=== PATIENT | male | born 1950 | race Caucasian/White ===

== ENCOUNTER → 2017-07-30 | Day surgery (SDC) | payer MEDICARE ==
[~2017-07-30] VITALS: Ht 180.3 cm; Wt 161.5 kg
[~2017-07-30] MED LIST: ASPI-586 PO; ATOR40TA PO; BLOO-1483 MC; BLOO-367 MC; BLOO1EAC87 MC; CARB-88 PO; CELE400C10 PO; CLOP75TA28 PO; GABA100C PO; INSU100I10 SQ; INSU100I14 SQ; INSU200I SQ; LIDOCAINE 1% INJ 50 ML (XYLOCAINE) VIAL ONE; LISI-556 PO; METF750T2 PO; METO-395 PO; NEED-116 MC; NITR0.4T42 SL; TOPI100T11 PO; TRAZ100T92 PO; ZONI100C3 PO
[2017-07-30 08:47] VITALS: BP 139/50
--- NOTE | 2017-07-30 10:12 | Cardiac Procedure Note-CS/ASA ---
Pre-Procedure Note Pre-Op Procedure Note H&P Reviewed The H&P was reviewed, patient examined and no changes noted. Date H&P Reviewed: Jul 30, 2017 Time H&P Reviewed: 10:00 Conscious Sedation Pre-Proced Time Reviewed: 10:00 ASA Class: 3 Airway Mallampati Classification: ([place] appropriate class) I. II. III, IV Lungs Heart ASA score ASA 1: a normal healthy patient ASA 2: a patient with a mild systemic disease (mid diabetes, controlled hypertension, obesity ASA 3: a patient with a severe systemic disease that limits activity (angina , COPD, prior Myocardial infarction) ASA 4: a patient with an incapacitating disease that is a constant threat to life (CHF, renal failure) ASA 5: a moribund patient not expected to survive 24 hrs. (ruptured aneurysm) ASA 6: a declared brain patient whose organs are being harvested. For emergent operations, add the letter E after the classification Grade 3 Sedation Plan: Analgesia, Amnesia, Plan communicated to team members, Discussed options with patient/fam, Discussed risks with patient/fam Note The patient is an appropriate candidate to undergo the planned procedure, sedation, and anesthesia. The patient immediately re-assessed prior to indication. DARBY GODDARD MD FACP FAC CCDS Jul 30, 2017 10:12
--- NOTE | 2017-07-30 14:43 | OPERATIVE REPORT ---
DATE OF SERVICE: 07/30/2017 DESCRIPTION OF THE PROCEDURE: The patient is a 66-year-old man who has been having palpitations that are infrequent. Implantable loop recorder implantation was carried out today for evaluation, diagnosis, and appropriate treatment of his palpitations. An informed consent was obtained. [facility] The left prepectoral area was prepared and draped in usual sterile fashion. Lidocaine 1% with local anesthesia. The device was implanted in the left prepectoral area and the 4th intercostal space. We used the Wipster Reveal LINQ device. The serial number of the device used is [id number]. We used the tool provided with the device to make a small incision to the left of the sternum in the fourth intercostal space and implanted the device in the subcutaneous space. Dermabond was used to oppose the skin edges. He tolerated the procedure well. Job ID: [id number] DocumentID: [id number] Dictated Date: 07/30/2017 10:07:25 Aircraft Engine Dismantler Date: 07/30/2017 14:43:02 Dictated By: DARBY GODDARD MD, MA, FACP, FACC,
== END | disposition home or self-care (01) ==
LOC: CATH 08:22
PROVIDERS: ATTEND Nurse Practitioner Family
DX: R00.2 Palpitations (principal); I25.10 Atherosclerotic heart disease of native coronary artery without angina pectoris; I10 Essential (primary) hypertension; E11.9 Type 2 diabetes mellitus without complications; G47.33 Obstructive sleep apnea (adult) (pediatric); E66.01 Morbid (severe) obesity due to excess calories; Z68.42 Body mass index [BMI] 45.0-49.9, adult; Z79.4 Long term (current) use of insulin; Z79.82 Long term (current) use of aspirin; Z79.899 Other long term (current) drug therapy; Z87.891 Personal history of nicotine dependence
CPT/HCPCS: 33282

== ENCOUNTER 2017-09-12 19:58 | Outpatient (CLI) | payer MEDICARE ==
[~2017-09-12 19:58] MED LIST changes: -LIDOCAINE 1% INJ 50 ML (XYLOCAINE) VIAL ONE
== END 2017-09-13 05:55 | disposition home or self-care (01) ==
LOC: SLEEP 19:58
PROVIDERS: ATTEND Nurse Practitioner Family
DX: G47.33 Obstructive sleep apnea (adult) (pediatric) (principal); R56.9 Unspecified convulsions; Z72.820 Sleep deprivation
CPT/HCPCS: 95811

== ENCOUNTER 2017-12-09 19:20 | Emergency (ER) | payer MEDICARE ==
[~2017-12-09] VITALS: Ht 180.3 cm; Wt 161.5 kg
[~2017-12-09 19:20] MED LIST changes: +TRAZ-190 PO; -TRAZ100T92 PO
[2017-12-09 19:41] LABS: BASOPHILS % (AUTO) 0 % (0-10); EOSINOPHILS # (AUTO) 0.2 10^3/uL (0.0-0.3); EOSINOPHILS % (AUTO) 2 % (0-10); HEMATOCRIT 42 % (40-54); HEMOGLOBIN 13.6 G/DL (13.3-17.7); LYMPHOCYTES # (AUTO) 2.5 X 10^3 (1.0-4.0); LYMPHOCYTES % (AUTO) 24 % (12-44); MEAN CORPUSCULAR HEMOGLOBIN 29 PG (25-34); MEAN CORPUSCULAR HGB CONC 33 G/DL (32-36); MEAN CORPUSCULAR VOLUME 88 FL (80-99); MEAN PLATELET VOLUME 9.5 FL (7.4-10.4); MONOCYTES % (AUTO) 9 % (0-12); NEUTROPHILS # (AUTO) 6.7 X 10^3 (1.8-7.8); NEUTROPHILS % (AUTO) 64 % (42-75); PLATELET COUNT 283 10^3/uL (130-400); RED BLOOD COUNT 4.71 10^6/uL (4.35-5.85); RED CELL DISTRIBUTION WIDTH 13.8 % (10.0-14.5); WHITE BLOOD COUNT 10.3 10^3/uL (4.3-11.0)
[2017-12-09] MEDS ORDERED: TETANUS,DIPTH,PERTUSS P/F (BOOSTRIX) 0.5 ML VIAL IM ONE (19:45)
[2017-12-09 20:00] LABS: ALBUMIN 4.3 GM/DL (3.2-4.5); BILIRUBIN,TOTAL 0.4 MG/DL (0.1-1.0); CALCIUM 9.5 MG/DL (8.5-10.1); CREATININE SERUM 1.71 MG/DL (0.60-1.30); POTASSIUM 4.4 MMOL/L (3.6-5.0); TOTAL PROTEIN 7.4 GM/DL (6.4-8.2)
--- NOTE | 2017-12-09 20:08 | ED General ---
General Chief Complaint: Lower Extremity Stated Complaint: L LEG PAIN/SWELLING/REDNESS Nursing Triage Note: C/O L lower leg pain, redness and swelling x 2 - 3 weeks Nursing Sepsis Screen: No Definite Risk Source of Information: Patient Exam Limitations: No Limitations History of Present Illness Date Seen by Provider: Dec 09, 2017 Time Seen by Provider: 19:25 Initial Comments This 67-year-old gentleman presents to the emergency room with 2-3 weeks of left lower leg pain, swelling, and edema. He had a couple of days of improvement but it has now worsened again. Temperature on arrival is 100.0. He also has an injury to the anterior left lower leg caused by a rock striking his bryson today. The other symptoms were present prior to this injury. Patient is a diabetic. Allergies and Home Medications Allergies Coded Allergies: No Known Drug Allergies (Unverified , 07/19/17) Home Medications Apixaban 5 Mg Tab.ds.pk, 5 MG PO UD 10 mg twice daily for 7 days, then 5 mg twice daily. Fill either Eliquis or Xarelto but not both. Prescribed by: RAYMUNDO SEE on 12/09/172158 Aspirin 81 Mg Tablet.dr, 81 MG PO DAILY Prescribed by: MOLLY SANCHEZ on 07/21/17 124 Atorvastatin Calcium 40 Mg Tablet, 40 MG PO HS Prescribed by: MOLLY SANCHEZ on 07/21/171239 Carbamazepine 200 Mg Tab.er.12h, 400 MG PO BID TAKES 2 (200 MG) TABLETS Prescribed by: MOLLY SANCHEZ on 07/21/17 124 Celecoxib 400 Mg Capsule, 400 MG PO DAILY Prescribed by: MOLLY SANCHEZ on 07/21/171239 Cephalexin 500 Mg Capsule, 500 MG PO TID Prescribed by: RAYMUNDO SEE on 12/09/172158 Clopidogrel Bisulfate 75 Mg Tablet, 75 MG PO DAILY Prescribed by: MOLLY SANCHEZ on 07/21/17 124 Gabapentin 100 Mg Capsule, 100 MG PO TID Prescribed by: MOLLY SANCHEZ on 07/21/17 124 Insulin Aspart 300 Units/3 Ml Solution, 40 UNITS SQ AC Prescribed by: MOLLY SANCHEZ on 07/21/17 1240 Insulin Glargine,Hum.rec.anlog 100 Unit/1 Ml Insuln.pen, 40 UNIT SQ HS Prescribed by: MOLLY SANCHEZ on 07/21/171239 Lisinopril 5 Mg Tablet, 5 MG PO DAILY@0900 Prescribed by: MOLLY SANCHEZ on 07/21/17 124 Metoprolol Succinate 100 Mg Tab.er.24h, 100 MG PO DAILY Prescribed by: MOLLY SANCHEZ on 07/21/171239 Nitroglycerin 0.4 Mg Tab.subl, 0.4 MG SL PRN PRN for CHEST PAIN, (Reported) Oxycodone HCl/Acetaminophen 1 Each Tablet, 1 EACH PO Q4H PRN for PAIN-MODERATE TO SEVERE Prescribed by: RAYMUNDO SEE on 12/09/172158 Rivaroxaban 1 Each Tab.ds.pk, 1 EACH PO UD 15mg by mouth twice daily x 21 days then 20mg by mouth daily. Fill either Xarelto or Eliquis but not both. Prescribed by: RAYMUNDO SEE on 12/09/172158 Topiramate 100 Mg Tablet, 100 MG PO BID Prescribed by: MOLLY SANCHEZ on 07/21/171239 Trazodone HCl 100 Mg Tablet, 200 MG PO HS Prescribed by: MOLLY SANCHEZ on 07/21/171239 Zonisamide 100 Mg Capsule, 300 MG PO DAILY TAKES 3 (100 MG) CAPSULES Prescribed by: MOLLY SANCHEZ on 07/21/171239 Patient Home Medication List Home Medication List Reviewed: Yes Review of Systems Constitutional: no symptoms reported EENTM: no symptoms reported Respiratory: no symptoms reported Cardiovascular: no symptoms reported Gastrointestinal: no symptoms reported Genitourinary: no symptoms reported Musculoskeletal: see HPI Skin: see HPI Psychiatric/Neurological: No Symptoms Reported Hematologic/Lymphatic: No Symptoms Reported Immunological/Allergic: no symptoms reported Past Rapwoep-Ppcmde-Fceboa Hx Past Med/Social Hx: Reviewed and Corrections made Patient Social History Alcohol Use: Denies Use Recreational Drug Use: No Smoking Status: Never a Smoker Recent Foreign Travel: No Contact w/Someone Who Travel: No Recent Infectious Disease Expo: No Recent Hopitalizations: No Immunizations Up To Date Tetanus Booster (TDap): Unknown Seasonal Allergies Seasonal Allergies: No Past Medical History Surgeries: Yes (lap band, L HIP, BILAT KNEE) Abdominal, Orthopedic Respiratory: Yes Sleep Apnea Currently Using CPAP: Yes Cardiac: Yes High Cholesterol, Hypertension Neurological: Yes Neuropathy, Stroke Genitourinary: No Gastrointestinal: Yes Gastroesophageal Reflux Musculoskeletal: Yes Arthritis Endocrine: Yes Diabetes, Insulin dep HEENT: No Cancer: No Psychosocial: No Integumentary: Yes Blood Disorders: No Physical Exam Vital Signs Vital Signs - First Documented 12/09/17 19:26 Temp 100.0 Pulse 77 Resp 18 B/P (MAP) 161/91 (114) Pulse Ox 97 Capillary Refill : Less Than 3 Seconds Height, Weight, BMI Height: 5'11.00" Weight: 356lbs. 0.0oz. 161.036945ks; 49.7 BMI Method:Stated General Appearance: No Apparent Distress, WD/WN, Obese HEENT: PERRL/EOMI, Normal ENT Inspection Neck: Normal Inspection Respiratory: Lungs Clear, Normal Breath Sounds, No Accessory Muscle Use, No Respiratory Distress Cardiovascular: Regular Rate, Rhythm, Normal Peripheral Pulses, Systolic Murmur , Other (bilateral lower extremity edema, left greater than right) Gastrointestinal: Normal Bowel Sounds, Non Tender, Soft Extremity: Normal Capillary Refill, Other (there is mild lower extremity edema bilaterally, left greater than right. Left lower leg is slightly warm with blanching erythema. Pedal pulse is strong and capillary refill is brisk. There is a scabbed wound on the anterior surface of the left lower leg) Neurologic/Psychiatric: Alert, Oriented x3, No Motor/Sensory Deficits, Normal Mood/Affect, shells inspector II-XII Norm as Tested Skin: Warm/Dry, Erythema, Other (skin tears on the left upper extremity and on the lower left leg) Progress/Results/Core Measures Suspected Sepsis Recent Fever Within 48 Hours: No Infection Criteria Present: None New/Unexplained Altered Menta: No Sepsis Screen: No Definite Risk SIRS Temperature:100.0 Pulse: 77 Respiratory Rate: 18 Laboratory Tests 12/09/17 19:30: White Blood Count 10.3 Blood Pressure 161 /91 Mean: 114 Laboratory Tests 12/09/17 19:30: Creatinine 1.71H, Platelet Count 283, Total Bilirubin 0.4 Results/Orders Lab Results Laboratory Tests Test 12/09/17 19:30 Range/Units White Blood Count 10.3 4.3-11.0 10^3/uL Red Blood Count 4.71 4.35-5.85 10^6/uL Hemoglobin 13.6 13.3-17.7 G/DL Hematocrit 42 40-54 % Mean Corpuscular Volume 88 80-99 FL Mean Corpuscular Hemoglobin 29 25-34 PG Mean Corpuscular Hemoglobin Concent 33 32-36 G/DL Red Cell Distribution Width 13.8 10.0-14.5 % Platelet Count 283 130-400 10^3/uL Mean Platelet Volume 9.5 7.4-10.4 FL Neutrophils (%) (Auto) 64 42-75 % Lymphocytes (%) (Auto) 24 12-44 % Monocytes (%) (Auto) 9 0-12 % Eosinophils (%) (Auto) 2 0-10 % Basophils (%) (Auto) 0 0-10 % Neutrophils # (Auto) 6.7 1.8-7.8 X 10^3 Lymphocytes # (Auto) 2.5 1.0-4.0 X 10^3 Monocytes # (Auto) 1.0 0.0-1.0 X 10^3 Eosinophils # (Auto) 0.2 0.0-0.3 10^3/uL Basophils # (Auto) 0.0 0.0-0.1 10^3/uL D-Dimer 1.57 H 0.00-0.49 UG/ML Sodium Level 141 135-145 MMOL/L Potassium Level 4.4 3.6-5.0 MMOL/L Chloride Level 111 H 98-107 MMOL/L Carbon Dioxide Level 21 21-32 MMOL/L Anion Gap 9 5-14 MMOL/L Blood Urea Nitrogen 26 H 7-18 MG/DL Creatinine 1.71 H 0.60-1.30 MG/DL Estimat Glomerular Filtration Rate 40 BUN/Creatinine Ratio 15 Glucose Level 95 70-105 MG/DL Calcium Level 9.5 8.5-10.1 MG/DL Total Bilirubin 0.4 0.1-1.0 MG/DL Aspartate Amino Transf (AST/SGOT) 24 5-34 U/L Alanine Aminotransferase (ALT/SGPT) 18 0-55 U/L Alkaline Phosphatase 71 40-136 U/L C-Reactive Protein High Sensitivity 1.87 H 0.00-0.50 MG/DL Total Protein 7.4 6.4-8.2 GM/DL Albumin 4.3 3.2-4.5 GM/DL My Orders Orders - RAYMUNDO NAPIER MD Cbc With Automated Diff (12/09/17 19:31) Comprehensive Metabolic Panel (12/09/17 19:31) Hs C Reactive Protein (12/09/17 19:31) Fibrin Degradation Products (12/09/17 19:31) Saline Lock/Iv-Start (12/09/17 19:31) Dipht,Pertuss(Acell),Tet Adult (Boostrix (12/09/17 19:45) Us Venous Lower Ext Lt (12/09/17 20:01) Fentanyl Injection (Sublimaze Injection (12/09/17 20:15) Hydrocodone/Apap 5/325 Tablet (Lortab 5 (12/09/17 20:15) Apixaban Tablet (Eliquis Tablet) (12/09/17 21:45) Cephalexin Capsule (Keflex Capsule) (12/09/17 21:45) Ns Iv 500 Ml (Sodium Chloride 0.9%) (12/09/17 21:43) Medications Given in ED Vital Signs/I&O Capillary Refill : Less Than 3 Seconds Blood Pressure Mean: 114 Progress Note #1: Time: 20:07 Progress Note Patient has requested something for pain. Fentanyl and hydrocodone will be given. Patient's d-dimer returned significantly elevated. CRP and WBC were unremarkable. Left lower extremity ultrasound has been ordered to further evaluate for DVT. Progress Note #2: Progress Note Ultrasound was discussed with the opto mechanical technician who believed there to be DVT in the left leg. However, the radiologist was uncertain of DVT presence. Given the patient's clinical presentation, I believe he truly does have a DVT. Patient was started on Eliquis in the ER. He was provided with printed prescriptions for both Eliquis and Xarelto so that he could obtain the prescription that would be most cost effective for him. Patient was concerned about his ability to afford the medications. We also spoke extensively about risks and benefits of anticoagulation in the context of his seizure disorder and frequent falls. He can discuss this further with his primary care provider. For now, I advised that he use anticoagulation and exercise extreme caution with his activities. Patient was given a Boostrix tetanus booster because of his skin tears. He was also provided with a prescription for Keflex due to his diabetes and edema concurrent with his skin wounds. Patient is aware of his renal failure. He was offered IV fluids but declined because he is drinking well and his urine is light in color. Diagnostic Imaging Diagonstic Imaging: Ultrasound Plain Films/CT/US/NM/MRI: leg Comments NAME: JESICA CHILDS [facility] REC#: [id number] PT STATUS: DEP ER : 1950 PHYSICIAN: RAYMUNDO NAPIER MD ADMIT DATE: 12/09/17/ER Signed Date of Exam: 12/09/17 US VENOUS LOWER EXT LT PROCEDURE: US left lower extremity venous. TECHNIQUE: Multiple real-time grayscale images were obtained over the left lower extremity in various projections. Additional duplex Doppler and color Doppler images were also obtained. INDICATION: Left lower extremity swelling and pain. FINDINGS: There is poor visualization of the mid and distal left superficial femoral vein. DVT is not fully excluded. The detail is limited due to patient body habitus. The remainder of the visualized deep and superficial venous system is patent. IMPRESSION: No obvious DVT identified. However, there is poor visualization of the left mid, distal superficial femoral vein. No obvious clot formation is present. Followup examination is recommended. Dictated by: Dictated on workstation # [id number] Dict: 12/09/172115 Trans: 12/09/172120 Interpreted by: DAR BARRON Electronically signed by: DAR BARRON 12/09/172120 ADDENDUM REPORT ADDENDUM / IMPRESSION: Additional review of the images provided demonstrate Doppler flow in the femoral artery. However, the adjacent flow demonstrates no color Doppler flow. This may represent a DVT. Followup recommended Dictated by: Dictated on workstation # [id number] Interpreted by: DAR BARRON Electronically signed by:DAR BARRON 12/10/17 190 Departure Impression Primary Impression: Left leg DVT Qualified Codes: I82.412 - Acute embolism and thrombosis of left femoral vein Additional Impressions: Left leg pain Renal insufficiency Skin tear Disposition: 01 HOME, SELF-CARE Condition: Improved Departure-Patient Inst. Decision time for Depature: 21:40 Referrals: MOLLY SANCHEZ DO (PCP/Family) Primary Care Physician Patient Instructions: Deep Vein Thrombosis (Blood Clots in the Legs) (DC) Add. Discharge Instructions: Start either Eliquis or Xarelto tomorrow morning. Avoid use of Celebrex (celecoxib) or other NSAID medications such as ibuprofen, naproxen, Aleve, etc. while on blood thinner medications. You may use hydrocodone up to 2 tablets every 4 hours as needed or change management consultant to Percocet as prescribed for control of your pain. Elevate your leg close to the level of your heart is much as possible to avoid swelling. Complete your antibiotics as prescribed. Follow-up with your primary care provider soon as possible. Please call the morning to schedule an appointment. Please have your primary care provider follow your kidney function closely and continue to drink plenty of water. All discharge instructions reviewed with patient and/or family. Voiced understanding. Scripts Oxycodone HCl/Acetaminophen (Percocet 5-325 mg Tablet) 1 Each Tablet 1 EACH PO Q4H PRN for PAIN-MODERATE TO SEVERE, #20 TAB Prov: RAYMUNDO NAPIER MD 12/09/17 Cephalexin (Keflex) 500 Mg Capsule 500 MG PO TID, #20 CAP Prov: RAYMUNDO NAPIER MD 12/09/17 Rivaroxaban (Xarelto Starter Pack) 1 Each Tab.ds.pk 1 EACH PO UD, #51 PKG 15mg by mouth twice daily x 21 days then 20mg by mouth daily. Fill either Xarelto or Eliquis but not both. Prov: RAYMUNDO NAPIER MD 12/09/17 Apixaban (Eliquis) 5 Mg Tab.ds.pk 5 MG PO UD, #1 PKG 10 mg twice daily for 7 days, then 5 mg twice daily. Fill either Eliquis or Xarelto but not both. Prov: RAYMUNDO NAPIER MD 12/09/17 Copy Copies To 1: MOLLY SANCHEZ JOSHUA T MD Dec 09, 2017 20:08
[2017-12-09] MEDS ORDERED: fentaNYL INJECTION 100 MCG/2 ML AMP IVP ONE (20:15)
[2017-12-09] MEDS ORDERED: HYDROcodone/APAP 5 MG/325 MG (LORTAB) TAB PO ONE (20:15)
--- NOTE | 2017-12-09 21:22 | Diagnostic Imaging Report ---
PROCEDURE: US left lower extremity venous. TECHNIQUE: Multiple real-time grayscale images were obtained over the left lower extremity in various projections. Additional duplex Doppler and color Doppler images were also obtained. INDICATION: Left lower extremity swelling and pain. FINDINGS: There is poor visualization of the mid and distal left superficial femoral vein. DVT is not fully excluded. The detail is limited due to patient body habitus. The remainder of the visualized deep and superficial venous system is patent. IMPRESSION: No obvious DVT identified. However, there is poor visualization of the left mid, distal superficial femoral vein. No obvious clot formation is present. Followup examination is recommended. Dictated by: Dictated on workstation # [id number]
[2017-12-09] MEDS ORDERED: NS IV 500 ML 500 ML IV ONE (21:43)
[2017-12-09] MEDS ORDERED: CEPHALEXIN 250 MG (KEFLEX) CAP PO ONE (21:45)
[2017-12-09] MEDS ORDERED: APIXABAN 5 MG (ELIQUIS) TABLET PO ONE (21:45)
[2017-12-09] MEDS ORDERED: OXYC-197 PO (21:59)
[2017-12-09] MEDS ORDERED: APIX5TAB4 PO (21:59)
[2017-12-09] MEDS ORDERED: RIVA1TAB PO (21:59)
[2017-12-09] MEDS ORDERED: CEPH-507 PO (21:59)
[2017-12-09 22:05] VITALS: BP 161/91
== END 2017-12-09 22:06 | disposition home or self-care (01) ==
LOC: EDUNIT# 19:20 → ER 19:21
DX: S81.812A Laceration without foreign body, left lower leg, initial encounter (principal); I82.402 Acute embolism and thrombosis of unspecified deep veins of left lower extremity; N28.9 Disorder of kidney and ureter, unspecified; E11.42 Type 2 diabetes mellitus with diabetic polyneuropathy; K21.9 Gastro-esophageal reflux disease without esophagitis; G47.30 Sleep apnea, unspecified; Z86.73 Personal history of transient ischemic attack (TIA), and cerebral infarction without residual deficits; Z23 Encounter for immunization; Z79.4 Long term (current) use of insulin; Z96.653 Presence of artificial knee joint, bilateral; Z96.642 Presence of left artificial hip joint; Z98.84 Bariatric surgery status; Z79.01 Long term (current) use of anticoagulants; Z79.82 Long term (current) use of aspirin; Z79.02 Long term (current) use of antithrombotics/antiplatelets; W22.8XXA Striking against or struck by other objects, initial encounter
CPT/HCPCS: 36415; 80053; 85025; 85379; 86141; 90471; 90715; 96374

== ENCOUNTER 2018-01-31 15:19 | Inpatient (IN) | payer MEDICARE ==
[~2018-01-31] VITALS: Ht 180.3 cm; Wt 150.1 kg
[~2018-01-31 15:19] MED LIST changes: +APIX5TAB4 PO; +CEPH-507 PO; +OXYC1TAB87 PO; +RIVA1TAB PO
[2018-01-31] MEDS ORDERED: DEXTROSE 50% 50 ML (IMS) SYR ONE ×2 (15:20→16:04)
--- NOTE | 2018-01-31 15:40 | Diagnostic Imaging Report ---
CLINICAL INDICATION: Patient with stroke. EXAM: Portable chest x-ray upright view. COMPARISONS: Chest x-ray dated 07/19/2017. FINDINGS: Lungs/pleura: Lungs are clear. There is no pneumothorax. There is no pleural effusion. Mediastinum: Unremarkable. Pulmonary vasculature: Unremarkable. Heart: Cardiac silhouette is mildly enlarged, stable. There is interval placement of a loop recorder overlying the left chest region. Bones/extrathoracic soft tissue: Unremarkable. IMPRESSION: 1: There is no interval radiographic evidence of acute cardiopulmonary process. 2: Stable cardiomegaly with no significant pulmonary vascular congestion. Dictated by: Dictated on workstation # [id number]
--- NOTE | 2018-01-31 15:40 | Diagnostic Imaging Report ---
INDICATION: Stroke. Axial imaging through the brain was performed without contrast. No prior studies are available for comparison. Ventricles and sulci are within normal limits. No sulcal effacement, midline shift or hemorrhage is detected. Cisterns are patent. Visualized paranasal sinuses are clear. IMPRESSION: No acute intracranial process is detected. Results were called to the emergency department prior to this dictation. Dictated by: Dictated on workstation # [id number]
[2018-01-31 15:51] LABS: BASOPHILS % (AUTO) 0 % (0-10); EOSINOPHILS % (AUTO) 0 % (0-10); HEMATOCRIT 44 % (40-54); HEMOGLOBIN 14.7 G/DL (13.3-17.7); LYMPHOCYTES # (AUTO) 0.5 X 10^3 (1.0-4.0); LYMPHOCYTES % (AUTO) 4 % (12-44); MEAN CORPUSCULAR HEMOGLOBIN 30 PG (25-34); MEAN CORPUSCULAR HGB CONC 34 G/DL (32-36); MEAN CORPUSCULAR VOLUME 88 FL (80-99); MEAN PLATELET VOLUME 9.9 FL (7.4-10.4); MONOCYTES # (AUTO) 0.8 X 10^3 (0.0-1.0); MONOCYTES % (AUTO) 6 % (0-12); NEUTROPHILS # (AUTO) 11.6 X 10^3 (1.8-7.8); NEUTROPHILS % (AUTO) 90 % (42-75); PLATELET COUNT 230 10^3/uL (130-400); RED BLOOD COUNT 4.97 10^6/uL (4.35-5.85); RED CELL DISTRIBUTION WIDTH 13.6 % (10.0-14.5); WHITE BLOOD COUNT 12.9 10^3/uL (4.3-11.0)
[2018-01-31 16:10] LABS: ALANINE AMINOTRANSFERASE 18 U/L (0-55); ALBUMIN 4.2 GM/DL (3.2-4.5); ALKALINE PHOSPHATASE 62 U/L (40-136); BILIRUBIN,TOTAL 0.2 MG/DL (0.1-1.0); BUN/CREATININE RATIO 13; CALCIUM 9.3 MG/DL (8.5-10.1); CARBON DIOXIDE 18 MMOL/L (21-32); CHLORIDE 107 MMOL/L (98-107); CREATININE SERUM 1.35 MG/DL (0.60-1.30); FIBRIN DEGRADATION PRODUCTS 1.25 UG/ML (0.00-0.49); GFR ESTIMATED 53; GLUCOSE 108 MG/DL (70-105); INR 1.2 (0.8-1.4); POTASSIUM 3.6 MMOL/L (3.6-5.0); PROTHROMBIN TIME PATIENT 14.7 SEC (12.2-14.7); SODIUM 138 MMOL/L (135-145); TOTAL PROTEIN 7.4 GM/DL (6.4-8.2)
[2018-01-31] MEDS ORDERED: DEXTROSE 50% 50 ML (IMS) SYR IV ONE ×2 (16:15→17:45)
[2018-01-31 16:49] LABS: BILIRUBIN,URINE NEGATIVE (NEGATIVE); CLARITY,URINE CLEAR; COLOR,URINE YELLOW; GLUCOSE, URINE (UA) 2+ (NEGATIVE); KETONES,URINE NEGATIVE (NEGATIVE); LEUKOCYTE ESTERASE ,URINE 2+ (NEGATIVE); NITRITE,URINE NEGATIVE (NEGATIVE); PH,URINE 5 (5-9); PROTEIN,URINE NEGATIVE (NEGATIVE); UROBILINOGEN,URINE NORMAL (NORMAL)
[2018-01-31] MEDS ORDERED: NS IV 1000 ML 1,000 ML IV ONE (16:56)
[2018-01-31 16:57] LABS: BAND NEUTROPHILS 0 %; BASOPHILS % (MANUAL) 0 %; EOSINOPHILS % (MANUAL) 0 %; LYMPHOCYTES % (MANUAL) 6 %; MONOCYTES % (MANUAL) 3 %; NEUTROPHILS % (MANUAL) 91 %; RBC MORPH NORMAL
[2018-01-31] MEDS ORDERED: NS 250 ML (IVPB) BAG IV ONE (17:00)
[2018-01-31] MEDS ORDERED: IOHEXOL 350 MG/ML 100 ML (OMNIPAQUE 350) VIAL IV ONE (17:00)
[2018-01-31 17:14] LABS: BACTERIA,URINE NEGATIVE /HPF; WBC,URINE 0-2 /HPF
[2018-01-31] MEDS ORDERED: D5 1/2 NS 1000 ML IV SOLUTION 1,000 ML IV ONE (17:45)
--- NOTE | 2018-01-31 18:53 | Diagnostic Imaging Report ---
PROCEDURE: CT angiography of the head and CT angiography of the neck with and without contrast. TECHNIQUE: Contiguous noncontrast images were obtained from the skull base through the vertex. After intravenous contrast administration, helical CT angiography of the neck was performed. Source data was reformatted into multiple MIP projections. Delayed post contrast acquisition was also obtained. INDICATION: Stroke. COMPARISON: CT head without contrast from earlier today. FINDINGS: Noncontrast head CT was not repeated. There remains no evidence of territorial infarction on the postcontrast head CT. No gross intracranial hemorrhage. No hydrocephalus or extra-axial fluid collections. No abnormal intracranial enhancement. CTA demonstrates a conventional aortic arch. Calcified atherosclerotic disease results in approximately 50% narrowing of the right vertebral artery at the level of the foramen magnum. The basilar, left vertebral, internal carotid, anterior cerebral, middle cerebral and posterior cerebral arteries are widely patent without evidence of aneurysm or dissection. The dural venous sinuses are grossly patent. Moderate spondylotic changes in the cervical spine. Paravertebral soft tissues are otherwise unremarkable. The lung apices are clear. IMPRESSION: 1. No high-grade arterial narrowing, aneurysm or dissection involving the major arteries in the head and neck. 2. Focal calcified atherosclerotic disease in the right vertebral artery results in approximately 50% narrowing at the level of the foramen magnum. Dictated by: Dictated on workstation # [id number]
--- NOTE | 2018-01-31 20:24 | ED Neurological Problem ---
General Chief Complaint: Neuro-Stroke Like Symptoms Stated Complaint: APHASIA,L SIDED WEAKNESS,HYPOGLYCEMIA Nursing Triage Note: Pt arrives to the ED and is transferred to CT Scan. Per EMS, Pt is not able to speak. Lsided weakness present. Pt's last known well time is not known. Pt is A&OX4 but is unable to speak to this RN. Pt is able to blink eyes in response. Nursing Sepsis Screen: No Definite Risk Source: patient, EMS Exam Limitations: no limitations History of Present Illness Date Seen by Provider: Jan 31, 2018 Time Seen by Provider: 15:19 Initial Comments This 67-year-old gentleman presents to the emergency room with altered mental status, a phase eat, left-sided weakness, and hypoglycemia. Patient's reports he was in bed most of the morning. She had not seen him up and about since last night. She states it is unusual for him to stay in bed so much of the day. A grandson did note that the patient got out of bed, woke him up, and administered him medications around 09:00. The patient's found him in the bathroom at 14:00 making unusual noises. He was unable to talk and seemed to have difficulty understanding her. That is when she checked his blood sugars and called 911. Last known well time is considered 09:00. Blood sugars at home for family were 34 and 27. Patient's did give him some peanut butter and apple juice. Blood sugar was 47 for EMS upon their arrival. They did give an amp of D50 and repeat blood sugar was 175. Blood sugar on arrival to the emergency room was 121. Stroke activation was paged out promptly upon patient' s arrival and he was taken directly to CT scan. Patient has a history of prior stroke causing symptoms on the left side. Those symptoms have primarily resolved. Patient is normally fully ambulatory and conversant. EMS was paged out at 14:30. They noted left-sided weakness in the face and arm. Patient is anticoagulated on Eliquis. Dr. Sanchez is his primary care provider. Allergies and Home Medications Allergies Coded Allergies: No Known Drug Allergies (Unverified , 07/19/17) Home Medications Apixaban 5 Mg Tab.ds.pk, 5 MG PO UD 10 mg twice daily for 7 days, then 5 mg twice daily. Fill either Eliquis or Xarelto but not both. Prescribed by: RAYMUNDO SEE on 12/09/172158 Aspirin 81 Mg Tablet.dr, 81 MG PO DAILY Prescribed by: MOLLY SANCHEZ on 07/21/171239 Atorvastatin Calcium 40 Mg Tablet, 40 MG PO HS Prescribed by: MOLLY SANCHEZ on 07/21/171239 Carbamazepine 200 Mg Tab.er.12h, 400 MG PO BID TAKES 2 (200 MG) TABLETS Prescribed by: MOLLY SANCHEZ on 07/21/171239 Celecoxib 400 Mg Capsule, 400 MG PO DAILY Prescribed by: MOLLY SANCHEZ on 07/21/171239 Cephalexin 500 Mg Capsule, 500 MG PO TID Prescribed by: RAYMUNDO SEE on 12/09/172158 Clopidogrel Bisulfate 75 Mg Tablet, 75 MG PO DAILY Prescribed by: MOLLY SANCHEZ on 07/21/171239 Gabapentin 100 Mg Capsule, 100 MG PO TID Prescribed by: MOLLY SANCHEZ on 07/21/171239 Insulin Aspart 300 Units/3 Ml Solution, 40 UNITS SQ AC Prescribed by: MOLLY SANCHEZ on 07/21/171239 Insulin Glargine,Hum.rec.anlog 100 Unit/1 Ml Insuln.pen, 40 UNIT SQ HS Prescribed by: MOLLY SANCHEZ on 07/21/171239 Lisinopril 5 Mg Tablet, 5 MG PO DAILY@0900 Prescribed by: MOLLY SANCHEZ on 07/21/171239 Metoprolol Succinate 100 Mg Tab.er.24h, 100 MG PO DAILY Prescribed by: MOLLY SANCHEZ on 07/21/171239 Nitroglycerin 0.4 Mg Tab.subl, 0.4 MG SL PRN PRN for CHEST PAIN, (Reported) Oxycodone HCl/Acetaminophen 1 Each Tablet, 1 EACH PO Q4H PRN for PAIN-MODERATE TO SEVERE Prescribed by: RAYMUNDO SEE on 12/09/172158 Rivaroxaban 1 Each Tab.ds.pk, 1 EACH PO UD 15mg by mouth twice daily x 21 days then 20mg by mouth daily. Fill either Xarelto or Eliquis but not both. Prescribed by: RAYMUNDO SEE on 12/09/172158 Topiramate 100 Mg Tablet, 100 MG PO BID Prescribed by: MOLLY SANCHEZ on 07/21/17 1240 Trazodone HCl 100 Mg Tablet, 200 MG PO HS Prescribed by: MOLLY SANCHEZ on 07/21/17 1240 Zonisamide 100 Mg Capsule, 300 MG PO DAILY TAKES 3 (100 MG) CAPSULES Prescribed by: MOLLY SANCHEZ on 07/21/17 1240 Patient Home Medication List Home Medication List Reviewed: Yes Review of Systems Review of Systems Constitutional: see HPI Eyes: No Symptoms Reported Ears, Nose, Mouth, Throat: no symptoms reported Respiratory: no symptoms reported Cardiovascular: no symptoms reported Gastrointestinal: no symptoms reported Genitourinary: no symptoms reported Musculoskeletal: no symptoms reported Skin: no symptoms reported Psychiatric/Neurological: See HPI Endocrine: See HPI Hematologic/Lymphatic: No Symptoms Reported Past Dpjjuby-Kizcit-Ikiyea Hx Past Med/Social Hx: Reviewed Nursing Past Med/Soc Hx Patient Social History Alcohol Use: Denies Use Recreational Drug Use: No Smoking Status: Unknown if Ever Smoked 2nd Hand Smoke Exposure: No Recent Foreign Travel: No Contact w/Someone Who Travel: No Recent Infectious Disease Expo: No Recent Hopitalizations: No Physical Abuse: No Sexual Abuse: No Mistreated: No Fear: No Immunizations Up To Date Tetanus Booster (TDap): Unknown Seasonal Allergies Seasonal Allergies: No Past Medical History Surgeries: Yes (lap band, L HIP, BILAT KNEE) Abdominal, Orthopedic Respiratory: Yes Sleep Apnea Currently Using CPAP: Yes Cardiac: Yes Deep Vein Thrombosis, High Cholesterol, Hypertension Neurological: Yes Neuropathy, Stroke Genitourinary: No Gastrointestinal: Yes Gastroesophageal Reflux Musculoskeletal: Yes Arthritis Endocrine: Yes Diabetes, Insulin dep HEENT: No Cancer: No Psychosocial: No Integumentary: Yes Blood Disorders: No Physical Exam Vital Signs Vital Signs - First Documented 01/31/18 15:20 Temp 98.2 Pulse 70 Resp 14 B/P (MAP) 153/76 (101) Pulse Ox 99 O2 Delivery Nasal Cannula O2 Flow Rate 2.00 Capillary Refill : Less Than 3 Seconds Height, Weight, BMI Height: 5'11.00" Weight: 356lbs. 0.0oz. 161.489885zw; 49.7 BMI Method:Stated General Appearance: WD/WN, no apparent distress HEENT: PERRL/EOMI, normal ENT inspection Neck: normal inspection Respiratory: lungs clear, normal breath sounds, no respiratory distress, no accessory muscle use Cardiovascular: regular rate, rhythm, no edema, no murmur Gastrointestinal: soft Extremities: normal inspection, other (See NIH stroke score) Neurologic/Psychiatric: motor weakness Crainal Nerves: normal hearing, PERRL, abnormal speech Motor/Sensory: weak motor strength LUE, weak motor strength LLE Skin: normal color, warm/dry Stroke NIH Stroke Scale Assessment Select: Initial Level of Consciousness: 1=Aroused by mild stimuli (1), Level of Consciousness-Questions: 2=Answer neither question (2), LOC Commands: 0= Performs both tasks (0), Visual Delgado: 0=No visual loss (0), Facial Movement ( Facial Paresis): 0=Normal symmetrical mnt (0), Motor Function-Arms Right: 0=No drift (0), Motor Function-Arms Left: 2=Some effort/gravity (2), Motor Function- Legs Right: 0=No drift (0), Motor Function-Legs Left: 2=Some effort/gravity (2) , Limb Ataxia: 0=Absent (0), Sensory: 0=Normal:no loss (0), Best Language: 2= Severe aphasia (2), Dysarthria: 2=Severe dysarthria (2), Extinction & Inattention: 0=No abnormality (0), Total: 11 Progress/Results/Core Measures Results/Orders Lab Results Laboratory Tests Test 01/31/18 15:35 01/31/18 15:54 01/31/18 16:04 01/31/18 17:31 Range/Units White Blood Count 12.9 H 4.3-11.0 10^3/uL Red Blood Count 4.97 4.35-5.85 10^6/uL Hemoglobin 14.7 13.3-17.7 G/DL Hematocrit 44 40-54 % Mean Corpuscular Volume 88 80-99 FL Mean Corpuscular Hemoglobin 30 25-34 PG Mean Corpuscular Hemoglobin Concent 34 32-36 G/DL Red Cell Distribution Width 13.6 10.0-14.5 % Platelet Count 230 130-400 10^3/uL Mean Platelet Volume 9.9 7.4-10.4 FL Neutrophils (%) (Auto) 90 H 42-75 % Lymphocytes (%) (Auto) 4 L 12-44 % Monocytes (%) (Auto) 6 0-12 % Eosinophils (%) (Auto) 0 0-10 % Basophils (%) (Auto) 0 0-10 % Neutrophils # (Auto) 11.6 H 1.8-7.8 X 10^3 Lymphocytes # (Auto) 0.5 L 1.0-4.0 X 10^3 Monocytes # (Auto) 0.8 0.0-1.0 X 10^3 Eosinophils # (Auto) 0.0 0.0-0.3 10^3/uL Basophils # (Auto) 0.0 0.0-0.1 10^3/uL Neutrophils % (Manual) 91 % Lymphocytes % (Manual) 6 % Monocytes % (Manual) 3 % Eosinophils % (Manual) 0 % Basophils % (Manual) 0 % Band Neutrophils 0 % Blood Morphology Comment NORMAL Prothrombin Time 14.7 12.2-14.7 SEC INR Comment 1.2 0.8-1.4 Activated Partial Thromboplast Time 25 24-35 SEC D-Dimer 1.25 H 0.00-0.49 UG/ML Sodium Level 138 135-145 MMOL/L Potassium Level 3.6 3.6-5.0 MMOL/L Chloride Level 107 98-107 MMOL/L Carbon Dioxide Level 18 L 21-32 MMOL/L Anion Gap 13 5-14 MMOL/L Blood Urea Nitrogen 18 7-18 MG/DL Creatinine 1.35 H 0.60-1.30 MG/DL Estimat Glomerular Filtration Rate 53 BUN/Creatinine Ratio 13 Glucose Level 108 H 70-105 MG/DL Calcium Level 9.3 8.5-10.1 MG/DL Corrected Calcium 9.1 8.5-10.1 MG/DL Total Bilirubin 0.2 0.1-1.0 MG/DL Aspartate Amino Transf (AST/SGOT) 19 5-34 U/L Alanine Aminotransferase (ALT/SGPT) 18 0-55 U/L Alkaline Phosphatase 62 40-136 U/L Troponin I < 0.30 <0.30 NG/ML Total Protein 7.4 6.4-8.2 GM/DL Albumin 4.2 3.2-4.5 GM/DL Urine Color YELLOW Urine Clarity CLEAR Urine pH 5 5-9 Urine Specific [place] 1.010 L 1.016-1.022 Urine Protein NEGATIVE NEGATIVE Urine Glucose (UA) 2+ H NEGATIVE Urine Ketones NEGATIVE NEGATIVE Urine Nitrite NEGATIVE NEGATIVE Urine Bilirubin NEGATIVE NEGATIVE Urine Urobilinogen NORMAL NORMAL MG/DL Urine Leukocyte Esterase 2+ H NEGATIVE Urine RBC (Auto) NEGATIVE NEGATIVE Urine RBC NONE /HPF Urine WBC 0-2 /HPF Urine Squamous Epithelial Cells 2-5 /HPF Urine Crystals NONE /LPF Urine Bacteria NEGATIVE /HPF Urine Casts NONE /LPF Urine Mucus NEGATIVE /LPF Urine Culture Indicated NO Glucometer 84 78 70-110 MG/DL My Orders Orders - RAYMUNDO NAPIER MD D50w (Emergency) Syringe (Dextrose 50% 5 (01/31/18 15:20) Ct Head Wo-R/O Stroke (01/31/18 15:25) Chest 1 View, Ap/Pa Only (01/31/18 15:25) Cbc With Automated Diff (01/31/18 15:44) Protime With Inr (01/31/18 15:44) Partial Thromboplastin Time (01/31/18 15:44) Comprehensive Metabolic Panel (01/31/18 15:44) Fibrin Degradation Products (01/31/18 15:44) Troponin I (01/31/18 15:44) Ua Culture If Indicated (01/31/18 15:44) Ekg Tracing (01/31/18 15:44) Nothing By Mouth (01/31/18 Dinner) Accucheck Stat ONCE (01/31/18 15:44) Saline Lock/Iv-Start (01/31/18 15:44) Saline Lock/Iv-Start (01/31/18 15:44) Vital Signs Stroke Patient Q15M (01/31/18 15:44) O2 (01/31/18 15:44) Intake & Output 06,14,22 (01/31/18 15:44) Monitor-Rhythm Ecg Trace Only (01/31/18 15:44) Dysphagia Screening Tool (01/31/18 15:44) Post Thrombolytic Adminstratio (01/31/18 15:44) Lipid Panel (02/01/18 06:00) Manual Differential (01/31/18 15:35) Accucheck Stat ONCE (01/31/18 16:05) D50w (Emergency) Syringe (Dextrose 50% 5 (01/31/18 16:15) D50w (Emergency) Syringe (Dextrose 50% 5 (01/31/18 16:04) Ct Angio Head/Neck (01/31/18 16:56) Saline Lock/Iv-Start (01/31/18 16:56) Ns Iv 1000 Ml (Sodium Chloride 0.9%) (01/31/18 16:56) Iohexol Injection (Omnipaque 350 Mg/Ml 1 (01/31/18 17:00) Pharmacy Communication (Pharmacy Communi (01/31/18 17:00) Ns (Ivpb) (Sodium Chloride 0.9%) (01/31/18 17:00) D50w (Emergency) Syringe (Dextrose 50% 5 (01/31/18 17:45) D5 1/2 Ns 1000 Ml Iv Solution (Dextrose (01/31/18 17:45) Medications Given in ED Vital Signs/I&O 01/31/18 01/31/18 15:20 15:35 Temp 98.2 Pulse 70 Resp 14 B/P (MAP) 153/76 (101) Pulse Ox 99 96 O2 Delivery Nasal Cannula Nasal Cannula O2 Flow Rate 2.00 2.00 Blood Pressure Mean: 101 FSBG Bedside Testing Finger Stick Blood Glucose: 122 Progress Progress Note : Progress Note Stroke activation was paged and patient was taken immediately to CT scan. CT revealed no masses, hemorrhage, or other acute abnormality. Patient was not a TPA candidate as he was more than 4.5 hours out from last known well time and he is presently anticoagulated on Eliquis. Symptoms did improve throughout his ER stay. He had mild weakness of the left extremities at the time of admission and he was able to speak in some full sentences without difficulty. He did pass his dysphagia screen as well. Dr. Blackman, stroke neurologist at [facility] , was consulted at 16:50. She had recommended CT angiogram of the head and neck to rule out a large vessel occlusion that could be treated intravascularly. CT angiogram was unremarkable except for some atherosclerotic disease in the right vertebral artery. Patient had a 45 second seizure during his ER stay that did not require treatment. This was discussed with Dr. Blackman. She advised no further treatment for seizures at this time as he is already on multiple antiseizure medications. We did fight hypoglycemia throughout his ER stay. He had blood sugars of 84, 78, and 70. He received multiple doses of D50. D5 half-normal saline was hung at 150 mL per hour to help prevent hypoglycemia. Since patient passed his dysphagia screen, he was allowed to drink clear liquids and began drinking juice prior to admission. Patient was already anticoagulated with Eliquis, and he also takes aspirin and Plavix. Therefore no further anticoagulation or antiplatelet therapy was administered. Patient reported he did already take his morning medications Initial ECG Impression Date: Jan 31, 2018 Initial ECG Impression Time: 15:44 Initial ECG Rate: 73 Initial ECG Rhythm: Normal Sinus Comment Sinus rhythm with no ST elevation or depression. No abnormal intervals or axis deviation. Diagnostic Imaging Diagonstic Imaging: CT Plain Films/CT/US/NM/MRI: head Comments CT head viewed by me and report reviewed. See report below: NAME: JESICA [facility]ILDS [facility] REC#: [id number] PT STATUS: REG ER : 1950 PHYSICIAN: RAYMUNDO NAPIER MD ADMIT DATE: 01/31/18/ER Signed Date of Exam: 01/31/18 CT HEAD WO-R/O STROKE INDICATION: Stroke. Axial imaging through the brain was performed without contrast. No prior studies are available for comparison. Ventricles and sulci are within normal limits. No sulcal effacement, midline shift or hemorrhage is detected. Cisterns are patent. Visualized paranasal sinuses are clear. IMPRESSION: No acute intracranial process is detected. Results were called to the emergency department prior to this dictation. Dictated by: Dictated on workstation # [id number] Dict: 01/31/18 1534 Trans: 01/31/18 1546 Interpreted by: RAFAEL MINA MD Electronically signed by: RAFAEL MINA MD 01/31/18 1546 Diagonstic Imaging: Xray Plain Films/CT/US/NM/MRI: chest Comments NAME: JESICA [facility]IL[facility] REC#: [id number] PT STATUS: REG ER : 1950 PHYSICIAN: RAYMUNDO NAPIER MD ADMIT DATE: 01/31/18/ER Signed Date of Exam: 01/31/18 CHEST 1 VIEW, AP/PA ONLY CLINICAL INDICATION: Patient with stroke. EXAM: Portable chest x-ray upright view. COMPARISONS: Chest x-ray dated 07/19/2017. FINDINGS: Lungs/pleura: Lungs are clear. There is no pneumothorax. There is no pleural effusion. Mediastinum: Unremarkable. Pulmonary vasculature: Unremarkable. Heart: Cardiac silhouette is mildly enlarged, stable. There is interval placement of a loop recorder overlying the left chest region. Bones/extrathoracic soft tissue: Unremarkable. IMPRESSION: 1: There is no interval radiographic evidence of acute cardiopulmonary process. 2: Stable cardiomegaly with no significant pulmonary vascular congestion. Dictated by: Dictated on workstation # [id number] Dict: 01/31/18 1537 Trans: 01/31/181715 Interpreted by: CYNDEE BLANDON MD Electronically signed by: CYNDEE BLANDON MD 01/31/181715 Diagonstic Imaging: CT Plain Films/CT/US/NM/MRI: other (angiogram head and neck) Comments CT angiogram head and neck viewed by me and report reviewed. See report below: NAME: JESIAC [facility]IL[facility] REC#: [id number] PT STATUS: REG ER : 1950 PHYSICIAN: RAYMUNDO NAPIER MD ADMIT DATE: 01/31/18/ER Signed Date of Exam: 01/31/18 CT ANGIO HEAD/NECK PROCEDURE: CT angiography of the head and CT angiography of the neck with and without contrast. TECHNIQUE: Contiguous noncontrast images were obtained from the skull base through the vertex. After intravenous contrast administration, helical CT angiography of the neck was performed. Source data was reformatted into multiple MIP projections. Delayed post contrast acquisition was also obtained. INDICATION: Stroke. COMPARISON: CT head without contrast from earlier today. FINDINGS: Noncontrast head CT was not repeated. There remains no evidence of territorial infarction on the postcontrast head CT. No gross intracranial hemorrhage. No hydrocephalus or extra-axial fluid collections. No abnormal intracranial enhancement. CTA demonstrates a conventional aortic arch. Calcified atherosclerotic disease results in approximately 50% narrowing of the right vertebral artery at the level of the foramen magnum. The basilar, left vertebral, internal carotid, anterior cerebral, middle cerebral and posterior cerebral arteries are widely patent without evidence of aneurysm or dissection. The dural venous sinuses are grossly patent. Moderate spondylotic changes in the cervical spine. Paravertebral soft tissues are otherwise unremarkable. The lung apices are clear. IMPRESSION: 1. No high-grade arterial narrowing, aneurysm or dissection involving the major arteries in the head and neck. 2. Focal calcified atherosclerotic disease in the right vertebral artery results in approximately 50% narrowing at the level of the foramen magnum. Dictated by: Dictated on workstation # [id number] Dict: 01/31/18 183 Trans: 01/31/181906 Interpreted by: YENNY KLEIN MD Electronically signed by: YENNY KLEIN MD 01/31/181906 Departure Communication (Admissions) Time/Spoke to Admitting Phy: 19:30 Dr. Payton Impression Primary Impression: Expressive aphasia Additional Impressions: Left-sided weakness Hypoglycemia Seizure Disposition: ADMITTED INPATIENT Condition: Improved Admissions Decision to Admit Reason: Admit from ER (General) Decision to Admit/Date: Jan 31, 2018 Time/Decision to Admit Time: 16:55 Departure-Patient Inst. Referrals: MOLLY SANCHEZ DO (PCP/Family) Primary Care Physician RAYMUNDO NAPIER MD Jan 31, 2018 20:24
[2018-01-31 20:45] VITALS: BP 187/143
[2018-01-31 21:00] VITALS: BP 162/84
[2018-01-31 21:15] VITALS: BP 167/92
[2018-01-31 21:30] VITALS: BP 161/87
[2018-01-31] MEDS ORDERED: ONDANSETRON 4 MG/2 ML (SDV) Z0FRAN IV PRN (21:30)
[2018-01-31] MEDS ORDERED: LORazepam INJ 2 MG/ML (ATIVAN) VIAL IV PRN (21:30)
[2018-01-31 21:45] VITALS: BP 156/86
[2018-01-31 22:00] VITALS: BP 156/82
[2018-02-01] VITALS (12 sets, daily range): BP systolic 139–158; BP diastolic 73–92
[2018-02-01] MEDS: D5 NS 1000 ML IV SOLUTION 1,000 ML IV SCH ×3 (02:25→08:51)
[2018-02-01 04:24] LABS: BASOPHILS % (AUTO) 0 % (0-10); EOSINOPHILS # (AUTO) 0.1 10^3/uL (0.0-0.3); EOSINOPHILS % (AUTO) 1 % (0-10); HEMATOCRIT 41 % (40-54); HEMOGLOBIN 13.7 G/DL (13.3-17.7); LYMPHOCYTES # (AUTO) 1.4 X 10^3 (1.0-4.0); LYMPHOCYTES % (AUTO) 14 % (12-44); MEAN CORPUSCULAR HEMOGLOBIN 29 PG (25-34); MEAN CORPUSCULAR HGB CONC 33 G/DL (32-36); MEAN CORPUSCULAR VOLUME 87 FL (80-99); MEAN PLATELET VOLUME 9.3 FL (7.4-10.4); MONOCYTES # (AUTO) 0.8 X 10^3 (0.0-1.0); MONOCYTES % (AUTO) 9 % (0-12); NEUTROPHILS # (AUTO) 7.4 X 10^3 (1.8-7.8); NEUTROPHILS % (AUTO) 76 % (42-75); PLATELET COUNT 247 10^3/uL (130-400); RED BLOOD COUNT 4.73 10^6/uL (4.35-5.85); RED CELL DISTRIBUTION WIDTH 13.7 % (10.0-14.5); WHITE BLOOD COUNT 9.8 10^3/uL (4.3-11.0)
[2018-02-01 04:41] LABS: CHOLESTEROL 154 MG/DL (< 200); HDL CHOLESTEROL 42 MG/DL (40-60); TRIGLYCERIDES 151 MG/DL (<150); VLDL CHOLESTEROL 30 MG/DL (5-40)
[2018-02-01 05:00] LABS: ALANINE AMINOTRANSFERASE 17 U/L (0-55); ALBUMIN 3.9 GM/DL (3.2-4.5); ALKALINE PHOSPHATASE 55 U/L (40-136); BILIRUBIN,TOTAL 0.3 MG/DL (0.1-1.0); BUN/CREATININE RATIO 12; CALCIUM 8.6 MG/DL (8.5-10.1); CARBON DIOXIDE 19 MMOL/L (21-32); CHLORIDE 109 MMOL/L (98-107); CREATININE SERUM 1.12 MG/DL (0.60-1.30); GFR ESTIMATED > 60; GLUCOSE 122 MG/DL (70-105); POTASSIUM 4.1 MMOL/L (3.6-5.0); SODIUM 138 MMOL/L (135-145); TOTAL PROTEIN 6.6 GM/DL (6.4-8.2)
[2018-02-01 05:07] LABS: BUN/CREATININE RATIO 13; CALCIUM 8.4 MG/DL (8.5-10.1); CARBON DIOXIDE 19 MMOL/L (21-32); CHLORIDE 109 MMOL/L (98-107); CREATININE SERUM 1.08 MG/DL (0.60-1.30); GFR ESTIMATED > 60; GLUCOSE 121 MG/DL (70-105); MAGNESIUM 2.4 MG/DL (1.8-2.4); PHOSPHORUS 3.2 MG/DL (2.3-4.7); POTASSIUM 4.3 MMOL/L (3.6-5.0); SODIUM 138 MMOL/L (135-145)
[2018-02-01] MEDS ORDERED: MAGNESIUM 1 GM/100 ML IVPB 100 ML IV SCH (06:00)
[2018-02-01] MEDS ORDERED: KCL 20 MEQ TAB (K-DUR) PO SCH (06:00)
[2018-02-01] MEDS ORDERED: POTASSIUM CL 10MEQ/50ML IVPB 50 ML IV SCH (06:00)
[2018-02-01] MEDS ORDERED: APIXABAN 5 MG (ELIQUIS) TABLET PO SCH (09:00)
--- NOTE | 2018-02-01 10:31 | Occupational Therapy Eval ---
OT Evaluation-General/PLF Medical Diagnosis Admission Date Jan 31, 2018 at 19:49 Medical Diagnosis: stroke-like symptoms Onset Date: Jan 31, 2018 Therapy Diagnosis Therapy Diagnosis: decreased self care skills Height/Weight Height (Feet): 5 Height (Inches): 11.00 Weight (Pounds): 356 Weight (Ounces): 0.0 Precautions Precautions/Isolations: Seizure, Fall Prevention, Standard Precautions Safety Interventions: Bed Exit Alarm Referral Physician: Fito Medical History Pertinent Medical History: Arthritis, CVA, DM, GERD, HTN, Neuropathy Additional Medical History DVT, high cholesterol, Current History Pt presented to ED with aphasia, left side weakness, and hypoglycemia. Pt states symptoms have improved since admission. Social History Home: Single Level Current Living Status: Spouse ADL-Prior Level of Function ADL PLOF Comments Pt reports being independent prior to admission. States he has a walker and cane , but does not use them. OT Current Status Subjective Pt in bed with RN present, requesting to use restroom. Mental Status/Objective Patient Orientation: Person, Place Attachments: IV Current Hand Dominance: Right Upper Extremity ROM Right UE grossly WFL Left UE has slow movements and decreased active shoulder ROM Upper Extremity Coordination diminished left UE ADL-Treatment ADL-Current Pt supine to sit with minimal assistance. Pt refused to wear slipper socks, stating "I won't fall." Pt transferred to toilet with minimal assistance with OT and RN present for safety. Pt able to complete toileting hygiene, required assist for balance during clothing management. Pt washed hands and face with washcloth with set up. Pt resting in bed with needs met after session. Functional [place] Measure 0=Not Assessed/NA 4=Minimal Assistance 1=Total Assistance 5=Supervision or Setup 2=Maximal Assistance 6=Modified [place] 3=Moderate Assistance 7=Complete IndependenceIRFPAI Quality Coding Scale 6 Independent with activity with or without an assistive device 5 Patient requires set up or clean up by helper. Patient completes activity by themselves 4 Supervision or touching assist (CGA). [place] provide cues , steadying assist 3 The helper provides less than half the effort to complete the activity 2 The helper provides more than half the effort to complete the activity 1 Dependent. The helper does all the effort to complete an activity 7 Patient refused to complete or attempt activity 9 The patient did not perform the activity before the current illness or injury 88 Not attempted due to Medical conditions or safety concerns Grooming (FIM): 5 Toileting (FIM): 4 Toilet/Commode Transfer (FIM): 4 Education OT Patient Education: Rehab process Teaching Recipient: Patient Teaching Methods: Discussion Response to Teaching: Reinforcement Needed OT Short Term Goals Short Term Goals 1=Demonstrate adherence to instructed precautions during ADL tasks. 2=Patient will verbalize/demonstrate understanding of assistive devices/ modifications for ADL. 3=Patient will improve strength/tolerance for activity to enable patient to perform ADL's. OT Retail Visual Merchandiser Goals [facility] Goals Time Frame: Feb 15, 2018 Eating (FIM): 6 Grooming(FIM): 6 Upper Body Dressing(FIM): 6 Lower Body Dressing(FIM): 5 Toileting(FIM): 6 Toilet/Commode Transfer(FIM): 6 Additional Goals: 2-Verbalize Understanding, 3-ImproveStrength/[place] 1=Demonstrate adherence to instructed precautions during ADL tasks. 2=Patient will verbalize/demonstrate understanding of assistive devices/ modifications for ADL. 3=Patient will improve strength/tolerance for activity to enable patient to perform ADL's. OT Education/Plan Problem List/Assessment Assessment: Decreased Activ Tolerance, Decreased UE Strength, Dependent Transfers, Impaired Coordination, Impaired Self-Care Skills Pt admitted with aphasia, left side weakness, and hypoglycemia. Pt demonstrates decreased ADL functioning, transfers, and strength. Pt to benefit from skilled OT intervention for ADL training, transfers, strengthening, and home safety education to increase level of independence and allow safe return home. Discharge Recommendations Plan/Recommendations: Continue POC Treatment Plan/Plan of Care Treatment,Training & Education: Yes Patient would benefit from OT for education, treatment and training to promote independence in ADL's, mobility, safety and/or upper extremity function for ADL' s. Plan of Care: ADL Retraining, Functional Mobility, UE Funct Exercise/Act, UE Neuromus Re-Ed/Coord Treatment Duration: Feb 15, 2018 Frequency: 5 times per week Estimated Hrs Per Day: .25 hour per day Agreement: Yes Rehab Potential: Fair Time/GCodes Start Time: 08:35 Stop Time: 08:55 Total Time Billed (hr/min): 20 Billed Treatment Time 1 visit, EVM(20minutes) FIORDALIZA RICHARD OT Feb 01, 2018 10:31
[2018-02-01] MEDS ORDERED: APIX5TAB PO (11:24)
[2018-02-01] MEDS ORDERED: GABA-488 PO (11:24)
[2018-02-01] MEDS ORDERED: METF750T2 PO (11:24)
[2018-02-01] MEDS ORDERED: oxyCODONE/APAP 5/325MG (PERCOCET 5) TABLET PO PRN (11:30)
[2018-02-01] MEDS ORDERED: ACETAMINOPHEN 500 MG TAB (TYLENOL) PO PRN (11:30)
[2018-02-01] MEDS ORDERED: DOCUSATE SODIUM 100 MG (COLACE) CAP PO PRN (11:30)
[2018-02-01] MEDS ORDERED: ALPRAZolam 0.25 MG (XANAX) TAB PO PRN (11:30)
--- NOTE | 2018-02-01 11:30 | History & Physical-Hospitalist ---
History of Present Illness HPI/Chief Complaint CC: Aphasia and left-sided weakness HPI: This is a 67-year-old very disabled and medically complex white male clinic patient of mine at [facility] who has a past medical history of prior stroke and seizure disorder and tremor who presented to the emergency room after altered mental status noted by family EMS was called found to have low blood sugar but left-sided weakness with aphasia. Stroke protocol was followed in the ER finding no evidence of any type of ischemic process and vitals remained stable after blood sugar was normalized. He reports that he's been taking his Lantus at night not even taking NovoLog because his sugars are so good and he doesn't recall changing his diet the day before or having any difficulty with blood sugar control. This morning he is now able to speak normally and having no significant left-sided weakness now. Family at the bedside during interview and exam. He does report that this is similar to when he had his prior stroke but he remains on anticoagulation for recent right DVT acute and presumed paroxysmal atrial fibrillation and Plavix for CAD and prior stroke. He is compliant with all of his medications he reports. At this current time he is deemed stable for fourth floor status and will monitor closely in the meantime. Source: patient Exam Limitations: no limitations Date Seen 02/01/18 Time Seen by Provider: 10:45 Attending Physician Elena Payton MD PCP Jennifer Garcia DO Referring Physician Date of Admission Jan 31, 2018 at 19:49 Home Medications & Allergies Home Medications Reviewed patient Home Medication Reconciliation performed by pharmacy medication reconciliations solar installation technician and/or nursing. Patients Allergies have been reviewed. Allergies Allergies Coded Allergies No Known Drug Allergies (Unverified07/19/17) Past Obojadt-Ufnlyf-Fdblcj Hx Past Med/Social Hx: Reviewed Nursing Past Med/Soc Hx, Reviewed and Corrections made Patient Social History Marrital Status: Employed/Student: retired Alcohol Use: Denies Use Recreational Drug Use: No Smoking Status: Former Smoker Type Used: Pipe 2nd Hand Smoke Exposure: No Physical Abuse Screen: No Sexual Abuse: No Recent Foreign Travel: No Contact w/other who traveled: No Recent Hopitalizations: No Recent Infectious Disease Expo: No Immunizations Up To Date Tetanus Booster (TDap): Unknown Seasonal Allergies Seasonal Allergies: No Past Medical History Surgeries: Abdominal (Lap-Band), Orthopedic Respiratory: COPD, Sleep Apnea Currently Using CPAP: Yes Cardiac: Angina, Atrial Fibrillation, Chronic Edema/Swelling, Deep Vein Thrombosis, High Cholesterol, Hypertension Neurological: Neuropathy, Stroke Gastrointestinal: Gastroesophageal Reflux Musculoskeletal: Arthritis Endocrine: Diabetes, Insulin dep History of Blood Disorders: No Family History Diabetes, Hypertension Review of Systems Constitutional: see HPI, dizziness, malaise, weakness EENTM: no symptoms reported Respiratory: no symptoms reported Cardiovascular: no symptoms reported Gastrointestinal: no symptoms reported Genitourinary: no symptoms reported Musculoskeletal: no symptoms reported Skin: no symptoms reported Psychiatric/Neurological: See HPI, Numbness, Paresthesia, Pre-Existing Deficit , Tingling, Tremors, Weakness All Other Systems Reviewed Negative Unless Noted: Yes Physical Exam Physical Exam Vital Signs Vital Signs - First Documented 01/31/18 15:20 Temp 98.2 Pulse 70 Resp 14 B/P (MAP) 153/76 (101) Pulse Ox 99 O2 Delivery Nasal Cannula O2 Flow Rate 2.00 Capillary Refill : Less Than 3 Seconds Height, Weight, BMI Height: 5'11.00" Weight: 356lbs. 0.0oz. 161.540375bj; 49.7 BMI Method:Stated General Appearance: No Apparent Distress, WD/WN, Chronically ill, Obese Eyes: Bilateral Eye Normal Inspection, Bilateral Eye PERRL HEENT: PERRL/EOMI, TMs Normal, Normal ENT Inspection, Pharynx Normal Neck: Full Range of Motion, Normal Inspection, Non Tender, Supple, Carotid Bruit Respiratory: Chest Non Tender, Lungs Clear, Normal Breath Sounds, No Accessory Muscle Use, No Respiratory Distress Cardiovascular: Regular Rate, Rhythm, No Edema, No Gallop, No JVD, No Murmur, Normal Peripheral Pulses Gastrointestinal: Normal Bowel Sounds, No Organomegaly, No Pulsatile Mass, Non Tender, Soft Back: Normal Inspection, No CVA Tenderness, No Vertebral Tenderness Extremity: Normal Capillary Refill, Normal Inspection, Normal Range of Motion, Non Tender, No Calf Tenderness, No Pedal Edema Neurologic/Psychiatric: Alert, Oriented x3, No Motor/Sensory Deficits, Normal Mood/Affect, Other (slowed verbal communication noted but improving) Skin: Normal Color, Warm/Dry Lymphatic: No Adenopathy Results Results/Procedures Labs Laboratory Tests 01/31/18 15:35 02/01/18 04:15 Patient resulted labs reviewed. Assessment/Plan Admission Diagnosis Acute aphasia resolving Left sided weakness acute resolving prior CVA Seizure d/o Tremor chronic left arm DM insulin dependent PAF? HTN HLP Chronic tinea pedis severe Failed Lap-Band SHAQ Recent DVT Plan: Restart most of home meds Monitor sugar closely Dr Mccarthy consultation due to REVEAL device in place in case cardiac source of neuro deficit Admission Status: Inpatient Order (span 2 midnights) Reason for Inpatient Admission: neurological deficit needs at least 3 midnights to risk stratify and evaluate for recurrent deficit Diagnosis/Problems Diagnosis/Problems (1) Left-sided weakness Status: Acute (2) Expressive aphasia Status: Acute (3) Hypoglycemia Status: Acute (4) SHAQ on CPAP Status: Chronic (5) Obesities, morbid Status: Chronic (6) Hypertension Status: Chronic Qualifiers: Hypertension type: essential hypertension Qualified Codes: I10 - Essential (primary) hypertension (7) Hyperlipemia Status: Chronic Qualifiers: Hyperlipidemia type: mixed hyperlipidemia Qualified Codes: E78.2 - Mixed hyperlipidemia (8) Tinea pedis Status: Chronic Qualifiers: Laterality: bilateral Qualified Codes: B35.3 - Tinea pedis (9) Insomnia Status: Chronic Qualifiers: Insomnia type: primary Qualified Codes: F51.01 - Primary insomnia (10) Depression Status: Chronic Qualifiers: Depression Type: unspecified Qualified Codes: F32.9 - Major depressive disorder, single episode, unspecified (11) Leukocytosis Status: Resolved Qualifiers: Leukocytosis type: leukemoid reaction Qualified Codes: D72.823 - Leukemoid reaction (12) Renal insufficiency Status: Chronic (13) Diabetes mellitus Status: Chronic Qualifiers: Diabetes mellitus type: type 2 Diabetes mellitus residential insulin use: with residential use Diabetes mellitus complication status: with neurologic complications Diabetes mellitus complication detail: with unspecified neuropathy Qualified Codes: E11.40 - Type 2 diabetes mellitus with diabetic neuropathy, unspecified; Z79.4 - morgue technician (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) use of insulin (14) DVT (deep venous thrombosis) Status: Chronic Qualifiers: DVT location: lower extremity Affected thrombotic vein of extremity: unspecified vein of extremity Chronicity: chronic Laterality: right Qualified Codes: I82.501 - Chronic embolism and thrombosis of unspecified deep veins of right lower extremity (15) Arrhythmia Status: Chronic Qualifiers: Arrhythmia type: unspecified cardiac arrhythmia Qualified Codes: I49.9 - Cardiac arrhythmia, unspecified Clinical Quality Measures DVT/VTE Risk/Contraindication: Risk Factor Score Per Nursin RFS Level Per Nursing on Admit: 4+=Very High JENNIFER GARCIA DO Feb 01, 2018 11:30
--- NOTE | 2018-02-01 13:12 | Consultation-Cardiology ---
HPI-Cardiology Cardiology Consultation: Date of Consultation 02/01/18 Date of Admission Attending Physician Elena Payton MD Admitting Physician Jennifer Sanchez DO Consulting Physician Eliana MCCARTHY MD HPI: Time Seen by Provider: 13:00 This is a 67-year-old gentleman who is a patient of Dr. Sanchez. The patient follows with Dr. Pan as an outpatient. He has history of diabetes, previous stroke and seizure disorder. He presented to the ER with altered mental status and was found to have severe hypoglycemia. He also complained of left-sided weakness with aphasia. Stroke protocol was initiated however no evidence of stroke was found. The patient continues to be on Eliquis for right DVT. The patient has history of moderate CAD with one-vessel disease on coronary angiography done 07/20/2017. Elevated LVEDP of 26 mmHg. 18 mmHg gradient across the aortic valve suggesting at least mild aortic stenosis. Obstructive sleep apnea on CPAP, morbid obesity, implantable loop recorder done for atrial fibrillation surveillance. Patient is already on Eliquis therapy. Review of Systems-Cardiology Review of Systems Constitutional: As described under HPI; No As described under HPI, No no symptoms reported, No chills, No fever, No lightheadedness Eyes: No As described under HPI, No no symptoms reported, No blindness, No blurred vision, No contact lenses, No drainage, No decreased acuity, No foreign body sensation, No pain, No vision change Ears/Nose/Throat: No As described under HPI, No no symptoms reported, No chronic hearing loss, No ear discharge, No ear pain, No nasal drainage, No ulcerations Respiratory: No no symptoms reported; As described under HPI; No As described under HPI, No cough, No orthopnea, No shortness of breath, No SOB with excertion Cardiovascular: No no symptoms reported; As described under HPI; No As described under HPI, No chest pain, No edema, No irregular heart rate, No lightheadedness, No palpitations Gastrointestinal: No no symptoms reported, No As described under HPI, No abdomen distended, No abdominal pain, No blood streaked bowels, No constipation , No diarrhea, No nausea, No vomiting, No stool coloration changes Genitourinary: No As described under HPI, No burning, No dysuria, No discharge , No frequency, No flank pain, No hematuria, No urgency Skin: No rash, No skin related problems, No ulcerations Psychiatric/Neurological: As described under HPI; No anxiety, No depression, No seizure, No focal weakness, No syncope Hematologic: No bleeding abnormalities All Other Systems Reviewed Negative Unless Noted: Yes XMB-Cqbrfm-Aukyjj Hx Patient Social History Marrital Status: Employed/Student: retired Alcohol Use: Denies Use Recreational Drug Use: No Smoking Status: Former Smoker Type Used: Pipe 2nd Hand Smoke Exposure: No Recent Foreign Travel: No Recent Infectious Disease Expo: No Hospitalization with Isolation: Denies Physical Abuse Screen: No Sexual Abuse: No Immunizations Up To Date Tetanus Booster (TDap): Unknown Past Medical History PMH As described under Assessment. Family Medical History Family Medical History: Reports father and one brother had heart trouble in their early 60s (details unknown) Allergies and Home Medications Allergies Coded Allergies: No Known Drug Allergies (Unverified , 07/19/17) Home Medications Apixaban 5 Mg Tab.ds.pk, 5 MG PO UD 10 mg twice daily for 7 days, then 5 mg twice daily. Fill either Eliquis or Xarelto but not both. Prescribed by: RAYMUNDO SEE on 12/09/172158 Apixaban 5 Mg Tablet, 5 MG PO BID, (Reported) Aspirin 81 Mg Tablet.dr, 81 MG PO DAILY Prescribed by: JENNIFER SANCHEZ on 07/21/171239 Atorvastatin Calcium 40 Mg Tablet, 40 MG PO HS Prescribed by: JENNIFER SANCHEZ on 07/21/171239 Carbamazepine 200 Mg Tab.er.12h, 400 MG PO BID TAKES 2 (200 MG) TABLETS Prescribed by: JENNIFER SANCHEZ on 07/21/171239 Celecoxib 400 Mg Capsule, 400 MG PO DAILY Prescribed by: JENNIFER SANCHEZ on 07/21/171239 Cephalexin 500 Mg Capsule, 500 MG PO TID Prescribed by: RAYMUNDO SEE on 12/09/172158 Clopidogrel Bisulfate 75 Mg Tablet, 75 MG PO DAILY Prescribed by: JENNIFER SANCHEZ on 07/21/171239 Gabapentin 100 Mg Capsule, 100 MG PO TID Prescribed by: JENNIFER SANCHEZ on 07/21/171239 Gabapentin 300 Mg Capsule, 300 MG PO TID, (Reported) Insulin Aspart 300 Units/3 Ml Solution, 40 UNITS SQ AC Prescribed by: JENNIFER SANCHEZ on 07/21/17 124 Insulin Glargine,Hum.rec.anlog 100 Unit/1 Ml Insuln.pen, 40 UNIT SQ HS Prescribed by: JENNIFER SANCHEZ on 07/21/171239 Lisinopril 5 Mg Tablet, 5 MG PO DAILY@0900 Prescribed by: JENNIFER SANCHEZ on 07/21/171239 Metformin HCl 750 Mg Tab.er.24h, 750 MG PO DAILY, (Reported) Metoprolol Succinate 100 Mg Tab.er.24h, 100 MG PO DAILY Prescribed by: JENNIFER SANCHEZ on 07/21/171239 Nitroglycerin 0.4 Mg Tab.subl, 0.4 MG SL PRN PRN for CHEST PAIN, (Reported) Oxycodone HCl/Acetaminophen 1 Each Tablet, 1 EACH PO Q4H PRN for PAIN-MODERATE TO SEVERE Prescribed by: RAYMUNDO SEE on 12/09/172158 Rivaroxaban 1 Each Tab.ds.pk, 1 EACH PO UD 15mg by mouth twice daily x 21 days then 20mg by mouth daily. Fill either Xarelto or Eliquis but not both. Prescribed by: RAYMUNDO SEE on 12/09/172158 Topiramate 100 Mg Tablet, 100 MG PO BID Prescribed by: JENNIFER SANCHEZ on 07/21/171239 Trazodone HCl 100 Mg Tablet, 200 MG PO HS Prescribed by: JENNIFER SANCHEZ on 07/21/171239 Zonisamide 100 Mg Capsule, 300 MG PO DAILY TAKES 3 (100 MG) CAPSULES Prescribed by: JENNIFER SANCHEZ on 07/21/171239 Patient Home Medication List Home Medication List Reviewed: Yes Physical Exam-Cardiology Physical Exam Vital Signs/I&O 02/01/18 02/01/18 02/01/18 02/01/18 03:00 03:00 04:00 04:00 Pulse 63 Resp 14 B/P (MAP) 146/77 (100) Pulse Ox 96 97 O2 Delivery Room Air Nasal Cannula Room Air Room Air O2 Flow Rate 2.00 02/01/18 02/01/18 02/01/18 02/01/18 04:00 04:00 05:00 05:36 Temp 98.0 Pulse 71 69 Resp 1 23 B/P (MAP) 143/81 (101) 149/79 (102) Pulse Ox 97 97 O2 Delivery Nasal Cannula Room Air Room Air O2 Flow Rate 2.00 02/01/18 02/01/18 02/01/18 02/01/18 06:22 07:00 07:00 08:00 Pulse 65 73 73 74 Resp 23 17 19 B/P (MAP) 145/82 (103) 158/87 (110) 157/92 (113) Pulse Ox 97 98 97 O2 Delivery Room Air Room Air Room Air 02/01/18 02/01/18 02/01/18 02/01/18 08:00 09:00 12:00 13:00 Pulse 74 74 75 Resp 15 13 B/P (MAP) 144/74 (97) 158/84 (108) Pulse Ox 97 97 97 O2 Delivery Room Air Room Air Room Air 02/01/18 00:00 Intake Total 1667 ml Output Total 500 ml Balance 1167 ml Capillary Refill : Less Than 3 Seconds Constitutional: appears stated age, AAO x 3; No apparent distress; well- developed, well-nourished HEENT: PERRL; No normal ENT inspection, No TMs normal, No pharynx normal, No scleral icterus (R), No scleral icterus (L), No pale conjunctivae (R), No pale conjunctivae (L), No photophobia, No TM abnormal (R), No TM abnormal (L), No pharyngeal erythema, No tonsillar exudate, No other, No discharge, No EOMI; hearing is well preserved; No hard of hearing; oral hygience is good; No ulceration, No xanthelasmas are seen Neck: No non-tender, No full range of motion, No supple, No normal inspection, No carotid bruit, No limited range of motion, No lymphadenopathy (R), No lymphadenopathy (L), No tender lateral, No tender midline, No thyromegaly, No other; carotid pulses are 2 + bilaterally; No with good upstrokes Respiratory: No accessory muscle use, No respiratory distress, No chest tender , No chest expansion is symmetric; chest is bilaterally symmetric; No lungs clear to percussion; lungs clear to auscultation; No crackles, No rhonchi, No rales, No stridor, No wheezing, No pleural rub, No other Cardiovascular: regular rate-rhythm; No irregularly irregular, No extra beats, No parasternal heave is noted, No JVD, No edema, No bradycardia, No tachycardia , No point of maximal impulse, No cardiac thrills are palpable; S1 and S2; No gallop/S3, No gallop/S4, No diastolic murmur, No systolic murmur, No friction rub, No click, No other Gastrointestinal: No tender, No soft, No round, No distended, No pulsatile mass , No organomegaly, No guarding, No rebound, No tenderness, No hernia, No mass, No audible bowel sounds, No abnormal bowel sounds, No abdominal bruits, No spleenomegaly, No other Rectal: deferred Extremities: No normal range of motion, No non-tender, No normal inspection, No pedal edema, No calf tenderness, No normal capillary refill, No pelvis stable , No calf tenderness, No inflammation, No pedal edema, No slow capillary refill , No swelling, No other, No abrasion, No clubbing, No cyanosis, No ecchymosis, No laceration, No no lower extremity edema bilateral, No significant edema, No tenderness, No wound Neurologic/Psychiatric: alert, normal mood/affect, oriented x 3, power is 5/5 both on sides Skin: No normal color, No warm/dry, No cyanosis, No cool, No diaphoresis, No damp, No ecchymosis, No jaundice, No mottled, No pallor, No rash, No tattoos/ piercings, No ulcerations, No rash on exposed areas, No ulcerations on exposed areas, No other Data Review Labs Laboratory Tests 01/31/18 15:35: White Blood Count 12.9H, Red Blood Count 4.97, Hemoglobin 14.7, Hematocrit 44, Mean Corpuscular Volume 88, Mean Corpuscular Hemoglobin 30, Mean Corpuscular Hemoglobin Concent 34, Red Cell Distribution Width 13.6, Platelet Count 230, Mean Platelet Volume 9.9, Neutrophils (%) (Auto) 90H, Lymphocytes (%) (Auto) 4L , Monocytes (%) (Auto) 6, Eosinophils (%) (Auto) 0, Basophils (%) (Auto) 0, Neutrophils # (Auto) 11.6H, Lymphocytes # (Auto) 0.5L, Monocytes # (Auto) 0.8, Eosinophils # (Auto) 0.0, Basophils # (Auto) 0.0, Neutrophils % (Manual) 91, Lymphocytes % (Manual) 6, Monocytes % (Manual) 3, Eosinophils % (Manual) 0, Basophils % (Manual) 0, Band Neutrophils 0, Blood Morphology Comment NORMAL, Prothrombin Time 14.7, INR Comment 1.2, Activated Partial Thromboplast Time 25, D-Dimer 1.25H, Sodium Level 138, Potassium Level 3.6, Chloride Level 107, Carbon Dioxide Level 18L, Anion Gap 13, Blood Urea Nitrogen 18, Creatinine 1.35H , Estimat Glomerular Filtration Rate 53, BUN/Creatinine Ratio 13, Glucose Level 108H, Calcium Level 9.3, Corrected Calcium 9.1, Total Bilirubin 0.2, Aspartate Amino Transf (AST/SGOT) 19, Alanine Aminotransferase (ALT/SGPT) 18, Alkaline Phosphatase 62, Troponin I < 0.30, Total Protein 7.4, Albumin 4.2 01/31/18 15:54: Urine Color YELLOW, Urine Clarity CLEAR, Urine pH 5, Urine Specific [place] 1.010L, Urine Protein NEGATIVE, Urine Glucose (UA) 2+H, Urine Ketones NEGATIVE, Urine Nitrite NEGATIVE, Urine Bilirubin NEGATIVE, Urine Urobilinogen NORMAL, Urine Leukocyte Esterase 2+H, Urine RBC (Auto) NEGATIVE, Urine RBC NONE, Urine WBC 0-2, Urine Squamous Epithelial Cells 2-5, Urine Crystals NONE, Urine Bacteria NEGATIVE, Urine Casts NONE, Urine Mucus NEGATIVE, Urine Culture Indicated NO 01/31/18 16:04: Glucometer 84 01/31/18 17:31: Glucometer 78 01/31/18 19:56: Glucometer 70 01/31/18 20:51: Carbamazepine (Tegretol) Level 6.4 01/31/18 21:15: Glucometer 61L 01/31/18 22:13: Glucometer 116H 01/31/18 23:11: Glucometer 101 02/01/18 00:51: Glucometer 109 02/01/18 02:22: Glucometer 101 02/01/18 04:15: White Blood Count 9.8, Red Blood Count 4.73, Hemoglobin 13.7, Hematocrit 41, Mean Corpuscular Volume 87, Mean Corpuscular Hemoglobin 29, Mean Corpuscular Hemoglobin Concent 33, Red Cell Distribution Width 13.7, Platelet Count 247, Mean Platelet Volume 9.3, Neutrophils (%) (Auto) 76H, Lymphocytes (%) (Auto) 14 , Monocytes (%) (Auto) 9, Eosinophils (%) (Auto) 1, Basophils (%) (Auto) 0, Neutrophils # (Auto) 7.4, Lymphocytes # (Auto) 1.4, Monocytes # (Auto) 0.8, Eosinophils # (Auto) 0.1, Basophils # (Auto) 0.0, Sodium Level 138, Potassium Level 4.3, Chloride Level 109H, Carbon Dioxide Level 19L, Anion Gap 10, Blood Urea Nitrogen 14, Creatinine 1.08, Estimat Glomerular Filtration Rate > 60, BUN/ Creatinine Ratio 13, Glucose Level 121H, Calcium Level 8.4L, Corrected Calcium 8.7, Phosphorus Level 3.2, Magnesium Level 2.4, Total Bilirubin 0.3, Aspartate Amino Transf (AST/SGOT) 16, Alanine Aminotransferase (ALT/SGPT) 17, Alkaline Phosphatase 55, Total Protein 6.6, Albumin 3.9, Triglycerides Level 151H, Cholesterol Level 154, LDL Cholesterol Direct 85, VLDL Cholesterol 30, HDL Cholesterol 42 02/01/18 04:21: Glucometer 111H 02/01/18 06:37: Glucometer 148H 02/01/18 08:40: Glucometer 142H 02/01/18 11:02: Glucometer 163H ECG Impression ECG Initial ECG Rhythm: Normal Sinus A/P-Cardiology Assessment/Admission Diagnosis Severe hypoglycemia, Altered mental status, questionable CVA, Stroke, Implantable loop recorder for atrial fibrillation surveillance, history of right DVT, on Eliquis therapy, Moderate CAD, Mild aortic stenosis, Diastolic dysfunction, Obstructive sleep apnea, Morbid obesity, Plan Severe hypoglycemia, Dr. Sanchez following. Altered mental status, questionable CVA, no evidence of stroke found on this admission. Stroke, Implantable loop recorder for atrial fibrillation surveillance, will recommend device interrogation. Patient is already on Eliquis therapy. He denies missing any dosages. It is very unlikely to develop cardiac source of embolization on full dose Eliquis. history of right DVT, on Eliquis therapy, Moderate CAD, follow clinically. No acute issues. Mild aortic stenosis, denies any shortness of breath. Echocardiogram done 2017 showed LVEF of 60-65 percent. Mild mitral regurgitation, aortic valve sclerosis without stenosis. PA pressure 25 mmHg. Diastolic dysfunction, Obstructive sleep apnea, CPAP therapy. Morbid obesity, Complex patient with numerous medical issues. Thank you for your consultation. Please call me if you have any questions. Torsten Mccarthy MD, FACP, FACC, FSCAI, FHRS, CCDS Interventional Cardiology Cardiac Electrophysiology Vascular Medicine and Endovascular Interventions Clinical Quality Measures DVT/VTE Risk/Contraindication: Risk Factor Score Per Nursin RFS Level Per Nursing on Admit: 4+=Very High Eliana MCCARTHY MD Feb 01, 2018 1:12 pm
[2018-02-01] MEDS: inSUlin ASPART (NovoLOG) 1 UNIT/0.01 ML (CHARGE PER UNIT) SC SCH ×2 (15:52→20:55)
[2018-02-01] MEDS ORDERED: ATORVASTATIN 40 MG (LIPITOR) TABLET PO SCH (21:00)
[2018-02-01] MEDS: CARBAMAZEPINE 200 MG PO SCH (21:00)
[2018-02-01] MEDS ORDERED: inSUlin DETERMIR 1 UNIT/0.01 ML (LEVEMIR) CHARGE PER UNIT SQ SCH (21:00)
[2018-02-01] MEDS ORDERED: traZODone 100 MG (DESYREL) TAB PO SCH (21:00)
[2018-02-01] MEDS: toPIRamate 100 MG (TOPAMAX) TAB PO SCH (21:01)
[2018-02-01] MEDS: POLYETHYLENE GLYCOL 17 GM (MIRALAX) PACK PO SCH (21:05)
[2018-02-02] VITALS: BP 155/72
[2018-02-02] MEDS ORDERED: APIXABAN 5 MG (ELIQUIS) TABLET ONE (00:10)
[2018-02-02] MEDS: APIXABAN 5 MG (ELIQUIS) TABLET PO SCH ×2 (00:22→08:42)
[2018-02-02 04:32] VITALS: BP 154/74
[2018-02-02] MEDS: inSUlin ASPART (NovoLOG) 1 UNIT/0.01 ML (CHARGE PER UNIT) SC SCH ×2 (05:35→11:20)
[2018-02-02 06:08] LABS: BASOPHILS % (AUTO) 1 % (0-10); EOSINOPHILS # (AUTO) 0.2 10^3/uL (0.0-0.3); EOSINOPHILS % (AUTO) 3 % (0-10); HEMATOCRIT 41 % (40-54); HEMOGLOBIN 13.9 G/DL (13.3-17.7); LYMPHOCYTES # (AUTO) 1.6 X 10^3 (1.0-4.0); LYMPHOCYTES % (AUTO) 21 % (12-44); MEAN CORPUSCULAR HEMOGLOBIN 30 PG (25-34); MEAN CORPUSCULAR HGB CONC 34 G/DL (32-36); MEAN CORPUSCULAR VOLUME 88 FL (80-99); MEAN PLATELET VOLUME 9.6 FL (7.4-10.4); MONOCYTES # (AUTO) 0.8 X 10^3 (0.0-1.0); MONOCYTES % (AUTO) 11 % (0-12); NEUTROPHILS # (AUTO) 4.9 X 10^3 (1.8-7.8); NEUTROPHILS % (AUTO) 65 % (42-75); PLATELET COUNT 231 10^3/uL (130-400); RED BLOOD COUNT 4.64 10^6/uL (4.35-5.85); RED CELL DISTRIBUTION WIDTH 13.8 % (10.0-14.5); WHITE BLOOD COUNT 7.5 10^3/uL (4.3-11.0)
[2018-02-02 06:29] LABS: ALBUMIN 3.8 GM/DL (3.2-4.5); BILIRUBIN,TOTAL 0.4 MG/DL (0.1-1.0); CALCIUM 8.7 MG/DL (8.5-10.1); CREATININE SERUM 1.24 MG/DL (0.60-1.30); TOTAL PROTEIN 6.6 GM/DL (6.4-8.2)
[2018-02-02 08:00] VITALS: BP 164/77
[2018-02-02] MEDS: CARBAMAZEPINE 200 MG PO SCH (08:42)
[2018-02-02] MEDS: toPIRamate 100 MG (TOPAMAX) TAB PO SCH (08:44)
[2018-02-02] MEDS: POLYETHYLENE GLYCOL 17 GM (MIRALAX) PACK PO SCH (08:45)
[2018-02-02] MEDS ORDERED: ZONISAMIDE 100 MG CAP (ZONEGRAN) NON-FORMULARY PO SCH ×2 (09:00→21:00)
[2018-02-02] MEDS ORDERED: CLOPIDOGREL 75 MG (PLAVIX) TABLET PO SCH (09:00)
[2018-02-02] MEDS ORDERED: ASPIRIN E.C. 81 MG (ECOTRIN) TAB PO SCH (09:00)
[2018-02-02] MEDS ORDERED: lisINopril 5 MG (PRINIVIL) TABLET PO SCH (09:00)
[2018-02-02] MEDS ORDERED: CELECOXIB 100 MG (CeleBREX) CAP PO SCH (09:00)
[2018-02-02] MEDS ORDERED: meTOprolol SUCCINATE 100 MG (TOPROL XL) TAB PO SCH (09:00)
--- NOTE | 2018-02-02 10:26 | Cardiology Progress Note ---
Cardiology SOAP Progress Note Subjective: Feels better today. Objective: I&O/Vital Signs 02/02/18 02/02/18 02/02/18 02/02/18 00:00 04:32 08:00 09:00 Temp 98.9 98.7 98.9 Pulse 72 65 71 Resp 21 21 16 B/P (MAP) 155/72 (99) 154/74 (100) 164/77 (106) Pulse Ox 97 98 98 O2 Delivery Room Air Room Air Room Air Room Air 02/02/18 00:00 Intake Total 715 ml Output Total 800 ml Balance -85 ml Weight (Pounds): 331 Weight (Ounces): 0.0 Weight (Calculated Kilograms): [id number] Constitutional: appears stated age, AAO x 3; No apparent distress; well- developed, well-nourished Respiratory: No accessory muscle use, No respiratory distress, No chest tender , No chest expansion is symmetric; chest is bilaterally symmetric; No lungs clear to percussion; lungs clear to auscultation; No crackles, No rhonchi, No rales, No stridor, No wheezing, No pleural rub, No other Cardiovascular: regular rate-rhythm; No irregularly irregular, No extra beats, No parasternal heave is noted, No JVD, No edema, No bradycardia, No tachycardia , No point of maximal impulse, No cardiac thrills are palpable; S1 and S2; No gallop/S3, No gallop/S4, No diastolic murmur, No systolic murmur, No friction rub, No click, No other Gastrointestional: No tender, No soft, No round, No distended, No pulsatile mass, No organomegaly, No guarding, No rebound, No tenderness, No hernia, No mass, No audible bowel sounds, No abnormal bowel sounds, No abdominal bruits, No spleenomegaly, No other Extremities: No normal range of motion, No non-tender, No normal inspection, No pedal edema, No calf tenderness, No normal capillary refill, No pelvis stable , No calf tenderness, No inflammation, No pedal edema, No slow capillary refill , No swelling, No other, No abrasion, No clubbing, No cyanosis, No ecchymosis, No laceration, No no lower extremity edema bilateral, No significant edema, No tenderness, No wound Neurologic/Psychiatric: alert, normal mood/affect, oriented x 3, power is 5/5 both on sides Skin: No normal color, No warm/dry, No cyanosis, No cool, No diaphoresis, No damp, No ecchymosis, No jaundice, No mottled, No pallor, No rash, No tattoos/ piercings, No ulcerations, No rash on exposed areas, No ulcerations on exposed areas, No other Results/Procedures: Labs Laboratory Tests 02/01/18 11:02: Glucometer 163H 02/01/18 15:49: Glucometer 141H 02/01/18 20:28: Glucometer 118H 02/02/18 05:33: Glucometer 128H 02/02/18 05:38: White Blood Count 7.5, Red Blood Count 4.64, Hemoglobin 13.9, Hematocrit 41, Mean Corpuscular Volume 88, Mean Corpuscular Hemoglobin 30, Mean Corpuscular Hemoglobin Concent 34, Red Cell Distribution Width 13.8, Platelet Count 231, Mean Platelet Volume 9.6, Neutrophils (%) (Auto) 65, Lymphocytes (%) (Auto) 21, Monocytes (%) (Auto) 11, Eosinophils (%) (Auto) 3, Basophils (%) (Auto) 1, Neutrophils # (Auto) 4.9, Lymphocytes # (Auto) 1.6, Monocytes # (Auto) 0.8, Eosinophils # (Auto) 0.2, Basophils # (Auto) 0.0, Sodium Level 138, Potassium Level 4.0, Chloride Level 110H, Carbon Dioxide Level 19L, Anion Gap 9, Blood Urea Nitrogen 13, Creatinine 1.24, Estimat Glomerular Filtration Rate 59, BUN/ Creatinine Ratio 10, Glucose Level 126H, Calcium Level 8.7, Corrected Calcium 8.9, Total Bilirubin 0.4, Aspartate Amino Transf (AST/SGOT) 17, Alanine Aminotransferase (ALT/SGPT) 18, Alkaline Phosphatase 61, Total Protein 6.6, Albumin 3.8 Microbiology 01/31/18 MRSA Screen - Final, Complete MRSA not isolated A/P: Assessment/Dx: Severe hypoglycemia, Altered mental status, questionable CVA, Stroke, Implantable loop recorder for atrial fibrillation surveillance, history of right DVT, on Eliquis therapy, Moderate CAD, Mild aortic stenosis, Diastolic dysfunction, Obstructive sleep apnea, Morbid obesity, Plan: Severe hypoglycemia, Dr. Garcia following. Altered mental status, questionable CVA, no evidence of stroke found on this admission. Stroke, Implantable loop recorder for atrial fibrillation surveillance, will recommend device interrogation in Saturday. Patient is already on Eliquis therapy. He denies missing any dosages. It is very unlikely to develop cardiac source of embolization on full dose Eliquis. history of right DVT, on Eliquis therapy, Moderate CAD, follow clinically. No acute issues. Mild aortic stenosis, denies any shortness of breath. Echocardiogram done 2017 showed LVEF of 60-65 percent. Mild mitral regurgitation, aortic valve sclerosis without stenosis. PA pressure 25 mmHg. Diastolic dysfunction, Obstructive sleep apnea, CPAP therapy. Morbid obesity, Complex patient with numerous medical issues. Dr. Pan to take over cardiology care tomorrow. Thank you for your consultation. Please call me if you have any questions. Torsten Harden MD, FACP, FACC, FSCAI, FHRS, CCDS Interventional Cardiology Cardiac Electrophysiology Vascular Medicine and Endovascular Interventions Eliana HARDEN MD Feb 02, 2018 10:26 am
[2018-02-02] MEDS ORDERED: ATOR10TA66 PO (10:32)
[2018-02-02] MEDS ORDERED: METO-387 PO (10:34)
[2018-02-02] MEDS ORDERED: ZONI100C3 PO ×2 (10:35→10:36)
[2018-02-02] MEDS ORDERED: METF750T2 PO (10:35)
[2018-02-02] MEDS ORDERED: amLODIPine 5 MG (NORVASC) TAB PO NR (11:00)
[2018-02-02 11:15] VITALS: BP 165/80
[2018-02-02] MEDS ORDERED: NITROGLYCERIN 0.4 MG SL TABS BTL 25'S SL PRN (11:45)
[2018-02-02] MEDS ORDERED: INSU100I10 SQ (11:47)
[2018-02-02] MEDS ORDERED: AMLO5TAB7 PO (11:47)
--- NOTE | 2018-02-02 11:56 | Discharge Summary-Hospitalist ---
Diagnosis/Chief Complaint Date of Admission Jan 31, 2018 at 19:49 Date of Discharge Discharge Date: Feb 02, 2018 Admission Diagnosis Acute aphasia resolving Left sided weakness acute resolving prior CVA Seizure d/o Tremor chronic left arm DM insulin dependent PAF? HTN HLP Chronic tinea pedis severe Failed Lap-Band SHAQ Recent DVT Plan: Restart most of home meds Monitor sugar closely Dr Mccarthy consultation due to REVEAL device in place in case cardiac source of neuro deficit Discharge Diagnosis (1) Left-sided weakness Status: Resolved (2) Expressive aphasia Status: Resolved (3) Hypoglycemia Status: Resolved (4) SHAQ on CPAP Status: Chronic (5) Obesities, morbid Status: Chronic (6) Hypertension Status: Chronic (7) Hyperlipemia Status: Chronic (8) Tinea pedis Status: Chronic (9) Insomnia Status: Chronic (10) Depression Status: Chronic (11) Leukocytosis Status: Resolved (12) Renal insufficiency Status: Resolved (13) Diabetes mellitus Status: Chronic (14) DVT (deep venous thrombosis) Status: Chronic (15) Arrhythmia Status: Chronic (16) Neuropathy Status: Chronic Discharge Summary Discharge Physical Exam Allergies: Coded Allergies: No Known Drug Allergies (Unverified , 07/19/17) Vitals & I&Os Vital Signs Date Time Temp Pulse Resp B/P (MAP) Pulse Ox O2 Delivery O2 Flow Rate FiO2 02/02/18 11:15 98.5 62 16 165/80 (108) 96 Room Air 02/01/18 04:00 2.00 General Appearance: No Apparent Distress, WD/WN, Chronically ill, Obese Respiratory: Chest Non Tender, Lungs Clear, Normal Breath Sounds, No Accessory Muscle Use, No Respiratory Distress Cardiovascular: Regular Rate, Rhythm, No Edema, No Gallop, No JVD, No Murmur, Normal Peripheral Pulses Extremity: Normal Capillary Refill, Normal Inspection, Normal Range of Motion, Non Tender, No Calf Tenderness, No Pedal Edema Skin: Normal Color, Warm/Dry Neurologic/Psychiatric: Alert, Oriented x3, No Motor/Sensory Deficits, Normal Mood/Affect Hospital Course Hospital course: Patient had a standard hospital course he was admitted placed on stroke protocol due to left-sided weakness in the prior stroke area and expressive aphasia. Workup in the ER did not reveal any acute stroke. Hypoglycemia appeared to be the diagnosis since he was very low when he arrived in the ER via EMS and had difficulty getting mat stable. He was taking Lantus 80 units at night and his blood sugar was extremely well-controlled giving rise to likely acute on chronic hypoglycemia but continued to the severity on Saturday that prompted the ER transfer. Overall he did well labs all remained stable vital signs revealed elevated blood pressure by which I added Norvasc. Cardiology was consulted and recommended the reveal device to be evaluated on Saturday but it appeared to be a noncardiac source that caused the episode. I did decrease the amount of long-acting he was given while he was hospitalized and restarted most of his home medications otherwise except for the rapid acting NovoLog that he had been holding recently anyway. did become very upset at the morning of discharge and accused me of discharge prematurely but I updated her on the stability of his clinical status and all the workup was negative and even talk to cardiology who supported the discharge plan. She became very loud and agitated during the conversation but I remained calm and professional and told her that he was more than welcome to transfer his care to another doctor if she felt like I was not addressing things appropriately. She did mention that even a nurse and other people that had told her in the community at this hospital discharged so quickly that it was inappropriate but I again updated her on the stability of his clinical status and it was no further workup at this time to required hospital stay. We did come to a compromise that we with obtaining a referral to endocrinology with Dr. Almendarez office at [facility] and that would be done when they called my [facility] clinic on Saturday to obtain a follow-up with me on Saturday and to start the process for the endocrinology referral. Overall patient's medical issues all rise from the morbid obesity and the lack of aggressive personal medical management by the patient over the years and now things are worsening to the point that he is requiring more medical care and more urgent visits due to significant problems. I will continue to support the patient and anyway possible but I did give the option of transferring care to another doctor if that is what they requested which I told them there would be no hard feelings but to proceed on with however they felt would be in the best interest of the patient. Labs (last 24 hrs) Laboratory Tests 02/01/18 15:49: Glucometer 141H 02/01/18 20:28: Glucometer 118H 02/02/18 05:33: Glucometer 128H 02/02/18 05:38: White Blood Count 7.5, Red Blood Count 4.64, Hemoglobin 13.9, Hematocrit 41, Mean Corpuscular Volume 88, Mean Corpuscular Hemoglobin 30, Mean Corpuscular Hemoglobin Concent 34, Red Cell Distribution Width 13.8, Platelet Count 231, Mean Platelet Volume 9.6, Neutrophils (%) (Auto) 65, Lymphocytes (%) (Auto) 21, Monocytes (%) (Auto) 11, Eosinophils (%) (Auto) 3, Basophils (%) (Auto) 1, Neutrophils # (Auto) 4.9, Lymphocytes # (Auto) 1.6, Monocytes # (Auto) 0.8, Eosinophils # (Auto) 0.2, Basophils # (Auto) 0.0, Sodium Level 138, Potassium Level 4.0, Chloride Level 110H, Carbon Dioxide Level 19L, Anion Gap 9, Blood Urea Nitrogen 13, Creatinine 1.24, Estimat Glomerular Filtration Rate 59, BUN/ Creatinine Ratio 10, Glucose Level 126H, Calcium Level 8.7, Corrected Calcium 8.9, Total Bilirubin 0.4, Aspartate Amino Transf (AST/SGOT) 17, Alanine Aminotransferase (ALT/SGPT) 18, Alkaline Phosphatase 61, Total Protein 6.6, Albumin 3.8 02/02/18 11:19: Glucometer 103 Microbiology 01/31/18 MRSA Screen - Final, Complete MRSA not isolated Patient resulted labs reviewed. Pending Labs Laboratory Tests 02/02/18 05:33: Glucometer 128 02/02/18 05:38: White Blood Count 7.5, Red Blood Count 4.64, Hemoglobin 13.9, Hematocrit 41, Mean Corpuscular Volume 88, Mean Corpuscular Hemoglobin 30, Mean Corpuscular Hemoglobin Concent 34, Red Cell Distribution Width 13.8, Platelet Count 231, Mean Platelet Volume 9.6, Neutrophils (%) (Auto) 65, Lymphocytes (%) (Auto) 21, Monocytes (%) (Auto) 11, Eosinophils (%) (Auto) 3, Basophils (%) (Auto) 1, Neutrophils # (Auto) 4.9, Lymphocytes # (Auto) 1.6, Monocytes # (Auto) 0.8, Eosinophils # (Auto) 0.2, Basophils # (Auto) 0.0, Sodium Level 138, Potassium Level 4.0, Chloride Level 110, Carbon Dioxide Level 19, Anion Gap 9, Blood Urea Nitrogen 13, Creatinine 1.24, Estimat Glomerular Filtration Rate 59, BUN/ Creatinine Ratio 10, Glucose Level 126, Calcium Level 8.7, Corrected Calcium 8.9 , Total Bilirubin 0.4, Aspartate Amino Transf (AST/SGOT) 17, Alanine Aminotransferase (ALT/SGPT) 18, Alkaline Phosphatase 61, Total Protein 6.6, Albumin 3.8 02/02/18 11:19: Glucometer 103 Discussion & Recommendations Discharge Planning: <30 minutes discharge planning Discharge Home Medications: Active Scripts Active Lantus Solostar (Insulin Glargine,Hum.rec.anlog) 100 Unit/1 Ml Insuln.pen 30 Unit SQ HS 14 Days Amlodipine Besylate 5 Mg Tablet 5 Mg PO DAILY Aspir 81 (Aspirin) 81 Mg Tablet.dr 81 Mg PO DAILY Lisinopril 5 Mg Tablet 5 Mg PO DAILY@0900 Clopidogrel (Clopidogrel Bisulfate) 75 Mg Tablet 75 Mg PO DAILY Trazodone HCl 100 Mg Tablet 200 Mg PO HS Novolog Flexpen (Insulin Aspart) 300 Units/3 Ml Solution 40 Units SQ AC Lantus Solostar (Insulin Glargine,Hum.rec.anlog) 100 Unit/1 Ml Insuln.pen 40 Unit SQ HS Celecoxib 400 Mg Capsule 400 Mg PO DAILY Topiramate 100 Mg Tablet 100 Mg PO BID Carbamazepine ER (Carbamazepine) 200 Mg Tab.er.12h 400 Mg PO BID TAKES 2 (200 MG) TABLETS Reported Zonisamide 100 Mg Capsule 100 Mg PO HS Zonisamide 100 Mg Capsule 200 Mg PO DAILY Metformin HCl ER (Metformin HCl) 750 Mg Tab.er.24h 750 Mg PO BID Metoprolol Succinate 25 Mg Tab.er.24h 25 Mg PO DAILY Atorvastatin Calcium 10 Mg Tablet 10 Mg PO HS Eliquis (Apixaban) 5 Mg Tablet 5 Mg PO BID Gabapentin 300 Mg Capsule 300 Mg PO TID Nitroglycerin 0.4 Mg Tab.subl 0.4 Mg SL PRN PRN Instructions to patient/family Please see electronic discharge instructions given to patient. Clinical Quality Measures DVT/VTE Risk/Contraindication: Risk Factor Score Per Nursin RFS Level Per Nursing on Admit: 4+=Very High Problem Qualifiers (1) Hypertension: Hypertension type: essential hypertension Qualified Codes: I10 - Essential ( primary) hypertension (2) Hyperlipemia: Hyperlipidemia type: mixed hyperlipidemia Qualified Codes: E78.2 - Mixed hyperlipidemia (3) Tinea pedis: Laterality: bilateral Qualified Codes: B35.3 - Tinea pedis (4) Insomnia: Insomnia type: primary Qualified Codes: F51.01 - Primary insomnia (5) Depression: Depression Type: unspecified Qualified Codes: F32.9 - Major depressive disorder, single episode, unspecified (6) Leukocytosis: Leukocytosis type: leukemoid reaction Qualified Codes: D72.823 - Leukemoid reaction (7) Diabetes mellitus: Diabetes mellitus type: type 2 Diabetes mellitus meterman insulin use: with senior care use Diabetes mellitus complication status: with neurologic complications Diabetes mellitus complication detail: with unspecified neuropathy Qualified Codes: E11.40 - Type 2 diabetes mellitus with diabetic neuropathy, unspecified; Z79.4 - nursing home (current) use of insulin (8) DVT (deep venous thrombosis): DVT location: lower extremity Affected thrombotic vein of extremity: unspecified vein of extremity Chronicity: chronic Laterality: right Qualified Codes: I82.501 - Chronic embolism and thrombosis of unspecified deep veins of right lower extremity (9) Arrhythmia: Arrhythmia type: unspecified cardiac arrhythmia Qualified Codes: I49.9 - Cardiac arrhythmia, unspecified MOLLY SANCHEZ DO Feb 02, 2018 11:56
[2018-02-02] MEDS ORDERED: GABAPENTIN 300 MG (NEURONTIN) CAP PO SCH ×2 (13:00)
[2018-02-02] MEDS ORDERED: metFORMIN XR 500 MG (GLUCOPHAGE XR) TAB PO SCH (17:00)
[2018-02-02] MEDS ORDERED: ATORVASTATIN 10 MG (LIPITOR) TABLET PO SCH ×2 (21:00)
[2018-02-02] MEDS ORDERED: APIXABAN 5 MG (ELIQUIS) TABLET PO SCH (21:00)
[2018-02-02] MEDS ORDERED: NON-FORMULARY MEDICATION 1 EA EA (Metformin HCl (Metformin HCl ER) 750 MG) PO SCH (21:00)
[2018-02-03] MEDS ORDERED: amLODIPine 5 MG (NORVASC) TAB PO SCH (09:00)
[2018-02-03] MEDS ORDERED: ZONISAMIDE 100 MG CAP (ZONEGRAN) NON-FORMULARY PO SCH (09:00)
== END 2018-02-02 13:23 | disposition home or self-care (01) | DRG 638 ==
LOC: EDUNIT# 15:19 → ER 15:19 → ICU 19:49 → 4TH 02-01 15:10
PROVIDERS: ADMIT Internal Medicine; ATTEND Internal Medicine
DX: E11.649 Type 2 diabetes mellitus with hypoglycemia without coma (principal); G81.94 Hemiplegia, unspecified affecting left nondominant side; F80.1 Expressive language disorder; E66.01 Morbid (severe) obesity due to excess calories; Z68.42 Body mass index [BMI] 45.0-49.9, adult; G40.909 Epilepsy, unspecified, not intractable, without status epilepticus; I49.9 Cardiac arrhythmia, unspecified; G47.33 Obstructive sleep apnea (adult) (pediatric); J44.9 Chronic obstructive pulmonary disease, unspecified; I10 Essential (primary) hypertension; E78.00 Pure hypercholesterolemia, unspecified; E11.40 Type 2 diabetes mellitus with diabetic neuropathy, unspecified; R25.1 Tremor, unspecified; K21.9 Gastro-esophageal reflux disease without esophagitis; B35.3 Tinea pedis; F32.9 Major depressive disorder, single episode, unspecified; N28.9 Disorder of kidney and ureter, unspecified; I25.10 Atherosclerotic heart disease of native coronary artery without angina pectoris; I35.0 Nonrheumatic aortic (valve) stenosis; Z79.01 Long term (current) use of anticoagulants; Z79.02 Long term (current) use of antithrombotics/antiplatelets; Z79.82 Long term (current) use of aspirin; Z79.4 Long term (current) use of insulin; Z86.73 Personal history of transient ischemic attack (TIA), and cerebral infarction without residual deficits; Z86.718 Personal history of other venous thrombosis and embolism; Z87.891 Personal history of nicotine dependence; Z98.84 Bariatric surgery status
CPT/HCPCS: 36415; 70450; 70496; 70498; 71045; 80048; 80053; 80061; 80156; 81000; 82962; 83735; 84100; 84484; 85007; 85025; 85027; 85379; 85610; 85730; 87081; 93005; 93041; 96361; 96374

== ENCOUNTER 2018-02-23 11:17 | Emergency (ER) | payer MEDICARE ==
[~2018-02-23] VITALS: Ht 175.3 cm; Wt 152.0 kg
[~2018-02-23 11:17] MED LIST changes: +AMLO5TAB7 PO; +APIX5TAB PO; +ATOR10TA66 PO; +GABA-488 PO; +METO-387 PO
[2018-02-23] MEDS ORDERED: HYDROcodone/APAP 7.5 MG/325 MG (LORTAB, LORCET PLUS) TABLET PO ONE (12:45)
--- NOTE | 2018-02-23 13:10 | Diagnostic Imaging Report ---
PROCEDURE: CT head and CT cervical spine without contrast. TECHNIQUE: Multiple contiguous axial images were obtained through the brain and cervical spine without the use of intravenous contrast. Sagittal and coronal reformations through the cervical spine were then performed. INDICATION: Fall. Head injury. Posterior neck pain. COMPARISON: CTA head and neck 01/31/2018. FINDINGS: CT HEAD: No intracranial hemorrhage, mass effect, hydrocephalus, or extra-axial fluid collections. No CT evidence for territorial infarction. The paranasal sinuses and mastoids are clear. No fractures. CT CERVICAL SPINE: Mild reversal of the normal cervical lordosis is at least partially positional. Alignment is otherwise unremarkable. Vertebral body heights are preserved. No fractures. There are advanced degenerative endplate changes throughout the cervical spine. These result in at least moderate spinal canal narrowing at C4-C5. Mild atherosclerotic calcifications in the carotid bifurcations. The visualized paravertebral soft tissues are otherwise unremarkable. IMPRESSION: 1. No acute intracranial or cervical spine CT findings. 2. 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 This could be further evaluated with an MRI or CT myelogram if clinically warranted. Dictated by: Dictated on workstation # [id number]
--- NOTE | 2018-02-23 13:26 | Diagnostic Imaging Report ---
INDICATION: Left shoulder pain, injury. COMPARISON: None. FINDINGS: Three views of the left shoulder demonstrate no fracture or dislocation. Articular surfaces are normal. No osseous lesion. IMPRESSION: Negative left shoulder. Dictated by: Dictated on workstation # [id number]
--- NOTE | 2018-02-23 13:27 | Diagnostic Imaging Report ---
INDICATION: Left elbow pain. COMPARISON: None. FINDINGS: Three views of the left elbow demonstrate no fracture or dislocation. Articular surfaces are age appropriate. No joint effusion. IMPRESSION: Negative left elbow. Dictated by: Dictated on workstation # [id number]
--- NOTE | 2018-02-23 13:28 | Diagnostic Imaging Report ---
INDICATION: Fall, left hip pain, history of arthroplasty. COMPARISON: None. FINDINGS: Single view of the pelvis and two views of the left hip demonstrate a well-seated left hip arthroplasty. There is no fracture. Osseous structures are age appropriate. Minimal degenerative changes are seen in the right hip. No osseous lesion. IMPRESSION: No fracture or dislocation. Dictated by: Dictated on workstation # [id number]
--- NOTE | 2018-02-23 13:29 | Diagnostic Imaging Report ---
INDICATION: Fall COMPARISON: 01/31/2018 FINDINGS: Frontal and lateral views of the chest demonstrate clear lungs bilaterally. The heart is minimally enlarged but stable. There is no pneumothorax or effusion. Osseous structures are age-appropriate. Cardiac monitoring capsule is seen on the left. IMPRESSION: Negative chest. Dictated by: Dictated on workstation # [id number]
--- NOTE | 2018-02-23 13:32 | ED Trauma-Multisystem ---
General Chief Complaint: Trauma-Non Activation Stated Complaint: PT FELL DOWN STEPS,LEG,BACK,HIP PAIN Nursing Triage Note: ARRIVED VIA AMB USING A CANE. STATES HE FELL DOWN X1 STEP LAST NIGHT LANDING ON RIGHT SIDED. COMPLAINS OF RIGHT ARM, LEG, HIP, CHEST, BACK PAIN. STATES HE HURTS WORSE NOW THEN HE DID LAST NIGHT. DENIES HITTING HIS HEAD OR LOC. Source of Information: Patient Exam Limitations: No Limitations History of Present Illness Date Seen by Provider: Feb 23, 2018 Time Seen by Provider: 12:35 Initial Comments Patient is a 67-year-old male who presents to the emergency room PO with reports of falling down one step last night and landing on his left side. He complains of left elbow and shoulder, left hip, left sided ribs, head and neck pain. He reports that he was not in a lot of pain last night but is in a moderate amount of pain after waking up this morning. He normally does not require a cane to walk but is using one now. He is unsure if he hit his head or neck but does have tenderness on exam. He denies loss of consciousness. Occurred: Other (last night) Pain/Injury Location: Head, Lower Extremity, Upper Extremity, Neck Method of Injury: Fall Modifying Factors: No Movement Associated Symptoms (Fall): Trouble Walking (Increased pain with) Allergies and Home Medications Allergies Coded Allergies: No Known Drug Allergies (Unverified , 07/19/17) Home Medications Amlodipine Besylate 5 Mg Tablet, 5 MG PO DAILY Prescribed by: MOLLY SANCHEZ on 02/02/18 1147 Apixaban 5 Mg Tablet, 5 MG PO BID, (Reported) Aspirin 81 Mg Tablet.dr, 81 MG PO DAILY Prescribed by: MOLLY SANCHEZ on 07/21/17 1240 Atorvastatin Calcium 10 Mg Tablet, 10 MG PO HS, (Reported) Carbamazepine 200 Mg Tab.er.12h, 400 MG PO BID TAKES 2 (200 MG) TABLETS Prescribed by: MOLLY SANCHEZ on 07/21/17 1240 Celecoxib 400 Mg Capsule, 400 MG PO DAILY Prescribed by: MOLLY SANCHEZ on 07/21/17 1240 Clopidogrel Bisulfate 75 Mg Tablet, 75 MG PO DAILY Prescribed by: MOLLY SANCHEZ on 07/21/17 1240 Gabapentin 300 Mg Capsule, 300 MG PO TID, (Reported) Hydrocodone Bit/Acetaminophen 1 Tab Tab, 1 EACH PO Q4-6HR PRN for PAIN-MODERATE Prescribed by: CALIN ELLISON on 02/23/18 1343 Insulin Glargine,Hum.rec.anlog 100 Unit/1 Ml Insuln.pen, 30 UNIT SQ HS Prescribed by: MOLLY SANCHEZ on 02/02/18 1147 Lisinopril 5 Mg Tablet, 5 MG PO DAILY@0900 Prescribed by: MOLLY SANCHEZ on 07/21/17 1240 Metformin HCl 750 Mg Tab.er.24h, 750 MG PO BID, (Reported) Metoprolol Succinate 25 Mg Tab.er.24h, 25 MG PO DAILY, (Reported) Nitroglycerin 0.4 Mg Tab.subl, 0.4 MG SL PRN PRN for CHEST PAIN, (Reported) Topiramate 100 Mg Tablet, 100 MG PO BID Prescribed by: MOLLY SANCHEZ on 07/21/17 1240 Trazodone HCl 100 Mg Tablet, 200 MG PO HS Prescribed by: MOLLY SANCHEZ on 07/21/17 1240 Zonisamide 100 Mg Capsule, 200 MG PO DAILY, (Reported) Zonisamide 100 Mg Capsule, 100 MG PO HS, (Reported) Patient Home Medication List Home Medication List Reviewed: Yes Review of Systems Review of Systems Constitutional: see HPI; No chills, No fever Cardiovascular: See HPI, Other (Left-sided chest wall tenderness) Musculoskeletal: see HPI, joint pain (left hip, left elbow, left shoulder), neck pain Skin: see HPI, other (ecchymosis to his left upper ribs just below his left arm and ecchymosis to his left hip.) Psychiatric/Neurological: See HPI, Headache All Other Systems Reviewed Negative Unless Noted: Yes Past Iclnxii-Jljaut-Yslilo Hx Past Med/Social Hx: Reviewed Nursing Past Med/Soc Hx Patient Social History Alcohol Use: Denies Use Recreational Drug Use: No Smoking Status: Former Smoker Type Used: Pipe 2nd Hand Smoke Exposure: No Recent Foreign Travel: No Contact w/Someone Who Travel: No Recent Infectious Disease Expo: No Recent Hopitalizations: No Immunizations Up To Date Tetanus Booster (TDap): Unknown Seasonal Allergies Seasonal Allergies: No Past Medical History Surgeries: Yes (lap band, L HIP, BILAT KNEE) Abdominal, Orthopedic Respiratory: Yes Sleep Apnea Currently Using CPAP: Yes Cardiac: Yes Angina, Atrial Fibrillation, Chronic Edema/Swelling, Deep Vein Thrombosis, High Cholesterol, Hypertension Neurological: Yes Neuropathy, Stroke Genitourinary: No Gastrointestinal: Yes Gastroesophageal Reflux Musculoskeletal: Yes Arthritis Endocrine: Yes Diabetes, Insulin dep HEENT: No Cancer: No Psychosocial: No Integumentary: Yes Blood Disorders: No Family Medical History Reviewed Nursing Family Hx Diabetes, Hypertension Physical Exam Vital Signs Vital Signs - First Documented 02/23/18 12:05 Temp 98.0 Pulse 74 Resp 16 B/P (MAP) 174/74 (107) Pulse Ox 98 O2 Delivery Room Air Height, Weight, BMI Height: 5'9.00" Weight: 335lbs. 0.0oz. 151.909803kg; 49.7 BMI Method:Stated General Appearance: No Apparent Distress, WD/WN Head: Tenderness Eyes: Bilateral Eye Normal Inspection, Bilateral Eye PERRL, Bilateral Eye EOMI Ears, Nose, Throat: Hearing Grossly Normal, No Evidence of ENT Injury, No Dental Injury Neck: Full Range of Motion, Normal Inspection, Supple, Tender Midline Cardiovascular: Regular Rate, Rhythm, No Edema, No Gallop, No JVD, No Murmur, Normal Peripheral Pulses Respiratory: Lungs Clear, Normal Breath Sounds, No Accessory Muscle Use, No Respiratory Distress, Other (chest is tender on exam patient does have ecchymosis to his left upper ribs just below his left arm.) Gastrointestinal: Normal Bowel Sounds, No Organomegaly, No Pulsatile Mass, Non Tender, Soft Extremity: Normal Capillary Refill, Normal Inspection, Normal Range of Motion, Non Tender, No Calf Tenderness, No Pedal Edema, Other (ecchymosis to his left hip.) Neurologic/Psychiatric: Alert, Oriented x3, Normal Mood/Affect Skin: Normal Color, Warm/Dry Sparkman Coma Score Best Eye Response (Sparkman): (4) Open Spontaneously Best Verbal Response (Jose Daniel): (5) Oriented Best Motor Response (Sparkman): (6) Obeys Commands Progress/Results/Core Measures Results/Orders My Orders Orders - CALIN ELLISON Ct Head/Cervical Spine Wo (02/23/18 12:34) Shoulder, Left, 3 Views (02/23/18 12:34) Pelvis With Left Hip 2-3 Views (02/23/18 12:34) Chest Pa/Lat (2 View) (02/23/18 12:34) Elbow, Left, 3 Views (02/23/18 12:34) Hydrocodone/Apap 7.5/325 Tab (Lortab 7. (02/23/18 12:45) Medications Given in ED Vital Signs/I&O 02/23/18 02/23/18 12:05 13:48 Temp 98.0 Pulse 74 65 Resp 16 16 B/P (MAP) 174/74 (107) 123/70 (87) Pulse Ox 98 96 O2 Delivery Room Air Room Air Blood Pressure Mean: 107 Progress Progress Note : Time: 13:40 EKG : EKG Time: 12:21 Rate: 68 Rhythm: Normal Sinus Intervals: Normal ECG Comparisson: No Previous ECG Available ECG Impression: Normal Diagnostic Imaging Diagonstic Imaging: Xray, CT Plain Films/CT/US/NM/MRI: elbow, c-spine, pelvis, hip, head, other (Shoulder ) Comments NAME: JESICA CHILDS [employer] REC#: [id number] PT STATUS: DEP ER : 1950 PHYSICIAN: CALIN ELLISON ADMIT DATE: 02/23/18/ER Signed Date of Exam: 02/23/18 CHEST PA/LAT (2 VIEW) INDICATION: Fall COMPARISON: 01/31/2018 FINDINGS: Frontal and lateral views of the chest demonstrate clear lungs bilaterally. The heart is minimally enlarged but stable. There is no pneumothorax or effusion. Osseous structures are age-appropriate. Cardiac monitoring capsule is seen on the left. IMPRESSION: Negative chest. Dictated by: Dictated on workstation # [id number] Dict: 02/23/18 1318 Trans: 02/23/18 1350 Interpreted by: DAR BARRON Electronically signed by: DAR BARRON 02/23/18 1350 NAME: JESICA CHILDS MED REC#: [id number] PHYSICIAN: CALIN ELLISON CC: CALIN ELLISON; DAR BARRON Page 1 of 1 RADIOLOGY REPORT VIA [facility]. [place], [place] CC: CALIN ELLISON; DAR BARRON Page 1 of 1 RADIOLOGY REPORT NAME: JESICA CHILDS MED REC#: [id number] PT STATUS: REG ER : 1950 PHYSICIAN: CALIN ELLISON ADMIT DATE: 02/23/18/ER Signed Date of Exam: 02/23/18 ELBOW, LEFT, 3 VIEWS INDICATION: Left elbow pain. COMPARISON: None. FINDINGS: Three views of the left elbow demonstrate no fracture or dislocation. Articular surfaces are age appropriate. No joint effusion. IMPRESSION: Negative left elbow. Dictated by: Dictated on workstation # [id number] Dict: 02/23/18 1317 Trans: 02/23/18 1327 Interpreted by: DAR BARRON Electronically signed by: DAR BARRON 02/23/181326 NAME: JESICA CHILDS [facility] REC#: [id number] PT STATUS: DEP ER : 1950 PHYSICIAN: CALIN ELLISON ADMIT DATE: 02/23/18/ER Signed Date of Exam: 02/23/18 CT HEAD/CERVICAL SPINE WO PROCEDURE: CT head and CT cervical spine without contrast. TECHNIQUE: Multiple contiguous axial images were obtained through the brain and cervical spine without the use of intravenous contrast. Sagittal and coronal reformations through the cervical spine were then performed. INDICATION: Fall. Head injury. Posterior neck pain. COMPARISON: CTA head and neck 01/31/2018. FINDINGS: CT HEAD: No intracranial hemorrhage, mass effect, hydrocephalus, or extra-axial fluid collections. No CT evidence for territorial infarction. The paranasal sinuses and mastoids are clear. No fractures. CT CERVICAL SPINE: Mild reversal of the normal cervical lordosis is at least partially positional. Alignment is otherwise unremarkable. Vertebral body heights are preserved. No fractures. There are advanced degenerative endplate changes throughout the cervical spine. These result in at least moderate spinal canal narrowing at C4-C5. Mild atherosclerotic calcifications in the carotid bifurcations. The visualized paravertebral soft tissues are otherwise unremarkable. IMPRESSION: 1. No acute intracranial or cervical spine CT findings. 2. 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 This could be further evaluated with an MRI or CT myelogram if clinically warranted. Dictated by: Dictated on workstation # [id number] Dict: 02/23/18 1303 Trans: 02/23/181436 Interpreted by: YENNY KLEIN MD Electronically signed by: YENNY KLEIN MD 02/23/181436 NAME: JESICA CHILDS [facility] REC#: [id number] PT STATUS: [facility] ER : 1950 PHYSICIAN: CALIN ELLISON ADMIT DATE: 02/23/18/ER Signed Date of Exam: 02/23/18 PELVIS WITH LEFT HIP 2-3 VIEWS INDICATION: Fall, left hip pain, history of arthroplasty. COMPARISON: None. FINDINGS: Single view of the pelvis and two views of the left hip demonstrate a well-seated left hip arthroplasty. There is no fracture. Osseous structures are age appropriate. Minimal degenerative changes are seen in the right hip. No osseous lesion. IMPRESSION: No fracture or dislocation. Dictated by: Dictated on workstation # [id number] Dict: 02/23/181316 Trans: 02/23/181349 Interpreted by: DAR BARRON Electronically signed by: DAR BARRON 02/23/181349 NAME: JESICA CHILDS [facility] REC#: [id number] PT STATUS: [facility] ER : 1950 PHYSICIAN: CALIN ELLISON ADMIT DATE: 02/23/18/ER Signed Date of Exam: 02/23/18 SHOULDER, LEFT, 3 VIEWS INDICATION: Left shoulder pain, injury. COMPARISON: None. FINDINGS: Three views of the left shoulder demonstrate no fracture or dislocation. Articular surfaces are normal. No osseous lesion. IMPRESSION: Negative left shoulder. Dictated by: Dictated on workstation # [id number] Dict: 02/23/181316 Trans: 02/23/181326 Interpreted by: DAR BARRON Electronically signed by: DAR BARRON 02/23/181326 Reviewed: Reviewed by Me Departure Impression Primary Impression: Rib contusion Additional Impressions: Contusion of left hip Fall (on) (from) other stairs and steps, initial encounter Disposition: HOME, SELF-CARE Condition: Stable/Unchanged Departure-Patient Inst. Decision time for Depature: 13:41 Referrals: MOLLY SANCHEZ DO (PCP/Family) Primary Care Physician Patient Instructions: Contusion (DC) Add. Discharge Instructions: Take medications as directed. Follow-up with Dr. Sanchez within 1 week for recheck. Ice to the sore areas at 20 minute intervals. Return back to the emergency room for any worsening symptoms, increasing pain, shortness of breath , dizziness, confusion, or any other concerns as needed. Use the incentive spirometer as directed to prevent pneumonia and to facilitate deep breathing. All discharge instructions reviewed with patient and/or family. Voiced understanding. Scripts Hydrocodone Bit/Acetaminophen (Hydrocodone/Acetaminophen 5/325mg Tablet) 1 Tab Tab 1 EACH PO Q4-6HR PRN for PAIN-MODERATE MDD 10, #14 TAB Prov: CALIN ELLISON 02/23/18 Images Full Body/Extremities Full 1 - Ecchymosis Torso/Trunk 1 - Ecchymosis, Tenderness CALIN ELLISON Feb 23, 2018 13:32
[2018-02-23] MEDS ORDERED: ACHD5005 PO (13:43)
[2018-02-23 13:48] VITALS: BP 123/70
== END 2018-02-23 13:48 | disposition home or self-care (01) ==
LOC: EDUNIT# 11:17 → ER 11:19
DX: S20.212A Contusion of left front wall of thorax, initial encounter (principal); S70.02XA Contusion of left hip, initial encounter; M54.2 Cervicalgia; M25.512 Pain in left shoulder; M25.522 Pain in left elbow; G47.30 Sleep apnea, unspecified; I48.91 Unspecified atrial fibrillation; E78.00 Pure hypercholesterolemia, unspecified; I10 Essential (primary) hypertension; K21.9 Gastro-esophageal reflux disease without esophagitis; E11.9 Type 2 diabetes mellitus without complications; R40.2142 Coma scale, eyes open, spontaneous, at arrival to emergency department; R40.2252 Coma scale, best verbal response, oriented, at arrival to emergency department; R40.2362 Coma scale, best motor response, obeys commands, at arrival to emergency department; Z86.73 Personal history of transient ischemic attack (TIA), and cerebral infarction without residual deficits; Z96.642 Presence of left artificial hip joint; Z96.653 Presence of artificial knee joint, bilateral; Z86.718 Personal history of other venous thrombosis and embolism; Z79.01 Long term (current) use of anticoagulants; Z79.82 Long term (current) use of aspirin; Z79.4 Long term (current) use of insulin; Z87.891 Personal history of nicotine dependence; Z98.84 Bariatric surgery status; Z79.02 Long term (current) use of antithrombotics/antiplatelets; W10.8XXA Fall (on) (from) other stairs and steps, initial encounter
CPT/HCPCS: 70450; 71046; 72125; 73030; 73080

== ENCOUNTER 2018-03-04 10:18 | Emergency (ER) | payer MEDICARE ==
[~2018-03-04] VITALS: Ht 165.1 cm; Wt 152.0 kg
[~2018-03-04 10:18] MED LIST changes: +ACHD5005 PO
--- NOTE | 2018-03-04 11:16 | ED EENT ---
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 1034 NASAL CLAMP PLACED Source: patient Exam Limitations: no limitations History of Present Illness Date Seen by Provider: Mar 04, 2018 Time Seen by Provider: 11:12 Initial Comments Patient is a 67-year-old male who presents to the emergency room with complaints of a nosebleed that started 1 hour prior to arrival. He reports that he was moving plants into the house out of the weather and was bending over several times to pick things up off the ground when it just started bleeding. A nose clamp was placed on arrival to the emergency room. Location: nose Prearrival Treatment: squeezing nostrils Associated Symptoms: denies symptoms Allergies and Home Medications Allergies Coded Allergies: No Known Drug Allergies (Unverified , 07/19/17) Home Medications Amlodipine Besylate 5 Mg Tablet, 5 MG PO DAILY Prescribed by: MOLLY SANCHEZ on 02/02/18 1147 Apixaban 5 Mg Tablet, 5 MG PO BID, (Reported) Aspirin 81 Mg Tablet.dr, 81 MG PO DAILY Prescribed by: MOLLY SANCHEZ on 07/21/17 1240 Atorvastatin Calcium 10 Mg Tablet, 10 MG PO HS, (Reported) Carbamazepine 200 Mg Tab.er.12h, 400 MG PO BID TAKES 2 (200 MG) TABLETS Prescribed by: MOLLY SANCHEZ on 07/21/17 1240 Celecoxib 400 Mg Capsule, 400 MG PO DAILY Prescribed by: MOLLY SANCHEZ on 07/21/17 1240 Clopidogrel Bisulfate 75 Mg Tablet, 75 MG PO DAILY Prescribed by: MOLLY SANCHEZ on 07/21/17 1240 Gabapentin 300 Mg Capsule, 300 MG PO TID, (Reported) Hydrocodone Bit/Acetaminophen 1 Tab Tab, 1 EACH PO Q4-6HR PRN for PAIN-MODERATE Prescribed by: CALIN ELLISON on 02/23/18 1343 Insulin Glargine,Hum.rec.anlog 100 Unit/1 Ml Insuln.pen, 30 UNIT SQ HS Prescribed by: MOLLY SANCHEZ on 02/02/18 1147 Lisinopril 5 Mg Tablet, 5 MG PO DAILY@0900 Prescribed by: MOLLY SANCHEZ on 07/21/17 1240 Metformin HCl 750 Mg Tab.er.24h, 750 MG PO BID, (Reported) Metoprolol Succinate 25 Mg Tab.er.24h, 25 MG PO DAILY, (Reported) Nitroglycerin 0.4 Mg Tab.subl, 0.4 MG SL PRN PRN for CHEST PAIN, (Reported) Topiramate 100 Mg Tablet, 100 MG PO BID Prescribed by: MOLLY SANCHEZ on 07/21/17 1240 Trazodone HCl 100 Mg Tablet, 200 MG PO HS Prescribed by: MOLLY SANCHEZ on 07/21/17 1240 Zonisamide 100 Mg Capsule, 200 MG PO DAILY, (Reported) Zonisamide 100 Mg Capsule, 100 MG PO HS, (Reported) Patient Home Medication List Home Medication List Reviewed: Yes Review of Systems Review of Systems Constitutional: see HPI; No chills, No fever Nose: see HPI, clots, epistaxis All Other Systems Reviewed Negative Unless Noted: Yes Past Nvvnavo-Bfihnw-Prizzj Hx Past Med/Social Hx: Reviewed Nursing Past Med/Soc Hx Patient Social History Alcohol Use: Denies Use Recreational Drug Use: No Smoking Status: Never a Smoker Type Used: Pipe 2nd Hand Smoke Exposure: No Recent Foreign Travel: No Contact w/Someone Who Travel: No Recent Infectious Disease Expo: No Recent Hopitalizations: No Immunizations Up To Date Tetanus Booster (TDap): Unknown Seasonal Allergies Seasonal Allergies: No Past Medical History Surgeries: Yes (lap band, L HIP, BILAT KNEE) Abdominal, Orthopedic Respiratory: Yes Sleep Apnea Currently Using CPAP: Yes Cardiac: Yes Angina, Atrial Fibrillation, Chronic Edema/Swelling, Deep Vein Thrombosis, High Cholesterol, Hypertension Neurological: Yes Neuropathy, Stroke Genitourinary: No Gastrointestinal: Yes Gastroesophageal Reflux Musculoskeletal: Yes Arthritis Endocrine: Yes Diabetes, Insulin dep HEENT: No Cancer: No Psychosocial: No Integumentary: Yes Blood Disorders: No Family Medical History Reviewed Nursing Family Hx Diabetes, Hypertension Physical Exam Vital Signs Vital Signs - First Documented 03/04/18 10:25 Temp 99.6 Pulse 84 Resp 18 B/P (MAP) 154/72 (99) Pulse Ox 96 O2 Delivery Room Air Height, Weight, BMI Height: 5'5.00" Weight: 335lbs. 0.0oz. 151.017790ff; 49.7 BMI Method:Stated General Appearance: WD/WN, no apparent distress Eyes: bilateral eye normal inspection, bilateral eye PERRL, bilateral eye EOMI Ears: bilateral ear auricle normal, bilateral ear canal normal, bilateral ear TM normal Nose: other (large visible clot in the right nostril) Mouth/Throat: normal mouth inspection, pharynx normal Neck: non-tender, full range of motion, supple, normal inspection Cardiovascular: normal peripheral pulses, regular rate, rhythm, no edema, no gallop, no JVD, no murmur Respiratory: chest non-tender, lungs clear, normal breath sounds, no respiratory distress, no accessory muscle use Neurologic/Psychiatric: alert, normal mood/affect, oriented x 3 Skin: normal color, warm/dry Procedures/Interventions Nasal : Nasal Location: Right Clots Cleared from Nasal: Patient Blowing (large clot was blown from the right nostril) Progress The patient had a nose clamp placed on arrival to the emergency room. Clamp was removed at 1115 and a large clot was visualized in the right nostril. The patient removed the clot by blowing his nose. There is no bleeding noted after clot removal. We'll continue to watch the patient for a while to make sure the bleeding does not return. Progress/Results/Core Measures Results/Orders Vital Signs/I&O Blood Pressure Mean: 99 Progress Progress Note : Time: 11:55 Progress Note The patient remained free of epistaxis after about 45 minutes of observation. He agrees with plans for discharge, plans for close follow up, return precautions were given. Voices no questions or concerns. Departure Impression Primary Impression: Epistaxis Disposition: 01 HOME, SELF-CARE Condition: Stable/Unchanged Departure-Patient Inst. Decision time for Depature: 11:55 Referrals: MOLLY SANCHEZ DO (PCP/Family) Primary Care Physician Patient Instructions: Nosebleeds (DC) Add. Discharge Instructions: Try to avoid blowing your nose or sneezing as much as possible today. Follow-up with Dr. Sanchez within 1 week for recheck. A cool mist humidifier may be beneficial your home since you have turned on your heat to take some the dryness out of the air. Return back to the emergency room for return of nosebleeds or for any worsening symptoms or concerns as needed. All discharge instructions reviewed with patient and/or family. Voiced understanding. CALIN ELLISON Mar 04, 2018 11:16
[2018-03-04 12:00] VITALS: BP 154/72
== END 2018-03-04 12:06 | disposition home or self-care (01) ==
LOC: EDUNIT# 10:18 → ER 10:21
DX: R04.0 Epistaxis (principal); G47.30 Sleep apnea, unspecified; I48.91 Unspecified atrial fibrillation; E78.00 Pure hypercholesterolemia, unspecified; I10 Essential (primary) hypertension; E11.9 Type 2 diabetes mellitus without complications; K21.9 Gastro-esophageal reflux disease without esophagitis; Z86.73 Personal history of transient ischemic attack (TIA), and cerebral infarction without residual deficits; Z86.718 Personal history of other venous thrombosis and embolism; Z79.01 Long term (current) use of anticoagulants; Z79.82 Long term (current) use of aspirin; Z79.4 Long term (current) use of insulin; Z79.02 Long term (current) use of antithrombotics/antiplatelets; Z98.84 Bariatric surgery status

== ENCOUNTER → 2018-03-18 | Outpatient (CLI) | payer MEDICARE ==
[2018-03-18 06:57] LABS: BASOPHILS % (AUTO) 0 % (0-10); EOSINOPHILS # (AUTO) 0.2 10^3/uL (0.0-0.3); EOSINOPHILS % (AUTO) 3 % (0-10); HEMATOCRIT 43 % (40-54); HEMOGLOBIN 14.1 G/DL (13.3-17.7); LYMPHOCYTES # (AUTO) 1.6 X 10^3 (1.0-4.0); LYMPHOCYTES % (AUTO) 22 % (12-44); MEAN CORPUSCULAR HEMOGLOBIN 29 PG (25-34); MEAN CORPUSCULAR HGB CONC 33 G/DL (32-36); MEAN CORPUSCULAR VOLUME 88 FL (80-99); MEAN PLATELET VOLUME 9.3 FL (7.4-10.4); MONOCYTES # (AUTO) 0.7 X 10^3 (0.0-1.0); MONOCYTES % (AUTO) 9 % (0-12); NEUTROPHILS # (AUTO) 4.8 X 10^3 (1.8-7.8); NEUTROPHILS % (AUTO) 66 % (42-75); PLATELET COUNT 263 10^3/uL (130-400); RED BLOOD COUNT 4.86 10^6/uL (4.35-5.85); RED CELL DISTRIBUTION WIDTH 14.5 % (10.0-14.5); WHITE BLOOD COUNT 7.3 10^3/uL (4.3-11.0)
[2018-03-18 07:15] LABS: ALBUMIN 4.4 GM/DL (3.2-4.5); BILIRUBIN,TOTAL 0.4 MG/DL (0.1-1.0); CALCIUM 9.6 MG/DL (8.5-10.1); CREATININE SERUM 1.27 MG/DL (0.60-1.30); POTASSIUM 4.4 MMOL/L (3.6-5.0); TOTAL PROTEIN 7.7 GM/DL (6.4-8.2)
== END ==
LOC: LAB 06:35
PROVIDERS: ATTEND Internal Medicine
DX: E11.8 Type 2 diabetes mellitus with unspecified complications (principal); Z79.4 Long term (current) use of insulin
CPT/HCPCS: 36415; 80053; 80061; 83036; 84443; 85025

== ENCOUNTER → 2018-05-01 | Outpatient (CLI) | payer MEDICARE | LOC: RAD 09:19 | PROVIDERS: ATTEND Orthopaedic Surgery Orthopaedic Surgery of the Spine | DX: M54.2 Cervicalgia (principal); Z53.8 Procedure and treatment not carried out for other reasons ==

== ENCOUNTER → 2018-07-02 | Outpatient (CLI) | payer MEDICARE ==
[~2018-07-02] MED LIST changes: -AMLO5TAB7 PO; +AMLO5TAB9 PO
[2018-07-02 07:49] LABS: BASOPHILS % (AUTO) 0 % (0-10); EOSINOPHILS # (AUTO) 0.2 10^3/uL (0.0-0.3); EOSINOPHILS % (AUTO) 2 % (0-10); HEMATOCRIT 42 % (40-54); HEMOGLOBIN 13.8 G/DL (13.3-17.7); LYMPHOCYTES # (AUTO) 2.2 X 10^3 (1.0-4.0); LYMPHOCYTES % (AUTO) 27 % (12-44); MEAN CORPUSCULAR HEMOGLOBIN 29 PG (25-34); MEAN CORPUSCULAR HGB CONC 33 G/DL (32-36); MEAN CORPUSCULAR VOLUME 88 FL (80-99); MEAN PLATELET VOLUME 9.1 FL (7.4-10.4); MONOCYTES # (AUTO) 0.7 X 10^3 (0.0-1.0); MONOCYTES % (AUTO) 8 % (0-12); NEUTROPHILS # (AUTO) 4.9 X 10^3 (1.8-7.8); NEUTROPHILS % (AUTO) 62 % (42-75); PLATELET COUNT 271 10^3/uL (130-400); RED CELL DISTRIBUTION WIDTH 13.9 % (10.0-14.5)
[2018-07-02 08:21] LABS: ALBUMIN 4.3 GM/DL (3.2-4.5); BILIRUBIN,TOTAL 0.4 MG/DL (0.1-1.0); CALCIUM 9.1 MG/DL (8.5-10.1); CREATININE SERUM 1.4 MG/DL (0.60-1.30); POTASSIUM 4.2 MMOL/L (3.6-5.0); TOTAL PROTEIN 7.4 GM/DL (6.4-8.2)
== END ==
LOC: LAB 07:26
PROVIDERS: ATTEND Internal Medicine
DX: E11.8 Type 2 diabetes mellitus with unspecified complications (principal); I25.10 Atherosclerotic heart disease of native coronary artery without angina pectoris; Z79.4 Long term (current) use of insulin
CPT/HCPCS: 36415; 80053; 80061; 82232; 83036; 84443; 85025

== ENCOUNTER → 2018-08-22 | Outpatient (CLI) | payer MEDICARE ==
--- NOTE | 2018-08-22 16:45 | Diagnostic Imaging Report ---
PROCEDURE: US left lower extremity venous. TECHNIQUE: Multiple real-time grayscale images were obtained over the left lower extremity in various projections. Additional duplex Doppler and color Doppler images were also obtained. INDICATION: History of DVT, on outpatient treatment, with a recent recurrence of symptoms. FINDINGS: Common femoral vein is patent. At the mid to distal superficial femoral vein, there are segmental areas of clot, partially occlusive. Partially occlusive clot in the popliteal vein is present. Within the calf, there is occlusive thrombus in the posterior tibial vein. Prior exam performed on 12/09/2017 showed no obvious clot but was technically limited. There is likely some scarring or partial thrombus recanalized at the profunda femoris. IMPRESSION: DVT in the left leg is present. Segmental areas of incompletely occlusive clot in the superficial femoral vein at its mid to lower third as well as the popliteal vein present with occlusive clot in the calf and most notably at the posterior tibial vein. Widely patent common femoral vein. Likely partial thrombus in the profunda. Results left on the ordering physician's phone mail recorder service at the time of this dictation. Dictated by: Dictated on workstation # [id number]
== END ==
LOC: RAD 15:25
PROVIDERS: ATTEND Internal Medicine
DX: I82.412 Acute embolism and thrombosis of left femoral vein (principal); I82.432 Acute embolism and thrombosis of left popliteal vein

== ENCOUNTER → 2018-09-29 | Outpatient (CLI) | payer MEDICARE ==
--- NOTE | 2018-09-29 07:46 | Diagnostic Imaging Report ---
INDICATION: Shoulder pain. COMPARISON: None available. TECHNIQUE: Three radiographs of the right shoulder dated September 29, 2018. FINDINGS: Mild degenerative changes of the acromioclavicular joint. No acute fracture or dislocation. No destructive osseous process. Subacromial space is well maintained. The visualized right lung is clear. No suspicious radiopaque foreign body. IMPRESSION: No acute osseous abnormality with mild degenerative changes. Dictated by: Dictated on workstation # [id number]
== END ==
LOC: RAD 07:14
PROVIDERS: ATTEND Internal Medicine
DX: M25.511 Pain in right shoulder (principal)
CPT/HCPCS: 73030

== ENCOUNTER → 2018-10-07 | Outpatient (CLI) | payer MEDICARE | LOC: ORTHO 09:21 | PROVIDERS: ATTEND Orthopaedic Surgery | DX: M19.011 Primary osteoarthritis, right shoulder (principal) | CPT/HCPCS: 99203 ==

== ENCOUNTER → 2018-10-17 | Outpatient (CLI) | payer MEDICARE ==
[2018-10-17 07:35] LABS: BASOPHILS % (AUTO) 0 % (0-10); EOSINOPHILS # (AUTO) 0.2 10^3/uL (0.0-0.3); EOSINOPHILS % (AUTO) 2 % (0-10); HEMATOCRIT 40 % (40-54); LYMPHOCYTES # (AUTO) 1.7 X 10^3 (1.0-4.0); LYMPHOCYTES % (AUTO) 23 % (12-44); MEAN CORPUSCULAR HEMOGLOBIN 29 PG (25-34); MEAN CORPUSCULAR HGB CONC 32 G/DL (32-36); MEAN CORPUSCULAR VOLUME 89 FL (80-99); MEAN PLATELET VOLUME 9.2 FL (7.4-10.4); MONOCYTES # (AUTO) 0.6 X 10^3 (0.0-1.0); MONOCYTES % (AUTO) 8 % (0-12); NEUTROPHILS # (AUTO) 4.9 X 10^3 (1.8-7.8); NEUTROPHILS % (AUTO) 66 % (42-75); PLATELET COUNT 243 10^3/uL (130-400); RED CELL DISTRIBUTION WIDTH 13.6 % (10.0-14.5); WHITE BLOOD COUNT 7.5 10^3/uL (4.3-11.0)
[2018-10-17 08:01] LABS: ALANINE AMINOTRANSFERASE 19 U/L (0-55); ALBUMIN 4.2 GM/DL (3.2-4.5); ALKALINE PHOSPHATASE 78 U/L (40-136); BILIRUBIN,TOTAL 0.3 MG/DL (0.1-1.0); BUN/CREATININE RATIO 13; CALCIUM 9.4 MG/DL (8.5-10.1); CARBON DIOXIDE 24 MMOL/L (21-32); CHLORIDE 103 MMOL/L (98-107); CREATININE SERUM 1.13 MG/DL (0.60-1.30); GFR ESTIMATED > 60; GLUCOSE 128 MG/DL (70-105); POTASSIUM 4.8 MMOL/L (3.6-5.0); SODIUM 134 MMOL/L (135-145); TOTAL PROTEIN 7.2 GM/DL (6.4-8.2)
== END ==
LOC: LAB 07:11
PROVIDERS: ATTEND Internal Medicine
DX: E11.65 Type 2 diabetes mellitus with hyperglycemia (principal); E11.42 Type 2 diabetes mellitus with diabetic polyneuropathy; G62.9 Polyneuropathy, unspecified; I82.412 Acute embolism and thrombosis of left femoral vein; Z79.4 Long term (current) use of insulin
CPT/HCPCS: 36415; 80053; 83036; 84443; 85025

== ENCOUNTER 2018-11-12 12:10 | Emergency (ER) | payer MEDICARE ==
[~2018-11-12] VITALS: Ht 175.3 cm; Wt 148.3 kg
--- OUTSIDE RECORDS SUMMARY | 2018-11-12 12:22 | XMS REPORT | Continuity of Care Document ---
Author Organization Unknown Address Unknown Allergies Active Description Code Type Severity Reaction Onset Reported/Identified Relationship to Patient Clinical Status Yes No Known Drug Allergies [id number] Drug Allergy Unknown N/A 07/19/2017 Medications There is no data. 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 07/21/2017 COLE SANCHEZ DOI Ot I10 ESSENTIAL (PRIMARY) HYPERTENSION 07/21/2017 LAURA LINN MOLLY Ot I25.10 ATHSCL HEART DISEASE OF [place] CORONARY 07/21/2017 LAURA LINN MOLLY Ot M79.641 PAIN IN RIGHT HAND 07/21/2017 COLE SANCHEZ DOI Ot M79.642 PAIN IN LEFT HAND 07/21/2017 LAURA LINN MOLLY Ot M79.89 OTHER SPECIFIED SOFT TISSUE DISORDERS 07/21/2017 COLE SANCHEZ DOI Ot R07.9 CHEST PAIN, UNSPECIFIED 07/21/2017 COLE SANCHEZ DOI Ot Z68.42 BODY MASS INDEX (BMI) 45.0-49.9, ADULT 07/21/2017 LAURA LINN MOLLY Ot Z79.4 HEAD ANIMAL TRAINER (CURRENT) USE OF INSULIN 07/21/2017 COLE SANCHEZ DOI Ot Z79.899 OTHER LONG-TERM (CURRENT) DRUG THERAPY 07/21/2017 OMLLY SANCHEZ DO Ot Z86.73 PRSNL HX OF TIA (TIA), AND CEREB INFRC W 07/22/2017 SANCHEZ DO, MOLLY Ot E11.9 TYPE 2 DIABETES MELLITUS WITHOUT COMPLIC 07/22/2017 SANCHZE DO, MOLLY Ot E66.01 MORBID (SEVERE) OBESITY DUE TO EXCESS CA 07/22/2017 SANCHEZ DO, MOLLY Ot E78.00 PURE HYPERCHOLESTEROLEMIA, UNSPECIFIED 07/22/2017 SANCHEZ DO, MOLLY Ot G40.909 EPILEPSY, UNSP, NOT INTRACTABLE, WITHOUT 07/22/2017 SANCHEZ DO, MOLLY Ot G47.33 OBSTRUCTIVE SLEEP APNEA (ADULT) (PEDIATR 07/22/2017 SANCHEZ DO, MOLLY Ot I10 ESSENTIAL (PRIMARY) HYPERTENSION 07/22/2017 SANCHEZ DO, MOLLY Ot M79.641 PAIN IN RIGHT HAND 07/22/2017 SANCHEZ DO, MOLLY Ot M79.642 PAIN IN LEFT HAND 07/22/2017 SANCHEZ DO, MOLLY Ot M79.89 OTHER SPECIFIED SOFT TISSUE DISORDERS 07/22/2017 SANCHEZ DO MOLLY Ot R07.9 CHEST PAIN, UNSPECIFIED 07/22/2017 SANCHEZ DO MOLLY Ot Z68.42 BODY MASS INDEX (BMI) 45.0-49.9, ADULT 07/22/2017 SANCHEZ DO, MOLLY Ot Z79.4 LONG-TERM (CURRENT) USE OF INSULIN 07/22/2017 LAURA LINN MOLLY Ot Z79.899 OTHER LONG-TERM (CURRENT) DRUG THERAPY 07/22/2017 LAURA LINN MOLLY Ot Z86.73 PRSNL HX OF TIA (TIA), AND CEREB INFRC W 07/31/2017 TREVOR MARIELENA L SILK WEAVER Ot E11.9 TYPE 2 DIABETES MELLITUS WITHOUT COMPLIC 07/31/2017 CARLOSMA, MARIELENA L SILK WEAVER Ot E66.01 MORBID (SEVERE) OBESITY DUE TO EXCESS CA 07/31/2017 CARLOSMA, MARIELENA L SILK WEAVER Ot G47.33 OBSTRUCTIVE SLEEP APNEA (ADULT) (PEDIATR 07/31/2017 BAIMA, MARIELENA L SILK WEAVER Ot I10 ESSENTIAL (PRIMARY) HYPERTENSION 07/31/2017 CARLOSMA, MARIELENA L SILK WEAVER Ot I25.10 ATHSCL HEART DISEASE OF [place] CORONARY 07/31/2017 TREVOR MARIELENA L SILK WEAVER Ot R00.2 PALPITATIONS 07/31/2017 TREVOR MARIELENA L SILK WEAVER Ot Z68.42 BODY MASS INDEX (BMI) 45.0-49.9, ADULT 07/31/2017 [place]LOSSAM MARIELENA L SILK WEAVER Ot Z79.4 LONG-TERM (CURRENT) USE OF INSULIN 07/31/2017 CARLOSSAM MARIELENA L SILK WEAVER Ot Z79.82 HEAD ANIMAL TRAINER (CURRENT) USE OF ASPIRIN 07/31/2017 CARLOSMA MARIELENA L SILK WEAVER Ot Z79.899 OTHER HEAD ANIMAL TRAINER (CURRENT) DRUG THERAPY 07/31/2017 CARLOSMA MARIELENA L SILK WEAVER Ot Z87.891 PERSONAL HISTORY OF NICOTINE DEPENDENCE 08/05/2017 CARLOSMA MARIELENA L SILK WEAVER Ot E11.9 TYPE 2 DIABETES MELLITUS WITHOUT COMPLIC 08/05/2017 CARLOSMA MARIELENA L SILK WEAVER Ot E66.01 MORBID (SEVERE) OBESITY DUE TO EXCESS CA 08/05/2017 CARLOSMA MARIELENA L SILK WEAVER Ot G47.33 OBSTRUCTIVE SLEEP APNEA (ADULT) (PEDIATR 08/05/2017 CARLOSMA MARIELENA L SILK WEAVER Ot I10 ESSENTIAL (PRIMARY) HYPERTENSION 08/05/2017 TREVOR MARIELENA L SILK WEAVER Ot I25.10 ATHSCL HEART DISEASE OF [place] CORONARY 08/05/2017 [place]OSS[place] MARIELENA L SILK WEAVER Ot R00.2 PALPITATIONS 08/05/2017 CARLOSSAM MARIELENA L SILK WEAVER Ot Z68.42 BODY MASS INDEX (BMI) 45.0-49.9, ADULT 08/05/2017 TREVOR MARIELENA L SILK WEAVER Ot Z79.4 LONG-TERM (CURRENT) USE OF INSULIN 08/05/2017 MARIELENA MURRAY L SILK WEAVER Ot Z79.82 LONG-TERM (CURRENT) USE OF ASPIRIN 08/05/2017 TREVOR MARIELENA L SILK WEAVER Ot Z79.899 OTHER HEAD ANIMAL TRAINER (CURRENT) DRUG THERAPY 08/05/2017 CARLOSMA MARIELENA L SILK WEAVER Ot Z87.891 PERSONAL HISTORY OF NICOTINE DEPENDENCE 08/08/2017 TREVOR MARIELENA L SILK WEAVER Ot E11.9 TYPE 2 DIABETES MELLITUS WITHOUT COMPLIC 08/08/2017 CARLOSMA MARIELENA L SILK WEAVER Ot E66.01 MORBID (SEVERE) OBESITY DUE TO EXCESS CA 08/08/2017 CARLOSMA MARIELENA L SILK WEAVER Ot G47.33 OBSTRUCTIVE SLEEP APNEA (ADULT) (PEDIATR 08/08/2017 BAIMA MARIELENA L SILK WEAVER Ot I10 ESSENTIAL (PRIMARY) HYPERTENSION 08/08/2017 TREVORMARIELENA SILK WEAVER Ot I25.10 ATHSCL HEART DISEASE OF [place] CORONARY 08/08/2017 CARLOSMARIELENA VARGAS SILK WEAVER Ot R00.2 PALPITATIONS 08/08/2017 CARLOSMARIELENA VARGAS SILK WEAVER Ot Z68.42 BODY MASS INDEX (BMI) 45.0-49.9, ADULT 08/08/2017 TREVOR MARIELENA Mckay SILK WEAVER Ot Z79.4 HEAD ANIMAL TRAINER (CURRENT) USE OF INSULIN 08/08/2017 ZORA MURRAYHER Mckay SILK WEAVER Ot Z79.82 HEAD ANIMAL TRAINER (CURRENT) USE OF ASPIRIN 08/08/2017 TREVOR MARIELENA Mckay SILK WEAVER Ot Z79.899 OTHER HEAD ANIMAL TRAINER (CURRENT) DRUG THERAPY 08/08/2017 TREVOR MARIELENA Mckay SILK WEAVER Ot Z87.891 PERSONAL HISTORY OF NICOTINE DEPENDENCE 08/14/2017 MOLLY SANCHEZ DO Ot E11.9 TYPE 2 DIABETES MELLITUS WITHOUT COMPLIC 08/14/2017 MOLLY SANCHEZ DO Ot E66.01 MORBID (SEVERE) OBESITY DUE TO EXCESS CA 08/14/2017 LAURA LINN MOLLY Ot E78.00 PURE HYPERCHOLESTEROLEMIA, UNSPECIFIED 08/14/2017 LAURA LINN MOLLY Ot G40.909 EPILEPSY, UNSP, NOT INTRACTABLE, WITHOUT 08/14/2017 LAURA LINN MOLLY Ot G47.33 OBSTRUCTIVE SLEEP APNEA (ADULT) (PEDIATR 08/14/2017 LAURA LINN MOLLY Ot 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 08/14/2017 COLE SANCHEZ DOI Ot I10 ESSENTIAL (PRIMARY) HYPERTENSION 08/14/2017 COLE SANCHEZ DOI Ot I25.10 ATHSCL HEART DISEASE OF [place] CORONARY 08/14/2017 LAURA LINN MOLLY Ot M79.641 PAIN IN RIGHT HAND 08/14/2017 LAURA LINN MOLLY Ot M79.642 PAIN IN LEFT HAND 08/14/2017 LAURA LINN MOLLY Ot M79.89 OTHER SPECIFIED SOFT TISSUE DISORDERS 08/14/2017 COLE SANCHEZ DOI Ot Z68.42 BODY MASS INDEX (BMI) 45.0-49.9, ADULT 08/14/2017 COLE SANCHEZ DOI Ot Z79.4 HEAD ANIMAL TRAINER (CURRENT) USE OF INSULIN 08/14/2017 SANCHEZ DO, MOLLY Ot Z79.899 OTHER HEAD ANIMAL TRAINER (CURRENT) DRUG THERAPY 08/14/2017 LAURA LINN MOLLY Ot Z86.73 PRSNL HX OF TIA (TIA), AND CEREB INFRC W 08/16/2017 MARIELENA MURRAY SILK WEAVER Ot E11.9 TYPE 2 DIABETES MELLITUS WITHOUT COMPLIC 08/16/2017 MARIELENA MURRAY L SILK WEAVER Ot E66.01 MORBID (SEVERE) OBESITY DUE TO EXCESS CA 08/16/2017 ZORA MURRAYHER L SILK WEAVER Ot G47.33 OBSTRUCTIVE SLEEP APNEA (ADULT) (PEDIATR 08/16/2017 BAIMA MARIELENA L SILK WEAVER Ot I10 ESSENTIAL (PRIMARY) HYPERTENSION 08/16/2017 TREVOR MARIELENA L SILK WEAVER Ot I25.10 ATHSCL HEART DISEASE OF [place] CORONARY 08/16/2017 MARIELENA MURRAY L SILK WEAVER Ot R00.2 PALPITATIONS 08/16/2017 MARIELENA MURRAY L SILK WEAVER Ot Z68.42 BODY MASS INDEX (BMI) 45.0-49.9, ADULT 08/16/2017 MARIELENA MURRAY L SILK WEAVER Ot Z79.4 LONG-TERM (CURRENT) USE OF INSULIN 08/16/2017 ZORA MURRAYHER L SILK WEAVER Ot Z79.82 LONG-TERM (CURRENT) USE OF ASPIRIN 08/16/2017 ZORA MURRAYHER L SILK WEAVER Ot Z79.899 OTHER HEAD ANIMAL TRAINER (CURRENT) DRUG THERAPY 08/16/2017 TREVOR MARIELENA L SILK WEAVER Ot Z87.891 PERSONAL HISTORY OF NICOTINE DEPENDENCE 08/23/2017 LAURA LINN MOLLY Ot E11.9 TYPE 2 DIABETES MELLITUS WITHOUT COMPLIC 08/23/2017 COLE SANCHEZ DOI Ot E66.01 MORBID (SEVERE) OBESITY DUE TO EXCESS CA 08/23/2017 LAURA LINN MOLLY Ot E78.00 PURE HYPERCHOLESTEROLEMIA, UNSPECIFIED 08/23/2017 LAURA LINN MOLLY Ot G40.909 EPILEPSY, UNSP, NOT INTRACTABLE, WITHOUT 08/23/2017 LAURA LINN MOLLY Ot G47.33 OBSTRUCTIVE SLEEP APNEA (ADULT) (PEDIATR 08/23/2017 LAURA LINN MOLLY Ot 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 08/23/2017 LAURA DO MOLLY Ot I10 ESSENTIAL (PRIMARY) HYPERTENSION 08/23/2017 LAURA LINN MOLLY Ot I25.10 ATHSCL HEART DISEASE OF [place] CORONARY 08/23/2017 LAURA DO MOLLY Ot M79.641 PAIN IN RIGHT HAND 08/23/2017 LAURA LINN MOLLY Ot M79.642 PAIN IN LEFT HAND 08/23/2017 SANCHEZ DO MOLLY Ot M79.89 OTHER SPECIFIED SOFT TISSUE DISORDERS 08/23/2017 LAURA LINN MOLLY Ot Z68.42 BODY MASS INDEX (BMI) 45.0-49.9, ADULT 08/23/2017 LAURA LINN MOLLY Ot Z79.4 HEAD ANIMAL TRAINER (CURRENT) USE OF INSULIN 08/23/2017 LAURA LINN MOLLY Ot Z79.899 OTHER HEAD ANIMAL TRAINER (CURRENT) DRUG THERAPY 08/23/2017 LAURA LINN MOLLY Ot Z86.73 PRSNL HX OF TIA (TIA), AND CEREB INFRC W 08/29/2017 LAURA LINN MOLLY Ot E11.9 TYPE 2 DIABETES MELLITUS WITHOUT COMPLIC 08/29/2017 LAURA LINN MOLLY Ot E66.01 MORBID (SEVERE) OBESITY DUE TO EXCESS CA 08/29/2017 LAURA LINN MOLLY Ot E78.00 PURE HYPERCHOLESTEROLEMIA, UNSPECIFIED 08/29/2017 LAURA LINN MOLLY Ot G40.909 EPILEPSY, UNSP, NOT INTRACTABLE, WITHOUT 08/29/2017 LAURA LINN, MOLLY Ot G47.33 OBSTRUCTIVE SLEEP APNEA (ADULT) (PEDIATR 08/29/2017 LAURA LINN MOLLY Ot 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 08/29/2017 LAURA LINN MOLLY Ot I10 ESSENTIAL (PRIMARY) HYPERTENSION 08/29/2017 LAURA LINN MOLLY Ot I25.10 ATHSCL HEART DISEASE OF [place] CORONARY 08/29/2017 LAURA LINN MOLLY Ot M79.641 PAIN IN RIGHT HAND 08/29/2017 LAURA DO MOLLY Ot M79.642 PAIN IN LEFT HAND 08/29/2017 LAURA LINN MOLLY Ot M79.89 OTHER SPECIFIED SOFT TISSUE DISORDERS 08/29/2017 LAURA LINN MOLLY Ot Z68.42 BODY MASS INDEX (BMI) 45.0-49.9, ADULT 08/29/2017 LAURA LINN MOLLY Ot Z79.4 LONG-TERM (CURRENT) USE OF INSULIN 08/29/2017 LAURA LINN MOLLY Ot Z79.899 OTHER LONG-TERM (CURRENT) DRUG THERAPY 08/29/2017 MOLLY SANCHEZ DO Ot Z86.73 PRSNL HX OF TIA (TIA), AND CEREB INFRC W 09/10/2017 TREVOR MARIELENA L SILK WEAVER Ot E11.9 TYPE 2 DIABETES MELLITUS WITHOUT COMPLIC 09/10/2017 TREVOR MARIELENA L SILK WEAVER Ot E66.01 MORBID (SEVERE) OBESITY DUE TO EXCESS CA 09/10/2017 TREVOR MARIELENA L SILK WEAVER Ot G47.33 OBSTRUCTIVE SLEEP APNEA (ADULT) (PEDIATR 09/10/2017 CARLOSMA MARIELENA L SILK WEAVER Ot I10 ESSENTIAL (PRIMARY) HYPERTENSION 09/10/2017 CARLOSMA MARIELENA L SILK WEAVER Ot I25.10 ATHSCL HEART DISEASE OF [place] CORONARY 09/10/2017 TREVOR MARIELENA L SILK WEAVER Ot R00.2 PALPITATIONS 09/10/2017 CARLOSMA MARIELENA L SILK WEAVER Ot Z68.42 BODY MASS INDEX (BMI) 45.0-49.9, ADULT 09/10/2017 TREVOR MARIELENA L SILK WEAVER Ot Z79.4 LONG-TERM (CURRENT) USE OF INSULIN 09/10/2017 TREVOR MARIELENA L SILK WEAVER Ot Z79.82 LONG-TERM (CURRENT) USE OF ASPIRIN 09/10/2017 TREVOR MAIRELENA L SILK WEAVER Ot Z79.899 OTHER LONG-TERM (CURRENT) DRUG THERAPY 09/10/2017 TREVOR MARIELENA L SILK WEAVER Ot Z87.891 PERSONAL HISTORY OF NICOTINE DEPENDENCE 09/10/2017 JOHNY KANG CONSUMER CREDIT COUNSELOR Ot G47.33 OBSTRUCTIVE SLEEP APNEA (ADULT) (PEDIATR 09/13/2017 KANCHAN KANGINE E CONSUMER CREDIT COUNSELOR Ot G47.33 OBSTRUCTIVE SLEEP APNEA (ADULT) (PEDIATR 09/13/2017 KANCHAN KANGINE E CONSUMER CREDIT COUNSELOR Ot R56.9 UNSPECIFIED CONVULSIONS 09/13/2017 JOHNY KANG CONSUMER CREDIT COUNSELOR Ot Z72.820 SLEEP DEPRIVATION 09/13/2017 JOHNY KANG E CONSUMER CREDIT COUNSELOR Ot G47.33 OBSTRUCTIVE SLEEP APNEA (ADULT) (PEDIATR 09/13/2017 KANCHAN KANGINE E CONSUMER CREDIT COUNSELOR Ot R56.9 UNSPECIFIED CONVULSIONS 09/13/2017 KANCHAN KANGINE E CONSUMER CREDIT COUNSELOR Ot Z72.820 SLEEP DEPRIVATION 10/08/2017 TREVOR MARIELENA L SILK WEAVER Ot E11.9 TYPE 2 DIABETES MELLITUS WITHOUT COMPLIC 10/08/2017 [place] MARIELENA L SILK WEAVER Ot E66.01 MORBID (SEVERE) OBESITY DUE TO EXCESS CA 10/08/2017 BAIMA MARIELENA L SILK WEAVER Ot G47.33 OBSTRUCTIVE SLEEP APNEA (ADULT) (PEDIATR 10/08/2017 BAIMA, MARIELENA L SILK WEAVER Ot I10 ESSENTIAL (PRIMARY) HYPERTENSION 10/08/2017 BAIMA, MARIELENA L SILK WEAVER Ot I25.10 ATHSCL HEART DISEASE OF [place] CORONARY 10/08/2017 BAIMA, MARIELENA L SILK WEAVER Ot R00.2 PALPITATIONS 10/08/2017 CARLOSMA, MARIELENA L SILK WEAVER Ot Z68.42 BODY MASS INDEX (BMI) 45.0-49.9, ADULT 10/08/2017 BAISAM MARIELENA L SILK WEAVER Ot Z79.4 LONG-TERM (CURRENT) USE OF INSULIN 10/08/2017 ZORA MURRAYHER L SILK WEAVER Ot Z79.82 HEAD ANIMAL TRAINER (CURRENT) USE OF ASPIRIN 10/08/2017 MARIELENA MURRAY L SILK WEAVER Ot Z79.899 OTHER LONG-TERM (CURRENT) DRUG THERAPY 10/08/2017 TREVOR MARIELENA L SILK WEAVER Ot Z87.891 PERSONAL HISTORY OF NICOTINE DEPENDENCE 11/13/2017 COLE SANCHEZ DOI Ot D63.8 ANEMIA IN OTHER CHRONIC DISEASES CLASSIF 11/13/2017 MOLLY SANCHEZ DO Ot E11.59 TYPE 2 DIABETES MELLITUS WITH OTH CIRCUL 11/13/2017 MOLLY SANCHEZ DO Ot E78.5 HYPERLIPIDEMIA, UNSPECIFIED 11/13/2017 MOLLY SANCHEZ DO Ot Z79.4 LONG-TERM (CURRENT) USE OF INSULIN 2017 MARIELENA MURRAY SILK WEAVER Ot E11.9 TYPE 2 DIABETES MELLITUS WITHOUT COMPLIC 2017 MARIELENA MURRAY L SILK WEAVER Ot E66.01 MORBID (SEVERE) OBESITY DUE TO EXCESS CA 2017 ZORA MURRAYHER L SILK WEAVER Ot G47.33 OBSTRUCTIVE SLEEP APNEA (ADULT) (PEDIATR 2017 BAIMA MARIELENA L SILK WEAVER Ot I10 ESSENTIAL (PRIMARY) HYPERTENSION 2017 CARLOSMA MARIELENA L SILK WEAVER Ot I25.10 ATHSCL HEART DISEASE OF [place] CORONARY 2017 BAIMA MARIELENA L SILK WEAVER Ot R00.2 PALPITATIONS 2017 MARIELENA MURRAY SILK WEAVER Ot Z68.42 BODY MASS INDEX (BMI) 45.0-49.9, ADULT 2017 MARIELENA MURRAY SILK WEAVER Ot Z79.4 LONG-TERM (CURRENT) USE OF INSULIN 2017 MARIELENA MURRAY SILK WEAVER Ot Z79.82 HEAD ANIMAL TRAINER (CURRENT) USE OF ASPIRIN 2017 TREVOR MARIELENA Mckay SILK WEAVER Ot Z79.899 OTHER HEAD ANIMAL TRAINER (CURRENT) DRUG THERAPY 2017 CARLOSMARIELENA VARGAS SILK WEAVER Ot Z87.891 PERSONAL HISTORY OF NICOTINE DEPENDENCE 2017 MOLLY SANCHEZ DO Ot D63.8 ANEMIA IN OTHER CHRONIC DISEASES CLASSIF 2017 MOLLY SANCHEZ DO Ot E11.59 TYPE 2 DIABETES MELLITUS WITH OTH CIRCUL 2017 MOLLY SANCHEZ DO Ot E78.5 HYPERLIPIDEMIA, UNSPECIFIED 2017 MOLLY SANCHEZ DO Ot Z79.4 HEAD ANIMAL TRAINER (CURRENT) USE OF INSULIN 12/09/2017 RAYMUNDO NAPIER MD, Ot E11.42 TYPE 2 DIABETES MELLITUS WITH DIABETIC P 12/09/2017 RAYMUNDO NAPIER MD, Ot G47.30 SLEEP APNEA, UNSPECIFIED 12/09/2017 RAYMUNDO NAPIER MD, Ot I82.402 ACUTE EMBOLISM AND THOMBOS UNSP DEEP VEI 12/09/2017 RAYMUNDO NAPIER MD, Ot K21.9 GASTRO-ESOPHAGEAL REFLUX DISEASE WITHOUT 12/09/2017 RAYMUNDO NAPIER MD Ot M79.89 OTHER SPECIFIED SOFT TISSUE DISORDERS 12/09/2017 RAYMUNDO NAPIER MD, Ot N28.9 DISORDER OF KIDNEY AND URETER, UNSPECIFI 12/09/2017 RAYMUNDO NAPIER MD, Ot S81.812A LACERATION WITHOUT FOREIGN BODY, LEFT LO 12/09/2017 RAYMUNDO NAPIER MD, Ot W22.8XXA STRIKING AGAINST OR STRUCK BY OTHER OBJE 12/09/2017 RAYMUNDO NAPIER MD, Ot Z23 ENCOUNTER FOR IMMUNIZATION 12/09/2017 RAYMUNDO NAPIER MD, Ot Z79.01 LONG-TERM (CURRENT) USE OF ANTICOAGULANT 12/09/2017 RAYMUNDO NAPIER MD Ot Z79.02 LONG-TERM (CURRENT) USE OF ANTITHROMBOTI 12/09/2017 RAYMUNDO NAPIER MD Ot Z79.4 HEAD ANIMAL TRAINER (CURRENT) USE OF INSULIN 12/09/2017 RAYMUNDO NAPIER MD Ot Z79.82 HEAD ANIMAL TRAINER (CURRENT) USE OF ASPIRIN 12/09/2017 RAYMUNDO NAPIER MD Ot Z86.73 PRSNL HX OF TIA (TIA), AND CEREB INFRC W 12/09/2017 RAYMUNDO NAPIER MD Ot Z96.642 PRESENCE OF LEFT ARTIFICIAL HIP JOINT 12/09/2017 RAYMUNDO NAPIER MD Ot Z96.653 PRESENCE OF ARTIFICIAL KNEE JOINT, BILAT 12/09/2017 RAYMUNDO NAPIER MD Ot Z98.84 BARIATRIC SURGERY STATUS 02/02/2018 JUSTINE BETANCOURT MD Ot B35.3 TINEA PEDIS 02/02/2018 JUSTINE BETANCOURT MD Ot E11.40 TYPE 2 DIABETES MELLITUS WITH DIABETIC N 02/02/2018 JUSTINE BETANCOURT MD Ot E11.649 TYPE 2 DIABETES MELLITUS WITH HYPOGLYCEM 02/02/2018 JUSTINE BETANCOURT MD Ot E66.01 MORBID (SEVERE) OBESITY DUE TO EXCESS CA 02/02/2018 JUSTINE BETANCOURT MD Ot E78.00 PURE HYPERCHOLESTEROLEMIA, UNSPECIFIED 02/02/2018 JUSTINE BETANCOURT MD Ot F32.9 MAJOR DEPRESSIVE DISORDER, SINGLE EPISOD 02/02/2018 JUSTINE BETANCOURT MD Ot F80.1 EXPRESSIVE LANGUAGE DISORDER 02/02/2018 JUSTINE BETANCOURT MD Ot G40.909 EPILEPSY, UNSP, NOT INTRACTABLE, WITHOUT 02/02/2018 JUSTINE BETANCOURT MD Ot G47.33 OBSTRUCTIVE SLEEP APNEA (ADULT) (PEDIATR 02/02/2018 JUSTINE BETANCOURT MD Ot G81.94 HEMIPLEGIA, UNSPECIFIED AFFECTING LEFT N 02/02/2018 JUSTINE BETANCOURT MD Ot I10 ESSENTIAL (PRIMARY) HYPERTENSION 02/02/2018 JUSTINE BETANCOURT MD Ot I25.10 ATHSCL HEART DISEASE OF [place] CORONARY 02/02/2018 JUSTINE BETANCOURT MD Ot I35.0 NONRHEUMATIC AORTIC (VALVE) STENOSIS 02/02/2018 JUSTINE BETANCOURT MD, Ot I49.9 CARDIAC ARRHYTHMIA, UNSPECIFIED 02/02/2018 JUSTINE BETANCOURT MD, Ot J44.9 CHRONIC OBSTRUCTIVE PULMONARY DISEASE, U 02/02/2018 JUSTINE BETANCOURT MD, Ot K21.9 GASTRO-ESOPHAGEAL REFLUX DISEASE WITHOUT 02/02/2018 JUSTINE BETANCOURT MD, Ot N28.9 DISORDER OF KIDNEY AND URETER, UNSPECIFI 02/02/2018 JUSTINE BETANCOURT MD, Ot R25.1 TREMOR, UNSPECIFIED 02/02/2018 JUSTINE BETANCOURT MD, Ot Z68.42 BODY MASS INDEX (BMI) 45.0-49.9, ADULT 02/02/2018 JUSTINE BETANCOURT MD Ot Z79.01 LONG-TERM (CURRENT) USE OF ANTICOAGULANT 02/02/2018 JUSTINE BETANCOURT MD Ot Z79.02 HEAD ANIMAL TRAINER (CURRENT) USE OF ANTITHROMBOTI 02/02/2018 JUSTINE BETANCOURT MD Ot Z79.4 LONG-TERM (CURRENT) USE OF INSULIN 02/02/2018 JUSTINE BETANCOURT MD Ot Z79.82 LONG-TERM (CURRENT) USE OF ASPIRIN 02/02/2018 JUSTINE BETANCOURT MD Ot Z86.718 PERSONAL HISTORY OF OTHER VENOUS THROMBO 02/02/2018 JUSTINE BETANCOURT MD Ot Z86.73 PRSNL HX OF TIA (TIA), AND CEREB INFRC W 02/02/2018 JUSTINE BETANCOURT MD Ot Z87.891 PERSONAL HISTORY OF NICOTINE DEPENDENCE 02/02/2018 JUSTINE BETANCOURT MD Ot Z98.84 BARIATRIC SURGERY STATUS 02/23/2018 BERNRENO CALIN Ot E11.9 TYPE 2 DIABETES MELLITUS WITHOUT COMPLIC 02/23/2018 BERNOT, CALIN Ot E78.00 PURE HYPERCHOLESTEROLEMIA, UNSPECIFIED 02/23/2018 BERNOT CALIN Ot G47.30 SLEEP APNEA, UNSPECIFIED 02/23/2018 BERNOT CALIN Ot I10 ESSENTIAL (PRIMARY) HYPERTENSION 02/23/2018 BERNOT, CALIN Ot I48.91 UNSPECIFIED ATRIAL FIBRILLATION 02/23/2018 BERNRENO CALIN Ot K21.9 GASTRO- ESOPHAGEAL REFLUX DISEASE WITHOUT 02/23/2018 CALIN ELLISON Ot M25.512 PAIN IN LEFT SHOULDER 02/23/2018 ROSIE ELLISONIS Ot M25.522 PAIN IN LEFT ELBOW 02/23/2018 CALIN ELLISON Ot M25.552 PAIN IN LEFT HIP 02/23/2018 CALIN ELLISON Ot M54.2 CERVICALGIA 02/23/2018 ROSIE ELLISONIS Ot R40.2142 COMA SCALE, EYES OPEN, SPONTANEOUS, EMR 02/23/2018 CALIN ELLISON Ot R40.2252 COMA SCALE, BEST VERBAL RESPONSE, ORIENT 02/23/2018 CALIN ELLISON Ot R40.2362 COMA SCALE, BEST MOTOR RESPONSE, OBEYS C 02/23/2018 CALIN ELLISON Ot S20.212A CONTUSION OF LEFT FRONT WALL OF THORAX, 02/23/2018 CALIN ELLISON Ot S70.02XA CONTUSION OF LEFT HIP, INITIAL ENCOUNTER 02/23/2018 CALIN ELLISON Ot W10.8XXA FALL (ON) (FROM) OTHER STAIRS AND STEPS, 02/23/2018 CALIN ELLISON Ot Z79.01 HEAD ANIMAL TRAINER (CURRENT) USE OF ANTICOAGULANT 02/23/2018 ROSIE ELLISONIS Ot Z79.02 LONG-TERM (CURRENT) USE OF ANTITHROMBOTI 02/23/2018 CALIN ELLISON Ot Z79.4 LONG-TERM (CURRENT) USE OF INSULIN 02/23/2018 ROSIE ELLISONIS Ot Z79.82 LONG-TERM (CURRENT) USE OF ASPIRIN 02/23/2018 ROSIE ELLISONIS Ot Z86.718 PERSONAL HISTORY OF OTHER VENOUS THROMBO 02/23/2018 ROSIE ELLISONIS Ot Z86.73 PRSNL HX OF TIA (TIA), AND CEREB INFRC W 02/23/2018 ROSIE ELLISONIS Ot Z87.891 PERSONAL HISTORY OF NICOTINE DEPENDENCE 02/23/2018 ROSIE ELLISONIS Ot Z96.642 PRESENCE OF LEFT ARTIFICIAL HIP JOINT 02/23/2018 ROSIE ELLISONIS Ot Z96.653 PRESENCE OF ARTIFICIAL KNEE JOINT, BILAT 02/23/2018 ROSIE ELLISONIS Ot Z98.84 BARIATRIC SURGERY STATUS 02/25/2018 CALIN ELLISON Ot E11.9 TYPE 2 DIABETES MELLITUS WITHOUT COMPLIC 02/25/2018 CALIN ELLISON Ot E78.00 PURE HYPERCHOLESTEROLEMIA, UNSPECIFIED 02/25/2018 ROSIE ELLISONIS Ot G47.30 SLEEP APNEA, UNSPECIFIED 02/25/2018 SCOT CALIN Ot I10 ESSENTIAL (PRIMARY) HYPERTENSION 02/25/2018 ROSIE ELLISONIS Ot I48.91 UNSPECIFIED ATRIAL FIBRILLATION 02/25/2018 SCOT CALIN Ot K21.9 GASTRO- ESOPHAGEAL REFLUX DISEASE WITHOUT 02/25/2018 ROSIE ELLISONIS Ot M25.512 PAIN IN LEFT SHOULDER 02/25/2018 ROSIE ELLISONIS Ot M25.522 PAIN IN LEFT ELBOW 02/25/2018 SCOT CALIN Ot M25.552 PAIN IN LEFT HIP 02/25/2018 SCOT CALIN Ot M54.2 CERVICALGIA 02/25/2018 ROSIE ELLISONIS Ot R40.2142 COMA SCALE, EYES OPEN, SPONTANEOUS, EMR 02/25/2018 ROSIE ELLISONIS Ot R40.2252 COMA SCALE, BEST VERBAL RESPONSE, ORIENT 02/25/2018 ROSIE ELLISONIS Ot R40.2362 COMA SCALE, BEST MOTOR RESPONSE, OBEYS C 02/25/2018 ROSIE ELLISONIS Ot S20.212A CONTUSION OF LEFT FRONT WALL OF THORAX, 02/25/2018 SCOT CALIN Ot S70.02XA CONTUSION OF LEFT HIP, INITIAL ENCOUNTER 02/25/2018 CALIN ELLISON Ot W10.8XXA FALL (ON) (FROM) OTHER STAIRS AND STEPS, 02/25/2018 ROSIE ELLISONIS Ot Z79.01 LONG-TERM (CURRENT) USE OF ANTICOAGULANT 02/25/2018 SCOT CALIN Ot Z79.02 HEAD ANIMAL TRAINER (CURRENT) USE OF ANTITHROMBOTI 02/25/2018 SCOT CALIN Ot Z79.4 HEAD ANIMAL TRAINER (CURRENT) USE OF INSULIN 02/25/2018 SCOT CALIN Ot Z79.82 HEAD ANIMAL TRAINER (CURRENT) USE OF ASPIRIN 02/25/2018 SCOT CALIN Ot Z86.718 PERSONAL HISTORY OF OTHER VENOUS THROMBO 02/25/2018 SCOT CALIN Ot Z86.73 PRSNL HX OF TIA (TIA), AND CEREB INFRC W 02/25/2018 SCOT CALIN Ot Z87.891 PERSONAL HISTORY OF NICOTINE DEPENDENCE 02/25/2018 ROSIE ELLISONIS Ot Z96.642 PRESENCE OF LEFT ARTIFICIAL HIP JOINT 02/25/2018 ROSIE ELLISONIS Ot Z96.653 PRESENCE OF ARTIFICIAL KNEE JOINT, BILAT 02/25/2018 ROSIE ELLISONIS Ot Z98.84 BARIATRIC SURGERY STATUS 03/04/2018 ROSIE ELLISONIS Ot E11.9 TYPE 2 DIABETES MELLITUS WITHOUT COMPLIC 03/04/2018 BERNOT, CALIN Ot E78.00 PURE HYPERCHOLESTEROLEMIA, UNSPECIFIED 03/04/2018 BERNRENO, CALIN Ot G47.30 SLEEP APNEA, UNSPECIFIED 03/04/2018 BERNOT, CALIN Ot I10 ESSENTIAL (PRIMARY) HYPERTENSION 03/04/2018 BERNOT, CALIN Ot I48.91 UNSPECIFIED ATRIAL FIBRILLATION 03/04/2018 BERNRENO, CALIN Ot K21.9 GASTRO- ESOPHAGEAL REFLUX DISEASE WITHOUT 03/04/2018 BERNOT, CALIN Ot R04.0 EPISTAXIS 03/04/2018 SCOT CALIN Ot Z79.01 LONG-TERM (CURRENT) USE OF ANTICOAGULANT 03/04/2018 SCOT CALIN Ot Z79.02 HEAD ANIMAL TRAINER (CURRENT) USE OF ANTITHROMBOTI 03/04/2018 SCOT CALIN Ot Z79.4 HEAD ANIMAL TRAINER (CURRENT) USE OF INSULIN 03/04/2018 SCOT CALIN Ot Z79.82 HEAD ANIMAL TRAINER (CURRENT) USE OF ASPIRIN 03/04/2018 SCOT CALIN Ot Z86.718 PERSONAL HISTORY OF OTHER VENOUS THROMBO 03/04/2018 ROSIE ELLISONIS Ot Z86.73 PRSNL HX OF TIA (TIA), AND CEREB INFRC W 03/04/2018 SCOT CALIN Ot Z98.84 BARIATRIC SURGERY STATUS 03/06/2018 CALIN ELLISON Ot E11.9 TYPE 2 DIABETES MELLITUS WITHOUT COMPLIC 03/06/2018 SCOT, CALIN Ot E78.00 PURE HYPERCHOLESTEROLEMIA, UNSPECIFIED 03/06/2018 BERNOT, CALIN Ot G47.30 SLEEP APNEA, UNSPECIFIED 03/06/2018 BERNOT, CALIN Ot I10 ESSENTIAL (PRIMARY) HYPERTENSION 03/06/2018 BERNRENO, CALIN Ot I48.91 UNSPECIFIED ATRIAL FIBRILLATION 03/06/2018 BERNOT, CALIN Ot K21.9 GASTRO- ESOPHAGEAL REFLUX DISEASE WITHOUT 03/06/2018 BERNOT, CALIN Ot R04.0 EPISTAXIS 03/06/2018 BERNRNEO CALIN Ot Z79.01 HEAD ANIMAL TRAINER (CURRENT) USE OF ANTICOAGULANT 03/06/2018 CALIN ELLISON Ot Z79.02 LONG-TERM (CURRENT) USE OF ANTITHROMBOTI 03/06/2018 BERNROSIE BOJORQUEZIS Ot Z79.4 LONG-TERM (CURRENT) USE OF INSULIN 03/06/2018 BERNROSIE BOJORQUEZIS Ot Z79.82 HEAD ANIMAL TRAINER (CURRENT) USE OF ASPIRIN 03/06/2018 ROSIE ELLISONIS Ot Z86.718 PERSONAL HISTORY OF OTHER VENOUS THROMBO 03/06/2018 ROSIE ELLISONIS Ot Z86.73 PRSNL HX OF TIA (TIA), AND CEREB INFRC W 03/06/2018 ROSIE ELLISONIS Ot Z98.84 BARIATRIC SURGERY STATUS 03/19/2018 SANCHEZ DO, MOLLY Ot E11.8 TYPE 2 DIABETES MELLITUS WITH UNSPECIFIE 03/19/2018 SANCHEZ DO MOLLY Ot Z79.4 HEAD ANIMAL TRAINER (CURRENT) USE OF INSULIN 03/24/2018 SANCHEZ DO MOLLY Ot E11.8 TYPE 2 DIABETES MELLITUS WITH UNSPECIFIE 03/24/2018 SANCHEZ DO MOLLY Ot Z79.4 HEAD ANIMAL TRAINER (CURRENT) USE OF INSULIN 03/28/2018 SANCHEZ DO MOLLY Ot E11.8 TYPE 2 DIABETES MELLITUS WITH UNSPECIFIE 03/28/2018 SANCHEZ DO, MOLLY Ot Z79.4 HEAD ANIMAL TRAINER (CURRENT) USE OF INSULIN 04/28/2018 MARIELENA MURRAY SILK WEAVER Ot E11.9 TYPE 2 DIABETES MELLITUS WITHOUT COMPLIC 04/28/2018 MARIELENA MURRAY SILK WEAVER Ot E66.01 MORBID (SEVERE) OBESITY DUE TO EXCESS CA 04/28/2018 MARIELENA MURRAY SILK WEAVER Ot G47.33 OBSTRUCTIVE SLEEP APNEA (ADULT) (PEDIATR 04/28/2018 MARIELENA MURRAY SILK WEAVER Ot I10 ESSENTIAL (PRIMARY) HYPERTENSION 04/28/2018 MARIELENA MURRAY SILK WEAVER Ot I25.10 ATHSCL HEART DISEASE OF [place] CORONARY 04/28/2018 MARIELENA MURRAY SILK WEAVER Ot R00.2 PALPITATIONS 04/28/2018 MARIELENA MURRAY SILK WEAVER Ot Z68.42 BODY MASS INDEX (BMI) 45.0-49.9, ADULT 04/28/2018 MARIELENA MURRAY SILK WEAVER Ot Z79.4 LONG-TERM (CURRENT) USE OF INSULIN 04/28/2018 MARIELENA MURRAY SILK WEAVER Ot Z79.82 HEAD ANIMAL TRAINER (CURRENT) USE OF ASPIRIN 04/28/2018 MARIELENA MURRAY L SILK WEAVER Ot Z79.899 OTHER HEAD ANIMAL TRAINER (CURRENT) DRUG THERAPY 04/28/2018 MARIELENA MURRAY L SILK WEAVER Ot Z87.891 PERSONAL HISTORY OF NICOTINE DEPENDENCE 04/28/2018 LAURA LINN MOLLY Ot D63.8 ANEMIA IN OTHER CHRONIC DISEASES CLASSIF 04/28/2018 LAURA DO MOLLY Ot E11.59 TYPE 2 DIABETES MELLITUS WITH OTH CIRCUL 04/28/2018 LAURA DO MOLLY Ot E78.5 HYPERLIPIDEMIA, UNSPECIFIED 04/28/2018 SANCHEZ DO MOLLY Ot Z79.4 LONG-TERM (CURRENT) USE OF INSULIN 04/28/2018 SANCHEZ DO MOLLY Ot E11.8 TYPE 2 DIABETES MELLITUS WITH UNSPECIFIE 04/28/2018 SANCHEZ DO MOLLY Ot Z79.4 HEAD ANIMAL TRAINER (CURRENT) USE OF INSULIN 04/30/2018 MARIELEAN MURRAY L SILK WEAVER Ot E11.9 TYPE 2 DIABETES MELLITUS WITHOUT COMPLIC 04/30/2018 MARIELENA MURRAY L SILK WEAVER Ot E66.01 MORBID (SEVERE) OBESITY DUE TO EXCESS CA 04/30/2018 MARIELENA MURRAY L SILK WEAVER Ot G47.33 OBSTRUCTIVE SLEEP APNEA (ADULT) (PEDIATR 04/30/2018 MARIELENA MURRAY L SILK WEAVER Ot I10 ESSENTIAL (PRIMARY) HYPERTENSION 04/30/2018 MARIELENA MURRAY L SILK WEAVER Ot I25.10 ATHSCL HEART DISEASE OF [place] CORONARY 04/30/2018 MARIELENA MURRAY L SILK WEAVER Ot R00.2 PALPITATIONS 04/30/2018 MARIELENA MURRAY L SILK WEAVER Ot Z68.42 BODY MASS INDEX (BMI) 45.0-49.9, ADULT 04/30/2018 MARIELENA MURRAY L SILK WEAVER Ot Z79.4 HEAD ANIMAL TRAINER (CURRENT) USE OF INSULIN 04/30/2018 MARIELENA MURRAY L SILK WEAVER Ot Z79.82 LONG-TERM (CURRENT) USE OF ASPIRIN 04/30/2018 MARIELENA MURRAY L SILK WEAVER Ot Z79.899 OTHER LONG-TERM (CURRENT) DRUG THERAPY 04/30/2018 MARIELENA MURRAY L SILK WEAVER Ot Z87.891 PERSONAL HISTORY OF NICOTINE DEPENDENCE 04/30/2018 LAURA LINN MOLLY Ot D63.8 ANEMIA IN OTHER CHRONIC DISEASES CLASSIF 04/30/2018 LAURA LINN MOLLY Ot E11.59 TYPE 2 DIABETES MELLITUS WITH OTH CIRCUL 04/30/2018 LAURA LINN MOLLY Ot E78.5 HYPERLIPIDEMIA, UNSPECIFIED 04/30/2018 LAURA LINN MOLLY Ot Z79.4 LONG-TERM (CURRENT) USE OF INSULIN 04/30/2018 LAURA LINN MOLLY Ot E11.8 TYPE 2 DIABETES MELLITUS WITH UNSPECIFIE 04/30/2018 LAURA LINN MOLLY Ot Z79.4 HEAD ANIMAL TRAINER (CURRENT) USE OF INSULIN 05/05/2018 CHRISTEN RIOS, LUNA Basilio Ot M54.2 CERVICALGIA 05/05/2018 LUNA VELÁSQUEZ MD Ot Z53.8 PROCEDURE AND TREATMENT NOT CARRIED OUT 07/03/2018 LAURA LINN MOLLY Ot E11.8 TYPE 2 DIABETES MELLITUS WITH UNSPECIFIE 07/03/2018 LAURA LINN MOLLY Ot I25.10 ATHSCL HEART DISEASE OF [place] CORONARY 07/03/2018 LAURA LINN MOLLY Ot Z79.4 LONG-TERM (CURRENT) USE OF INSULIN 07/08/2018 COLE SANCHEZ DOI Ot E11.8 TYPE 2 DIABETES MELLITUS WITH UNSPECIFIE 07/08/2018 LAURA LINN MOLLY Ot I25.10 ATHSCL HEART DISEASE OF [place] CORONARY 07/08/2018 LAURA LINN MOLLY Ot Z79.4 HEAD ANIMAL TRAINER (CURRENT) USE OF INSULIN 07/11/2018 COLE SANCHEZ DOI Ot E11.8 TYPE 2 DIABETES MELLITUS WITH UNSPECIFIE 07/11/2018 LAURA LINN MOLLY Ot I25.10 ATHSCL HEART DISEASE OF [place] CORONARY 07/11/2018 LAURA LINN MOLLY Ot Z79.4 HEAD ANIMAL TRAINER (CURRENT) USE OF INSULIN 07/24/2018 MARIELENA MURRAY SILK WEAVER Ot E11.9 TYPE 2 DIABETES MELLITUS WITHOUT COMPLIC 07/24/2018 MARIELENA MURRAYP Ot E66.01 MORBID (SEVERE) OBESITY DUE TO EXCESS CA 07/24/2018 MARIELENA MURRAY SILK WEAVER Ot G47.33 OBSTRUCTIVE SLEEP APNEA (ADULT) (PEDIATR 07/24/2018 MARIELENA MURRAY SILK WEAVER Ot I10 ESSENTIAL (PRIMARY) HYPERTENSION 07/24/2018 MARIELENA MURRAY SILK WEAVER Ot I25.10 ATHSCL HEART DISEASE OF [place] CORONARY 07/24/2018 MARIELENA MURRAYP Ot R00.2 PALPITATIONS 07/24/2018 MARIELENA MURRAYP Ot Z68.42 BODY MASS INDEX (BMI) 45.0-49.9, ADULT 07/24/2018 MARIELENA MURRAY SILK WEAVER Ot Z79.4 HEAD ANIMAL TRAINER (CURRENT) USE OF INSULIN 07/24/2018 MARIELENA MURRAY SILK WEAVER Ot Z79.82 HEAD ANIMAL TRAINER (CURRENT) USE OF ASPIRIN 07/24/2018 CARLOSMARIELENA VARGAS SILK WEAVER Ot Z79.899 OTHER LONG-TERM (CURRENT) DRUG THERAPY 07/24/2018 MARIELENA MURRAYP Ot Z87.891 PERSONAL HISTORY OF NICOTINE DEPENDENCE 07/24/2018 MOLLY SANCHEZ DO Ot D63.8 ANEMIA IN OTHER CHRONIC DISEASES CLASSIF 07/24/2018 MOLLY SANCHEZ DO Ot E11.59 TYPE 2 DIABETES MELLITUS WITH OTH CIRCUL 07/24/2018 MOLLY SANCHEZ DO Ot E78.5 HYPERLIPIDEMIA, UNSPECIFIED 07/24/2018 MOLLY SANCHEZ DO Ot Z79.4 LONG-TERM (CURRENT) USE OF INSULIN 07/24/2018 MOLLY SANCHEZ DO Ot E11.8 TYPE 2 DIABETES MELLITUS WITH UNSPECIFIE 07/24/2018 MOLLY SANCHEZ DO Ot Z79.4 LONG-TERM (CURRENT) USE OF INSULIN 07/24/2018 LUNA VELÁSQUEZ MD Ot M54.2 CERVICALGIA 07/24/2018 LUNA VELÁSQUEZ MD Ot Z53.8 PROCEDURE AND TREATMENT NOT CARRIED OUT 07/24/2018 MOLLY SANCHEZ DO Ot E11.8 TYPE 2 DIABETES MELLITUS WITH UNSPECIFIE 07/24/2018 MOLLY SANCHEZ DO Ot I25.10 ATHSCL HEART DISEASE OF [place] CORONARY 07/24/2018 MOLLY SANCHEZ DO Ot Z79.4 HEAD ANIMAL TRAINER (CURRENT) USE OF INSULIN 08/22/2018 Ot I82.4Y2 AC EMBLSM AND THOMBOS UNSP DEEP VEINS OF 08/22/2018 Ot I82.4Y2 AC EMBLSM AND THOMBOS UNSP DEEP VEINS OF 08/25/2018 Ot I82.412 ACUTE EMBOLISM AND THROMBOSIS OF LEFT FE 08/25/2018 Ot I82.432 ACUTE EMBOLISM AND THROMBOSIS OF LEFT PO 09/15/2018 Ot I82.412 ACUTE EMBOLISM AND THROMBOSIS OF LEFT FE 09/15/2018 Ot I82.432 ACUTE EMBOLISM AND THROMBOSIS OF LEFT PO 10/05/2018 SANCHEZ DO, MOLLY Ot M25.511 PAIN IN RIGHT SHOULDER 10/09/2018 JOSE JUAN MOLINA MD Ot M19.011 PRIMARY OSTEOARTHRITIS, RIGHT SHOULDER 10/21/2018 SANCHEZ DO, MOLLY Ot E11.42 TYPE 2 DIABETES MELLITUS WITH DIABETIC P 10/21/2018 SANCHEZ DO, MOLLY Ot E11.65 TYPE 2 DIABETES MELLITUS WITH HYPERGLYCE 10/21/2018 SANCHEZ DO MOLLY Ot G62.9 POLYNEUROPATHY, UNSPECIFIED 10/21/2018 SANCHEZ DO, MOLLY Ot I82.412 ACUTE EMBOLISM AND THROMBOSIS OF LEFT FE 10/21/2018 SANCHEZ DO, MOLLY Ot Z79.4 HEAD ANIMAL TRAINER (CURRENT) USE OF INSULIN 10/29/2018 JUSTINE BETANCOURT MD Ot B35.3 TINEA PEDIS 10/29/2018 JUSTINE BETANCOURT MD Ot E11.40 TYPE 2 DIABETES MELLITUS WITH DIABETIC N 10/29/2018 JUSTINE BETANCOURT MD Ot E11.649 TYPE 2 DIABETES MELLITUS WITH HYPOGLYCEM 10/29/2018 JUSTINE BETANCOURT MD Ot E66.01 MORBID (SEVERE) OBESITY DUE TO EXCESS CA 10/29/2018 JUSTINE BETANCOURT MD Ot E78.00 PURE HYPERCHOLESTEROLEMIA, UNSPECIFIED 10/29/2018 JUSTINE BETANCOURT MD Ot F32.9 MAJOR DEPRESSIVE DISORDER, SINGLE EPISOD 10/29/2018 JUSTINE BETANCOURT MD Ot F80.1 EXPRESSIVE LANGUAGE DISORDER 10/29/2018 JUSTINE BETANCOURT MD Ot G40.909 EPILEPSY, UNSP, NOT INTRACTABLE, WITHOUT 10/29/2018 JUSTINE BETANCOURT MD Ot G47.33 OBSTRUCTIVE SLEEP APNEA (ADULT) (PEDIATR 10/29/2018 JUSTINE BETANCOURT MD Ot G81.94 HEMIPLEGIA, UNSPECIFIED AFFECTING LEFT N 10/29/2018 JUSTINE BETANCOURT MD Ot I10 ESSENTIAL (PRIMARY) HYPERTENSION 10/29/2018 JUSTINE BETANCOURT MD Ot I25.10 ATHSCL HEART DISEASE OF [place] CORONARY 10/29/2018 JUSTINE BETANCOURT MD Ot I35.0 NONRHEUMATIC AORTIC (VALVE) STENOSIS 10/29/2018 JUSTINE BETANCOURT MD, Ot I49.9 CARDIAC ARRHYTHMIA, UNSPECIFIED 10/29/2018 JUSTINE BETANCOURT MD, Ot J44.9 CHRONIC OBSTRUCTIVE PULMONARY DISEASE, U 10/29/2018 JUSTINE BETANCOURT MD, Ot K21.9 GASTRO-ESOPHAGEAL REFLUX DISEASE WITHOUT 10/29/2018 JUSTINE BETANCOURT MD, Ot N28.9 DISORDER OF KIDNEY AND URETER, UNSPECIFI 10/29/2018 JUSTINE BETANCOURT MD, Ot R25.1 TREMOR, UNSPECIFIED 10/29/2018 JUSTINE BETANCOURT MD Ot Z68.42 BODY MASS INDEX (BMI) 45.0-49.9, ADULT 10/29/2018 JUSTINE BETANCOURT MD Ot Z79.01 HEAD ANIMAL TRAINER (CURRENT) USE OF ANTICOAGULANT 10/29/2018 JUSTINE BETANCOURT MD Ot Z79.02 LONG-TERM (CURRENT) USE OF ANTITHROMBOTI 10/29/2018 JUSTINE BETANCOURT MD Ot Z79.4 HEAD ANIMAL TRAINER (CURRENT) USE OF INSULIN 10/29/2018 JUSTINE BETANCOURT MD Ot Z79.82 LONG-TERM (CURRENT) USE OF ASPIRIN 10/29/2018 JUSTINE BETANCOURT MD Ot Z86.718 PERSONAL HISTORY OF OTHER VENOUS THROMBO 10/29/2018 JUSTINE BETANCOURT MD Ot Z86.73 PRSNL HX OF TIA (TIA), AND CEREB INFRC W 10/29/2018 JUSTINE BETANCOURT MD Ot Z87.891 PERSONAL HISTORY OF NICOTINE DEPENDENCE 10/29/2018 JUSTINE BETANCOURT MD Ot Z98.84 BARIATRIC SURGERY STATUS 10/29/2018 JUSTINE BETANCOURT MD Ot B35.3 TINEA PEDIS 10/29/2018 JUSTINE BETANCOURT MD Ot E11.40 TYPE 2 DIABETES MELLITUS WITH DIABETIC N 10/29/2018 JUSTINE BETANCOURT MD Ot E11.649 TYPE 2 DIABETES MELLITUS WITH HYPOGLYCEM 10/29/2018 JUSTINE BETNACOURT MD Ot E66.01 MORBID (SEVERE) OBESITY DUE TO EXCESS CA 10/29/2018 JUSTINE BETANCOURT MD Ot E78.00 PURE HYPERCHOLESTEROLEMIA, UNSPECIFIED 10/29/2018 JUSTINE BETANCOURT MD Ot F32.9 MAJOR DEPRESSIVE DISORDER, SINGLE EPISOD 10/29/2018 JUSTINE BETANCOURT MD Ot F80.1 EXPRESSIVE LANGUAGE DISORDER 10/29/2018 JUSTINE BETANCOURT MD, Ot G40.909 EPILEPSY, UNSP, NOT INTRACTABLE, WITHOUT 10/29/2018 JUSTINE BETANCOURT MD Ot G47.33 OBSTRUCTIVE SLEEP APNEA (ADULT) (PEDIATR 10/29/2018 JUSTINE BETANCOURT MD Ot G81.94 HEMIPLEGIA, UNSPECIFIED AFFECTING LEFT N 10/29/2018 JUSTINE BETANCOURT MD Ot I10 ESSENTIAL (PRIMARY) HYPERTENSION 10/29/2018 JUSTINE BETANCOURT MD, Ot I25.10 ATHSCL HEART DISEASE OF [place] CORONARY 10/29/2018 JUSTINE BETANCOURT MD Ot I35.0 NONRHEUMATIC AORTIC (VALVE) STENOSIS 10/29/2018 JUSTINE BETANCOURT MD, Ot I49.9 CARDIAC ARRHYTHMIA, UNSPECIFIED 10/29/2018 JUSTINE BETANCOURT MD, Ot J44.9 CHRONIC OBSTRUCTIVE PULMONARY DISEASE, U 10/29/2018 JUSTINE BETANCOURT MD Ot K21.9 GASTRO-ESOPHAGEAL REFLUX DISEASE WITHOUT 10/29/2018 JUSTINE BETANCOURT MD Ot N28.9 DISORDER OF KIDNEY AND URETER, UNSPECIFI 10/29/2018 JUSTINE BETANCOURT MD Ot R25.1 TREMOR, UNSPECIFIED 10/29/2018 JUSTINE BETANCOURT MD Ot Z68.42 BODY MASS INDEX (BMI) 45.0-49.9, ADULT 10/29/2018 JUSTINE BETANCOURT MD Ot Z79.01 LONG-TERM (CURRENT) USE OF ANTICOAGULANT 10/29/2018 JUSTINE BETANCOURT MD Ot Z79.02 LONG-TERM (CURRENT) USE OF ANTITHROMBOTI 10/29/2018 JUSTINE BETANCOURT MD Ot Z79.4 HEAD ANIMAL TRAINER (CURRENT) USE OF INSULIN 10/29/2018 JUSTINE BETANCOURT MD Ot Z79.82 HEAD ANIMAL TRAINER (CURRENT) USE OF ASPIRIN 10/29/2018 JUSTINE BETANCOURT MD Ot Z86.718 PERSONAL HISTORY OF OTHER VENOUS THROMBO 10/29/2018 JUSTINE BETANCOURT MD Ot Z86.73 PRSNL HX OF TIA (TIA), AND CEREB INFRC W 10/29/2018 JUSTINE BETANCOURT MD, Ot Z87.891 PERSONAL HISTORY OF NICOTINE DEPENDENCE 10/29/2018 JUSTINE BETANCOURT MD, Ot Z98.84 BARIATRIC SURGERY STATUS Procedures There is no data. Results Test Result Range Capillary blood glucose measurement by glucometer (mass/volume) - 07/19/17 17:19 Capillary blood glucose measurement by glucometer (mass/volume) 212 mg/dL 70-110 PT panel in platelet poor plasma by coagulation assay - 07/19/17 18:36 Prothrombin time (PT) in platelet poor plasma by coagulation assay 12.8 s 12.2-14.7 INR in platelet poor plasma or blood by coagulation assay 1.0 0.8-1.4 Activated partial thromboplastin time (aPTT) in platelet poor plasma bycoagulation assay - 07/19/17 18:36 Activated partial thromboplastin time (aPTT) in platelet poor plasma bycoagulation assay 26 s 24-35 Complete blood count (CBC) with automated white blood cell (WBC) differential - 07/19/17 18:36 Blood leukocytes automated count (number/volume) 9.0 10*3/uL 4.3-11.0 Blood erythrocytes automated count (number/volume) 4.84 10*6/uL 4.35-5.85 Venous blood hemoglobin measurement (mass/volume) 14.5 g/dL 13.3-17.7 Blood hematocrit (volume fraction) 42 % 40-54 Automated erythrocyte mean corpuscular volume 88 [foz_us] 80-99 Automated erythrocyte mean corpuscular hemoglobin (mass per erythrocyte) 30 pg 25-34 Automated erythrocyte mean corpuscular hemoglobin concentration measurement (mass/volume) 34 g/dL 32-36 Automated erythrocyte distribution width ratio 13.7 % 10.0- 14.5 Automated blood platelet count (count/volume) 261 10*3/uL 130-400 Automated blood platelet mean volume measurement 9.6 [foz_us] 7.4-10.4 Automated blood neutrophils/100 leukocytes 57 % 42-75 Automated blood lymphocytes/100 leukocytes 26 % 12-44 Blood monocytes/100 leukocytes 12 % 0-12 Automated blood eosinophils/100 leukocytes 5 % 0-10 Automated blood basophils/100 leukocytes 0 % 0-10 Blood neutrophils automated count (number/volume) 5.1 10*3 1.8-7.8 Blood lymphocytes automated count (number/volume) 2.3 10*3 1.0-4.0 Blood monocytes automated count (number/volume) 1.0 10*3 0.0- 1.0 Automated eosinophil count 0.5 10*3/uL 0.0-0.3 Automated blood basophil count (count/volume) 0.0 10*3/uL 0.0-0.1 Fibrin D-dimer FEU measurement in platelet poor plasma (mass/volume) - 07/19/17 18:36 Fibrin D-dimer FEU measurement in platelet poor plasma (mass/volume) 0.94 ug/mL 0.00-0.49 Comprehensive metabolic panel - 07/19/17 18:36 Serum or plasma sodium measurement (moles/volume) 139 mmol/L 135-145 Serum or plasma potassium measurement (moles/volume) 4.6 mmol/L 3.6-5.0 Serum or plasma chloride measurement (moles/volume) 107 mmol/L 98-107 Carbon dioxide 20 mmol/L 21-32 Serum or plasma anion gap determination (moles/volume) 12 mmol/L 5-14 Serum or plasma urea nitrogen measurement (mass/volume) 20 mg/dL 7-18 Serum or plasma creatinine measurement (mass/volume) 1.22 mg/dL 0.60-1.30 Serum or plasma urea nitrogen/creatinine mass ratio 16 NRG Serum or plasma creatinine measurement with calculation of estimated glomerular filtration rate 60 NRG Serum or plasma glucose measurement (mass/volume) 222 mg/dL 70-105 Serum or plasma calcium measurement (mass/volume) 8.7 mg/dL 8.5-10.1 Serum or plasma total bilirubin measurement (mass/volume) 0.3 mg/dL 0.1-1.0 Serum or plasma alkaline phosphatase measurement (enzymatic activity/volume) 57 U/L 40-136 Serum or plasma aspartate aminotransferase measurement (enzymatic activity/volume) 24 U/L 5-34 Serum or plasma alanine aminotransferase measurement (enzymatic activity/volume) 28 U/L 0-55 Serum or plasma protein measurement (mass/volume) 7.0 g/dL 6.4-8.2 Serum or plasma albumin measurement (mass/volume) 4.1 g/dL 3.2-4.5 Magnesium - 07/19/17 18:36 Magnesium 2.1 mg/dL 1.8-2.4 Serum or plasma troponin i.cardiac measurement (mass/volume) - 07/19/17 18:36 Serum or plasma troponin i.cardiac measurement (mass/volume) < ng/mL <0.30 Myoglobin, serum - 07/19/17 18:36 Myoglobin, serum 109.9 ng/mL 10.0-92.0 Lipase - 07/19/17 18:36 Lipase 23 U/L 8-78 Serum or plasma lithium measurement (moles/volume) - 07/19/17 18:36 BNP level 50.7 pg/mL <100.0 Complete blood count (CBC) with automated white blood cell (WBC) differential - 07/20/17 04:15 Blood leukocytes automated count (number/volume) 8.2 10*3/uL 4.3-11.0 Blood erythrocytes automated count (number/volume) 4.91 10*6/uL 4.35-5.85 Venous blood hemoglobin measurement (mass/volume) 14.4 g/dL 13.3-17.7 Blood hematocrit (volume fraction) 43 % 40-54 Automated erythrocyte mean corpuscular volume 87 [foz_us] 80-99 Automated erythrocyte mean corpuscular hemoglobin (mass per erythrocyte) 29 pg 25-34 Automated erythrocyte mean corpuscular hemoglobin concentration measurement (mass/volume) 34 g/dL 32-36 Automated erythrocyte distribution width ratio 13.7 % 10.0- 14.5 Automated blood platelet count (count/volume) 250 10*3/uL 130-400 Automated blood platelet mean volume measurement 10.1 [foz_us] 7.4-10.4 Automated blood neutrophils/100 leukocytes 85 % 42-75 Automated blood lymphocytes/100 leukocytes 12 % 12-44 Blood monocytes/100 leukocytes 2 % 0-12 Automated blood eosinophils/100 leukocytes 1 % 0-10 Automated blood basophils/100 leukocytes 0 % 0-10 Blood neutrophils automated count (number/volume) 7.0 10*3 1.8-7.8 Blood lymphocytes automated count (number/volume) 1.0 10*3 1.0-4.0 Blood monocytes automated count (number/volume) 0.2 10*3 0.0- 1.0 Automated eosinophil count 0.0 10*3/uL 0.0-0.3 Automated blood basophil count (count/volume) 0.0 10*3/uL 0.0-0.1 PT panel in platelet poor plasma by coagulation assay - 07/20/17 04:15 Prothrombin time (PT) in platelet poor plasma by coagulation assay 13.4 s 12.2-14.7 INR in platelet poor plasma or blood by coagulation assay 1.0 0.8-1.4 Activated partial thromboplastin time (aPTT) in platelet poor plasma bycoagulation assay - 07/20/17 04:15 Activated partial thromboplastin time (aPTT) in platelet poor plasma bycoagulation assay 27 s 24-35 Lipid 1996 panel - 07/20/17 04:15 Serum or plasma triglyceride measurement (mass/volume) 198 mg/dL <150 Serum or plasma cholesterol measurement (mass/volume) 194 mg/dL < 200 Serum or plasma cholesterol in HDL measurement (mass/volume) 46 mg/dL 40-60 Cholesterol in LDL [mass/volume] in serum or plasma by direct assay 108 mg/dL 1-129 Serum or plasma cholesterol in VLDL measurement (mass/volume) 40 mg/dL 5-40 Whole blood basic metabolic panel - 07/20/17 04:15 Serum or plasma sodium measurement (moles/volume) 136 mmol/L 135-145 Serum or plasma potassium measurement (moles/volume) 4.5 mmol/L 3.6-5.0 Serum or plasma chloride measurement (moles/volume) 107 mmol/L 98-107 Carbon dioxide 18 mmol/L 21-32 Serum or plasma anion gap determination (moles/volume) 11 mmol/L 5-14 Serum or plasma urea nitrogen measurement (mass/volume) 19 mg/dL 7-18 Serum or plasma creatinine measurement (mass/volume) 1.20 mg/dL 0.60-1.30 Serum or plasma urea nitrogen/creatinine mass ratio 16 NRG Serum or plasma creatinine measurement with calculation of estimated glomerular filtration rate > NRG Serum or plasma glucose measurement (mass/volume) 273 mg/dL 70-105 Serum or plasma calcium measurement (mass/volume) 8.7 mg/dL 8.5-10.1 Serum or plasma creatine kinase measurement (enzymatic activity/volume) - 07/20/17 04:15 Serum or plasma creatine kinase measurement (enzymatic activity/volume) 230 U/L 30-200 Serum or plasma troponin i.cardiac measurement (mass/volume) - 07/20/17 04:15 Serum or plasma troponin i.cardiac measurement (mass/volume) < ng/mL <0.30 Myoglobin, serum - 07/20/17 04:15 Myoglobin, serum 157.8 ng/mL 10.0-92.0 Capillary blood glucose measurement by glucometer (mass/volume) - 07/20/17 11:58 Capillary blood glucose measurement by glucometer (mass/volume) 199 mg/dL 70-110 Capillary blood glucose measurement by glucometer (mass/volume) - 07/20/17 15:57 Capillary blood glucose measurement by glucometer (mass/volume) 179 mg/dL 70-110 Capillary blood glucose measurement by glucometer (mass/volume) - 07/20/17 20:36 Capillary blood glucose measurement by glucometer (mass/volume) 188 mg/dL 70-110 Complete blood count (CBC) with automated white blood cell (WBC) differential - 07/21/17 03:38 Blood leukocytes automated count (number/volume) 7.8 10*3/uL 4.3-11.0 Blood erythrocytes automated count (number/volume) 4.76 10*6/uL 4.35-5.85 Venous blood hemoglobin measurement (mass/volume) 13.9 g/dL 13.3-17.7 Blood hematocrit (volume fraction) 42 % 40-54 Automated erythrocyte mean corpuscular volume 88 [foz_us] 80-99 Automated erythrocyte mean corpuscular hemoglobin (mass per erythrocyte) 29 pg 25-34 Automated erythrocyte mean corpuscular hemoglobin concentration measurement (mass/volume) 33 g/dL 32-36 Automated erythrocyte distribution width ratio 13.8 % 10.0- 14.5 Automated blood platelet count (count/volume) 236 10*3/uL 130-400 Automated blood platelet mean volume measurement 9.7 [foz_us] 7.4-10.4 Automated blood neutrophils/100 leukocytes 52 % 42-75 Automated blood lymphocytes/100 leukocytes 33 % 12-44 Blood monocytes/100 leukocytes 12 % 0-12 Automated blood eosinophils/100 leukocytes 3 % 0-10 Automated blood basophils/100 leukocytes 0 % 0-10 Blood neutrophils automated count (number/volume) 4.1 10*3 1.8-7.8 Blood lymphocytes automated count (number/volume) 2.6 10*3 1.0-4.0 Blood monocytes automated count (number/volume) 0.9 10*3 0.0- 1.0 Automated eosinophil count 0.3 10*3/uL 0.0-0.3 Automated blood basophil count (count/volume) 0.0 10*3/uL 0.0-0.1 Whole blood basic metabolic panel - 07/21/17 03:38 Serum or plasma sodium measurement (moles/volume) 138 mmol/L 135-145 Serum or plasma potassium measurement (moles/volume) 4.1 mmol/L 3.6-5.0 Serum or plasma chloride measurement (moles/volume) 110 mmol/L 98-107 Carbon dioxide 19 mmol/L 21-32 Serum or plasma anion gap determination (moles/volume) 9 mmol/L 5-14 Serum or plasma urea nitrogen measurement (mass/volume) 24 mg/dL 7-18 Serum or plasma creatinine measurement (mass/volume) 1.14 mg/dL 0.60-1.30 Serum or plasma urea nitrogen/creatinine mass ratio 21 NRG Serum or plasma creatinine measurement with calculation of estimated glomerular filtration rate > NRG Serum or plasma glucose measurement (mass/volume) 190 mg/dL 70-105 Serum or plasma calcium measurement (mass/volume) 8.8 mg/dL 8.5-10.1 Magnesium - 07/21/17 03:38 Magnesium 2.6 mg/dL 1.8-2.4 THYROID STIMULATING HORMONE - 07/21/17 03:38 THYROID STIMULATING HORMONE 1.97 u[iU]/mL 0.35-4.94 Capillary blood glucose measurement by glucometer (mass/volume) - 07/21/17 14:07 Capillary blood glucose measurement by glucometer (mass/volume) 156 mg/dL 70-110 Complete blood count (CBC) with automated white blood cell (WBC) differential - 11/12/17 06:54 Blood leukocytes automated count (number/volume) 6.4 10*3/uL 4.3-11.0 Blood erythrocytes automated count (number/volume) 4.54 10*6/uL 4.35-5.85 Venous blood hemoglobin measurement (mass/volume) 13.6 g/dL 13.3-17.7 Blood hematocrit (volume fraction) 40 % 40-54 Automated erythrocyte mean corpuscular volume 89 [foz_us] 80-99 Automated erythrocyte mean corpuscular hemoglobin (mass per erythrocyte) 30 pg 25-34 Automated erythrocyte mean corpuscular hemoglobin concentration measurement (mass/volume) 34 g/dL 32-36 Automated erythrocyte distribution width ratio 13.9 % 10.0- 14.5 Automated blood platelet count (count/volume) 225 10*3/uL 130-400 Automated blood platelet mean volume measurement 9.6 [foz_us] 7.4-10.4 Automated blood neutrophils/100 leukocytes 64 % 42-75 Automated blood lymphocytes/100 leukocytes 26 % 12-44 Blood monocytes/100 leukocytes 8 % 0-12 Automated blood eosinophils/100 leukocytes 2 % 0-10 Automated blood basophils/100 leukocytes 0 % 0-10 Blood neutrophils automated count (number/volume) 4.1 10*3 1.8-7.8 Blood lymphocytes automated count (number/volume) 1.7 10*3 1.0-4.0 Blood monocytes automated count (number/volume) 0.5 10*3 0.0- 1.0 Automated eosinophil count 0.1 10*3/uL 0.0-0.3 Automated blood basophil count (count/volume) 0.0 10*3/uL 0.0-0.1 Comprehensive metabolic panel - 11/12/17 06:54 Serum or plasma sodium measurement (moles/volume) 142 mmol/L 135-145 Serum or plasma potassium measurement (moles/volume) 4.5 mmol/L 3.6-5.0 Serum or plasma chloride measurement (moles/volume) 114 mmol/L 98-107 Carbon dioxide 19 mmol/L 21-32 Serum or plasma anion gap determination (moles/volume) 9 mmol/L 5-14 Serum or plasma urea nitrogen measurement (mass/volume) 22 mg/dL 7-18 Serum or plasma creatinine measurement (mass/volume) 1.49 mg/dL 0.60-1.30 Serum or plasma urea nitrogen/creatinine mass ratio 15 NRG Serum or plasma creatinine measurement with calculation of estimated glomerular filtration rate 47 NRG Serum or plasma glucose measurement (mass/volume) 132 mg/dL 70-105 Serum or plasma calcium measurement (mass/volume) 9.3 mg/dL 8.5-10.1 Serum or plasma total bilirubin measurement (mass/volume) 0.3 mg/dL 0.1-1.0 Serum or plasma alkaline phosphatase measurement (enzymatic activity/volume) 61 U/L 40-136 Serum or plasma aspartate aminotransferase measurement (enzymatic activity/volume) 17 U/L 5-34 Serum or plasma alanine aminotransferase measurement (enzymatic activity/volume) 20 U/L 0-55 Serum or plasma protein measurement (mass/volume) 7.0 g/dL 6.4-8.2 Serum or plasma albumin measurement (mass/volume) 4.1 g/dL 3.2-4.5 Lipid 1996 panel - 11/12/17 06:54 Serum or plasma triglyceride measurement (mass/volume) 137 mg/dL <150 Serum or plasma cholesterol measurement (mass/volume) 142 mg/dL < 200 Serum or plasma cholesterol in HDL measurement (mass/volume) 45 mg/dL 40-60 Cholesterol in LDL [mass/volume] in serum or plasma by direct assay 68 mg/dL 1-129 Serum or plasma cholesterol in VLDL measurement (mass/volume) 27 mg/dL 5-40 THYROID STIMULATING HORMONE - 11/12/17 06:54 THYROID STIMULATING HORMONE 1.50 u[iU]/mL 0.35-4.94 Hemoglobin A1c - 11/12/17 06:54 Blood hemoglobin A1C measurement (mass/volume) 5.8 % 4.0-5.6 MEAN BLOOD GLUCOSE 120 % <=126 Complete blood count (CBC) with automated white blood cell (WBC) differential - 12/09/17 19:30 Blood leukocytes automated count (number/volume) 10.3 10*3/uL 4.3-11.0 Blood erythrocytes automated count (number/volume) 4.71 10*6/uL 4.35-5.85 Venous blood hemoglobin measurement (mass/volume) 13.6 g/dL 13.3-17.7 Blood hematocrit (volume fraction) 42 % 40-54 Automated erythrocyte mean corpuscular volume 88 [foz_us] 80-99 Automated erythrocyte mean corpuscular hemoglobin (mass per erythrocyte) 29 pg 25-34 Automated erythrocyte mean corpuscular hemoglobin concentration measurement (mass/volume) 33 g/dL 32-36 Automated erythrocyte distribution width ratio 13.8 % 10.0- 14.5 Automated blood platelet count (count/volume) 283 10*3/uL 130-400 Automated blood platelet mean volume measurement 9.5 [foz_us] 7.4-10.4 Automated blood neutrophils/100 leukocytes 64 % 42-75 Automated blood lymphocytes/100 leukocytes 24 % 12-44 Blood monocytes/100 leukocytes 9 % 0-12 Automated blood eosinophils/100 leukocytes 2 % 0-10 Automated blood basophils/100 leukocytes 0 % 0-10 Blood neutrophils automated count (number/volume) 6.7 10*3 1.8-7.8 Blood lymphocytes automated count (number/volume) 2.5 10*3 1.0-4.0 Blood monocytes automated count (number/volume) 1.0 10*3 0.0- 1.0 Automated eosinophil count 0.2 10*3/uL 0.0-0.3 Automated blood basophil count (count/volume) 0.0 10*3/uL 0.0-0.1 Fibrin D-dimer FEU measurement in platelet poor plasma (mass/volume) - 12/09/17 19:30 Fibrin D-dimer FEU measurement in platelet poor plasma (mass/volume) 1.57 ug/mL 0.00-0.49 Comprehensive metabolic panel - 12/09/17 19:30 Serum or plasma sodium measurement (moles/volume) 141 mmol/L 135-145 Serum or plasma potassium measurement (moles/volume) 4.4 mmol/L 3.6-5.0 Serum or plasma chloride measurement (moles/volume) 111 mmol/L 98-107 Carbon dioxide 21 mmol/L 21-32 Serum or plasma anion gap determination (moles/volume) 9 mmol/L 5-14 Serum or plasma urea nitrogen measurement (mass/volume) 26 mg/dL 7-18 Serum or plasma creatinine measurement (mass/volume) 1.71 mg/dL 0.60-1.30 Serum or plasma urea nitrogen/creatinine mass ratio 15 NRG Serum or plasma creatinine measurement with calculation of estimated glomerular filtration rate 40 NRG Serum or plasma glucose measurement (mass/volume) 95 mg/dL 70-105 Serum or plasma calcium measurement (mass/volume) 9.5 mg/dL 8.5-10.1 Serum or plasma total bilirubin measurement (mass/volume) 0.4 mg/dL 0.1-1.0 Serum or plasma alkaline phosphatase measurement (enzymatic activity/volume) 71 U/L 40-136 Serum or plasma aspartate aminotransferase measurement (enzymatic activity/volume) 24 U/L 5-34 Serum or plasma alanine aminotransferase measurement (enzymatic activity/volume) 18 U/L 0-55 Serum or plasma protein measurement (mass/volume) 7.4 g/dL 6.4-8.2 Serum or plasma albumin measurement (mass/volume) 4.3 g/dL 3.2-4.5 Serum or plasma C reactive protein measurement (mass/volume) - 12/09/17 19:30 Serum or plasma C reactive protein measurement (mass/volume) 1.87 mg/dL 0.00-0.50 Comprehensive metabolic panel - 01/31/18 15:35 Serum or plasma sodium measurement (moles/volume) 138 mmol/L 135-145 Serum or plasma potassium measurement (moles/volume) 3.6 mmol/L 3.6-5.0 Serum or plasma chloride measurement (moles/volume) 107 mmol/L 98-107 Carbon dioxide 18 mmol/L 21-32 Serum or plasma anion gap determination (moles/volume) 13 mmol/L 5-14 Serum or plasma urea nitrogen measurement (mass/volume) 18 mg/dL 7-18 Serum or plasma creatinine measurement (mass/volume) 1.35 mg/dL 0.60-1.30 Serum or plasma urea nitrogen/creatinine mass ratio 13 NRG Serum or plasma creatinine measurement with calculation of estimated glomerular filtration rate 53 NRG Serum or plasma glucose measurement (mass/volume) 108 mg/dL 70-105 Serum or plasma calcium measurement (mass/volume) 9.3 mg/dL 8.5-10.1 Serum or plasma total bilirubin measurement (mass/volume) 0.2 mg/dL 0.1-1.0 Serum or plasma alkaline phosphatase measurement (enzymatic activity/volume) 62 U/L 40-136 Serum or plasma aspartate aminotransferase measurement (enzymatic activity/volume) 19 U/L 5-34 Serum or plasma alanine aminotransferase measurement (enzymatic activity/volume) 18 U/L 0-55 Serum or plasma protein measurement (mass/volume) 7.4 g/dL 6.4-8.2 Serum or plasma albumin measurement (mass/volume) 4.2 g/dL 3.2-4.5 CALCIUM CORRECTED 9.1 mg/dL 8.5-10.1 PT panel in platelet poor plasma by coagulation assay - 01/31/18 15:35 Prothrombin time (PT) in platelet poor plasma by coagulation assay 14.7 s 12.2-14.7 INR in platelet poor plasma or blood by coagulation assay 1.2 0.8-1.4 Activated partial thromboplastin time (aPTT) in platelet poor plasma bycoagulation assay - 01/31/18 15:35 Activated partial thromboplastin time (aPTT) in platelet poor plasma bycoagulation assay 25 s 24-35 Fibrin D-dimer FEU measurement in platelet poor plasma (mass/volume) - 01/31/18 15:35 Fibrin D-dimer FEU measurement in platelet poor plasma (mass/volume) 1.25 ug/mL 0.00-0.49 Serum or plasma troponin i.cardiac measurement (mass/volume) - 01/31/18 15:35 Serum or plasma troponin i.cardiac measurement (mass/volume) < ng/mL <0.30 Complete blood count (CBC) with automated white blood cell (WBC) differential - 01/31/18 15:35 Blood leukocytes automated count (number/volume) 12.9 10*3/uL 4.3-11.0 Blood erythrocytes automated count (number/volume) 4.97 10*6/uL 4.35-5.85 Venous blood hemoglobin measurement (mass/volume) 14.7 g/dL 13.3-17.7 Blood hematocrit (volume fraction) 44 % 40-54 Automated erythrocyte mean corpuscular volume 88 [foz_us] 80-99 Automated erythrocyte mean corpuscular hemoglobin (mass per erythrocyte) 30 pg 25-34 Automated erythrocyte mean corpuscular hemoglobin concentration measurement (mass/volume) 34 g/dL 32-36 Automated erythrocyte distribution width ratio 13.6 % 10.0- 14.5 Automated blood platelet count (count/volume) 230 10*3/uL 130-400 Automated blood platelet mean volume measurement 9.9 [foz_us] 7.4-10.4 Automated blood neutrophils/100 leukocytes 90 % 42-75 Automated blood lymphocytes/100 leukocytes 4 % 12-44 Blood monocytes/100 leukocytes 6 % 0-12 Automated blood eosinophils/100 leukocytes 0 % 0-10 Automated blood basophils/100 leukocytes 0 % 0-10 Blood neutrophils automated count (number/volume) 11.6 10*3 1.8-7.8 Blood lymphocytes automated count (number/volume) 0.5 10*3 1.0-4.0 Blood monocytes automated count (number/volume) 0.8 10*3 0.0- 1.0 Automated eosinophil count 0.0 10*3/uL 0.0-0.3 Automated blood basophil count (count/volume) 0.0 10*3/uL 0.0-0.1 Blood manual differential performed detection - 01/31/18 15:35 Blood monocytes/100 leukocytes 3 % NRG Manual blood segmented neutrophils/100 leukocytes 91 % NRG Blood band neutrophils/100 leukocytes 0 % NRG Manual blood lymphocytes/100 leukocytes 6 % NRG Manual eosinophils/100 leukocytes in nose 0 % NRG Manual blood basophils/100 leukocytes 0 % NRG Blood erythrocyte morphology finding identification NORMAL NRG Complete urinalysis with reflex to culture - 01/31/18 15:54 Urine color determination YELLOW NRG Urine clarity determination CLEAR NRG Urine pH measurement by test strip 5 5-9 Specific gravity of urine by test strip 1.010 1.016-1.022 Urine protein assay by test strip, semi-quantitative NEGATIVE NEGATIVE Urine glucose detection by automated test strip 2+ NEGATIVE Erythrocytes detection in urine sediment by light microscopy NEGATIVE NEGATIVE Urine ketones detection by automated test strip NEGATIVE NEGATIVE Urine nitrite detection by test strip NEGATIVE NEGATIVE Urine total bilirubin detection by test strip NEGATIVE NEGATIVE Urine urobilinogen measurement by automated test strip (mass/volume) NORMAL NORMAL Urine leukocyte esterase detection by dipstick 2+ NEGATIVE Automated urine sediment erythrocyte count by microscopy (number/high power field) NONE NRG Automated urine sediment leukocyte count by microscopy (number/high power field) [HPF] NRG Bacteria detection in urine sediment by light microscopy NEGATIVE NRG Squamous epithelial cells detection in urine sediment by light microscopy 2-5 NRG Crystals detection in urine sediment by light microscopy NONE NRG Casts detection in urine sediment by light microscopy NONE NRG Mucus detection in urine sediment by light microscopy NEGATIVE NRG Complete urinalysis with reflex to culture NO NRG Capillary blood glucose measurement by glucometer (mass/volume) - 01/31/18 16:04 Capillary blood glucose measurement by glucometer (mass/volume) 84 mg/dL 70-110 Capillary blood glucose measurement by glucometer (mass/volume) - 01/31/18 17:31 Capillary blood glucose measurement by glucometer (mass/volume) 78 mg/dL 70-110 Capillary blood glucose measurement by glucometer (mass/volume) - 01/31/18 19:56 Capillary blood glucose measurement by glucometer (mass/volume) 70 mg/dL 70-110 Methicillin resistant Staphylococcus aureus (MRSA) screening culture - 01/31/18 20:50 Methicillin resistant Staphylococcus aureus (MRSA) screening culture NEG NRG Serum or plasma carbamazepine measurement (mass/volume) - 01/31/18 20:51 Serum or plasma carbamazepine measurement (mass/volume) 6.4 ug/mL 4.0-12.0 Capillary blood glucose measurement by glucometer (mass/volume) - 01/31/18 21:15 Capillary blood glucose measurement by glucometer (mass/volume) 61 mg/dL 70-110 Capillary blood glucose measurement by glucometer (mass/volume) - 01/31/18 22:13 Capillary blood glucose measurement by glucometer (mass/volume) 116 mg/dL 70-110 Capillary blood glucose measurement by glucometer (mass/volume) - 01/31/18 23:11 Capillary blood glucose measurement by glucometer (mass/volume) 101 mg/dL 70-110 Capillary blood glucose measurement by glucometer (mass/volume) - 02/01/18 00:51 Capillary blood glucose measurement by glucometer (mass/volume) 109 mg/dL 70-110 Capillary blood glucose measurement by glucometer (mass/volume) - 02/01/18 02:22 Capillary blood glucose measurement by glucometer (mass/volume) 101 mg/dL 70-110 Complete blood count (CBC) with automated white blood cell (WBC) differential - 02/01/18 04:15 Blood leukocytes automated count (number/volume) 9.8 10*3/uL 4.3-11.0 Blood erythrocytes automated count (number/volume) 4.73 10*6/uL 4.35-5.85 Venous blood hemoglobin measurement (mass/volume) 13.7 g/dL 13.3-17.7 Blood hematocrit (volume fraction) 41 % 40-54 Automated erythrocyte mean corpuscular volume 87 [foz_us] 80-99 Automated erythrocyte mean corpuscular hemoglobin (mass per erythrocyte) 29 pg 25-34 Automated erythrocyte mean corpuscular hemoglobin concentration measurement (mass/volume) 33 g/dL 32-36 Automated erythrocyte distribution width ratio 13.7 % 10.0- 14.5 Automated blood platelet count (count/volume) 247 10*3/uL 130-400 Automated blood platelet mean volume measurement 9.3 [foz_us] 7.4-10.4 Automated blood neutrophils/100 leukocytes 76 % 42-75 Automated blood lymphocytes/100 leukocytes 14 % 12-44 Blood monocytes/100 leukocytes 9 % 0-12 Automated blood eosinophils/100 leukocytes 1 % 0-10 Automated blood basophils/100 leukocytes 0 % 0-10 Blood neutrophils automated count (number/volume) 7.4 10*3 1.8-7.8 Blood lymphocytes automated count (number/volume) 1.4 10*3 1.0-4.0 Blood monocytes automated count (number/volume) 0.8 10*3 0.0- 1.0 Automated eosinophil count 0.1 10*3/uL 0.0-0.3 Automated blood basophil count (count/volume) 0.0 10*3/uL 0.0-0.1 Lipid 1996 panel - 02/01/18 04:15 Serum or plasma triglyceride measurement (mass/volume) 151 mg/dL <150 Serum or plasma cholesterol measurement (mass/volume) 154 mg/dL < 200 Serum or plasma cholesterol in HDL measurement (mass/volume) 42 mg/dL 40-60 Cholesterol in LDL [mass/volume] in serum or plasma by direct assay 85 mg/dL 1-129 Serum or plasma cholesterol in VLDL measurement (mass/volume) 30 mg/dL 5-40 Comprehensive metabolic panel - 02/01/18 04:15 Serum or plasma sodium measurement (moles/volume) 138 mmol/L 135-145 Serum or plasma potassium measurement (moles/volume) 4.1 mmol/L 3.6-5.0 Serum or plasma chloride measurement (moles/volume) 109 mmol/L 98-107 Carbon dioxide 19 mmol/L 21-32 Serum or plasma anion gap determination (moles/volume) 10 mmol/L 5-14 Serum or plasma urea nitrogen measurement (mass/volume) 13 mg/dL 7-18 Serum or plasma creatinine measurement (mass/volume) 1.12 mg/dL 0.60-1.30 Serum or plasma urea nitrogen/creatinine mass ratio 12 NRG Serum or plasma creatinine measurement with calculation of estimated glomerular filtration rate > NRG Serum or plasma glucose measurement (mass/volume) 122 mg/dL 70-105 Serum or plasma calcium measurement (mass/volume) 8.6 mg/dL 8.5-10.1 Serum or plasma total bilirubin measurement (mass/volume) 0.3 mg/dL 0.1-1.0 Serum or plasma alkaline phosphatase measurement (enzymatic activity/volume) 55 U/L 40-136 Serum or plasma aspartate aminotransferase measurement (enzymatic activity/volume) 16 U/L 5-34 Serum or plasma alanine aminotransferase measurement (enzymatic activity/volume) 17 U/L 0-55 Serum or plasma protein measurement (mass/volume) 6.6 g/dL 6.4-8.2 Serum or plasma albumin measurement (mass/volume) 3.9 g/dL 3.2-4.5 CALCIUM CORRECTED 8.7 mg/dL 8.5-10.1 Whole blood basic metabolic panel - 02/01/18 04:15 Serum or plasma sodium measurement (moles/volume) 138 mmol/L 135-145 Serum or plasma potassium measurement (moles/volume) 4.3 mmol/L 3.6-5.0 Serum or plasma chloride measurement (moles/volume) 109 mmol/L 98-107 Carbon dioxide 19 mmol/L 21-32 Serum or plasma anion gap determination (moles/volume) 10 mmol/L 5-14 Serum or plasma urea nitrogen measurement (mass/volume) 14 mg/dL 7-18 Serum or plasma creatinine measurement (mass/volume) 1.08 mg/dL 0.60-1.30 Serum or plasma urea nitrogen/creatinine mass ratio 13 NRG Serum or plasma creatinine measurement with calculation of estimated glomerular filtration rate > NRG Serum or plasma glucose measurement (mass/volume) 121 mg/dL 70-105 Serum or plasma calcium measurement (mass/volume) 8.4 mg/dL 8.5-10.1 Serum or plasma phosphate measurement (mass/volume) - 02/01/18 04:15 Serum or plasma phosphate measurement (mass/volume) 3.2 mg/dL 2.3-4.7 Magnesium - 02/01/18 04:15 Magnesium 2.4 mg/dL 1.8-2.4 Capillary blood glucose measurement by glucometer (mass/volume) - 02/01/18 04:21 Capillary blood glucose measurement by glucometer (mass/volume) 111 mg/dL 70-110 Capillary blood glucose measurement by glucometer (mass/volume) - 02/01/18 06:37 Capillary blood glucose measurement by glucometer (mass/volume) 148 mg/dL 70-110 Capillary blood glucose measurement by glucometer (mass/volume) - 02/01/18 08:40 Capillary blood glucose measurement by glucometer (mass/volume) 142 mg/dL 70-110 Capillary blood glucose measurement by glucometer (mass/volume) - 02/01/18 11:02 Capillary blood glucose measurement by glucometer (mass/volume) 163 mg/dL 70-110 Capillary blood glucose measurement by glucometer (mass/volume) - 02/01/18 15:49 Capillary blood glucose measurement by glucometer (mass/volume) 141 mg/dL 70-110 Capillary blood glucose measurement by glucometer (mass/volume) - 02/01/18 20:28 Capillary blood glucose measurement by glucometer (mass/volume) 118 mg/dL 70-110 Capillary blood glucose measurement by glucometer (mass/volume) - 02/02/18 05:33 Capillary blood glucose measurement by glucometer (mass/volume) 128 mg/dL 70-110 Complete blood count (CBC) with automated white blood cell (WBC) differential - 02/02/18 05:38 Blood leukocytes automated count (number/volume) 7.5 10*3/uL 4.3-11.0 Blood erythrocytes automated count (number/volume) 4.64 10*6/uL 4.35-5.85 Venous blood hemoglobin measurement (mass/volume) 13.9 g/dL 13.3-17.7 Blood hematocrit (volume fraction) 41 % 40-54 Automated erythrocyte mean corpuscular volume 88 [foz_us] 80-99 Automated erythrocyte mean corpuscular hemoglobin (mass per erythrocyte) 30 pg 25-34 Automated erythrocyte mean corpuscular hemoglobin concentration measurement (mass/volume) 34 g/dL 32-36 Automated erythrocyte distribution width ratio 13.8 % 10.0- 14.5 Automated blood platelet count (count/volume) 231 10*3/uL 130-400 Automated blood platelet mean volume measurement 9.6 [foz_us] 7.4-10.4 Automated blood neutrophils/100 leukocytes 65 % 42-75 Automated blood lymphocytes/100 leukocytes 21 % 12-44 Blood monocytes/100 leukocytes 11 % 0-12 Automated blood eosinophils/100 leukocytes 3 % 0-10 Automated blood basophils/100 leukocytes 1 % 0-10 Blood neutrophils automated count (number/volume) 4.9 10*3 1.8-7.8 Blood lymphocytes automated count (number/volume) 1.6 10*3 1.0-4.0 Blood monocytes automated count (number/volume) 0.8 10*3 0.0- 1.0 Automated eosinophil count 0.2 10*3/uL 0.0-0.3 Automated blood basophil count (count/volume) 0.0 10*3/uL 0.0-0.1 Comprehensive metabolic panel - 02/02/18 05:38 Serum or plasma sodium measurement (moles/volume) 138 mmol/L 135-145 Serum or plasma potassium measurement (moles/volume) 4.0 mmol/L 3.6-5.0 Serum or plasma chloride measurement (moles/volume) 110 mmol/L 98-107 Carbon dioxide 19 mmol/L 21-32 Serum or plasma anion gap determination (moles/volume) 9 mmol/L 5-14 Serum or plasma urea nitrogen measurement (mass/volume) 13 mg/dL 7-18 Serum or plasma creatinine measurement (mass/volume) 1.24 mg/dL 0.60-1.30 Serum or plasma urea nitrogen/creatinine mass ratio 10 NRG Serum or plasma creatinine measurement with calculation of estimated glomerular filtration rate 59 NRG Serum or plasma glucose measurement (mass/volume) 126 mg/dL 70-105 Serum or plasma calcium measurement (mass/volume) 8.7 mg/dL 8.5-10.1 Serum or plasma total bilirubin measurement (mass/volume) 0.4 mg/dL 0.1-1.0 Serum or plasma alkaline phosphatase measurement (enzymatic activity/volume) 61 U/L 40-136 Serum or plasma aspartate aminotransferase measurement (enzymatic activity/volume) 17 U/L 5-34 Serum or plasma alanine aminotransferase measurement (enzymatic activity/volume) 18 U/L 0-55 Serum or plasma protein measurement (mass/volume) 6.6 g/dL 6.4-8.2 Serum or plasma albumin measurement (mass/volume) 3.8 g/dL 3.2-4.5 CALCIUM CORRECTED 8.9 mg/dL 8.5-10.1 Capillary blood glucose measurement by glucometer (mass/volume) - 02/02/18 11:19 Capillary blood glucose measurement by glucometer (mass/volume) 103 mg/dL 70-110 Complete blood count (CBC) with automated white blood cell (WBC) differential - 03/18/18 06:50 Blood leukocytes automated count (number/volume) 7.3 10*3/uL 4.3-11.0 Blood erythrocytes automated count (number/volume) 4.86 10*6/uL 4.35-5.85 Venous blood hemoglobin measurement (mass/volume) 14.1 g/dL 13.3-17.7 Blood hematocrit (volume fraction) 43 % 40-54 Automated erythrocyte mean corpuscular volume 88 [foz_us] 80-99 Automated erythrocyte mean corpuscular hemoglobin (mass per erythrocyte) 29 pg 25-34 Automated erythrocyte mean corpuscular hemoglobin concentration measurement (mass/volume) 33 g/dL 32-36 Automated erythrocyte distribution width ratio 14.5 % 10.0- 14.5 Automated blood platelet count (count/volume) 263 10*3/uL 130-400 Automated blood platelet mean volume measurement 9.3 [foz_us] 7.4-10.4 Automated blood neutrophils/100 leukocytes 66 % 42-75 Automated blood lymphocytes/100 leukocytes 22 % 12-44 Blood monocytes/100 leukocytes 9 % 0-12 Automated blood eosinophils/100 leukocytes 3 % 0-10 Automated blood basophils/100 leukocytes 0 % 0-10 Blood neutrophils automated count (number/volume) 4.8 10*3 1.8-7.8 Blood lymphocytes automated count (number/volume) 1.6 10*3 1.0-4.0 Blood monocytes automated count (number/volume) 0.7 10*3 0.0- 1.0 Automated eosinophil count 0.2 10*3/uL 0.0-0.3 Automated blood basophil count (count/volume) 0.0 10*3/uL 0.0-0.1 Comprehensive metabolic panel - 03/18/18 06:50 Serum or plasma sodium measurement (moles/volume) 136 mmol/L 135-145 Serum or plasma potassium measurement (moles/volume) 4.4 mmol/L 3.6-5.0 Serum or plasma chloride measurement (moles/volume) 108 mmol/L 98-107 Carbon dioxide 18 mmol/L 21-32 Serum or plasma anion gap determination (moles/volume) 10 mmol/L 5-14 Serum or plasma urea nitrogen measurement (mass/volume) 16 mg/dL 7-18 Serum or plasma creatinine measurement (mass/volume) 1.27 mg/dL 0.60-1.30 Serum or plasma urea nitrogen/creatinine mass ratio 13 NRG Serum or plasma creatinine measurement with calculation of estimated glomerular filtration rate 57 NRG Serum or plasma glucose measurement (mass/volume) 137 mg/dL 70-105 Serum or plasma calcium measurement (mass/volume) 9.6 mg/dL 8.5-10.1 Serum or plasma total bilirubin measurement (mass/volume) 0.4 mg/dL 0.1-1.0 Serum or plasma alkaline phosphatase measurement (enzymatic activity/volume) 67 U/L 40-136 Serum or plasma aspartate aminotransferase measurement (enzymatic activity/volume) 25 U/L 5-34 Serum or plasma alanine aminotransferase measurement (enzymatic activity/volume) 40 U/L 0-55 Serum or plasma protein measurement (mass/volume) 7.7 g/dL 6.4-8.2 Serum or plasma albumin measurement (mass/volume) 4.4 g/dL 3.2-4.5 CALCIUM CORRECTED 9.3 mg/dL 8.5-10.1 Lipid 1996 panel - 03/18/18 06:50 Serum or plasma triglyceride measurement (mass/volume) 271 mg/dL <150 Serum or plasma cholesterol measurement (mass/volume) 180 mg/dL < 200 Serum or plasma cholesterol in HDL measurement (mass/volume) 41 mg/dL 40-60 Cholesterol in LDL [mass/volume] in serum or plasma by direct assay 88 mg/dL 1-129 Serum or plasma cholesterol in VLDL measurement (mass/volume) 54 mg/dL 5-40 THYROID STIMULATING HORMONE - 03/18/18 06:50 THYROID STIMULATING HORMONE 2.39 u[iU]/mL 0.35-4.94 Hemoglobin A1c - 03/18/18 06:50 Blood hemoglobin A1C measurement (mass/volume) 6.1 % 4.0-5.6 MEAN BLOOD GLUCOSE 128 % <=126 Complete blood count (CBC) with automated white blood cell (WBC) differential - 07/02/18 07:40 Blood leukocytes automated count (number/volume) 8.0 10*3/uL 4.3-11.0 Blood erythrocytes automated count (number/volume) 4.78 10*6/uL 4.35-5.85 Venous blood hemoglobin measurement (mass/volume) 13.8 g/dL 13.3-17.7 Blood hematocrit (volume fraction) 42 % 40-54 Automated erythrocyte mean corpuscular volume 88 [foz_us] 80-99 Automated erythrocyte mean corpuscular hemoglobin (mass per erythrocyte) 29 pg 25-34 Automated erythrocyte mean corpuscular hemoglobin concentration measurement (mass/volume) 33 g/dL 32-36 Automated erythrocyte distribution width ratio 13.9 % 10.0- 14.5 Automated blood platelet count (count/volume) 271 10*3/uL 130-400 Automated blood platelet mean volume measurement 9.1 [foz_us] 7.4-10.4 Automated blood neutrophils/100 leukocytes 62 % 42-75 Automated blood lymphocytes/100 leukocytes 27 % 12-44 Blood monocytes/100 leukocytes 8 % 0-12 Automated blood eosinophils/100 leukocytes 2 % 0-10 Automated blood basophils/100 leukocytes 0 % 0-10 Blood neutrophils automated count (number/volume) 4.9 10*3 1.8-7.8 Blood lymphocytes automated count (number/volume) 2.2 10*3 1.0-4.0 Blood monocytes automated count (number/volume) 0.7 10*3 0.0- 1.0 Automated eosinophil count 0.2 10*3/uL 0.0-0.3 Automated blood basophil count (count/volume) 0.0 10*3/uL 0.0-0.1 Comprehensive metabolic panel - 07/02/18 07:40 Serum or plasma sodium measurement (moles/volume) 136 mmol/L 135-145 Serum or plasma potassium measurement (moles/volume) 4.2 mmol/L 3.6-5.0 Serum or plasma chloride measurement (moles/volume) 105 mmol/L 98-107 Carbon dioxide 18 mmol/L 21-32 Serum or plasma anion gap determination (moles/volume) 13 mmol/L 5-14 Serum or plasma urea nitrogen measurement (mass/volume) 15 mg/dL 7-18 Serum or plasma creatinine measurement (mass/volume) 1.40 mg/dL 0.60-1.30 Serum or plasma urea nitrogen/creatinine mass ratio 11 NRG Serum or plasma creatinine measurement with calculation of estimated glomerular filtration rate 51 NRG Serum or plasma glucose measurement (mass/volume) 136 mg/dL 70-105 Serum or plasma calcium measurement (mass/volume) 9.1 mg/dL 8.5-10.1 Serum or plasma total bilirubin measurement (mass/volume) 0.4 mg/dL 0.1-1.0 Serum or plasma alkaline phosphatase measurement (enzymatic activity/volume) 76 U/L 40-136 Serum or plasma aspartate aminotransferase measurement (enzymatic activity/volume) 22 U/L 5-34 Serum or plasma alanine aminotransferase measurement (enzymatic activity/volume) 23 U/L 0-55 Serum or plasma protein measurement (mass/volume) 7.4 g/dL 6.4-8.2 Serum or plasma albumin measurement (mass/volume) 4.3 g/dL 3.2-4.5 CALCIUM CORRECTED 8.9 mg/dL 8.5-10.1 Lipid 1996 panel - 07/02/18 07:40 Serum or plasma triglyceride measurement (mass/volume) 202 mg/dL <150 Serum or plasma cholesterol measurement (mass/volume) 158 mg/dL < 200 Serum or plasma cholesterol in HDL measurement (mass/volume) 45 mg/dL 40-60 Cholesterol in LDL [mass/volume] in serum or plasma by direct assay 84 mg/dL 1-129 Serum or plasma cholesterol in VLDL measurement (mass/volume) 40 mg/dL 5-40 THYROID STIMULATING HORMONE - 07/02/18 07:40 THYROID STIMULATING HORMONE 2.13 u[iU]/mL 0.35-4.94 Hemoglobin A1c - 07/02/18 07:40 Blood hemoglobin A1C measurement (mass/volume) 6.6 % 4.0-5.6 MEAN BLOOD GLUCOSE 143 % <=126 Complete blood count (CBC) with automated white blood cell (WBC) differential - 10/17/18 07:28 Blood leukocytes automated count (number/volume) 7.5 10*3/uL 4.3-11.0 Blood erythrocytes automated count (number/volume) 4.53 10*6/uL 4.35-5.85 Venous blood hemoglobin measurement (mass/volume) 13.0 g/dL 13.3-17.7 Blood hematocrit (volume fraction) 40 % 40-54 Automated erythrocyte mean corpuscular volume 89 [foz_us] 80-99 Automated erythrocyte mean corpuscular hemoglobin (mass per erythrocyte) 29 pg 25-34 Automated erythrocyte mean corpuscular hemoglobin concentration measurement (mass/volume) 32 g/dL 32-36 Automated erythrocyte distribution width ratio 13.6 % 10.0- 14.5 Automated blood platelet count (count/volume) 243 10*3/uL 130-400 Automated blood platelet mean volume measurement 9.2 [foz_us] 7.4-10.4 Automated blood neutrophils/100 leukocytes 66 % 42-75 Automated blood lymphocytes/100 leukocytes 23 % 12-44 Blood monocytes/100 leukocytes 8 % 0-12 Automated blood eosinophils/100 leukocytes 2 % 0-10 Automated blood basophils/100 leukocytes 0 % 0-10 Blood neutrophils automated count (number/volume) 4.9 10*3 1.8-7.8 Blood lymphocytes automated count (number/volume) 1.7 10*3 1.0-4.0 Blood monocytes automated count (number/volume) 0.6 10*3 0.0- 1.0 Automated eosinophil count 0.2 10*3/uL 0.0-0.3 Automated blood basophil count (count/volume) 0.0 10*3/uL 0.0-0.1 Comprehensive metabolic panel - 10/17/18 07:28 Serum or plasma sodium measurement (moles/volume) 134 mmol/L 135-145 Serum or plasma potassium measurement (moles/volume) 4.8 mmol/L 3.6-5.0 Serum or plasma chloride measurement (moles/volume) 103 mmol/L 98-107 Carbon dioxide 24 mmol/L 21-32 Serum or plasma anion gap determination (moles/volume) 7 mmol/L 5-14 Serum or plasma urea nitrogen measurement (mass/volume) 15 mg/dL 7-18 Serum or plasma creatinine measurement (mass/volume) 1.13 mg/dL 0.60-1.30 Serum or plasma urea nitrogen/creatinine mass ratio 13 NRG Serum or plasma creatinine measurement with calculation of estimated glomerular filtration rate > NRG Serum or plasma glucose measurement (mass/volume) 128 mg/dL 70-105 Serum or plasma calcium measurement (mass/volume) 9.4 mg/dL 8.5-10.1 Serum or plasma total bilirubin measurement (mass/volume) 0.3 mg/dL 0.1-1.0 Serum or plasma alkaline phosphatase measurement (enzymatic activity/volume) 78 U/L 40-136 Serum or plasma aspartate aminotransferase measurement (enzymatic activity/volume) 21 U/L 5-34 Serum or plasma alanine aminotransferase measurement (enzymatic activity/volume) 19 U/L 0-55 Serum or plasma protein measurement (mass/volume) 7.2 g/dL 6.4-8.2 Serum or plasma albumin measurement (mass/volume) 4.2 g/dL 3.2-4.5 CALCIUM CORRECTED 9.2 mg/dL 8.5-10.1 THYROID STIMULATING HORMONE - 10/17/18 07:28 THYROID STIMULATING HORMONE 1.87 u[iU]/mL 0.35-4.94 Hemoglobin A1c - 10/17/18 07:28 Blood hemoglobin A1C measurement (mass/volume) 6.7 % 4.0-5.6 MEAN BLOOD GLUCOSE 146 % <=126 Encounters ACCT No. Visit Date/Time Discharge Status Pt. Type Provider Facility Loc./Unit Complaint [id number] 11/06/2018 15:15:00 11/06/2018 23:59:59 CLS Outpatient [facility] [id number] 10/17/2018 07:11:00 10/17/2018 23:59:59 CLS Outpatient SANCHEZ DO, MOLLY [facility] LAB TYPE 2 DIABETES MELLITUS W/ HYPERGLYCEMIA [id number] 10/07/2018 09:21:00 10/07/2018 23:59:59 CLS Outpatient JOSE JUAN MOLINA MD [facility] ORTHO [id number] 09/29/2018 07:14:00 09/29/2018 23:59:59 CLS Outpatient SANCHEZ DO, MOLLY [facility] RAD SHOULDER PAIN [id number] 07/02/2018 07:26:00 07/02/2018 23:59:59 CLS Outpatient SANCHEZ DO, MOLLY [facility] LAB E11.8,Z79.4 [id number] 05/27/2018 12:46:00 05/27/2018 23:59:59 CLS Preadmit DAR GUILLAUME [facility] REHAB CERVICAL STENOSIS W RADICULOPATHY [id number] 05/01/2018 09:19:00 05/01/2018 23:59:59 CLS Outpatient LUNA VELÁSQUEZ MD [facility] RAD CERVICALGIA M54.2 [id number] 03/18/2018 06:35:00 03/18/2018 23:59:59 CLS Outpatient SANCHEZ DO, MOLLY [facility] LAB E11.8 [id number] 03/10/2018 14:45:00 03/10/2018 23:59:59 CLS Preadmit SANCHEZ DO, MOLLY [facility] RAD CERVICAL STENOSIS OF SPINE [id number] 03/04/2018 10:21:00 03/04/2018 12:06:00 DIS Emergency CALIN ELLISON [facility] ER BLOODY NOSE;BLOOD THINERS [id number] 02/23/2018 11:19:00 02/23/2018 13:48:00 DIS Emergency CALIN ELLISON [facility] ER PT FELL DOWN STEPS,LEG,BACK,HIP PAIN [id number] 01/31/2018 20:35:00 02/02/2018 13:00:00 DIS Inpatient SERAFIN RIOS, JUSTINE Monroy [facility] 4TH APHASIA,L SIDED WEAKNESS,HYPOGLYCEMIA [id number] 12/09/2017 19:21:00 12/09/2017 22:06:00 DIS Emergency QUYEN RIOS, RAYMUNDO [place] [facility] ER L LEG PAIN/SWELLING/REDNESS [id number] 11/12/2017 06:37:00 11/12/2017 23:59:59 CLS Outpatient MOLLY SANCHEZ DO [facility] LAB E78.5 E03.9 E11.59 Z79.4 [id number] 09/12/2017 19:58:00 09/13/2017 05:55:00 DIS Outpatient JOHNY KANG APRN [facility] SLEEP Z72.820 POOR SLEEP [id number] 09/11/2017 13:45:00 09/11/2017 23:59:59 CLS Preadmit JOHNY KANG APRN [facility] RAD R91.8 LUNG NODULE, R06.00 DYSPNEA [id number] 07/30/2017 08:22:00 07/30/2017 23:59:59 CLS Outpatient MARIELENA MURRAY [facility] SYNCOPE,DIXXINESS,DM,ANGINA,SOB [id number] 07/19/2017 16:51:00 07/21/2017 15:55:00 DIS Outpatient MOLLY SANCHEZ DO [facility] CATH CP R/O ACS [id number] 08/22/2018 15:25:00 Document Registration
[2018-11-12] MEDS ORDERED: DIAZEPAM INJ 10 MG/2 ML (VALIUM) SYR IVP PRN (12:30)
[2018-11-12] MEDS ORDERED: LORazepam INJ 2 MG/ML (ATIVAN) VIAL ONE (12:38)
--- NOTE | 2018-11-12 12:38 | ED General ---
General Chief Complaint: Neurological Problems Stated Complaint: [facility] Nursing Triage Note: pT PRESENTS TO TRIAGE, STATES HE HAS NOT TAKEN HIS BLOOD THINNERS FOR APPROX A WEEK D/T MEDICAL REASONS. STARTED HAVING SEIZURES ONCE OFF BLOOD THINNERS. PT ALSO COMPLAINS OF SEVERE HEADACHE, NOT RELIEVED BY MEDICATION. Nursing Sepsis Screen: No Definite Risk Source of Information: Patient Exam Limitations: No Limitations History of Present Illness Date Seen by Provider: Nov 12, 2018 Time Seen by Provider: 12:33 Initial Comments To ER with reports of headaches and increasing frequency and duration of seizures. He reportedly has epilepsy that began 10 years ago after CVA. He is on Tegretol for this. He's been off of his Eliquis beginning on Saturday10/31/18 in preparation for dental extraction. He resumed use on 11/07/18. Daughter who lives in [place] is on the phone informs me that on Saturday the his voice changed and has been unusual since. at the bedside reports seizures have increased in frequency since then and the headaches have worsened and associated with nausea and vomiting however he is able to take and keep down his medications. No fevers. Timing/Duration: 1-2 Days Severity: Moderate Associated Systoms: Headaches, Nausea/Vomiting Allergies and Home Medications Allergies Coded Allergies: No Known Drug Allergies (Unverified , 07/19/17) Home Medications Amlodipine Besylate 5 Mg Tablet, 5 MG PO DAILY Prescribed by: MOLLY SANCHEZ on 02/02/18 1147 Apixaban 5 Mg Tablet, 5 MG PO BID, (Reported) Aspirin 81 Mg Tablet.dr, 81 MG PO DAILY Prescribed by: MOLLY SANCHEZ on 07/21/17 1240 Atorvastatin Calcium 10 Mg Tablet, 10 MG PO HS, (Reported) Carbamazepine 200 Mg Tab.er.12h, 400 MG PO BID TAKES 2 (200 MG) TABLETS Prescribed by: MOLLY SANCHEZ on 07/21/17 1240 Celecoxib 400 Mg Capsule, 400 MG PO DAILY Prescribed by: MOLLY SANCHEZ on 07/21/17 1240 Clopidogrel Bisulfate 75 Mg Tablet, 75 MG PO DAILY Prescribed by: MOLLY SANCHEZ on 07/21/17 1240 Gabapentin 300 Mg Capsule, 300 MG PO TID, (Reported) Hydrocodone Bit/Acetaminophen 1 Tab Tab, 1 EACH PO Q4-6HR PRN for PAIN-MODERATE Prescribed by: CALIN ELLISON on 02/23/18 1343 Insulin Glargine,Hum.rec.anlog 100 Unit/1 Ml Insuln.pen, 30 UNIT SQ HS Prescribed by: MOLLY SANCHEZ on 02/02/18 1147 Lisinopril 5 Mg Tablet, 5 MG PO DAILY@0900 Prescribed by: MOLLY SANCHEZ on 07/21/17 1240 Metformin HCl 750 Mg Tab.er.24h, 750 MG PO BID, (Reported) Metoprolol Succinate 25 Mg Tab.er.24h, 25 MG PO DAILY, (Reported) Nitroglycerin 0.4 Mg Tab.subl, 0.4 MG SL PRN PRN for CHEST PAIN, (Reported) Topiramate 100 Mg Tablet, 100 MG PO BID Prescribed by: MOLLY SANCHEZ on 07/21/17 1240 Trazodone HCl 100 Mg Tablet, 200 MG PO HS Prescribed by: MOLLY SANCHEZ on 07/21/17 1240 Zonisamide 100 Mg Capsule, 200 MG PO DAILY, (Reported) Zonisamide 100 Mg Capsule, 100 MG PO HS, (Reported) Patient Home Medication List Home Medication List Reviewed: Yes Review of Systems Review of Systems Constitutional: see HPI; No chills, No fever EENTM: see HPI Respiratory: no symptoms reported Cardiovascular: no symptoms reported Genitourinary: no symptoms reported Musculoskeletal: no symptoms reported Skin: no symptoms reported Psychiatric/Neurological: See HPI, Headache, Seizure Hematologic/Lymphatic: No Symptoms Reported Past Epjpubt-Vuclcd-Ojgjax Hx Patient Social History Alcohol Use: Occasionally Uses Recreational Drug Use: No Smoking Status: Former Smoker Type Used: Pipe 2nd Hand Smoke Exposure: No Recent Foreign Travel: No Contact w/Someone Who Travel: No Recent Infectious Disease Expo: No Recent Hopitalizations: No Immunizations Up To Date Tetanus Booster (TDap): Unknown Seasonal Allergies Seasonal Allergies: No Past Medical History Surgeries: Yes (lap band, L HIP, BILAT KNEE) Abdominal, Orthopedic Respiratory: Yes Sleep Apnea Currently Using CPAP: Yes Cardiac: Yes Angina, Atrial Fibrillation, Chronic Edema/Swelling, Deep Vein Thrombosis, High Cholesterol, Hypertension Neurological: Yes Neuropathy, Seizure Disorder, Stroke Genitourinary: No Gastrointestinal: Yes Gastroesophageal Reflux Musculoskeletal: Yes Arthritis Endocrine: Yes Diabetes, Insulin dep HEENT: No Cancer: No Psychosocial: No Integumentary: Yes Blood Disorders: No Family Medical History Diabetes, Hypertension Physical Exam Vital Signs Vital Signs - First Documented 11/12/18 12:11 Temp 98.3 Pulse 92 Resp 20 B/P (MAP) 184/94 (124) Pulse Ox 97 O2 Delivery Room Air Capillary Refill : Less Than 3 Seconds Height, Weight, BMI Height: 5'9.00" Weight: 327lbs. 0.0oz. 148.899043ja; 49.7 BMI Method:Stated General Appearance: No Apparent Distress, WD/WN, Other (during my interview with him he had about a 30 second episode of seizure like activity, began with Parkinson-like tremor of the right hand which then progressed to leaning back and both arms becoming stiff and with convulsions. He did not fall off of the bed even though he was just sitting on the edge of the bed when this started.) Eyes: Bilateral Eye Normal Inspection, Bilateral Eye PERRL, Bilateral Eye EOMI Neck: Full Range of Motion, Normal Inspection Respiratory: No Accessory Muscle Use, No Respiratory Distress Cardiovascular: Normal Peripheral Pulses Extremity: Normal Capillary Refill, Normal Inspection Neurologic/Psychiatric: Alert, Oriented x3 Skin: Normal Color, Warm/Dry, Ecchymosis (dorsal aspect of forearms bilaterally) Progress/Results/Core Measures Suspected Sepsis Recent Fever Within 48 Hours: No Infection Criteria Present: None New/Unexplained Altered Menta: No Sepsis Screen: No Definite Risk SIRS Temperature:98.3 Pulse: 92 Respiratory Rate: 20 Laboratory Tests 11/12/18 12:46: White Blood Count 7.4 Blood Pressure 184 /94 Mean: 124 Laboratory Tests 11/12/18 12:46: Creatinine 1.88H, Platelet Count 253, Total Bilirubin 0.3 Results/Orders Lab Results Laboratory Tests Test 11/12/18 12:46 Range/Units White Blood Count 7.4 4.3-11.0 10^3/uL Red Blood Count 4.49 4.35-5.85 10^6/uL Hemoglobin 13.0 L 13.3-17.7 G/DL Hematocrit 41 40-54 % Mean Corpuscular Volume 91 80-99 FL Mean Corpuscular Hemoglobin 29 25-34 PG Mean Corpuscular Hemoglobin Concent 32 32-36 G/DL Red Cell Distribution Width 13.7 10.0-14.5 % Platelet Count 253 130-400 10^3/uL Mean Platelet Volume 9.5 7.4-10.4 FL Neutrophils (%) (Auto) 67 42-75 % Lymphocytes (%) (Auto) 21 12-44 % Monocytes (%) (Auto) 9 0-12 % Eosinophils (%) (Auto) 2 0-10 % Basophils (%) (Auto) 0 0-10 % Neutrophils # (Auto) 5.0 1.8-7.8 X 10^3 Lymphocytes # (Auto) 1.6 1.0-4.0 X 10^3 Monocytes # (Auto) 0.7 0.0-1.0 X 10^3 Eosinophils # (Auto) 0.2 0.0-0.3 10^3/uL Basophils # (Auto) 0.0 0.0-0.1 10^3/uL Sodium Level 141 135-145 MMOL/L Potassium Level 5.5 H 3.6-5.0 MMOL/L Chloride Level 109 H 98-107 MMOL/L Carbon Dioxide Level 21 21-32 MMOL/L Anion Gap 11 5-14 MMOL/L Blood Urea Nitrogen 25 H 7-18 MG/DL Creatinine 1.88 H 0.60-1.30 MG/DL Estimat Glomerular Filtration Rate 36 BUN/Creatinine Ratio 13 Glucose Level 130 H 70-105 MG/DL Calcium Level 9.1 8.5-10.1 MG/DL Corrected Calcium 8.9 8.5-10.1 MG/DL Total Bilirubin 0.3 0.1-1.0 MG/DL Aspartate Amino Transf (AST/SGOT) 14 5-34 U/L Alanine Aminotransferase (ALT/SGPT) 16 0-55 U/L Alkaline Phosphatase 66 40-136 U/L Total Protein 7.3 6.4-8.2 GM/DL Albumin 4.3 3.2-4.5 GM/DL My Orders Orders - SUSSY WOODRUFF APRN Cbc With Automated Diff (11/12/18 12:30) Comprehensive Metabolic Panel (11/12/18 12:30) Ua Culture If Indicated (11/12/18 12:30) Ed Iv/Invasive Line Start (11/12/18 12:30) Ct Head Wo (11/12/18 12:30) Diazepam Injection (Valium Injection) (11/12/18 12:30) Ekg Tracing (11/12/18 12:38) Continuous Ekg Monitoring (11/12/18 12:38) Lorazepam Injection (Ativan Injection) (11/12/18 12:45) Lorazepam Injection (Ativan Injection) (11/12/18 12:38) Lactated Ringers (Lr 1000 Ml Iv Solution (11/12/18 13:30) Medications Given in ED Current Medications Medications Dose Ordered Sig/Adarsh Route Start Time Stop Time Status Last Admin Dose Admin Lorazepam 1 mg ONCE PRN IVP 11/12/18 12:45 11/12/18 12:40 1 MG Vital Signs/I&O 11/12/18 12:11 Temp 98.3 Pulse 92 Resp 20 B/P (MAP) 184/94 (124) Pulse Ox 97 O2 Delivery Room Air Capillary Refill : Less Than 3 Seconds Blood Pressure Mean: 124 Diagnostic Imaging Diagonstic Imaging: CT Comments NAME: JESICA CHILDS [facility] REC#: [id number] PT STATUS: REG ER : 1950 PHYSICIAN: SUSSY WOODRUFF APRN ADMIT DATE: 11/12/18/ER Draft Date of Exam:11/12/18 CT HEAD WO PROCEDURE: CT head without contrast. TECHNIQUE: Multiple contiguous axial images were obtained through the brain without the use of intravenous contrast. Auto Exposure Controls were utilized during the CT exam to meet ALARA standards for radiation dose reduction. INDICATION: Seizures, nausea, and vomiting. COMPARISON: 02/23/2018. FINDINGS: There is no evidence for elevated intracranial pressures. There are no findings of focal or generalized cerebral edema. There is no hydrocephalus. There is no hemorrhage. There are no abnormal extra-axial fluid collections. The basilar cisterns are patent and the sulci non-effaced. There is no mass or mass effect. The orbits, sinuses, and calvarium appear nonacute with left maxillary sinus membrane thickening noted. IMPRESSION: No hemorrhage, edema, or acute abnormalities. Dictated on workstation # [id number] Dict: 11/12/18 1316 Trans: 11/12/18 1321 [id number] Interpreted by: KORI KIM Electronically signed by: Departure Communication (Admissions) 3654-patient reports that he drinks quite a bit of water every day, despite this he is not hyponatremic and has elevated BUN and creatinine and decreased GFR. We'll give 1 L bolus of lactated Ringer's, I did make an appointment for the patient with Dr. Sanchez this Saturday at 3:30 PM. He did have a second episode of convulsions/seizure-like activity here and was given 1 mg of lorazepam IV. Impression Primary Impression: Renal insufficiency Additional Impression: Seizure disorder Disposition: HOME, SELF-CARE Condition: Improved Departure-Patient Inst. Decision time for Depature: 13:16 Referrals: MOLLY SANCHEZ DO (PCP/Family) Primary Care Physician Patient Instructions: Seizures, Adult (DC) Add. Discharge Instructions: I made an appointment for you with Dr. Sanchez this Saturday at 3:30 PM. Return to ER for any concerns. All discharge instructions reviewed with patient and/or family. Voiced understanding. Copy Copies To 1: MOLLY SANCHEZ PETER J APRN Nov 12, 2018 12:38
[2018-11-12] MEDS ORDERED: LORazepam INJ 2 MG/ML (ATIVAN) VIAL IVP PRN (12:45)
[2018-11-12 12:57] LABS: BASOPHILS % (AUTO) 0 % (0-10); EOSINOPHILS # (AUTO) 0.2 10^3/uL (0.0-0.3); EOSINOPHILS % (AUTO) 2 % (0-10); HEMATOCRIT 41 % (40-54); LYMPHOCYTES # (AUTO) 1.6 X 10^3 (1.0-4.0); LYMPHOCYTES % (AUTO) 21 % (12-44); MEAN CORPUSCULAR HEMOGLOBIN 29 PG (25-34); MEAN CORPUSCULAR HGB CONC 32 G/DL (32-36); MEAN CORPUSCULAR VOLUME 91 FL (80-99); MEAN PLATELET VOLUME 9.5 FL (7.4-10.4); MONOCYTES # (AUTO) 0.7 X 10^3 (0.0-1.0); MONOCYTES % (AUTO) 9 % (0-12); NEUTROPHILS % (AUTO) 67 % (42-75); PLATELET COUNT 253 10^3/uL (130-400); RED CELL DISTRIBUTION WIDTH 13.7 % (10.0-14.5); WHITE BLOOD COUNT 7.4 10^3/uL (4.3-11.0)
[2018-11-12 13:18] LABS: ALBUMIN 4.3 GM/DL (3.2-4.5); BILIRUBIN,TOTAL 0.3 MG/DL (0.1-1.0); CALCIUM 9.1 MG/DL (8.5-10.1); CREATININE SERUM 1.88 MG/DL (0.60-1.30); POTASSIUM 5.5 MMOL/L (3.6-5.0); TOTAL PROTEIN 7.3 GM/DL (6.4-8.2)
--- NOTE | 2018-11-12 13:22 | Diagnostic Imaging Report ---
PROCEDURE: CT head without contrast. TECHNIQUE: Multiple contiguous axial images were obtained through the brain without the use of intravenous contrast. Auto Exposure Controls were utilized during the CT exam to meet ALARA standards for radiation dose reduction. INDICATION: Seizures, nausea, and vomiting. COMPARISON: 02/23/2018. FINDINGS: There is no evidence for elevated intracranial pressures. There are no findings of focal or generalized cerebral edema. There is no hydrocephalus. There is no hemorrhage. There are no abnormal extra-axial fluid collections. The basilar cisterns are patent and the sulci non-effaced. There is no mass or mass effect. The orbits, sinuses, and calvarium appear nonacute with left maxillary sinus membrane thickening noted. IMPRESSION: No hemorrhage, edema, or acute abnormalities. Dictated by: Dictated on workstation # [id number]
[2018-11-12] MEDS ORDERED: LACTATED RINGERS 1,000 ML IV SCH (13:30)
[2018-11-12 14:35] VITALS: BP 137/68
[2018-11-12 14:43] LABS: BILIRUBIN,URINE NEGATIVE (NEGATIVE); CLARITY,URINE CLEAR; COLOR,URINE YELLOW; GLUCOSE, URINE (UA) NEGATIVE (NEGATIVE); KETONES,URINE NEGATIVE (NEGATIVE); LEUKOCYTE ESTERASE ,URINE NEGATIVE (NEGATIVE); NITRITE,URINE NEGATIVE (NEGATIVE); PH,URINE 7 (5-9); PROTEIN,URINE NEGATIVE (NEGATIVE); UROBILINOGEN,URINE NORMAL (NORMAL)
[2018-11-12 14:54] LABS: BACTERIA,URINE NEGATIVE /HPF; RBC,URINE 0-2 /HPF; WBC,URINE 0-2 /HPF
== END 2018-11-12 14:35 | disposition home or self-care (01) ==
LOC: EDUNIT# 12:10 → ER 12:10
DX: G40.909 Epilepsy, unspecified, not intractable, without status epilepticus (principal); N28.9 Disorder of kidney and ureter, unspecified; I48.91 Unspecified atrial fibrillation; I10 Essential (primary) hypertension; E78.00 Pure hypercholesterolemia, unspecified; K21.9 Gastro-esophageal reflux disease without esophagitis; E11.40 Type 2 diabetes mellitus with diabetic neuropathy, unspecified; Z82.49 Family history of ischemic heart disease and other diseases of the circulatory system; Z86.73 Personal history of transient ischemic attack (TIA), and cerebral infarction without residual deficits; Z79.01 Long term (current) use of anticoagulants; Z79.82 Long term (current) use of aspirin; Z79.02 Long term (current) use of antithrombotics/antiplatelets; Z79.84 Long term (current) use of oral hypoglycemic drugs; Z87.891 Personal history of nicotine dependence; Z96.653 Presence of artificial knee joint, bilateral
CPT/HCPCS: 36415; 70450; 80053; 81000; 85025; 93005; 96361; 96374

== ENCOUNTER → 2019-01-22 | Outpatient (CLI) | payer MEDICARE ==
[2019-01-22 09:39] LABS: CALCIUM 9.7 MG/DL (8.5-10.1); CREATININE SERUM 1.21 MG/DL (0.60-1.30); POTASSIUM 4.1 MMOL/L (3.6-5.0)
== END ==
LOC: LAB 08:58
PROVIDERS: ATTEND Internal Medicine
DX: E11.40 Type 2 diabetes mellitus with diabetic neuropathy, unspecified (principal); Z79.4 Long term (current) use of insulin
CPT/HCPCS: 36415; 80048

== ENCOUNTER → 2019-01-28 | Outpatient (CLI) | payer MEDICARE, OTHER ==
[2019-01-28 08:57] LABS: BASOPHILS % (AUTO) 0 % (0-10); EOSINOPHILS # (AUTO) 0.2 10^3/uL (0.0-0.3); EOSINOPHILS % (AUTO) 2 % (0-10); HEMATOCRIT 41 % (40-54); HEMOGLOBIN 13.5 G/DL (13.3-17.7); LYMPHOCYTES % (AUTO) 24 % (12-44); MEAN CORPUSCULAR HEMOGLOBIN 30 PG (25-34); MEAN CORPUSCULAR HGB CONC 33 G/DL (32-36); MEAN CORPUSCULAR VOLUME 89 FL (80-99); MEAN PLATELET VOLUME 9.7 FL (7.4-10.4); MONOCYTES # (AUTO) 0.7 X 10^3 (0.0-1.0); MONOCYTES % (AUTO) 9 % (0-12); NEUTROPHILS # (AUTO) 5.4 X 10^3 (1.8-7.8); NEUTROPHILS % (AUTO) 65 % (42-75); PLATELET COUNT 236 10^3/uL (130-400); RED CELL DISTRIBUTION WIDTH 13.2 % (10.0-14.5); WHITE BLOOD COUNT 8.3 10^3/uL (4.3-11.0)
[2019-01-28 09:21] LABS: ALBUMIN 4.3 GM/DL (3.2-4.5); BILIRUBIN,TOTAL 0.4 MG/DL (0.1-1.0); CALCIUM 10.1 MG/DL (8.5-10.1); CREATININE SERUM 1.41 MG/DL (0.60-1.30); POTASSIUM 4.3 MMOL/L (3.6-5.0); TOTAL PROTEIN 7.6 GM/DL (6.4-8.2)
== END ==
LOC: LAB 08:27
PROVIDERS: ATTEND Internal Medicine
DX: E11.618 Type 2 diabetes mellitus with other diabetic arthropathy (principal); I10 Essential (primary) hypertension; Z79.4 Long term (current) use of insulin
CPT/HCPCS: 36415; 80053; 80061; 83036; 84443; 85025

== ENCOUNTER → 2019-05-04 | Outpatient (CLI) | payer MEDICARE ==
[2019-05-04 08:50] LABS: BASOPHILS % (AUTO) 1 % (0-10); EOSINOPHILS # (AUTO) 0.2 10^3/uL (0.0-0.3); EOSINOPHILS % (AUTO) 4 % (0-10); HEMATOCRIT 40 % (40-54); HEMOGLOBIN 13.3 G/DL (13.3-17.7); LYMPHOCYTES # (AUTO) 1.2 X 10^3 (1.0-4.0); LYMPHOCYTES % (AUTO) 20 % (12-44); MEAN CORPUSCULAR HEMOGLOBIN 29 PG (25-34); MEAN CORPUSCULAR HGB CONC 33 G/DL (32-36); MEAN CORPUSCULAR VOLUME 89 FL (80-99); MEAN PLATELET VOLUME 9.5 FL (7.4-10.4); MONOCYTES # (AUTO) 0.6 X 10^3 (0.0-1.0); MONOCYTES % (AUTO) 9 % (0-12); NEUTROPHILS # (AUTO) 3.9 X 10^3 (1.8-7.8); NEUTROPHILS % (AUTO) 66 % (42-75); PLATELET COUNT 220 10^3/uL (130-400); RED CELL DISTRIBUTION WIDTH 13.4 % (10.0-14.5); WHITE BLOOD COUNT 5.8 10^3/uL (4.3-11.0)
[2019-05-04 09:08] LABS: ALBUMIN 4.1 GM/DL (3.2-4.5); BILIRUBIN,TOTAL 0.4 MG/DL (0.1-1.0); CREATININE SERUM 1.29 MG/DL (0.60-1.30); POTASSIUM 4.4 MMOL/L (3.6-5.0); TOTAL PROTEIN 6.9 GM/DL (6.4-8.2)
== END ==
LOC: LAB 08:30
PROVIDERS: ATTEND Internal Medicine
DX: E11.40 Type 2 diabetes mellitus with diabetic neuropathy, unspecified (principal); I10 Essential (primary) hypertension; Z79.4 Long term (current) use of insulin
CPT/HCPCS: 36415; 80053; 80061; 83036; 84443; 85025

== ENCOUNTER → 2019-09-14 | Outpatient (CLI) | payer MEDICARE ==
[~2019-09-14] MED LIST changes: -METF750T2 PO; +METF750T45 PO; -METO-387 PO; -METO-395 PO; +MTP100TCR PO; +MTP25TSR PO; -TRAZ-190 PO; +TRAZ-227 PO; +ZONI100C29 PO; -ZONI100C3 PO
[2019-09-14 07:44] LABS: BASOPHILS % (AUTO) 0 % (0-10); EOSINOPHILS # (AUTO) 0.2 10^3/uL (0.0-0.3); EOSINOPHILS % (AUTO) 2 % (0-10); HEMATOCRIT 42 % (40-54); HEMOGLOBIN 13.3 G/DL (13.3-17.7); LYMPHOCYTES # (AUTO) 1.7 X 10^3 (1.0-4.0); LYMPHOCYTES % (AUTO) 24 % (12-44); MEAN CORPUSCULAR HEMOGLOBIN 28 PG (25-34); MEAN CORPUSCULAR HGB CONC 32 G/DL (32-36); MEAN CORPUSCULAR VOLUME 87 FL (80-99); MEAN PLATELET VOLUME 9.8 FL (7.4-10.4); MONOCYTES # (AUTO) 0.7 X 10^3 (0.0-1.0); MONOCYTES % (AUTO) 9 % (0-12); NEUTROPHILS # (AUTO) 4.5 X 10^3 (1.8-7.8); NEUTROPHILS % (AUTO) 64 % (42-75); PLATELET COUNT 231 10^3/uL (130-400); RED CELL DISTRIBUTION WIDTH 14.3 % (10.0-14.5)
[2019-09-14 07:51] LABS: ALBUMIN 4.1 GM/DL (3.2-4.5); POTASSIUM 4.5 MMOL/L (3.6-5.0)
[2019-09-14 07:52] LABS: CALCIUM 8.7 MG/DL (8.5-10.1)
[2019-09-14 07:54] LABS: TOTAL PROTEIN 7.3 GM/DL (6.4-8.2)
[2019-09-14 07:55] LABS: BILIRUBIN,TOTAL 0.5 MG/DL (0.1-1.0)
[2019-09-14 07:57] LABS: CREATININE SERUM 1.38 MG/DL (0.60-1.30)
== END ==
LOC: LAB 07:16
PROVIDERS: ATTEND Internal Medicine
DX: E11.65 Type 2 diabetes mellitus with hyperglycemia (principal); E78.00 Pure hypercholesterolemia, unspecified; E78.1 Pure hyperglyceridemia
CPT/HCPCS: 36415; 80053; 80061; 82043; 82570; 83036; 84443; 85025

== ENCOUNTER → 2019-11-12 | Outpatient (CLI) | payer MEDICARE ==
--- NOTE | 2019-11-12 16:52 | Diagnostic Imaging Report ---
EXAMINATION: US Lower extremity venous duplex left. TECHNIQUE: Multiple real-time grayscale images were obtained over the left lower extremity in various projections. Additional spectral analysis and color Doppler duplex images were also obtained. HISTORY: Swelling COMPARISON: None available. FINDINGS: There is occlusive thrombus in the right proximal and mid superficial femoral vein. Common femoral vein appears patent. Popliteal vein and distal superficial femoral vein are patent. IMPRESSION: Occlusive thrombus in the proximal and mid superficial femoral vein. Office is closed. Report was faxed to the office of Dr. Jenniefr Garcia at 4:39 p.m., by laurie. Message was left for Dr. Garcia. Dictated by: Dictated on workstation # [id number]
--- NOTE | 2019-11-12 17:04 | Diagnostic Imaging Report ---
EXAMINATION: Left tibia and fibula at 03:54 p.m. INDICATION: Injury to lower leg. FINDINGS: AP and lateral views were obtained. There are no prior studies available for comparison. There is no fracture, dislocation, or acute bony abnormality evident. There is a total knee prosthesis in place. The prosthetic components appear to be in good position. The soft tissues are unremarkable. There is no radiopaque foreign body identified. IMPRESSION: There is no evidence for an acute bony abnormality or for a radiopaque foreign body. Dictated by: Dictated on workstation # [id number]
--- NOTE | 2019-11-12 17:13 | Diagnostic Imaging Report ---
EXAMINATION: Left ankle. INDICATION: Injury. FINDINGS: Three views were obtained. There are no prior studies available for comparison. There is no fracture, dislocation, or acute bony abnormality evident. There is a vague calcific density in the soft tissues interposed between the medial aspect of the distal tibia and the talus. This is of uncertain etiology, but does not have the appearance of an acute injury. There is moderate degenerative disease of the ankle joint. The soft tissues are unremarkable. There is no radiopaque foreign body identified. IMPRESSION: 1. The calcific density interposed between the medial malleolus and the talus is of uncertain etiology but unlikely to be related to an acute injury. Even so, clinical follow-up is recommended. 2. There is no acute bony abnormality noted otherwise. Dictated by: Dictated on workstation # [id number]
== END ==
LOC: RAD 15:38
PROVIDERS: ATTEND Internal Medicine
DX: I82.412 Acute embolism and thrombosis of left femoral vein (principal); M85.872 Other specified disorders of bone density and structure, left ankle and foot; S99.912A Unspecified injury of left ankle, initial encounter; X58.XXXA Exposure to other specified factors, initial encounter
CPT/HCPCS: 73590; 73610

== ENCOUNTER → 2019-12-24 | Outpatient (CLI) | payer MEDICARE ==
--- NOTE | 2019-12-24 14:25 | Diagnostic Imaging Report ---
INDICATION: Peripheral vascular disease. TECHNIQUE: Grayscale, color-flow and duplex Doppler evaluation of the left lower extremity arterial system was performed. FINDINGS: There are predominantly triphasic waveforms throughout the left lower extremity arterial system with the exception of some monophasic waveforms in the posterior tibial artery at the ankle. Velocities appear to be appropriate throughout. No high-grade stenosis or occlusion is identified. No fluid collections or masses are seen. IMPRESSION: Essentially unremarkable left lower extremity arterial Doppler. Dictated by: Dictated on workstation # [id number]
== END ==
LOC: RAD 10:56
PROVIDERS: ATTEND Internal Medicine
DX: I73.9 Peripheral vascular disease, unspecified (principal)
CPT/HCPCS: 93926

== ENCOUNTER → 2019-12-31 | Outpatient (CLI) | payer MEDICARE | LOC: WOUNDCARE 08:56 | PROVIDERS: ATTEND Surgery | DX: I87.332 Chronic venous hypertension (idiopathic) with ulcer and inflammation of left lower extremity (principal); E11.622 Type 2 diabetes mellitus with other skin ulcer; L97.222 Non-pressure chronic ulcer of left calf with fat layer exposed; I89.0 Lymphedema, not elsewhere classified; E66.01 Morbid (severe) obesity due to excess calories | CPT/HCPCS: 99214 ==

== ENCOUNTER → 2020-01-05 | Outpatient (CLI) | payer MEDICARE | LOC: WOUNDCARE 08:27 | PROVIDERS: ATTEND Surgery | DX: E11.622 Type 2 diabetes mellitus with other skin ulcer (principal); I87.332 Chronic venous hypertension (idiopathic) with ulcer and inflammation of left lower extremity; L97.222 Non-pressure chronic ulcer of left calf with fat layer exposed; I89.0 Lymphedema, not elsewhere classified; E66.01 Morbid (severe) obesity due to excess calories; Z68.42 Body mass index [BMI] 45.0-49.9, adult | CPT/HCPCS: 99212 ==

== ENCOUNTER → 2020-01-21 | Outpatient (CLI) | payer MEDICARE ==
[2020-01-21 09:06] LABS: BILIRUBIN,TOTAL 0.5 MG/DL (0.1-1.0); CALCIUM 9.2 MG/DL (8.5-10.1); CREATININE SERUM 1.62 MG/DL (0.60-1.30); TOTAL PROTEIN 7.1 GM/DL (6.4-8.2)
== END ==
LOC: LAB 08:30
PROVIDERS: ATTEND Internal Medicine
DX: E78.1 Pure hyperglyceridemia (principal); E78.00 Pure hypercholesterolemia, unspecified; E11.65 Type 2 diabetes mellitus with hyperglycemia; I10 Essential (primary) hypertension
CPT/HCPCS: 36415; 80053; 82465; 83036; 84478

== ENCOUNTER → 2020-02-02 | Outpatient (CLI) | payer MEDICARE ==
--- NOTE | 2020-02-02 10:56 | Diagnostic Imaging Report ---
PROCEDURE: US left lower extremity venous. TECHNIQUE: Multiple Real-time grayscale images were obtained over the left lower extremity in various projections. Additional duplex Doppler and color Doppler images were also obtained. DATE: February 02, 2020. INDICATION: 69-year-old male, left leg swelling. COMPARISON: November 12, 2019. FINDINGS: There is echogenic material in the proximal and mid superficial femoral vein which lack compressibility. There is also no demonstrated blood flow in the proximal or mid aspect of the superficial femoral vein. There is at least blood flow present in the distal aspect of the superficial femoral vein. The right common femoral vein and deep femoral vein are patent. The popliteal vein is patent. The posterior tibial vein is patent. IMPRESSION: Occlusive thrombus in the proximal and mid aspect of the left superficial femoral vein. Dictated by: Dictated on workstation # [id number]
== END ==
LOC: RAD 07:44
PROVIDERS: ATTEND Internal Medicine
DX: I82.412 Acute embolism and thrombosis of left femoral vein (principal); I82.409 Acute embolism and thrombosis of unspecified deep veins of unspecified lower extremity
CPT/HCPCS: 36415; 85379

== ENCOUNTER → 2020-05-16 | Outpatient (CLI) | payer MEDICARE ==
[~2020-05-16] MED LIST changes: +AMLO-250 PO; -AMLO5TAB9 PO
[2020-05-16 08:51] LABS: ALBUMIN 4.1 GM/DL (3.2-4.5); BILIRUBIN,TOTAL 0.5 MG/DL (0.1-1.0); CREATININE SERUM 1.41 MG/DL (0.60-1.30); POTASSIUM 4.5 MMOL/L (3.6-5.0); TOTAL PROTEIN 7.3 GM/DL (6.4-8.2)
== END ==
LOC: LAB 08:12
PROVIDERS: ATTEND Internal Medicine
DX: Z13.6 Encounter for screening for cardiovascular disorders (principal); E11.65 Type 2 diabetes mellitus with hyperglycemia; I10 Essential (primary) hypertension
CPT/HCPCS: 36415; 80053; 80061; 83036

== ENCOUNTER 2020-05-20 14:02 | Emergency (ER) | payer MEDICARE ==
[~2020-05-20] VITALS: Ht 175.3 cm; Wt 156.5 kg
[2020-05-20 14:34] VITALS: BP 154/90
--- NOTE | 2020-05-20 15:09 | ED Lower Extremity ---
General Chief Complaint: Trauma-Non Activation Stated Complaint: PT FELL INJURY L ANKLE, HEAD, RIGHT SHOULDER INJUR Nursing Triage Note: PT AMB TO TRIAGE WITH COMPLAINT OF FALL. STATES FELL IN LAUNDRY ROOM AND HIT HEAD ON DOOR JAMB. PT IS ALSO COMPLAINING OF LEFT ANKLE PAIN. Nursing Sepsis Screen: No Definite Risk Source: patient Exam Limitations: no limitations (GABRIEL GIFFORD,MED STUDENT) History of Present Illness Date Seen by Provider: May 20, 2020 Time Seen by Provider: 14:53 Initial Comments Patient is a 69yo M that presents to the end after falling on some steps in his house while doing laundry. He says that he was going down the stairs when his left ankle gave out underneath him and caused him to fall. He denies having any headache, nausea, changes in vision, changes in hearing, numbness, or tingling. He denies having any other complaints at this time Onset: just prior to arrival Pain/Injury Location: left knee Method of Injury: fell Modifying Factors: Improves With Cold Therapy, Improves With Movement (GABRIEL GIFFORD,MED STUDENT) Initial Comments This is a well appearing 69 yo male who presents to the ER with c/o falling down two stairs while doing laundry at his house. States he was going down the stairs when his left ankle gave out underneath him, causing him to fall. States he hit the right side of his head on the rail and right shoulder on the wall during the fall. Reports mild discomfort in his head and shoulder. Denies LOC or neck injury/pain. States he is on Eliquis, Aspirin, and Plavix daily. Denies weakness, loss of balance, syncope, vertigo, changes in vision, N/V, or headache. Denies any other injuries or complaints. Pain/Injury Location: left ankle Modifying Factors: Improves With Cold Therapy; Worse With Movement; Improves With Rest (JAIDEN HEWITT APRN) Allergies and Home Medications Allergies Coded Allergies: No Known Drug Allergies (Unverified , 07/19/17) Home Medications Amlodipine Besylate 5 Mg Tablet, 5 MG PO DAILY Prescribed by: MOLLY SANCHEZ on 02/02/18 1147 Apixaban 5 Mg Tablet, 5 MG PO BID, (Reported) Aspirin 81 Mg Tablet.dr, 81 MG PO DAILY Prescribed by: MOLLY SANCHEZ on 07/21/17 1240 Atorvastatin Calcium 10 Mg Tablet, 10 MG PO HS, (Reported) Carbamazepine 200 Mg Tab.er.12h, 400 MG PO BID TAKES 2 (200 MG) TABLETS Prescribed by: MOLLY SANCHEZ on 07/21/17 1240 Celecoxib 400 Mg Capsule, 400 MG PO DAILY Prescribed by: MOLLY SANCHEZ on 07/21/17 1240 Clopidogrel Bisulfate 75 Mg Tablet, 75 MG PO DAILY Prescribed by: MOLLY SANCHEZ on 07/21/17 1240 Gabapentin 300 Mg Capsule, 300 MG PO TID, (Reported) Hydrocodone Bit/Acetaminophen 1 Tab Tab, 1 EACH PO Q4-6HR PRN for PAIN-MODERATE Prescribed by: CALIN ELLISON on 02/23/18 1343 Insulin Glargine,Hum.rec.anlog 100 Unit/1 Ml Insuln.pen, 30 UNIT SQ HS Prescribed by: MOLLY SANCHEZ on 02/02/18 1147 Lisinopril 5 Mg Tablet, 5 MG PO DAILY@0900 Prescribed by: MOLLY SANCHEZ on 07/21/17 1240 Metformin HCl 750 Mg Tab.er.24h, 750 MG PO BID, (Reported) Metoprolol Succinate 25 Mg Tab.er.24h, 25 MG PO DAILY, (Reported) Nitroglycerin 0.4 Mg Tab.subl, 0.4 MG SL PRN PRN for CHEST PAIN, (Reported) Topiramate 100 Mg Tablet, 100 MG PO BID Prescribed by: MOLLY SANCHEZ on 07/21/17 1240 Trazodone HCl 100 Mg Tablet, 200 MG PO HS Prescribed by: MOLLY SANCHEZ on 07/21/17 1240 Zonisamide 100 Mg Capsule, 200 MG PO DAILY, (Reported) Zonisamide 100 Mg Capsule, 100 MG PO HS, (Reported) Patient Home Medication List Home Medication List Reviewed: Yes (JAIDEN HEWITT PLANNING ENGINEER) Review of Systems Constitutional: see HPI; No chills, No dizziness, No fever, No weakness EENTM: see HPI Respiratory: No cough, No dyspnea on exertion, No orthopnea, No short of breath Cardiovascular: No chest pain; edema; No Hx of Intervention, No palpitations Musculoskeletal: joint pain (left ankle ), joint swelling Psychiatric/Neurological: Denies Anxiety, Denies Depressed, Denies Emotional Problems, Denies Headache, Denies Numbness, Denies Paresthesia (GABRIEL GIFFORD MED STUDENT) Gastrointestinal: no symptoms reported Genitourinary: no symptoms reported Musculoskeletal: No back pain, No neck pain Skin: no symptoms reported Psychiatric/Neurological: No Symptoms Reported; Denies Weakness (JAIDEN HEWITT APRN) Past Croyzwm-Njtxzj-Kbucdk Hx Patient Social History Alcohol Use: Occasionally Uses Recreational Drug Use: No Smoking Status: Former Smoker Type Used: Pipe 2nd Hand Smoke Exposure: No Recent Foreign Travel: No Contact w/Someone Who Travel: No Recent Infectious Disease Expo: No Recent Hopitalizations: No (GABRIEL GIFFORD,JAMIA KINGSTON) Immunizations Up To Date Tetanus Booster (TDap): Unknown (GABRIEL GIFFORD MED STUDENT) Seasonal Allergies Seasonal Allergies: No (GABRIEL GIFFORD MED STUDENT) Past Medical History Surgeries: Yes (lap band, L HIP, BILAT KNEE) Abdominal, Orthopedic Respiratory: Yes Sleep Apnea Currently Using CPAP: Yes Cardiac: Yes Angina, Atrial Fibrillation, Chronic Edema/Swelling, Deep Vein Thrombosis, High Cholesterol, Hypertension Neurological: Yes Neuropathy, Seizure Disorder, Stroke Genitourinary: No Gastrointestinal: Yes Gastroesophageal Reflux Musculoskeletal: Yes Arthritis Endocrine: Yes Diabetes, Insulin dep HEENT: No Cancer: No Psychosocial: No Integumentary: Yes Blood Disorders: No (GABRIEL GIFFORD MED STUDENT) Family Medical History Diabetes, Hypertension (GABRIEL GIFFORD MED STUDENT) Physical Exam Vital Signs Vital Signs - First Documented 05/20/20 14:34 Temp 36.3 Pulse 73 Resp 22 B/P (MAP) 154/90 (111) Pulse Ox 98 O2 Delivery Room Air (JAIDEN HEWITT APRN) Vital Signs Capillary Refill : Less Than 3 Seconds (GABRIEL GIFFORD MED STUDENT) Height, Weight, BMI Height: 5'9.00" Weight: 327lbs. 0.0oz. 148.486643ax; 50.00 BMI Method:Stated General Appearance: WD/WN, no apparent distress HEENT: PERRL/EOMI, pharynx normal Neck: non-tender, full range of motion Cardiovascular: regular rate, rhythm, no gallop, no murmur Respiratory: chest non-tender, lungs clear, normal breath sounds, no respiratory distress, no accessory muscle use Legs: bilateral leg non-tender, bilateral leg no evidence of injury Ankles: right ankle non-tender, right ankle normal inspection; left ankle bone tenderness, left ankle ecchymosis, left ankle limited range of motion, left ankle pain, left ankle soft tissue tenderness, left ankle swelling Neurologic/Tendon: normal sensation, normal motor functions, normal tendon functions, responds to pain, no evidence tendon injury Neurologic/Psychiatric: assistant counsel II-XII nml as tested, no motor/sensory deficits, alert, normal mood/affect, oriented x 3 Skin: normal color, warm/dry (GABRIEL GIFFORD,MED STUDENT) HEENT: normal ENT inspection, TMs normal (neg for hemotympanum ) Neck: supple, normal inspection Gastrointestinal: normal bowel sounds, non tender, soft Back: normal inspection, no vertebral tenderness Hips: bilateral hip non-tender, bilateral hip normal inspection, bilateral hip normal range of motion, bilateral hip no evidence of injury Knees: bilateral knee non-tender, bilateral knee normal inspection, bilateral knee normal range of motion, bilateral knee no evidence of injury, bilateral knee bone tenderness Ankles: right ankle normal range of motion, right ankle no evidence of injury (JAIDEN HEWITT APRN) Progress/Results/Core Measures Results/Orders My Orders Orders - JAIDEN HEWITT APRN Ct Head/Cervical Spine Wo (05/20/20 14:42) Ankle, Left, 3 Views (05/20/20 14:42) (JAIDEN HEWITT APRN) Vital Signs/I&O 05/20/20 14:34 Temp 36.3 Pulse 73 Resp 22 B/P (MAP) 154/90 (111) Pulse Ox 98 O2 Delivery Room Air (JAIDEN HEWITT APRN) Blood Pressure Mean: 111 Progress Progress Note : Progress Note I have seen and examined this 69yo male who presented to the after a fall at home. He is on eliquis, plavix, and ASA. At this time patient is not in any acute distress and does not have any symptoms suggesting a brain bleed, but we have ordered a head and neck CT to rule out a brain bleed. An X-ray of the left ankle has been ordered. (GABRIEL GIFFORD,MED STUDENT) Progress Note : Progress Note Non Contrast head CT shows no evidence of intracranial bleed or masses. No acute findings. Radiographs of left ankle reviewed and show no acute fractures or dislocations. Reviewed discharge plan and he is agreeable with plan. (JAIDEN HEWITT APRN) Diagnostic Imaging Diagonstic Imaging: CT Plain Films/CT/US/NM/MRI: head Comments NAME: [facility]DS [facility] REC#: [id number] PT STATUS: DEP ER : 1950 PHYSICIAN: JAIDEN HEWITT PLANNING ENGINEER ADMIT DATE: 05/20/20/ER Signed Date of Exam:05/20/20 CT HEAD/CERVICAL SPINE WO PROCEDURE: CT head and CT cervical spine without contrast. TECHNIQUE: Multiple contiguous axial images were obtained through the brain and cervical spine without the use of intravenous contrast. Sagittal and coronal reformations through the cervical spine were then performed. Auto Exposure Controls were utilized during the CT exam to meet ALARA standards for radiation dose reduction. INDICATION: Fall with head and neck injury. COMPARISON: Head CT from 11/12/2018. CT head: The ventricles and sulci are within normal limits. No sulcal effacement or midline shift is identified. No acute intra-axial or extra-axial hemorrhage is detected. Cisterns are patent. Visualized paranasal sinuses are clear. IMPRESSION: No acute intracranial process is detected. CT cervical spine: Alignment is normal. There is severe multilevel degenerative disc disease with variable disc space narrowing and marginal spurring. There is multilevel facet arthropathy. Odontoid appears intact. No fracture is seen. IMPRESSION: Severe multilevel cervical spondylosis. No acute bony abnormality is detected. Dictated by: Dictated on workstation # [id number] Dict: 05/20/20 1520 Trans: 05/20/20 1624 [facility] [id number] Interpreted by: RAFAEL MINA MD Electronically signed by: RAFAEL MINA MD 05/20/20 1624 Diagonstic Imaging: Xray Plain Films/CT/US/NM/MRI: ankle Comments NAME: J[facility]ICA [facility]ILDS [facility] REC#: [id number] PT STATUS: DEP ER : 1950 PHYSICIAN: JAIDEN HEWITT PLANNING ENGINEER ADMIT DATE: 05/20/20/ER Signed Date of Exam:05/20/20 ANKLE, LEFT, 3 VIEWS INDICATION: Left ankle injury. TIME OF EXAM: 3:18 p.m. EXAMINATION: Three views of the left ankle were obtained. FINDINGS: There is generalized soft tissue swelling. Alignment is normal. Ankle mortise is well maintained. No fracture or dislocation is seen. There is a large plantar calcaneal spur. IMPRESSION: Soft tissue swelling. No acute bony abnormality is detected. Dictated by: Dictated on workstation # [id number] Dict: 05/20/20 1526 Trans: 05/20/20 1623 [facility] [id number] Interpreted by: RAFAEL MINA MD Electronically signed by: RAFEAL MINA MD 05/20/20 1628 (JAIDEN HEWITT PLANNING ENGINEER) Departure Impression Primary Impression: Fall on same level Additional Impression: Left ankle sprain Disposition: HOME, SELF-CARE Condition: Improved Departure-Patient Inst. Decision time for Depature: 15:48 (JAIDEN HEWITT APRN) Referrals: MOLLY SANCHEZ DO (PCP/Family) Primary Care Physician Patient Instructions: Sprain (DC) Add. Discharge Instructions: Plan: 1. Discharge home. 2. Rest, ice 20 minutes at a time every couple of hours for swelling and pain, use akash wrap over the next 3 days, and keep elevated above your heart as much as possible. The most swelling will occur over the next 48-72 hours. 3. May take Tylenol as needed for pain per package directions. Do not take more than directed. 4. Monitor for signs of head bleed such as changes in mentation, increased sleepiness, headache that won't go away, severe headache, or vomiting. 5. Follow up with your primary care provider if symptoms persist in your ankle over a week. 6. Return to ER for any new or worsening symptoms. All discharge instructions reviewed with patient and/or family. Voiced understanding. I have personally reviewed the history and exam findings of medical student Gabriel Gifford and agree with the assessment findings unless otherwise specified. (JAIDEN HEWITT APRN) GABRIEL GIFFORD,MED STUDENT May 20, 2020 15:09 JAIDEN HEWITT APRN May 20, 2020 15:52
--- NOTE | 2020-05-20 15:27 | Diagnostic Imaging Report ---
PROCEDURE: CT head and CT cervical spine without contrast. TECHNIQUE: Multiple contiguous axial images were obtained through the brain and cervical spine without the use of intravenous contrast. Sagittal and coronal reformations through the cervical spine were then performed. Auto Exposure Controls were utilized during the CT exam to meet ALARA standards for radiation dose reduction. INDICATION: Fall with head and neck injury. COMPARISON: Head CT from 11/12/2018. CT head: The ventricles and sulci are within normal limits. No sulcal effacement or midline shift is identified. No acute intra-axial or extra-axial hemorrhage is detected. Cisterns are patent. Visualized paranasal sinuses are clear. IMPRESSION: No acute intracranial process is detected. CT cervical spine: Alignment is normal. There is severe multilevel degenerative disc disease with variable disc space narrowing and marginal spurring. There is multilevel facet arthropathy. Odontoid appears intact. No fracture is seen. IMPRESSION: Severe multilevel cervical spondylosis. No acute bony abnormality is detected. Dictated by: Dictated on workstation # [id number]
--- NOTE | 2020-05-20 15:28 | Diagnostic Imaging Report ---
INDICATION: Left ankle injury. TIME OF EXAM: 3:18 p.m. EXAMINATION: Three views of the left ankle were obtained. FINDINGS: There is generalized soft tissue swelling. Alignment is normal. Ankle mortise is well maintained. No fracture or dislocation is seen. There is a large plantar calcaneal spur. IMPRESSION: Soft tissue swelling. No acute bony abnormality is detected. Dictated by: Dictated on workstation # [id number]
== END 2020-05-20 16:05 | disposition home or self-care (01) ==
LOC: EDUNIT# 14:02 → ER 14:06
DX: S93.402A Sprain of unspecified ligament of left ankle, initial encounter (principal); E78.00 Pure hypercholesterolemia, unspecified; I10 Essential (primary) hypertension; I48.91 Unspecified atrial fibrillation; G40.909 Epilepsy, unspecified, not intractable, without status epilepticus; Z82.49 Family history of ischemic heart disease and other diseases of the circulatory system; Z83.3 Family history of diabetes mellitus; Z87.891 Personal history of nicotine dependence; E11.9 Type 2 diabetes mellitus without complications; Z86.718 Personal history of other venous thrombosis and embolism; Z79.4 Long term (current) use of insulin; Z79.01 Long term (current) use of anticoagulants; Z79.82 Long term (current) use of aspirin; W10.8XXA Fall (on) (from) other stairs and steps, initial encounter; Y92.009 Unspecified place in unspecified non-institutional (private) residence as the place of occurrence of the external cause
CPT/HCPCS: 70450; 72125; 73610

== ENCOUNTER → 2020-09-05 | Outpatient (CLI) | payer MEDICARE ==
[~2020-09-05] MED LIST changes: -LISI-556 PO; +LISI-729 PO
[2020-09-05 07:46] LABS: BASOPHILS # (AUTO) 0.1 10^3/uL (0.0-0.1); BASOPHILS % (AUTO) 1 % (0-10); EOSINOPHILS # (AUTO) 0.4 10^3/uL (0.0-0.3); EOSINOPHILS % (AUTO) 4 % (0-10); HEMATOCRIT 37 % (40-54); HEMOGLOBIN 11.1 g/dL (13.3-17.7); LYMPHOCYTES # (AUTO) 2.2 10^3/uL (1.0-4.0); LYMPHOCYTES % (AUTO) 24 % (12-44); MEAN CORPUSCULAR HEMOGLOBIN 26 pg (25-34); MEAN CORPUSCULAR HGB CONC 30 g/dL (32-36); MEAN CORPUSCULAR VOLUME 85 fL (80-99); MEAN PLATELET VOLUME 9.4 fL (9.0-12.2); MONOCYTES # (AUTO) 0.8 10^3/uL (0.0-1.0); MONOCYTES % (AUTO) 9 % (0-12); NEUTROPHILS # (AUTO) 5.7 10^3/uL (1.8-7.8); NEUTROPHILS % (AUTO) 61 % (42-75); PLATELET COUNT 454 10^3/uL (130-400); WHITE BLOOD COUNT 9.3 10^3/uL (4.3-11.0)
== END ==
LOC: LAB 07:31
DX: D64.9 Anemia, unspecified (principal); T14.8XXA Other injury of unspecified body region, initial encounter
CPT/HCPCS: 36415; 85025

== ENCOUNTER → 2020-09-19 | Outpatient (CLI) | payer MEDICARE ==
[2020-09-19 08:38] LABS: BASOPHILS % (AUTO) 1 % (0-10); EOSINOPHILS # (AUTO) 0.3 10^3/uL (0.0-0.3); EOSINOPHILS % (AUTO) 4 % (0-10); HEMATOCRIT 40 % (40-54); HEMOGLOBIN 11.8 g/dL (13.3-17.7); LYMPHOCYTES # (AUTO) 1.7 10^3/uL (1.0-4.0); LYMPHOCYTES % (AUTO) 24 % (12-44); MEAN CORPUSCULAR HEMOGLOBIN 26 pg (25-34); MEAN CORPUSCULAR HGB CONC 30 g/dL (32-36); MEAN CORPUSCULAR VOLUME 88 fL (80-99); MONOCYTES # (AUTO) 0.7 10^3/uL (0.0-1.0); MONOCYTES % (AUTO) 9 % (0-12); NEUTROPHILS # (AUTO) 4.3 10^3/uL (1.8-7.8); NEUTROPHILS % (AUTO) 62 % (42-75); PLATELET COUNT 245 10^3/uL (130-400)
[2020-09-19 08:57] LABS: BILIRUBIN,TOTAL 0.4 MG/DL (0.1-1.0); CALCIUM 9.2 MG/DL (8.5-10.1); CREATININE SERUM 1.55 MG/DL (0.60-1.30); POTASSIUM 4.9 MMOL/L (3.6-5.0); TOTAL PROTEIN 7.2 GM/DL (6.4-8.2)
== END ==
LOC: LAB 08:15
PROVIDERS: ATTEND Internal Medicine
DX: Z13.6 Encounter for screening for cardiovascular disorders (principal); I10 Essential (primary) hypertension; E11.65 Type 2 diabetes mellitus with hyperglycemia
CPT/HCPCS: 36415; 80053; 80061; 83036; 84443; 85025

== ENCOUNTER → 2020-09-28 | Outpatient (CLI) | payer MEDICARE ==
[2020-09-28 08:42] LABS: BASOPHILS # (AUTO) 0.1 10^3/uL (0.0-0.1); BASOPHILS % (AUTO) 1 % (0-10); EOSINOPHILS # (AUTO) 0.2 10^3/uL (0.0-0.3); EOSINOPHILS % (AUTO) 3 % (0-10); HEMATOCRIT 37 % (40-54); HEMOGLOBIN 11.7 g/dL (13.3-17.7); LYMPHOCYTES # (AUTO) 1.9 10^3/uL (1.0-4.0); LYMPHOCYTES % (AUTO) 26 % (12-44); MEAN CORPUSCULAR HEMOGLOBIN 27 pg (25-34); MEAN CORPUSCULAR HGB CONC 31 g/dL (32-36); MEAN CORPUSCULAR VOLUME 86 fL (80-99); MONOCYTES # (AUTO) 0.8 10^3/uL (0.0-1.0); MONOCYTES % (AUTO) 11 % (0-12); NEUTROPHILS # (AUTO) 4.4 10^3/uL (1.8-7.8); NEUTROPHILS % (AUTO) 59 % (42-75); PLATELET COUNT 295 10^3/uL (130-400); WHITE BLOOD COUNT 7.4 10^3/uL (4.3-11.0)
== END ==
LOC: LAB 08:21
PROVIDERS: ATTEND Internal Medicine
DX: D64.9 Anemia, unspecified (principal)
CPT/HCPCS: 36415; 82728; 83540; 83550; 85025

== ENCOUNTER → 2021-01-02 | Outpatient (CLI) | payer MEDICARE ==
[2021-01-02 08:43] LABS: POTASSIUM 4.5 MMOL/L (3.6-5.0)
[2021-01-02 08:44] LABS: CALCIUM 9.3 MG/DL (8.5-10.1)
[2021-01-02 08:46] LABS: TOTAL PROTEIN 7.2 GM/DL (6.4-8.2)
[2021-01-02 08:47] LABS: BILIRUBIN,TOTAL 0.6 MG/DL (0.1-1.0)
[2021-01-02 08:49] LABS: CREATININE SERUM 1.44 MG/DL (0.60-1.30)
== END ==
LOC: LAB 08:10
PROVIDERS: ATTEND Internal Medicine
DX: Z13.6 Encounter for screening for cardiovascular disorders (principal); E11.65 Type 2 diabetes mellitus with hyperglycemia; I10 Essential (primary) hypertension
CPT/HCPCS: 36415; 80053; 82465; 83036; 84478

== ENCOUNTER → 2021-02-24 | Outpatient (CLI) | payer MEDICARE | LOC: LABNPT 06:29 | PROVIDERS: ATTEND Orthopaedic Surgery | DX: Z01.812 Encounter for preprocedural laboratory examination (principal); Z20.822 Contact with and (suspected) exposure to COVID-19 | CPT/HCPCS: 87635 ==

== ENCOUNTER → 2021-05-02 | Outpatient (CLI) | payer MEDICARE ==
[~2021-05-02] MED LIST changes: -LISI-729 PO; +LISI5TAB20 PO
[2021-05-02 08:49] LABS: ALBUMIN 3.8 GM/DL (3.2-4.5); BILIRUBIN,TOTAL 0.4 MG/DL (0.1-1.0); CALCIUM 9.1 MG/DL (8.5-10.1); CREATININE SERUM 1.34 MG/DL (0.60-1.30); POTASSIUM 4.6 MMOL/L (3.6-5.0); TOTAL PROTEIN 7.2 GM/DL (6.4-8.2)
== END ==
LOC: LAB 08:04
PROVIDERS: ATTEND Internal Medicine
DX: Z13.6 Encounter for screening for cardiovascular disorders (principal); E11.65 Type 2 diabetes mellitus with hyperglycemia; I10 Essential (primary) hypertension
CPT/HCPCS: 36415; 80053; 82465; 83036; 84478

== ENCOUNTER → 2021-05-15 | Outpatient (CLI) | payer MEDICARE ==
[2021-05-15 09:37] LABS: BILIRUBIN,URINE NEGATIVE (NEGATIVE); CLARITY,URINE CLEAR; COLOR,URINE YELLOW; GLUCOSE, URINE (UA) NEGATIVE (NEGATIVE); KETONES,URINE NEGATIVE (NEGATIVE); LEUKOCYTE ESTERASE ,URINE 2+ (NEGATIVE); NITRITE,URINE NEGATIVE (NEGATIVE); PROTEIN,URINE TRACE (NEGATIVE)
[2021-05-15 09:47] LABS: BACTERIA,URINE MODERATE /HPF; RBC,URINE 50-100 /HPF; SQUAMOUS EPITHELIAL CELL,UR 0-2 /HPF; WBC,URINE 50-100 /HPF
== END ==
LOC: LAB 09:18
PROVIDERS: ATTEND Internal Medicine
DX: N39.0 Urinary tract infection, site not specified (principal)
CPT/HCPCS: 81000; 87077; 87088; 87186

== ENCOUNTER → 2021-08-21 | Outpatient (CLI) | payer MEDICARE ==
[2021-08-21 09:55] LABS: BILIRUBIN,URINE NEGATIVE (NEGATIVE); CLARITY,URINE CLEAR; COLOR,URINE YELLOW; GLUCOSE, URINE (UA) TRACE (NEGATIVE); KETONES,URINE NEGATIVE (NEGATIVE); LEUKOCYTE ESTERASE ,URINE 2+ (NEGATIVE); NITRITE,URINE NEGATIVE (NEGATIVE); PROTEIN,URINE NEGATIVE (NEGATIVE)
[2021-08-21 10:12] LABS: BACTERIA,URINE TRACE /HPF; RBC,URINE 0-2 /HPF; WBC,URINE 25-50 /HPF
== END ==
LOC: LAB 09:26
PROVIDERS: ATTEND Internal Medicine
DX: R35.0 Frequency of micturition (principal)
CPT/HCPCS: 81000; 87077; 87088

== ENCOUNTER → 2021-09-06 | Outpatient (CLI) | payer MEDICARE ==
[2021-09-06 08:54] LABS: BASOPHILS # (AUTO) 0.1 10^3/uL (0.0-0.1); BASOPHILS % (AUTO) 1 % (0-10); EOSINOPHILS # (AUTO) 0.2 10^3/uL (0.0-0.3); EOSINOPHILS % (AUTO) 3 % (0-10); HEMATOCRIT 44 % (40-54); HEMOGLOBIN 13.7 g/dL (13.3-17.7); LYMPHOCYTES # (AUTO) 1.9 10^3/uL (1.0-4.0); LYMPHOCYTES % (AUTO) 23 % (12-44); MEAN CORPUSCULAR HEMOGLOBIN 27 pg (25-34); MEAN CORPUSCULAR HGB CONC 31 g/dL (32-36); MEAN CORPUSCULAR VOLUME 85 fL (80-99); MEAN PLATELET VOLUME 10.2 fL (9.0-12.2); MONOCYTES # (AUTO) 0.7 10^3/uL (0.0-1.0); MONOCYTES % (AUTO) 9 % (0-12); NEUTROPHILS # (AUTO) 5.2 10^3/uL (1.8-7.8); NEUTROPHILS % (AUTO) 64 % (42-75); PLATELET COUNT 255 10^3/uL (130-400); WHITE BLOOD COUNT 8.1 10^3/uL (4.3-11.0)
[2021-09-06 09:22] LABS: BILIRUBIN,TOTAL 0.5 MG/DL (0.1-1.0); CALCIUM 9.1 MG/DL (8.5-10.1); CREATININE SERUM 1.45 MG/DL (0.60-1.30); POTASSIUM 4.7 MMOL/L (3.6-5.0); TOTAL PROTEIN 7.1 GM/DL (6.4-8.2)
== END ==
LOC: LAB 08:26
PROVIDERS: ATTEND Internal Medicine
DX: E11.65 Type 2 diabetes mellitus with hyperglycemia (principal); I10 Essential (primary) hypertension; Z13.6 Encounter for screening for cardiovascular disorders
CPT/HCPCS: 36415; 80053; 80061; 83036; 84443; 85025

== ENCOUNTER 2021-11-26 10:19 | Observation (INO) | payer MEDICARE ==
[~2021-11-26] VITALS: Ht 175.3 cm; Wt 156.7 kg
[~2021-11-26 10:19] MED LIST changes: -ZONI100C29 PO; +ZONI100C79 PO
[2021-11-26 11:03] LABS: ALBUMIN 4.1 GM/DL (3.2-4.5); POTASSIUM 4.4 MMOL/L (3.6-5.0)
[2021-11-26 11:05] LABS: INR 1.1 (0.8-1.4); PROTHROMBIN TIME PATIENT 14.7 SEC (12.2-14.7); TOTAL PROTEIN 7.2 GM/DL (6.4-8.2)
[2021-11-26 11:07] LABS: BILIRUBIN,TOTAL 0.6 MG/DL (0.1-1.0)
[2021-11-26 11:09] LABS: CREATININE SERUM 1.62 MG/DL (0.60-1.30)
[2021-11-26 11:12] LABS: MAGNESIUM 2.1 MG/DL (1.6-2.4)
--- NOTE | 2021-11-26 11:12 | Diagnostic Imaging Report ---
EXAM: CHEST 1 VIEW, AP/PA ONLY INDICATION: Chest pain. COMPARISON: 01/31/2018. FINDINGS: Cardiomegaly with normal central pulmonary vascularity. The lungs are clear. Implanted loop recorder. No pleural effusion or pneumothorax. No acute osseous findings. IMPRESSION: No acute cardiopulmonary findings. Stable cardiomegaly. Dictated by: Dictated on workstation # [id number]
[2021-11-26 11:13] LABS: BASOPHILS # (AUTO) 0.1 10^3/uL (0.0-0.1); BASOPHILS % (AUTO) 1 % (0-10); EOSINOPHILS # (AUTO) 0.2 10^3/uL (0.0-0.3); EOSINOPHILS % (AUTO) 2 % (0-10); HEMATOCRIT 43 % (40-54); HEMOGLOBIN 13.4 g/dL (13.3-17.7); LYMPHOCYTES # (AUTO) 3.4 10^3/uL (1.0-4.0); LYMPHOCYTES % (AUTO) 35 % (12-44); MEAN CORPUSCULAR HEMOGLOBIN 27 pg (25-34); MEAN CORPUSCULAR HGB CONC 31 g/dL (32-36); MEAN CORPUSCULAR VOLUME 85 fL (80-99); MEAN PLATELET VOLUME 10.4 fL (9.0-12.2); MONOCYTES # (AUTO) 0.9 10^3/uL (0.0-1.0); MONOCYTES % (AUTO) 9 % (0-12); NEUTROPHILS # (AUTO) 5.1 10^3/uL (1.8-7.8); NEUTROPHILS % (AUTO) 53 % (42-75); PLATELET COUNT 284 10^3/uL (130-400); WHITE BLOOD COUNT 9.8 10^3/uL (4.3-11.0)
[2021-11-26] MEDS ORDERED: NS IV 1000 ML 1,000 ML IV SCH (12:30)
[2021-11-26] MEDS: NITROGLYCERIN 0.4 MG SL TABS BTL 25'S SL PRN ×2 (13:00→13:23)
--- NOTE | 2021-11-26 17:05 | ED Chest Pain ---
General Chief Complaint: Chest Pain Stated Complaint: L ARM PAIN/CP Nursing Triage Note: PT AMBULATE TO ROOM 05 WITH C/O CHEST PAIN RADIATING TO LEFT ARM SINCE 2300 LAST NIGHT. PT REPORTS TAKING 325MG ASA LAST NIGHT AT THAT TIME. PT REPORTS WAKING THIS MORNING AND THE PAIN TO CHEST AND LEFT ARM WAS STILL THERE. Source: patient, old records Exam Limitations: no limitations History of Present Illness Date Seen by Provider: Nov 26, 2021 Time Seen by Provider: 10:52 Initial Comments This 70-year-old gentleman presents to the emergency room with primary complaint of central chest pain and pain radiating into the left arm since last night. He took aspirin 325 mg at that time and states it improved. However, he has more chest pain again today. He rates it as 5/10. He believes deep breathing is helpful in reducing the pain. He does feel short of breath with exertion. 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 He does have history of angina and mild coronary artery disease. He had cardiac cath in 2018 demonstrating 50% stenosis of the mid LAD. He has never had any stenting performed. He cannot recall definitively if he has had any other angiography since 2018. He thinks perhaps he had a cath performed at [facility] in [place]. He also has atrial fibrillation. Dr. Bowden is his spanish translator. Dr. Sanchez is his primary care provider. Allergies and Home Medications Allergies Coded Allergies: No Known Drug Allergies (Unverified , 07/19/17) Patient Home Medication List Home Medication List Reviewed: Yes Amlodipine Besylate (Amlodipine Besylate) 5 Mg Tablet, 5 MG PO DAILY Prescribed by: MOLLY SANCHEZ on 02/02/18 1147 Apixaban (Eliquis) 5 Mg Tablet, 5 MG PO BID, (Reported) Entered as Reported by: MOLLY SANCHEZ on 02/01/18 1124 Aspirin (Aspir 81) 81 Mg Tablet., 81 MG PO DAILY Prescribed by: MOLLY SANCHEZ on 07/21/17 1240 Atorvastatin Calcium (Atorvastatin Calcium) 10 Mg Tablet, 10 MG PO HS, (Reported) Entered as Reported by: CK MALIK on 02/02/18 1032 Carbamazepine (Carbamazepine ER) 200 Mg Tab.er.12h, 400 MG PO BID Prescribed by: MOLLY SANCHEZ on 07/21/17 1240 Celecoxib (Celecoxib) 400 Mg Capsule, 400 MG PO DAILY Prescribed by: MOLLY SANCHEZ on 07/21/17 1240 Clopidogrel Bisulfate (Clopidogrel) 75 Mg Tablet, 75 MG PO DAILY Prescribed by: MOLLY SANCHEZ on 07/21/17 1240 Gabapentin (Gabapentin) 300 Mg Capsule, 300 MG PO TID, (Reported) Entered as Reported by: MOLLY SANCHEZ on 02/01/18 1124 Hydrocodone Bit/Acetaminophen (Lortab 5 Mg Tablet) 1 Tab Tab, 1 EACH PO Q4-6HR PRN for PAIN-MODERATE Prescribed by: CALIN ELLISON on 02/23/18 1343 Insulin Glargine,Hum.rec.anlog (Lantus Solostar) 100 Unit/1 Ml Insuln.pen, 30 UNIT SQ HS Prescribed by: MOLLY SANCHEZ on 02/02/18 1147 Lisinopril (Lisinopril) 5 Mg Tablet, 5 MG PO DAILY@0900 Prescribed by: MOLLY SANCHEZ on 07/21/17 1240 Metformin HCl (Metformin HCl ER) 750 Mg Tab.er.24h, 750 MG PO BID, (Reported) Entered as Reported by: CK MALIK on 02/02/18 1035 Metoprolol Succinate (Metoprolol Succinate) 25 Mg Tab.er.24h, 25 MG PO DAILY, (Reported) Entered as Reported by: CK MALIK on 02/02/18 1034 Nitroglycerin (Nitroglycerin) 0.4 Mg Tab.subl, 0.4 MG SL PRN PRN for CHEST PAIN, (Reported) Entered as Reported by: CATIA GRISSOM on 07/21/17 1055 Topiramate (Topiramate) 100 Mg Tablet, 100 MG PO BID Prescribed by: MOLLY SANCHEZ on 07/21/17 1240 Trazodone HCl (Trazodone HCl) 100 Mg Tablet, 200 MG PO HS Prescribed by: MOLLY SANCHEZ on 07/21/17 1240 Zonisamide (Zonisamide) 100 Mg Capsule, 200 MG PO DAILY, (Reported) Entered as Reported by: CK MALIK on 02/02/18 1035 Zonisamide (Zonisamide) 100 Mg Capsule, 100 MG PO HS, (Reported) Entered as Reported by: CK MALIK on 02/02/18 1036 Review of Systems Review of Systems Constitutional: no symptoms reported EENTM: No Symptoms Reported Respiratory: See HPI Cardiovascular: See HPI Gastrointestinal: No Symptoms Reported Genitourinary: No Symptoms Reported Musculoskeletal: no symptoms reported Skin: no symptoms reported Psychiatric/Neurological: No Symptoms Reported Endocrine: No Symptoms Reported Hematologic/Lymphatic: No Symptoms Reported Past Jjpgnie-Inlvxv-Rmmlbb Hx Patient Social History Tobacco Use?: No Smoking Status: Never a Smoker Smokeless Tobacco Frequency: Never a User Use of E-Cig and/or Vaping dev: No Use of E-Cig and/or Vaping Cash: Never a User Substance use?: No Alcohol Use?: No Pt feels they are or have been: No Immunizations Up To Date Tetanus Booster (TDap): Unknown COVID19 Vaccine Bender Hand: Memorandom Seasonal Allergies Seasonal Allergies: No Past Medical History Surgeries: Yes (lap band, L HIP, BILAT KNEE) Abdominal, Orthopedic Respiratory: Yes Sleep Apnea Currently Using CPAP: Yes Cardiac: Yes Angina, Atrial Fibrillation, Chronic Edema/Swelling, Deep Vein Thrombosis, High Cholesterol, Hypertension Neurological: Yes Neuropathy, Seizure Disorder, Stroke Genitourinary: No Gastrointestinal: Yes Gastroesophageal Reflux Musculoskeletal: Yes Arthritis Endocrine: Yes Diabetes, Insulin dep HEENT: No Cancer: No Psychosocial: No Integumentary: Yes Blood Disorders: No Family Medical History Diabetes, Hypertension Physical Exam Vital Signs Vital Signs - First Documented 11/26/21 10:22 Temp 36.4 Pulse 82 Resp 16 B/P (MAP) 137/71 (93) O2 Delivery Room Air Capillary Refill : Less Than 3 Seconds Height, Weight, BMI Height: 5'9.00" Weight: 327lbs. 0.0oz. 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 Norm as Tested Skin: Normal Color, Warm/Dry Progress/Results/Core Measures Results/Orders Lab Results Laboratory Tests Test 11/26/21 10:27 11/26/21 14:17 Range/Units White Blood Count 9.8 4.3-11.0 10^3/uL Red Blood Count 5.05 4.30-5.52 10^6/uL Hemoglobin 13.4 13.3-17.7 g/dL Hematocrit 43 40-54 % Mean Corpuscular Volume 85 80-99 fL Mean Corpuscular Hemoglobin 27 25-34 pg Mean Corpuscular Hemoglobin Concent 31 L 32-36 g/dL Red Cell Distribution Width 15.5 H 10.0-14.5 % Platelet Count 284 130-400 10^3/uL Mean Platelet Volume 10.4 9.0-12.2 fL Immature Granulocyte % (Auto) 0 % Neutrophils (%) (Auto) 53 42-75 % Lymphocytes (%) (Auto) 35 12-44 % Monocytes (%) (Auto) 9 0-12 % Eosinophils (%) (Auto) 2 0-10 % Basophils (%) (Auto) 1 0-10 % Neutrophils # (Auto) 5.1 1.8-7.8 10^3/uL Lymphocytes # (Auto) 3.4 1.0-4.0 10^3/uL Monocytes # (Auto) 0.9 0.0-1.0 10^3/uL Eosinophils # (Auto) 0.2 0.0-0.3 10^3/uL Basophils # (Auto) 0.1 0.0-0.1 10^3/uL Immature Granulocyte # (Auto) 0.0 0.0-0.1 10^3/uL Prothrombin Time 14.7 12.2-14.7 SEC INR Comment 1.1 0.8-1.4 Activated Partial Thromboplast Time 30 24-35 SEC Sodium Level 138 135-145 MMOL/L Potassium Level 4.4 3.6-5.0 MMOL/L Chloride Level 106 98-107 MMOL/L Carbon Dioxide Level 19 L 21-32 MMOL/L Anion Gap 13 5-14 MMOL/L Blood Urea Nitrogen 22 H 7-18 MG/DL Creatinine 1.62 H 0.60-1.30 MG/DL Estimat Glomerular Filtration Rate 46 BUN/Creatinine Ratio 14 Glucose Level 114 H 70-105 MG/DL Calcium Level 9.0 8.5-10.1 MG/DL Corrected Calcium 8.9 8.5-10.1 MG/DL Magnesium Level 2.1 1.6-2.4 MG/DL Total Bilirubin 0.6 0.1-1.0 MG/DL Aspartate Amino Transf (AST/SGOT) 25 5-34 U/L Alanine Aminotransferase (ALT/SGPT) 21 0-55 U/L Alkaline Phosphatase 63 40-136 U/L Myoglobin 110.1 H 10.0-92.0 NG/ML Troponin I < 0.028 < 0.028 <0.028 NG/ML Total Protein 7.2 6.4-8.2 GM/DL Albumin 4.1 3.2-4.5 GM/DL My Orders Orders - RAYMUNDO NAPIER MD Cbc With Automated Diff (11/26/21 10:52) Magnesium (11/26/21 10:52) Chest 1 View, Ap/Pa Only (11/26/21 10:52) Ekg Tracing (11/26/21 10:52) Comprehensive Metabolic Panel (11/26/21 10:52) Myoglobin Serum (11/26/21 10:52) Protime With Inr (11/26/21 10:52) Partial Thromboplastin Time (11/26/21 10:52) O2 (11/26/21 10:52) Monitor-Rhythm Ecg Trace Only (11/26/21 10:52) Lipid Panel (11/27/21 06:00) Ed Iv/Invasive Line Start (11/26/21 10:52) Troponin I [place] (11/26/21 10:52) Troponin I [place] (11/26/21 12:35) Ns Iv 1000 Ml (Sodium Chloride 0.9%) (11/26/21 12:30) Nitroglycerin 0.4 Mg Btl 25's (Nitrostat (11/26/21 12:30) Ed Admission (Communication) (11/26/21 16:57) Medications Given in ED Current Medications Medications Dose Ordered Sig/Adarsh Route Start Time Stop Time Status Last Admin Dose Admin Nitroglycerin 0.4 mg UD PRN SL 11/26/21 12:30 11/26/21 13:23 0.4 MG Vital Signs/I&O 11/26/21 10:22 Temp 36.4 Pulse 82 Resp 16 B/P (MAP) 137/71 (93) O2 Delivery Room Air Blood Pressure Mean: 93 Progress Progress Note : Progress Note Work-up was unremarkable including initial troponin and repeat troponin at 2 hours. Patient received nitroglycerin x2. This reduced pain from 5/10 down to 2/10. I discussed the case with both Dr. Bowden and Dr. Pan. Since he does have a known history of mild coronary artery disease with no definite angiography since 2018 and incompletely relieved pain with nitroglycerin, admission for observation is appropriate. He does have significant risk factors. Initial ECG Impression Date: Nov 26, 2021 Initial ECG Impression Time: 10:31 Initial ECG Rate: 80 Initial ECG Rhythm: Normal Sinus Initial ECG Intervals: Normal Initial ECG Impression: Normal Comment Normal sinus rhythm with no ST elevation or depression. No abnormal intervals or axis deviation. Diagnostic Imaging Diagonstic Imaging: Xray Plain Films/CT/US/NM/MRI: chest Comments NAME: JESICA CHILDS [facility] REC#: [id number] PT STATUS: REG ER : 1950 PHYSICIAN: RAYMUNDO NAPIER MD ADMIT DATE: 11/26/21/ER Draft Date of Exam:11/26/21 CHEST 1 VIEW, AP/PA ONLY EXAM: CHEST 1 VIEW, AP/PA ONLY INDICATION: Chest pain. COMPARISON: 01/31/2018. FINDINGS: Cardiomegaly with normal central pulmonary vascularity. The lungs are clear. Implanted loop recorder. No pleural effusion or pneumothorax. No acute osseous findings. IMPRESSION: No acute cardiopulmonary findings. Stable cardiomegaly. Dictated on workstation # [id number] Dict: 11/26/21 1109 Trans: 11/26/21 1112 [facility] [id number] Interpreted by: YENNY KLEIN MD Departure Communication (Admissions) Time/Spoke to Admitting Phy: 16:44 Dr. Carlisle Time/Spoke to Consulting Phy: 14:45 Dr. Pan Impression Primary Impression: Chest pain Qualified Codes: R07.9 - Chest pain, unspecified Additional Impressions: Dyspnea on exertion Coronary artery disease Qualified Codes: I25.10 - Atherosclerotic heart disease of [place] coronary artery without angina pectoris Disposition: ADMITTED INPATIENT Condition: Improved Admissions Decision to Admit Reason: Admit from ER (General) Decision to Admit/Date: Nov 26, 2021 Time/Decision to Admit Time: 14:45 Departure-Patient Inst. Referrals: MOLLY SANCHEZ DO (PCP/Family) Primary Care Physician Copy Copies To 1: KELBY BOWDEN MD Copies To 2: MOLLY SANCHEZ JOSHUA T MD Nov 26, 2021 17:05
[2021-11-26] MEDS ORDERED: BISACODYL 10 MG SUPP (DULCOLAX) PR PRN (17:45)
[2021-11-26] MEDS ORDERED: ONDANSETRON 4 MG (ZOFRAN) ORAL DISSOLVE TAB PO PRN (17:45)
[2021-11-26] MEDS ORDERED: polyethylene glycoL POWDER 17 GM (MIRALAX) PACK PO PRN (17:45)
[2021-11-26] MEDS ORDERED: CALCIUM CARBONATE 500 MG (TUMS) TAB.CHEW PO PRN (17:45)
[2021-11-26] MEDS ORDERED: diphenhydrAMINE 25 MG TAB (BENADRYL) PO PRN (17:45)
[2021-11-26] MEDS ORDERED: diphenhydrAMINE 50 MG/ML INJ (BENADRYL) IVP PRN (17:45)
[2021-11-26] MEDS ORDERED: MILK OF MAGNESIA 400 MG/5 ML 30 ML UDC PO PRN (17:45)
[2021-11-26] MEDS ORDERED: MELATONIN 3 MG TABLET PO PRN (17:45)
[2021-11-26] MEDS ORDERED: ONDANSETRON 4 MG/2 ML (SDV) Z0FRAN IV PRN (17:45)
[2021-11-26] MEDS ORDERED: LACTULOSE SYRUP 10GM/15ML (ENULOSE) 30ML UDC PO PRN (17:45)
[2021-11-26] MEDS ORDERED: ANTACID SUSP 30 ML UDC (MYLANTA) PO PRN (17:45)
[2021-11-26] MEDS ORDERED: ACETAMINOPHEN 325 MG TABLET PO PRN (17:45)
[2021-11-26] MEDS ORDERED: TMSL.4C PO (18:05)
[2021-11-26] MEDS ORDERED: GABA-486 PO (18:05)
[2021-11-26] MEDS ORDERED: PREG50CA65 PO (18:05)
[2021-11-26] MEDS ORDERED: FINA5TAB PO (18:05)
[2021-11-26] MEDS ORDERED: INSU100I29 SQ (18:05)
[2021-11-26] MEDS ORDERED: CEPH500C PO (18:05)
[2021-11-26] MEDS ORDERED: ASPI-808 PO (18:05)
[2021-11-26 20:11] VITALS: BP 141/67
[2021-11-26] MEDS: SENNOSIDES 8.6 MG (SENOKOT) TAB PO SCH (20:34)
[2021-11-26] MEDS: DOCUSATE SODIUM 100 MG (COLACE) CAP PO SCH (20:34)
[2021-11-26] MEDS: APIXABAN 5 MG (ELIQUIS) TABLET PO SCH (20:34)
[2021-11-26 23:21] VITALS: BP 154/72
[2021-11-27] VITALS (13 sets, daily range): BP systolic 117–170; BP diastolic 63–109
[2021-11-27 05:55] LABS: HEMATOCRIT 45 % (40-54); MEAN CORPUSCULAR HEMOGLOBIN 26 pg (25-34); MEAN CORPUSCULAR HGB CONC 31 g/dL (32-36); MEAN CORPUSCULAR VOLUME 85 fL (80-99); MEAN PLATELET VOLUME 10.2 fL (9.0-12.2); PLATELET COUNT 227 10^3/uL (130-400); WHITE BLOOD COUNT 7.3 10^3/uL (4.3-11.0)
[2021-11-27 06:13] LABS: CHLORIDE 107 MMOL/L (98-107); POTASSIUM 4.9 MMOL/L (3.6-5.0); SODIUM 141 MMOL/L (135-145)
[2021-11-27 06:14] LABS: CALCIUM 9.2 MG/DL (8.5-10.1)
[2021-11-27 06:15] LABS: TRIGLYCERIDES 151 MG/DL (<150); VLDL CHOLESTEROL 30 MG/DL (5-40)
[2021-11-27 06:16] LABS: GLUCOSE 137 MG/DL (70-105)
[2021-11-27 06:17] LABS: BILIRUBIN,TOTAL 0.5 MG/DL (0.1-1.0); CARBON DIOXIDE 21 MMOL/L (21-32)
[2021-11-27 06:19] LABS: ALKALINE PHOSPHATASE 58 U/L (40-136); GFR ESTIMATED 55
[2021-11-27 06:20] LABS: BUN/CREATININE RATIO 13; CHOLESTEROL 119 MG/DL (< 200)
[2021-11-27 06:21] LABS: HDL CHOLESTEROL 42 MG/DL (40-60)
[2021-11-27 06:22] LABS: ALANINE AMINOTRANSFERASE 21 U/L (0-55)
[2021-11-27] MEDS: DOCUSATE SODIUM 100 MG (COLACE) CAP PO SCH (07:46)
[2021-11-27] MEDS: SENNOSIDES 8.6 MG (SENOKOT) TAB PO SCH (07:47)
--- NOTE | 2021-11-27 08:10 | Consultation-Cardiology ---
HPI-Cardiology Cardiology Consultation: Date of Consultation 11/27/21 Time Seen by a Provider: 09:30 Date of Admission 11-26-21 Attending Physician Jennifer Sanchez DO Admitting Physician Admitting Physician: Aydee Carlisle MD Attending Physician: Jennifer Sanchez DO Consulting Physician Susan Pan Primary Hard Tile Setter: Dr. Bowden HPI: Chief Complaint: Chest pain Mr. Childs is a 70 yr old male who has been admitted to [facility] from the ED with c/o CP. He reports he began having left sided chest pain which radiated up into his left shoulder and down into his arm. He reports the discomfort as a pressure sensation. He states he took a full dose ASA under his tongue and the pain improved, but never went away completely. He reports he was able to carry out his normal activities. He states the discomfort to the LACW increased in inte nsity over the night on Saturday into Saturday. He then came to the ED. He reports the pain can occur with or without exertion. No c/o LE swelliing. He does have chr MATTHEWS, which has been somewhat more so recently. He reports a feeling of an irregular heartbeat off an on yesterday. No c/o syncope or near syncope. He reports he received nitro in the ED and the pain did improve. He does continue to have episodes of localized, LACW discomfort lasting only a few seconds. No c/o n/v/d. No c/o fever or chills. Review of Systems-Cardiology Review of Systems Constitutional: No chills, No fever, No malaise Eyes: No vision change Ears/Nose/Throat: No epistaxis Respiratory: As described under HPI Cardiovascular: As described under HPI Gastrointestinal: No constipation, No diarrhea, No nausea, No vomiting Genitourinary: No dysuria, No hematuria Skin: No rash on exposed areas, No ulcerations on exposed areas Psychiatric/Neurological: No anxiety, No depression, No seizure, No focal weakness, No syncope Hematologic: No bleeding abnormalities MZI-Wwiofs-Aiqonf Hx Patient Social History Smoking Status: Never a Smoker 2nd Hand Smoke Exposure: No Have you traveled recently?: No Alcohol Use?: Yes Pt feels they are or have been: No Immunizations Up To Date Tetanus Booster (TDap): Unknown Past Medical History PMH As described under Assessment. Family Medical History Family Medical History: Reports father and one brother had heart trouble in their early 60s (details unknown) Allergies and Home Medications Allergies Coded Allergies: No Known Drug Allergies (Unverified , 07/19/17) Patient Home Medication List Amlodipine Besylate (Amlodipine Besylate) 5 Mg Tablet, 5 MG PO DAILY, (Reported) Entered as Reported by: BHUMI FAITH on 11/27/21933 Last Action: Reviewed Apixaban (Eliquis) 5 Mg Tablet, 5 MG PO BID, (Reported) Entered as Reported by: JENNIFER SANCHEZ on 02/01/18 1124 Last Action: Reviewed Aspirin (Aspirin) 325 Mg Tablet, 325 MG PO DAILY, (Reported) Entered as Reported by: ALEX GASTELUM on 11/26/211804 Last Action: Reviewed Atorvastatin Calcium (Atorvastatin Calcium) 10 Mg Tablet, 10 MG PO DAILY, (Reported) Entered as Reported by: CK MALIK on 02/02/18 1032 Last Action: Reviewed Doxycycline Hyclate (Doxycycline Hyclate) 50 Mg Capsule, 50 MG PO DAILY, (Reported) Entered as Reported by: BHUMI FAITH on 11/27/21933 Last Action: Reviewed Finasteride (Finasteride) 5 Mg Tablet, 5 MG PO DAILY, (Reported) Entered as Reported by: BHUMI FAITH on 11/27/21933 Last Action: Reviewed Gabapentin (Neurontin) 300 Mg Capsule, 600 MG PO DAILY, (Reported) Entered as Reported by: BHUMI FAITH on 11/27/21933 Last Action: Reviewed Gabapentin (Neurontin) 300 Mg Capsule, 300 MG PO HS, (Reported) Entered as Reported by: BHUMI FAITH on 11/27/21933 Last Action: Reviewed Insulin Detemir (Levemir Flextouch) 100 Unit/Ml (3 Ml) Insuln.pen, 80 UNIT SQ HS, (Reported) Entered as Reported by: ALEX GASTELUM on 11/26/211804 Last Action: Reviewed Insulin Lispro (Humalog Kwikpen) 100 Unit/Ml Insuln.pen, 10-15 UNITS SC AC, (Reported) Entered as Reported by: BHUMI FAITH on 11/27/21933 Last Action: Reviewed Lisinopril (Lisinopril) 5 Mg Tablet, 5 MG PO HS, (Reported) Entered as Reported by: BHUMI FAITH on 11/27/21933 Last Action: Reviewed Pregabalin (Pregabalin) 100 Mg Capsule, 200 MG PO DAILY, (Reported) Entered as Reported by: BHUMI FAITH on 11/27/21933 Last Action: Reviewed Pregabalin (Pregabalin) 100 Mg Capsule, 100 MG PO HS, (Reported) Entered as Reported by: BHUMI FAITH on 11/27/21933 Last Action: Reviewed Tamsulosin HCl (Flomax) 0.4 Mg Cap, 0.4 MG PO HS, (Reported) Entered as Reported by: BHUMI FAITH on 11/27/21933 Last Action: Reviewed Trazodone HCl (Trazodone HCl) 100 Mg Tablet, 200 MG PO HS, (Reported) Entered as Reported by: BHUMI FAITH on 11/27/21933 Last Action: Edited Discontinued Medications Amlodipine Besylate (Amlodipine Besylate) 5 Mg Tablet, 5 MG PO DAILY Discontinued Reason: No Longer Taking Prescribed by: JENNIFER SANCHEZ on 02/02/18 114 Last Action: Discontinued Aspirin (Aspir 81) 81 Mg Tablet.dr, 81 MG PO DAILY Discontinued Reason: No Longer Taking Prescribed by: JENNIFER SANCHEZ on 07/21/171239 Last Action: Discontinued Carbamazepine (Carbamazepine ER) 200 Mg Tab.er.12h, 400 MG PO BID Discontinued Reason: No Longer Taking Prescribed by: JENNIFER SANCHEZ on 07/21/171239 Last Action: Discontinued Celecoxib (Celecoxib) 400 Mg Capsule, 400 MG PO DAILY Discontinued Reason: No Longer Taking Prescribed by: JENNIFER SANCHEZ on 07/21/171239 Last Action: Discontinued Cephalexin (Cephalexin) 500 Mg Capsule, 500 MG PO DAILY, (Reported) Discontinued Reason: No Longer Taking Entered as Reported by: ALEX GASTELUM on 11/26/211804 Last Action: Discontinued Clopidogrel Bisulfate (Clopidogrel) 75 Mg Tablet, 75 MG PO DAILY Discontinued Reason: No Longer Taking Prescribed by: JENNIFER SANCHEZ on 07/21/171239 Last Action: Discontinued Finasteride (Proscar) 5 Mg Tablet, 5 MG PO DAILY, (Reported) Discontinued Reason: No Longer Taking Entered as Reported by: ALEX GASTELUM on 11/26/211804 Last Action: Discontinued Gabapentin (Gabapentin) 300 Mg Capsule, 300 MG PO TID, (Reported) Discontinued Reason: No Longer Taking Entered as Reported by: JENNIFER SANCHEZ on 02/01/18 1124 Last Action: Discontinued Gabapentin (Gabapentin) 100 Mg Capsule, 200 MG PO TID, (Reported) Discontinued Reason: No Longer Taking Entered as Reported by: ALEX GASTELUM on 11/26/21 180 Last Action: Discontinued Hydrocodone Bit/Acetaminophen (Lortab 5 Mg Tablet) 1 Tab Tab, 1 EACH PO Q4-6HR PRN for PAIN-MODERATE Discontinued Reason: No Longer Taking Prescribed by: CALIN ELLISON on 02/23/18 1343 Last Action: Discontinued Insulin Glargine,Hum.rec.anlog (Lantus Solostar) 100 Unit/1 Ml Insuln.pen, 30 UNIT SQ HS Discontinued Reason: No Longer Taking Prescribed by: JENNIFER SANCHEZ on 02/02/18 1147 Last Action: Discontinued Lisinopril (Lisinopril) 5 Mg Tablet, 5 MG PO DAILY@0900 Discontinued Reason: No Longer Taking Prescribed by: JENNIFER SANCHEZ on 07/21/17 1240 Last Action: Discontinued Metformin HCl (Metformin HCl ER) 750 Mg Tab.er.24h, 750 MG PO BID, (Reported) Discontinued Reason: No Longer Taking Entered as Reported by: CK MALIK on 02/02/18 1035 Last Action: Discontinued Metoprolol Succinate (Metoprolol Succinate) 25 Mg Tab.er.24h, 25 MG PO DAILY, (Reported) Discontinued Reason: No Longer Taking Entered as Reported by: CK MALIK on 02/02/18 1034 Last Action: Discontinued Nitroglycerin (Nitroglycerin) 0.4 Mg Tab.subl, 0.4 MG SL PRN PRN for CHEST PAIN, (Reported) Discontinued Reason: No Longer Taking Entered as Reported by: CATIA GRISSOM on 07/21/17 1055 Last Action: Discontinued Pregabalin (Pregabalin) 50 Mg Capsule, 100 MG PO TID, (Reported) Discontinued Reason: No Longer Taking Entered as Reported by: ALEX GASTELUM on 11/26/21 180 Last Action: Discontinued Tamsulosin HCl (Flomax) 0.4 Mg Cap, 0.4 MG PO HS, (Reported) Discontinued Reason: No Longer Taking Entered as Reported by: ALEX GASTELUM on 11/26/21 1805 Last Action: Discontinued Topiramate (Topiramate) 100 Mg Tablet, 100 MG PO BID Discontinued Reason: No Longer Taking Prescribed by: JENNIFER SANCHEZ on 07/21/17 1240 Last Action: Discontinued Trazodone HCl (Trazodone HCl) 100 Mg Tablet, 200 MG PO HS Discontinued Reason: Duplicate Order Prescribed by: JENNIFER SANCHEZ on 07/21/17 124 Last Action: Discontinued Zonisamide (Zonisamide) 100 Mg Capsule, 200 MG PO DAILY, (Reported) Discontinued Reason: No Longer Taking Entered as Reported by: CK MALIK on 02/02/18 1035 Last Action: Discontinued Zonisamide (Zonisamide) 100 Mg Capsule, 100 MG PO HS, (Reported) Discontinued Reason: No Longer Taking Entered as Reported by: CK MALIK on 02/02/18 1036 Last Action: Discontinued Physical Exam-Cardiology Physical Exam Vital Signs/I&O 11/26/21 11/26/21 11/27/21 11/27/21 22:28 23:21 00:00 01:00 Temp 36.8 Pulse 80 61 62 58 Resp 36 18 20 B/P (MAP) 154/72 (100) 154/72 (99) Pulse Ox 98 97 97 O2 Delivery Nasal Cannula Nasal Cannula Nasal Cannula O2 Flow Rate 2.00 2.00 2.00 11/27/21 11/27/21 11/27/21 04:00 07:53 08:27 Temp 36.5 36.3 Pulse 65 69 Resp 22 20 B/P (MAP) 150/72 (98) 140/77 (98) Pulse Ox 97 98 O2 Delivery Nasal Cannula Nasal Cannula Nasal Cannula O2 Flow Rate 2.00 2.00 2.00 11/27/21 00:00 Intake Total 1475 ml Output Total 400 ml Balance 1075 ml Capillary Refill : Less Than 3 Seconds Constitutional: AAO x 3, well-developed, well-nourished HEENT: PERRL, hearing is well preserved, oral hygience is good Neck: No carotid bruit; carotid pulses are 2 + bilaterally Respiratory: No accessory muscle use, No respiratory distress; chest expansion is symmetric, chest is bilaterally symmetric, other (good air entry) Cardiovascular: No regular rate-rhythm, No JVD; S1 and S2, systolic murmur Gastrointestinal: No tender; soft, round, audible bowel sounds Extremities: No no lower extremity edema bilateral Neurologic/Psychiatric: grossly intact (moves all extremities) Skin: No rash on exposed areas, No ulcerations on exposed areas Data Review Labs Laboratory Tests 11/26/21 10:27: White Blood Count 9.8, Red Blood Count 5.05, Hemoglobin 13.4, Hematocrit 43, Mean Corpuscular Volume 85, Mean Corpuscular Hemoglobin 27, Mean Corpuscular Hemoglobin Concent 31L, Red Cell Distribution Width 15.5H, Platelet Count 284, Mean Platelet Volume 10.4, Immature Granulocyte % (Auto) 0, Neutrophils (%) (Auto) 53, Lymphocytes (%) (Auto) 35, Monocytes (%) (Auto) 9, Eosinophils (%) (Auto) 2, Basophils (%) (Auto) 1, Neutrophils # (Auto) 5.1, Lymphocytes # (Auto) 3.4, Monocytes # (Auto) 0.9, Eosinophils # (Auto) 0.2, Basophils # (Auto) 0.1, Immature Granulocyte # (Auto) 0.0, Prothrombin Time 14.7, INR Comment 1.1, Activated Partial Thromboplast Time 30, Sodium Level 138, Potassium Level 4.4, Chloride Level 106, Carbon Dioxide Level 19L, Anion Gap 13, Blood Urea Nitrogen 22H, Creatinine 1.62H, Estimat Glomerular Filtration Rate 46, BUN/Creatinine Ratio 14, Glucose Level 114H, Calcium Level 9.0, Corrected Calcium 8.9, Magnesium Level 2.1, Total Bilirubin 0.6, Aspartate Amino Transf (AST/SGOT) 25, Alanine Aminotransferase (ALT/SGPT) 21, Alkaline Phosphatase 63, Myoglobin 110.1H, Troponin I < 0.028, Total Protein 7.2, Albumin 4.1 11/26/21 14:17: Troponin I < 0.028 11/27/21 05:35: White Blood Count 7.3, Red Blood Count 5.37, Hemoglobin 14.0, Hematocrit 45, Mean Corpuscular Volume 85, Mean Corpuscular Hemoglobin 26, Mean Corpuscular Hemoglobin Concent 31L, Red Cell Distribution Width 15.5H, Platelet Count 227, Mean Platelet Volume 10.2, Sodium Level 141, Potassium Level 4.9, Chloride Level 107, Carbon Dioxide Level 21, Anion Gap 13, Blood Urea Nitrogen 18, Creatinine 1.40H, Estimat Glomerular Filtration Rate 55, BUN/Creatinine Ratio 13, Glucose Level 137H, Calcium Level 9.2, Corrected Calcium 9.2, Total Bilirubin 0.5, Aspartate Amino Transf (AST/SGOT) 22, Alanine Aminotransferase (ALT/SGPT) 21, Alkaline Phosphatase 58, Troponin I < 0.028, Total Protein 7.0, Albumin 4.0, Triglycerides Level 151H, Cholesterol Level 119, LDL Cholesterol Direct 51, VLDL Cholesterol 30, HDL Cholesterol 42 Radiology NAME: JESICA CHILDS [facility] REC#: [id number] PT STATUS: ADM Iker : 1950 PHYSICIAN: RAYMUNDO NAPIER MD ADMIT DATE: 11/26/21/[facility] Signed Date of Exam:11/26/21 CHEST 1 VIEW, AP/PA ONLY EXAM: CHEST 1 VIEW, AP/PA ONLY INDICATION: Chest pain. COMPARISON: 01/31/2018. FINDINGS: Cardiomegaly with normal central pulmonary vascularity. The lungs are clear. Implanted loop recorder. No pleural effusion or pneumothorax. No acute osseous findings. IMPRESSION: No acute cardiopulmonary findings. Stable cardiomegaly. Dictated by: Dictated on workstation # [id number] Dict: 11/26/21 1109 Trans: 11/26/21 1733 [facility] [id number] Interpreted by: YENNY KLEIN MD Electronically signed by: YENNY KLEIN MD 11/26/21 1733 A/P-Cardiology Assessment/Admission Diagnosis Chest pain - undetermined etiology - with features suggestive of angina Coronary artery disease - had a cardiac catheterization done in July 2017 showed nonobstructive disease, 50% mid LAD stenosis, EF 60 to 65%, 18 mmHg gradient across the aortic valve. - Stress test was done at [facility] in August 2020 reported as no evidence of reversible ischemia, had moderate size infarct of the inferior wall, ejection fraction 56% Mild aortic valve stenosis, 18 mmHg of gradient during pullback during angiogram, having occasional episode of chest pain. Paroxysmal atrial fibrillation - Had a loop monitor implanted in 2017, no further episodes of atrial fibrillation noted, loop monitor was implanted on July 30, 2017. Reached CAROL. - No arrhythmia was detected during the 4 years period - OAC with Eliquis H/O Status post fall with large hematoma on the left knee - resulted in necrosis, has a wound pump and wound VAC on his left knee. Recovering slowly. 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 COPD/obstructive sleep apnea - using CPAP. Hypertension Hyperlipidemia - statin tx History of carotid stenosis, , mild bilateral carotid stenosis, carotid ultrasound was done in July [address] Bowden H/O CVA in 2007 Surgical history - History of arthritis, hernia repair surgery, lap band surgery, shannon cystectomy, lower back surgery, hip replacement. BMI 51 History of seizure disorder, well controlled, managed by primary care Discussion and Recomendations Chest pain of undetermined etiology with features suggestive of angina - advise cardiac cath. Procedures, risks, benefits and potential complications of cardiac cath with possible ad hoc coronary intervention including potential worsening of renal function d/t existing CKD. He verbalizes understanding and provides informed consent. Continue current medication regimen including asa and OAC Start NS at 100 ml/hr to reduce risk of contrast nephropathy Further recs will be based on his hospital course We would like to thank medical services for this consult Monitor lab and replace electrolytes as indicated Clinical Quality Measures AMI/AHF: ASA po Prior to arrival: MARIELENA Stearns Nov 27, 2021 08:10
[2021-11-27] MEDS ORDERED: ASPIRIN 81 MG CHEW (CHILDREN'S ASA) PO SCH (09:00)
--- NOTE | 2021-11-27 09:00 | Physical Therapy Evaluation ---
PT Evaluation-General Medical Diagnosis Admission Date Nov 26, 2021 at 16:58 Medical Diagnosis: chest pain Onset Date: Nov 26, 2021 Therapy Diagnosis Therapy Diagnosis: impaired mobility Height/Weight Height (Feet): 5 Height (Inches): 9.00 Weight (Pounds): 327 Weight (Ounces): 0.0 Precautions Precautions/Isolations: Fall Prevention, Standard Precautions Referral Physician: Orestes Reason for Referral: Evaluation/Treatment Medical History Pertinent Medical History: Arthritis, CVA, DM, GERD, HTN, Neuropathy Additional Medical History Past Medical History Surgeries: Yes (lap band, L HIP, BILAT KNEE) Abdominal, Orthopedic Respiratory: Yes Sleep Apnea Currently Using CPAP: Yes Cardiac: Yes Angina, Atrial Fibrillation, Chronic Edema/Swelling, Deep Vein Thrombosis, High Cholesterol, Hypertension Neurological: Yes Neuropathy, Seizure Disorder, Stroke Genitourinary: No Gastrointestinal: Yes Gastroesophageal Reflux Musculoskeletal: Yes Arthritis Endocrine: Yes Diabetes, Insulin dep HEENT: No Cancer: No Psychosocial: No Integumentary: Yes Blood Disorders: No Reviewed History: Yes Social History Current Living Status: Spouse Entry Into Home: Stairs With Railing PT Steps Into Home: 4 Prior Prior Level of Function SCALE: Activities may be completed with or without assistive devices. 7-Wdlqdknrzr-yicjvrw completes the activity by him/herself with no assistance from a helper. 5-Set-up or Clean-up Assistance-helper sets up or cleans up; patient completes activity. Melvin assists only prior to or following the activity. 4-Supervision or Touching Assistance-helper provides verbal cues and/or touch ing/steadying and/or contact guard assistance as patient completes activity. Assistance may be provided throughout the activity or intermittently. 3-Partial/Moderate Assistance-helper does LESS THAN HALF the effort. Melvin lifts, holds or supports trunk or limbs, but provides less than half the effort. 2-Substantial/Maximal Assistance-helper does MORE THAN HALF the effort. Melvin lifts or holds trunk or limbs and provides more than half the effort. 1-Admdemjoo-adltep does ALL the effort. Patient does none of the effort to complete the activity. Or, the assistance of 2 or more helpers is required for the patient to complete the activity. If activity was not attempted, code reason: 7-Patient Refused. 9-Not Applicable-not attempted and the patient did not perform the activity before the current illness, exacerbation or injury. 10-Not Attempted due to Environmental Limitations-(lack of equipment, weather restraints, etc.). 88-Not Attempted due to Medical Conditions or Safety Concerns. Bed Mobility: 6 Transfers (B,C,W/C): 6 Gait: 6 Stairs: 6 Indoor Mobility (Ambulation): Independent Stairs: Independent patient states he has a walker and a cane that he uses on occasion PT Evaluation-Current Subjective Patient in bed pre tx, agrees to PT, has no complaints of pain at rest. Pt/Family Goals to be independent at home Objective Patient Orientation: Person, Place, Situation Attachments: Oxygen ROM/Strength ROM Lower Extremities WNL Strength Lower Extremities LLE (hip flexion 3/5, knee flexion 3+/5, knee extension 4+/5, dorsiflexion 4+/5), RLE (hip flexion 3+/5, knee flexion 3+/5, knee extension 4+/5, dorsiflexion 4+/5) Sensory Vision: Functional Hearing: Functional Sensation Right Lower Extremit: Impaired Sensation Left Lower Extremity: Impaired Sensation Lower Extremities patient seems to have intact light touch sensation but states he has neuropathy in both feet Transfers Roll Left to Right (QC): 6 Sit to Lying (QC): 6 Lying to Sitting/Side of Bed(Q: 6 Sit to Stand (QC): 4 Gait Mode of Locomotion: Walk Anticipated Mode of Locomotion: Walk Walk 10 feet (QC): 4 Walk 50 ft with 2 Turns(QC): 4 Walk 150 ft (QC): 4 Distance: 200' Gait Assistive Device: FWW Comments/Gait Description SBA, slow but steady ambulation, no SOB, after getting back to his room patient used the restroom to urinate without assist Balance Sitting Static: Normal Sitting Dynamic: Normal Standing Static: Good Standing Dynamic: Good Assessment/Needs Patient in bed post tx with nurse call, phone, tray, all needs met. Patient has impaired mobility, ambulates well using a rolling walker, O2 stayed above 95% during ambulation with 2L of O2 nasal canula. Rehab Potential: Fair PT Assisted Goals Assisted Goals PT Poultry Trimmer Goals Time Frame: Dec 04, 2021 Roll Left & Right (QC): 6 Sit to Lying (QC): 6 Lying-Sitting on Side/Bed(QC): 6 Sit to Stand (QC): 6 Chair/Aad-lh-Gdkgb Xfer(QC): 6 Walk 10 feet (QC): 6 Walk 50ft with 2 Turns (QC): 6 Walk 150 ft (QC): 6 1 Step (curb) (QC): 6 4 Steps (QC): 6 PT Plan Problem List Problem List: Activity Tolerance, Functional Strength, Safety, Balance, Gait, Transfer, ROM Treatment/Plan Treatment Plan: Continue Plan of Care Treatment Plan: Education, Functional Activity Jaxson, Functional Strength, Gait, Safety, Therapeutic Exercise, Transfers Treatment Duration: Dec 04, 2021 Frequency: 6 times per week Estimated Hrs Per Day: .25 hour per day Patient and/or Family Agrees t: Yes Safety Risks/Education Patient Education: Gait Training, Transfer Techniques, Correct Positioning, Safety Issues Teaching Recipient: Patient Teaching Methods: Demonstration, Discussion Response to Teaching: Reinforcement Needed Discharge Recommendations Plan Patient will perform bed mobility and transfer training, balance and endurance training, functional strengthening, stair training, gait training, and education, to improve functional mobility and independence at home. Therapy Discharge Recommendati: Home & Family, Post Acute PT Time/GCodes Time In: 817 Time Out: 831 Total Billed Treatment Time: 14 Total Billed Treatment 1 visit EVL JEFFRY VERONICA PT Nov 27, 2021 09:00
[2021-11-27] MEDS ORDERED: INSU100I23 SC (09:34)
[2021-11-27] MEDS ORDERED: AMLO-250 PO (09:34)
[2021-11-27] MEDS ORDERED: PREG100C55 PO ×2 (09:34)
[2021-11-27] MEDS ORDERED: DOXY50CA2 PO (09:34)
[2021-11-27] MEDS ORDERED: GABA300C PO ×2 (09:34)
[2021-11-27] MEDS ORDERED: TMSL.4C PO (09:34)
[2021-11-27] MEDS ORDERED: TRAZ-227 PO (09:34)
[2021-11-27] MEDS ORDERED: LISI5TAB20 PO (09:34)
[2021-11-27] MEDS ORDERED: FINA5TAB6 PO (09:34)
[2021-11-27] MEDS: APIXABAN 5 MG (ELIQUIS) TABLET PO SCH (10:02)
--- NOTE | 2021-11-27 10:07 | History & Physical ---
History of Present Illness HPI/Chief Complaint CC: Chest pain with SOB HPI: This is a 70 yr old male clinic pt of mine. Pt has a past medical history of morbid obesity, diabetes insulin dependent, and hypertension. He presented to the ER with chest pain. Troponins have been negative. Slightly elevated BNP noted. He has had weight gain. He does use his sleep apnea machine. He has been noting some low oxygen. Cardiac catheterization will be performed by Dr. Pan today. Home O2 study will be completed. Source: patient, family Exam Limitations: no limitations Date Seen 11/27/21 Time Seen by a Provider: 09:30 Attending Physician Jennifer Garcia DO PCP Admitting Physician: Aydee Carlisle MD Attending Physician: Jennifer Garcia DO Referring Physician Date of Admission Nov 26, 2021 at 16:58 Home Medications & Allergies Home Medications Reviewed patient Home Medication Reconciliation performed by pharmacy medication reconciliations it field technician and/or nursing. Patients Allergies have been reviewed. Allergies Allergies Coded Allergies No Known Drug Allergies (Unverified07/19/17) Past Jwpbmie-Hxlzem-Zpqlgf Hx Past Med/Social Hx: Reviewed Nursing Past Med/Soc Hx, Reviewed and Corrections made Patient Social History Marrital Status: Employed/Student: retired Alcohol Use: Denies Use Smoking Status: Never a Smoker Type Used: Pipe 2nd Hand Smoke Exposure: No Recent Hopitalizations: No Recent Infectious Disease Expo: No Immunizations Up To Date Tetanus Booster (TDap): Unknown Seasonal Allergies Seasonal Allergies: No Past Medical History Surgeries: Abdominal, Orthopedic Respiratory: COPD, Sleep Apnea Currently Using CPAP: Yes Cardiac: Angina, Atrial Fibrillation, Chronic Edema/Swelling, Deep Vein Thrombosis, High Cholesterol, Hypertension Neurological: Neuropathy, Seizure Disorder, Stroke Gastrointestinal: Gastroesophageal Reflux Musculoskeletal: Arthritis Endocrine: Diabetes, Insulin dep History of Blood Disorders: No Family History Diabetes, Hypertension Review of Systems Constitutional: see HPI, weakness EENTM: no symptoms reported Respiratory: dyspnea on exertion Cardiovascular: chest pain Gastrointestinal: no symptoms reported Genitourinary: no symptoms reported Musculoskeletal: no symptoms reported Skin: no symptoms reported Psychiatric/Neurological: No Symptoms Reported All Other Systems Reviewed Negative Unless Noted: Yes Physical Exam Physical Exam Vital Signs Vital Signs - First Documented 11/26/21 11/26/21 11/26/21 10:22 17:13 22:28 Temp 36.4 Pulse 82 Resp 16 B/P (MAP) 137/71 (93) Pulse Ox 98 O2 Delivery Room Air O2 Flow Rate 2.00 Capillary Refill : Less Than 3 Seconds Height, Weight, BMI Height: 5'9.00" Weight: 327lbs. 0.0oz. 148.820035qy; 50.99 BMI Method:Stated General Appearance: No Apparent Distress, WD/WN, Chronically ill, Obese HEENT: PERRL/EOMI, Normal ENT Inspection Neck: Normal Inspection; No JVD Respiratory: Chest Non Tender, Lungs Clear, Normal Breath Sounds, No Accessory Muscle Use Cardiovascular: Regular Rate, Rhythm, No Murmur, Normal Peripheral Pulses, Other (Lower extremity edema) Gastrointestinal: Normal Bowel Sounds, Non Tender, Soft Extremity: Normal Inspection, Non Tender, No Calf Tenderness, Pedal Edema Neurologic/Psychiatric: Alert, Oriented x3, No Motor/Sensory Deficits, Normal Mood/Affect, binding cutter synthetic cloth II-XII Norm as Tested Skin: Normal Color, Warm/Dry Results Results/Procedures Labs Laboratory Tests 11/26/21 10:27 11/27/21 05:35 Patient resulted labs reviewed. Assessment/Plan Admission Diagnosis Assessment: Chest pain Elevated BNP MATTHEWS Pseudoseizure d/o Tremor chronic left arm DM insulin dependent PAF? HTN HLP Failed Lap-Band SHAQ Recurrent DVT Plan: Cath today Home meds Admission Status: Observation Diagnosis/Problems Diagnosis/Problems (1) Chest pain Qualifiers: Chest pain type: unspecified Qualified Codes: R07.9 - Chest pain, unspecified (2) Dyspnea on exertion Status: Acute Clinical Quality Measures AMI/AHF: ASA po Prior to arrival: JENNIFER Lopez DO Nov 27, 2021 10:06
[2021-11-27] MEDS ORDERED: NS IV 1000 ML 1,000 ML IV SCH ×2 (10:15→13:30)
[2021-11-27] MEDS ORDERED: HEParin (CATH LAB) 2,000 ML IV ONE (10:18)
[2021-11-27] MEDS ORDERED: NS IV 1000 ML 0 ML ONE (10:18)
[2021-11-27] MEDS ORDERED: LIDOCAINE 1% INJ 20 ML VIAL ONE (10:18)
[2021-11-27] MEDS ORDERED: MIDAZOLAM 5 MG/5 ML (VERSED) VIAL ONE (11:39)
[2021-11-27] MEDS ORDERED: fentaNYL INJ 100 MCG/2 ML AMP ONE (11:39)
--- NOTE | 2021-11-27 11:40 | Occ Therapy Progress Note ---
Therapy Progress Note OT orders received and chart was reviewed. Pt getting out of shower at OT arrival. He reports independence with task and has been up ad jarad. RN and agree. Pt declines any self care concerns at this time (except donning socks which his does at baseline) in agreement. No skilled OT services warranted at this time. OT will discharge. 1 visit Britni Oquendo OT Nov 27, 2021 11:40
--- NOTE | 2021-11-27 13:20 | Consultation-Cardiology ---
HPI-Cardiology Cardiology Consultation: Date of Consultation 11/27/21 Time Seen by a Provider: 13:10 Date of Admission Attending Physician Jennifer Sanchez DO Admitting Physician Admitting Physician: Aydee Carlisle MD Attending Physician: Jennifer Sanchez DO Consulting Physician DARBY GODDARD MD, MA, FACP, FACC, [facility], CCDS HPI: Chief Complaint: Chest pain Mr. Rodrigues is a 70 yr old male who has been admitted to [facility] from the ED with c/o CP. He reports he began having left sided chest pain which radiated up into his left shoulder and down into his arm. He reports the discomfort as a pressure sensation. He states he took a full dose ASA under his tongue and the pain improved, but never went away completely. He reports he was able to carry out his normal activities. He states the discomfort to the LACW increased in intensity over the night on Saturday into Saturday. He then came to the ED. He reports the pain can occur with or without exertion. No c/o LE swelliing. He does have chr MATTHEWS, which has been somewhat more so recently. He reports a feeling of an irregular heartbeat off an on yesterday. No c/o syncope or near syncope. He reports he received nitro in the ED and the pain did improve. He does continue to have episodes of localized, LACW discomfort lasting only a few seconds. No c/o n/v/d. No c/o fever or chills. Review of Systems-Cardiology Review of Systems Constitutional: No chills, No fever, No malaise Eyes: No vision change Ears/Nose/Throat: No epistaxis Respiratory: As described under HPI Cardiovascular: As described under HPI Gastrointestinal: No constipation, No diarrhea, No nausea, No vomiting Genitourinary: No dysuria, No hematuria Skin: No rash on exposed areas, No ulcerations on exposed areas Psychiatric/Neurological: No anxiety, No depression, No seizure, No focal weakness, No syncope Hematologic: No bleeding abnormalities KHH-Gzgarr-Melcjj Hx Patient Social History Smoking Status: Never a Smoker 2nd Hand Smoke Exposure: No Have you traveled recently?: No Alcohol Use?: Yes Pt feels they are or have been: No Immunizations Up To Date Tetanus Booster (TDap): Unknown Past Medical History PMH As described under Assessment. Family Medical History Family Medical History: Reports father and one brother had heart trouble in their early 60s (details unknown) Allergies and Home Medications Allergies Coded Allergies: No Known Drug Allergies (Unverified , 07/19/17) Patient Home Medication List Home Medication List Reviewed: Yes Amlodipine Besylate (Amlodipine Besylate) 5 Mg Tablet, 5 MG PO DAILY, (Reported) Entered as Reported by: BHUMI FAITH on 11/27/21933 Last Action: Reviewed Apixaban (Eliquis) 5 Mg Tablet, 5 MG PO BID, (Reported) Entered as Reported by: JENNIFER SANCHEZ on 02/01/18 1124 Last Action: Reviewed Aspirin (Aspirin) 325 Mg Tablet, 325 MG PO DAILY, (Reported) Entered as Reported by: ALEX GASTELUM on 11/26/211804 Last Action: Reviewed Atorvastatin Calcium (Atorvastatin Calcium) 10 Mg Tablet, 10 MG PO DAILY, (Reported) Entered as Reported by: CK MALIK on 02/02/18 1032 Last Action: Reviewed Doxycycline Hyclate (Doxycycline Hyclate) 50 Mg Capsule, 50 MG PO DAILY, (Reported) Entered as Reported by: BHUMI FAITH on 11/27/21933 Last Action: Reviewed Finasteride (Finasteride) 5 Mg Tablet, 5 MG PO DAILY, (Reported) Entered as Reported by: BHUMI FAITH on 11/27/21933 Last Action: Reviewed Gabapentin (Neurontin) 300 Mg Capsule, 600 MG PO DAILY, (Reported) Entered as Reported by: BHUMI FAITH on 11/27/21933 Last Action: Reviewed Gabapentin (Neurontin) 300 Mg Capsule, 300 MG PO HS, (Reported) Entered as Reported by: BHUMI FAITH on 11/27/21933 Last Action: Reviewed Insulin Detemir (Levemir Flextouch) 100 Unit/Ml (3 Ml) Insuln.pen, 80 UNIT SQ HS, (Reported) Entered as Reported by: ALEX GASTELUM on 11/26/211804 Last Action: Reviewed Insulin Lispro (Humalog Kwikpen) 100 Unit/Ml Insuln.pen, 10-15 UNITS SC AC, (Reported) Entered as Reported by: BHUMI FAITH on 11/27/21933 Last Action: Reviewed Lisinopril (Lisinopril) 5 Mg Tablet, 5 MG PO HS, (Reported) Entered as Reported by: BHUMI FAITH on 11/27/21933 Last Action: Reviewed Pregabalin (Pregabalin) 100 Mg Capsule, 200 MG PO DAILY, (Reported) Entered as Reported by: BHUMI FAITH on 11/27/21933 Last Action: Reviewed Pregabalin (Pregabalin) 100 Mg Capsule, 100 MG PO HS, (Reported) Entered as Reported by: BHUMI FAITH on 11/27/21933 Last Action: Reviewed Tamsulosin HCl (Flomax) 0.4 Mg Cap, 0.4 MG PO HS, (Reported) Entered as Reported by: BHUMI FAITH on 11/27/21933 Last Action: Reviewed Trazodone HCl (Trazodone HCl) 100 Mg Tablet, 200 MG PO HS, (Reported) Entered as Reported by: BHUMI FAITH on 11/27/21933 Last Action: Edited Discontinued Medications Amlodipine Besylate (Amlodipine Besylate) 5 Mg Tablet, 5 MG PO DAILY Discontinued Reason: No Longer Taking Prescribed by: JENNIFER SANCHEZ on 02/02/18 1147 Last Action: Discontinued Aspirin (Aspir 81) 81 Mg Tablet.dr, 81 MG PO DAILY Discontinued Reason: No Longer Taking Prescribed by: JENNIFER SANCHEZ on 07/21/171239 Last Action: Discontinued Carbamazepine (Carbamazepine ER) 200 Mg Tab.er.12h, 400 MG PO BID Discontinued Reason: No Longer Taking Prescribed by: JENNIFER SANCHEZ on 07/21/171239 Last Action: Discontinued Celecoxib (Celecoxib) 400 Mg Capsule, 400 MG PO DAILY Discontinued Reason: No Longer Taking Prescribed by: JENNIFER SANCHEZ on 07/21/171239 Last Action: Discontinued Cephalexin (Cephalexin) 500 Mg Capsule, 500 MG PO DAILY, (Reported) Discontinued Reason: No Longer Taking Entered as Reported by: ALEX GASTELUM on 11/26/21 180 Last Action: Discontinued Clopidogrel Bisulfate (Clopidogrel) 75 Mg Tablet, 75 MG PO DAILY Discontinued Reason: No Longer Taking Prescribed by: JENNIFER SANCHEZ on 07/21/171239 Last Action: Discontinued Finasteride (Proscar) 5 Mg Tablet, 5 MG PO DAILY, (Reported) Discontinued Reason: No Longer Taking Entered as Reported by: ALEX GASTELUM on 11/26/211804 Last Action: Discontinued Gabapentin (Gabapentin) 300 Mg Capsule, 300 MG PO TID, (Reported) Discontinued Reason: No Longer Taking Entered as Reported by: JENNIFER SANCHEZ on 02/01/18 1124 Last Action: Discontinued Gabapentin (Gabapentin) 100 Mg Capsule, 200 MG PO TID, (Reported) Discontinued Reason: No Longer Taking Entered as Reported by: ALEX GASTELUM on 11/26/21 180 Last Action: Discontinued Hydrocodone Bit/Acetaminophen (Lortab 5 Mg Tablet) 1 Tab Tab, 1 EACH PO Q4-6HR PRN for PAIN-MODERATE Discontinued Reason: No Longer Taking Prescribed by: CALIN ELLISON on 02/23/18 1343 Last Action: Discontinued Insulin Glargine,Hum.rec.anlog (Lantus Solostar) 100 Unit/1 Ml Insuln.pen, 30 UNIT SQ HS Discontinued Reason: No Longer Taking Prescribed by: JENNIFER SANCHEZ on 02/02/18 1147 Last Action: Discontinued Lisinopril (Lisinopril) 5 Mg Tablet, 5 MG PO DAILY@0900 Discontinued Reason: No Longer Taking Prescribed by: JENNIFER SANCHEZ on 07/21/17 1240 Last Action: Discontinued Metformin HCl (Metformin HCl ER) 750 Mg Tab.er.24h, 750 MG PO BID, (Reported) Discontinued Reason: No Longer Taking Entered as Reported by: CK MALIK on 02/02/18 1035 Last Action: Discontinued Metoprolol Succinate (Metoprolol Succinate) 25 Mg Tab.er.24h, 25 MG PO DAILY, (Reported) Discontinued Reason: No Longer Taking Entered as Reported by: CK MALIK on 02/02/18 1034 Last Action: Discontinued Nitroglycerin (Nitroglycerin) 0.4 Mg Tab.subl, 0.4 MG SL PRN PRN for CHEST PAIN, (Reported) Discontinued Reason: No Longer Taking Entered as Reported by: CATIA GRISSOM on 07/21/17 1055 Last Action: Discontinued Pregabalin (Pregabalin) 50 Mg Capsule, 100 MG PO TID, (Reported) Discontinued Reason: No Longer Taking Entered as Reported by: ALEX GASTELUM on 11/26/21 180 Last Action: Discontinued Tamsulosin HCl (Flomax) 0.4 Mg Cap, 0.4 MG PO HS, (Reported) Discontinued Reason: No Longer Taking Entered as Reported by: ALEX GASTELUM on 11/26/21 1805 Last Action: Discontinued Topiramate (Topiramate) 100 Mg Tablet, 100 MG PO BID Discontinued Reason: No Longer Taking Prescribed by: JENNIFER SANCHEZ on 07/21/17 124 Last Action: Discontinued Trazodone HCl (Trazodone HCl) 100 Mg Tablet, 200 MG PO HS Discontinued Reason: Duplicate Order Prescribed by: JENNIFER SANCHEZ on 07/21/17 124 Last Action: Discontinued Zonisamide (Zonisamide) 100 Mg Capsule, 200 MG PO DAILY, (Reported) Discontinued Reason: No Longer Taking Entered as Reported by: CK MALIK on 02/02/18 1035 Last Action: Discontinued Zonisamide (Zonisamide) 100 Mg Capsule, 100 MG PO HS, (Reported) Discontinued Reason: No Longer Taking Entered as Reported by: CK MALIK on 02/02/18 1036 Last Action: Discontinued Physical Exam-Cardiology Physical Exam Vital Signs/I&O 11/27/21 11/27/21 11/27/21 11/27/21 04:00 07:53 08:27 12:16 Temp 36.5 36.3 Pulse 65 69 Resp 22 20 B/P (MAP) 150/72 (98) 140/77 (98) 147/66 (93) Pulse Ox 97 98 98 O2 Delivery Nasal Cannula Nasal Cannula Nasal Cannula Nasal Cannula O2 Flow Rate 2.00 2.00 2.00 2.00 11/26/21 23:59 Intake Total 1475 ml Output Total 400 ml Balance 1075 ml Capillary Refill : Less Than 3 Seconds Constitutional: AAO x 3, well-developed, well-nourished HEENT: PERRL, hearing is well preserved, oral hygience is good Neck: No carotid bruit; carotid pulses are 2 + bilaterally Respiratory: No accessory muscle use, No respiratory distress; chest expansion is symmetric, chest is bilaterally symmetric, other (good air entry) Cardiovascular: No regular rate-rhythm, No JVD; S1 and S2, systolic murmur Gastrointestinal: No tender; soft, round, audible bowel sounds Extremities: No no lower extremity edema bilateral Neurologic/Psychiatric: grossly intact (moves all extremities) Skin: No rash on exposed areas, No ulcerations on exposed areas Data Review Labs Laboratory Tests 11/26/21 14:17: Troponin I < 0.028 11/27/21 05:35: Troponin I < 0.028, White Blood Count 7.3, Red Blood Count 5.37, Hemoglobin 14.0, Hematocrit 45, Mean Corpuscular Volume 85, Mean Corpuscular Hemoglobin 26, Mean Corpuscular Hemoglobin Concent 31L, Red Cell Distribution Width 15.5H, Platelet Count 227, Mean Platelet Volume 10.2, Sodium Level 141, Potassium Level 4.9, Chloride Level 107, Carbon Dioxide Level 21, Anion Gap 13, Blood Urea Nitrogen 18, Creatinine 1.40H, Estimat Glomerular Filtration Rate 55, BUN /Creatinine Ratio 13, Glucose Level 137H, Calcium Level 9.2, Corrected Calcium 9.2, Total Bilirubin 0.5, Aspartate Amino Transf (AST/SGOT) 22, Alanine Aminotransferase (ALT/SGPT) 21, Alkaline Phosphatase 58, Total Protein 7.0, Albumin 4.0, Triglycerides Level 151H, Cholesterol Level 119, LDL Cholesterol Direct 51, VLDL Cholesterol 30, HDL Cholesterol 42 A/P-Cardiology Assessment/Admission Diagnosis Chest pain, non-cardiac, etiology undetermined - see card cath results of 11/27/21 below Coronary artery disease - had a cardiac catheterization done in July 2017 showed nonobstructive disease, 50% mid LAD stenosis, EF 60 to 65%, 18 mmHg gradient across the aortic valve. - Stress test was done at [facility] in August 2020: reported as no evidence of reversible ischemia, had moderate size infarct of the inferior wall, ejection fraction 56% - card cath on 11/27/21: Mild cor calcification of the L cors, LMCA ok, LAD mild plaque and up to approx 30% mid vessel stenosis, LCX dominant, PL from LCX has approx 30% prox stenosis, RCA non-dominant and w/o significant disease, LVEDP 15 mmHg, LVEF approx 60% Mild aortic valve stenosis, 18 mmHg of gradient during pullback during angiogram, having occasional episode of chest pain. Paroxysmal atrial fibrillation - Had a loop monitor implanted in 2017, no further episodes of atrial fibrillation noted, loop monitor was implanted on July 30, 2017. Reached CAROL. No arrhythmia was detected during the 4 years period - OAC with Eliquis History of DVT/PE - maintained on Eliquis. COPD/obstructive sleep apnea - using CPAP. Hypertension Hyperlipidemia - statin tx History of carotid stenosis, , mild bilateral carotid stenosis, carotid ultrasound was done in July [address] Bowden H/O CVA in 2007 Surgical history - History of arthritis, hernia repair surgery, lap band surgery, cholecystectomy, lower back surgery, hip replacement. BMI 51 History of seizure disorder, well controlled, managed by primary care Discussion and Recomendations I saw him this morning and at the time of card cath. Informed consent was obtained for cath prior to cath. Procedures, risks, benefits and potential complications of cardiac cath with possible ad hoc coronary intervention including potential worsening of renal function d/t existing CKD. He verbalized understanding and provides informed consent. Results of cath were discussed with him and his after the procedure Noncardiac chest pain Risk factor modification discussed Continue previous cardiac regimen. Continue ASA and OAC F/u advised with Dr Bowden in 3-4 weeks Vigorous perioperative hydration was provided to reduce risk of contrast nephropathy Clinical Quality Measures AMI/AHF: ASA po Prior to arrival: DARBY Murcia MD FACP FAC CCDS Nov 27, 2021 13:20
[2021-11-27] MEDS ORDERED: PATIENT MAY USE OWN MEDS, ALL PO SCH (13:30)
--- NOTE | 2021-11-27 16:53 | CARDIAC CATHETERIZATION ---
DATE OF SERVICE: 11/27/2021 CARDIAC CATHETERIZATION The patient is a 70-year-old gentleman who has multiple coronary artery disease risk factors and who presented with chest discomfort suggestive of new onset angina. He is known to have mild coronary artery disease and a cardiac catheterization in 2018. On the stress test carried out in 2020 at [facility] in [place], [place], he was reported to have had evidence of anterior wall myocardial infarction. Given all these data, cardiac catheterization was carried out today after having obtained an informed consent. DESCRIPTION OF PROCEDURE: Vigorous perioperative hydration was initiated before the heart catheterization, continued through heart catheterization and afterwards. The right groin was prepared and draped in the usual sterile fashion. Lidocaine 1% was used for local anesthesia. Modified Seldinger technique was used to advance a 5-[place] sheath in right femoral artery, 5-[place] JL4 catheter was used for left coronary angiography, 5-[place] JR4 catheter was used for right coronary angiography, 5-[place] pigtail catheter was used for left heart catheterization and left ventricular angiography. We also performed aortic root angiography to make sure that no coronary vessel had been missed. Angiography of the right femoral artery was carried out through the sheath. Mynx was used to achieve hemostasis. HEMODYNAMICS: Left ventricular end-diastolic pressure following coronary angiography was 15 mmHg. There was no significant pressure gradient on pullback across the aortic valve. Ascending aortic pressure was 114/59 with a mean of 65 mmHg. LEFT VENTRICULAR ANGIOGRAPHY: Left ventricular angiography was carried out in the right anterior oblique projection. Global left ventricular systolic function is normal. No regional wall motion abnormalities seen. Left ventricular ejection fraction approximately 60%. AORTIC ROOT ANGIOGRAPHY: Aortic root angiography did not indicate any significant aortic root dilatation or aortic regurgitation. Aortic valve leaflets exhibit good leaflet excursion. Left and right coronary vessels were identified and earlier had been engaged selectively. No additional coronary vessel was seen. CORONARY ANGIOGRAPHY: There is mild proximal coronary calcification of the left coronary vessel. Left main coronary artery is free of significant disease. Left anterior descending artery has approximately 30% mid vessel stenosis. Left circumflex artery is dominant and has approximately 30% stenosis in the proximal portion of the posterolateral branch from the circumflex artery. The right coronary artery is nondominant and does not exhibit significant disease. CONCLUSION: 1. Angiographically mild coronary artery disease. 2. Normal regional wall motion. 3. Left ventricular end-diastolic pressure is approximately 15 mmHg. 4. Left ventricular ejection fraction is approximately 60%. DISCUSSION AND RECOMMENDATIONS: Based on results of the study, chest discomfort does not appear to have been of coronary origin. Continuing risk factor modification is advised. Outpatient followup is advised. Job ID: [id number] DocumentID: [id number] Dictated Date: 11/27/2021 13:32:58 [employer] Internship Date: 11/27/2021 16:53:21 Dictated By: DARBY GODDARD MD, MA, FACP, FACC,
[2021-11-27] MEDS ORDERED: inSUlin ASPART (NovoLOG) 1 UNIT/0.01 ML (CHARGE PER UNIT) SC SCH (17:00)
[2021-11-27] MEDS ORDERED: MTP25TSR PO (17:16)
[2021-11-27] MEDS ORDERED: PREGABALIN 100 MG (LYRICA) CAPSULE PO SCH (21:00)
[2021-11-27] MEDS ORDERED: APIXABAN 5 MG (ELIQUIS) TABLET PO SCH (21:00)
[2021-11-27] MEDS ORDERED: GABAPENTIN 300 MG (NEURONTIN) CAP PO SCH (21:00)
[2021-11-27] MEDS ORDERED: TAMSULOSIN 0.4 MG (FLOMAX) CAP PO SCH (21:00)
[2021-11-27] MEDS ORDERED: lisINopril 5 MG (PRINIVIL) TABLET PO SCH (21:00)
[2021-11-28] MEDS ORDERED: PREGABALIN 100 MG (LYRICA) CAPSULE PO SCH (09:00)
[2021-11-28] MEDS ORDERED: amLODIPine 5 MG (NORVASC) TAB PO SCH (09:00)
[2021-11-28] MEDS ORDERED: AtorvaSTATin TABLET 10 MG TABLET PO SCH (09:00)
[2021-11-28] MEDS ORDERED: ASPIRIN 325 MG (5 GR) TABLET PO SCH (09:00)
[2021-11-28] MEDS ORDERED: FINASTERIDE (PROSCAR) 5 MG TAB PO SCH (09:00)
[2021-11-28] MEDS ORDERED: GABAPENTIN 300 MG (NEURONTIN) CAP PO SCH (09:00)
[2021-11-28] MEDS ORDERED: DOXYCYCLINE 100 MG (VIBRAMYCIN) TABLET PO SCH (09:00)
== END 2021-11-27 17:56 | disposition home or self-care (01) ==
LOC: EDUNIT# 10:19 → ER 10:22 → CSD 16:58
PROVIDERS: ADMIT Internal Medicine; ATTEND Internal Medicine
DX: R07.89 Other chest pain (principal); I25.119 Atherosclerotic heart disease of native coronary artery with unspecified angina pectoris; I48.0 Paroxysmal atrial fibrillation; E11.40 Type 2 diabetes mellitus with diabetic neuropathy, unspecified; I35.0 Nonrheumatic aortic (valve) stenosis; J44.9 Chronic obstructive pulmonary disease, unspecified; G47.33 Obstructive sleep apnea (adult) (pediatric); I65.23 Occlusion and stenosis of bilateral carotid arteries; E66.01 Morbid (severe) obesity due to excess calories; Z68.43 Body mass index [BMI] 50.0-59.9, adult; E78.00 Pure hypercholesterolemia, unspecified; I10 Essential (primary) hypertension; G40.909 Epilepsy, unspecified, not intractable, without status epilepticus; K21.9 Gastro-esophageal reflux disease without esophagitis; Z79.4 Long term (current) use of insulin; Z79.84 Long term (current) use of oral hypoglycemic drugs; Z79.82 Long term (current) use of aspirin
CPT/HCPCS: 71045; 80053 ×2; 80061; 83735; 83874; 84484 ×2; 85025; 85027; 85610; 85730; 93005; 93041; 93458; 93567; 94761; 96361; 97161; 99284; C1760; C1894; G0378; 36415

== ENCOUNTER → 2022-01-09 | Outpatient (CLI) | payer MEDICARE ==
[~2022-01-09] MED LIST changes: +ASPI-808 PO; +CEPH500C PO; +DOXY50CA2 PO; +FINA5TAB PO; +FINA5TAB6 PO; +GABA-486 PO; +GABA300C PO; +INSU100I23 SC; +INSU100I29 SQ; +PREG100C55 PO; +PREG50CA65 PO; +TMSL.4C PO
[2022-01-09 08:55] LABS: ALBUMIN 4.1 GM/DL (3.2-4.5); BILIRUBIN,TOTAL 0.6 MG/DL (0.1-1.0); CALCIUM 9.6 MG/DL (8.5-10.1); CREATININE SERUM 1.5 MG/DL (0.60-1.30); TOTAL PROTEIN 7.1 GM/DL (6.4-8.2)
== END ==
LOC: LAB 08:16
PROVIDERS: ATTEND Internal Medicine
DX: Z13.6 Encounter for screening for cardiovascular disorders (principal); E11.65 Type 2 diabetes mellitus with hyperglycemia; R97.20 Elevated prostate specific antigen [PSA]; I10 Essential (primary) hypertension
CPT/HCPCS: 36415; 80053; 82465; 83036; 84153; 84478

== ENCOUNTER 2022-01-26 05:27 | Outpatient (CLI) | payer MEDICARE ==
[~2022-01-26] VITALS: Ht 177.8 cm; Wt 158.8 kg
== END 2022-01-26 11:40 | disposition home or self-care (01) ==
LOC: PREOP 05:27
PROVIDERS: ATTEND Surgery
DX: Z01.818 Encounter for other preprocedural examination (principal)

== ENCOUNTER 2022-01-31 13:21 | Day surgery (SDC) | payer MEDICARE ==
[~2022-01-31] VITALS: Ht 177.8 cm; Wt 158.8 kg
[2022-01-31] MEDS ORDERED: LACTATED RINGERS 1,000 ML IV STA (13:32)
[2022-01-31 13:45] VITALS: BP 151/76
[2022-01-31] MEDS ORDERED: HURRICAINE EXT TUBE (BENZOCAINE) XX PRN (13:45)
[2022-01-31] MEDS ORDERED: LIDOCAINE JELLY 2% 6 ML SYRINGE MM PRN (13:45)
[2022-01-31] MEDS ORDERED: LACTATED RINGERS 1,000 ML IV ONE (14:11)
--- NOTE | 2022-01-31 14:23 | Progress Note-Pre Operative ---
Pre-Operative Progress Note Date of Available H&P: Jan 31, 2022 Date H&P Reviewed: Jan 31, 2022 Time H&P Reviewed: 14:00 History & Physical: No changes noted Pre-Operative Diagnosis: GERD/dysphagia, screening o MILLER DE LEON MD Jan 31, 2022 14:23
[2022-01-31] MEDS ORDERED: PANT40TA2 PO (14:24)
--- NOTE | 2022-01-31 14:24 | Discharge Inst-Surgical ---
D/C Lap Instructions-MOISES Follow Up Activity as tolerated High Fiber Diet 25g or more per day Avoid Alcohol, Caffeine, Spicy [place] and Acid foods. Drink 64 fluid oz or more of fluids per day. Symptoms to Report: Fever over 101 degree F, Nausea/Vomiting If any problems/questions: Contact your physician or go to Emergency Room MILLER DE LEON MD Jan 31, 2022 14:24
[2022-01-31] MEDS ORDERED: ONDANSETRON 4 MG (ZOFRAN) ORAL DISSOLVE TAB PO PRN (14:30)
[2022-01-31] MEDS ORDERED: ONDANSETRON 4 MG/2 ML (SDV) Z0FRAN IVP PRN (14:30)
[2022-01-31] MEDS ORDERED: PROPOFOL INJECTION 50 ML IV ONE (15:00)
[2022-01-31] MEDS ORDERED: MIDAZOLAM 2 MG/2 ML (VERSED) VIAL ONE (15:00)
--- NOTE | 2022-01-31 15:04 | Progress Note-Post Operative ---
Post-Operative Progess Note Surgeon (s)/Data Analysis Manager (s) Surgeon MILLER DE LEON MD Data Analysis Manager: none Pre-Operative Diagnosis GERD/dysphagia, screening colo Post-Operative Diagnosis mild sigmoid diverticulosis Procedure & Operative Findings Date of Procedure 01/31/22 Procedure Performed/Findings colonoscopy Anesthesia Type mac Estimated Blood Loss Estimated blood loss (mL): minimal Specimens/Packing Specimens Removed none MILLER DE LEON MD Jan 31, 2022 15:04
[2022-01-31] MEDS ORDERED: KETAMINE 50 MG/5 ML SYRINGE ONE (15:08)
[2022-01-31 15:41] VITALS: BP 151/76
[2022-01-31 15:46] VITALS: BP 140/79
--- NOTE | 2022-01-31 15:46 | Anesthesia-General Post-Op ---
MAC Patient Condition Mental Status/LOC: Same as Preop Cardiovascular: Satisfactory Nausea/Vomiting: Absent Respiratory: Satisfactory Pain: Controlled Complications: Absent Post Op Complications Complications None Follow Up Care/Instructions Patient Instructions None needed. Anesthesiology Discharge Order Discharge Order Patient is doing well, no complaints, stable vital signs, no apparent adverse anesthesia problems. No complications reported per nursing. DAVID MURILLO DO Jan 31, 2022 15:46
[2022-01-31 15:50] VITALS: BP 140/83
[2022-01-31 16:20] VITALS: BP 147/80
[2022-01-31 16:40] VITALS: BP 147/80
--- NOTE | 2022-01-31 21:34 | OPERATIVE REPORT ---
DATE OF SERVICE: 01/31/2022 ATTENDING PRIMARY CARE PHYSICIAN: Dr. Jennifer Garcia. PREOPERATIVE DIAGNOSES: Gastroesophageal reflux disease, dysphagia, screening colonoscopy. POSTOPERATIVE DIAGNOSES: Reflux esophagitis, [place] grade C. There were no strictures, dilated esophagus, intact gastric band did not appear to have any erosion or slippage, moderate gastritis, moderate sigmoid diverticulosis. PROCEDURE: EGD with biopsy, colonoscopy. SURGEON: Miller Laurent MD ANESTHESIA: Monitored anesthesia care. ESTIMATED BLOOD LOSS: Minimal. FINDINGS: Same as postoperative diagnosis. DISPOSITION: The patient tolerated the procedure well. INDICATIONS: The patient is a 71-year-old male, who was referred to the office for dysphagia. He reports difficulty swallowing of some types of foods and states that this has worsened. He is status post laparoscopic adjustable gastric band placement in 2006; however, has been noncompliant for years. There is no fluid within the band. He is also in need of a colonoscopy. He has not had a colonoscopy up to this point in his life. He does not recall any major issues with diarrhea nor constipation as well as no red blood per rectum nor any dark tarry stools. He also does not report any family history of colon cancer. DESCRIPTION OF PROCEDURE: The patient was brought to the endoscopy suite, laid in the left lateral decubitus position. After adequate IV pain and sedative medications and monitored anesthesia care, the mouthpiece was applied. The endoscope was placed in the mouth; the vocal cords, epiglottis and vallecula identified and appeared to be normal. The endoscope was gently intubated into the esophageal opening and esophagus insufflated. The endoscope was then advanced through the first, second and third portion of esophagus at the level of the GE junction, reflux esophagitis, [place] grade C identified. There was also a dilated esophagus that occur status post laparoscopic adjustable gastric band placement with chronic noncompliance. There was no esophageal stricture identified. The band appeared to be intact. A biopsy was taken of the GE junction with forceps with visualization of good hemostasis. The endoscope was then advanced in the stomach and endoscope retroflexed, visualizing the band with no erosion as well as what appeared to be proper placement. There was a moderate severity gastritis more towards the stomach antrum. No formal ulcerations, polyps, or any neoplasms. A biopsy was taken of the antrum to rule out H. pylori with forceps with visualization of good hemostasis. The endoscope was then advanced through the pylorus and the first and second portion of duodenum with no distal obstructions. The endoscope was then slowly withdrawn while taking a second look and suctioning of residual air with no additional findings. A digital rectal examination was performed. No significant hemorrhoids identified. Normal sphincter tone was felt and there were no palpable masses. Prostate gland was palpable and appeared normal. The endoscope was then intubated to the anus and rectum gently insufflated. The endoscope was then advanced through the valves of [place] of the rectum with no polyps or any neoplasms identified. We then proceeded through the sigmoid colon where a moderate sigmoid diverticulosis identified. There were no mucosal inflammatory changes to indicate any active diverticulitis. The endoscope was then advanced to the remainder of the descending, transverse and ascending colon to the cecum, which were normal. There were no polyps or any neoplasms identified throughout the colon or rectum. Endoscope was then slowly withdrawn while taking a second look and suctioning of residual air with no additional findings. The patient tolerated the procedure well. We will recommend the necessary lifestyle and dietary accommodation including small and more frequent meals and to chew thoroughly and to stop eating when he does feel restriction. We will also start him on omeprazole 40 mg daily. We will also recommend a high-fiber diet with an addition of a fiber supplement, which should equal or exceed 30 grams daily to promote soft consistency stools on a daily basis. If he is asymptomatic, he does not need another colonoscopy for another 10 years. Job ID: [id number] DocumentID: [id number] Dictated Date: 01/31/2022 15:41:47 Basketball Coach Date: 01/31/2022 21:33:35 Dictated By: MILLER LAURENT MD
== END 2022-01-31 16:30 | disposition home or self-care (01) ==
LOC: ENDO 13:21
PROVIDERS: ATTEND Surgery
DX: Z12.11 Encounter for screening for malignant neoplasm of colon (principal); K22.70 Barrett's esophagus without dysplasia; K31.9 Disease of stomach and duodenum, unspecified; Z87.891 Personal history of nicotine dependence; Z79.01 Long term (current) use of anticoagulants; Z79.82 Long term (current) use of aspirin; Z79.4 Long term (current) use of insulin; Z98.84 Bariatric surgery status; Z28.310 Unvaccinated for COVID-19

== ENCOUNTER → 2022-05-07 | Outpatient (CLI) | payer MEDICARE ==
[~2022-05-07] MED LIST changes: +PANT40TA2 PO
[2022-05-07 09:02] LABS: ALBUMIN 4.1 GM/DL (3.2-4.5); BILIRUBIN,TOTAL 0.4 MG/DL (0.1-1.0); CALCIUM 9.1 MG/DL (8.5-10.1); CREATININE SERUM 1.66 MG/DL (0.60-1.30); POTASSIUM 5.5 MMOL/L (3.6-5.0); TOTAL PROTEIN 7.5 GM/DL (6.4-8.2)
== END ==
LOC: LAB 08:18
PROVIDERS: ATTEND Internal Medicine
DX: Z13.6 Encounter for screening for cardiovascular disorders (principal); E11.65 Type 2 diabetes mellitus with hyperglycemia; I10 Essential (primary) hypertension
CPT/HCPCS: 36415; 80053; 82465; 83036; 84478

== ENCOUNTER → 2022-09-04 | Outpatient (CLI) | payer MEDICARE ==
[~2022-09-04] MED LIST changes: -INSU100I29 SQ; +INSU100I30 SQ
[2022-09-04 09:35] LABS: BASOPHILS # (AUTO) 0.1 10^3/uL (0.0-0.1); BASOPHILS % (AUTO) 1 % (0-10); EOSINOPHILS # (AUTO) 0.2 10^3/uL (0.0-0.3); EOSINOPHILS % (AUTO) 2 % (0-10); HEMATOCRIT 45 % (40-54); HEMOGLOBIN 14.9 g/dL (13.3-17.7); LYMPHOCYTES % (AUTO) 22 % (12-44); MEAN CORPUSCULAR HEMOGLOBIN 29 pg (25-34); MEAN CORPUSCULAR HGB CONC 33 g/dL (32-36); MEAN CORPUSCULAR VOLUME 86 fL (80-99); MEAN PLATELET VOLUME 10.4 fL (9.0-12.2); MONOCYTES # (AUTO) 0.7 10^3/uL (0.0-1.0); MONOCYTES % (AUTO) 8 % (0-12); NEUTROPHILS % (AUTO) 67 % (42-75); PLATELET COUNT 273 10^3/uL (130-400); WHITE BLOOD COUNT 8.9 10^3/uL (4.3-11.0)
[2022-09-04 09:41] LABS: ALBUMIN 4.2 GM/DL (3.2-4.5); BILIRUBIN,TOTAL 0.5 MG/DL (0.1-1.0); CREATININE SERUM 1.61 MG/DL (0.60-1.30); POTASSIUM 4.7 MMOL/L (3.6-5.0); TOTAL PROTEIN 7.6 GM/DL (6.4-8.2)
== END ==
LOC: LAB 08:19
PROVIDERS: ATTEND Internal Medicine
DX: Z13.6 Encounter for screening for cardiovascular disorders (principal); I10 Essential (primary) hypertension; E11.65 Type 2 diabetes mellitus with hyperglycemia; R97.20 Elevated prostate specific antigen [PSA]
CPT/HCPCS: 36415; 80053; 80061; 83036; 84153; 84443; 85025

== ENCOUNTER → 2022-11-08 | Outpatient (CLI) | payer MEDICARE ==
--- NOTE | 2022-11-08 15:09 | Diagnostic Imaging Report ---
INDICATION: Right hip pain COMPARISON: None available TECHNIQUE: 2 radiographs of the right hip dated 11/08/2022 FINDINGS: No acute fracture or dislocation. No destructive osseous process. Mild joint space narrowing of the right hip with associated mild osteophyte formation. The right femoral head maintains its normal shape and contour. No suspicious radiopaque foreign body. IMPRESSION: No acute osseous abnormality with mild degenerative changes of the right hip. Dictated by: Dictated on workstation # [id number]
== END ==
LOC: RAD 10:23
PROVIDERS: ATTEND Internal Medicine
DX: M16.11 Unilateral primary osteoarthritis, right hip (principal)
CPT/HCPCS: 73502

== ENCOUNTER 2023-01-08 18:25 | Emergency (ER) | payer MEDICARE ==
[~2023-01-08 18:25] MED LIST changes: -CEPH500T PO
[2023-01-08] MEDS ORDERED: LIDOCAINE 1% w/EPI 1:100,000 20 ML VIAL ONE (18:46)
--- NOTE | 2023-01-08 18:48 | ED Lower Extremity ---
General Stated Complaint: RIGHT LEG LAC Source: patient Exam Limitations: no limitations History of Present Illness Date Seen by Provider: Jan 08, 2023 Time Seen by Provider: 18:45 Initial Comments Patient is a 72-year-old male who presents ED with a laceration to his right lower leg. This occurred around 1030 this morning. Patient Was going up a ladder when he hit part of the step above him resulting in a U-shaped laceration to his lower leg. Patient states he was able to control some of the bleeding initially. Then this afternoon bleeding continue. Applied abdominal pads with bandage but the bleeding continued through the abdominal pad. He is currently on a blood thinner. He is able to stand and bear weight. Up-to-date on his tetanus shot within the past 5 years. Allergies and Home Medications Allergies Coded Allergies: adhesive tape (Unverified Allergy, Unknown, 01/26/22) Patient Home Medication List Home Medication List Reviewed: Yes Amlodipine Besylate (Amlodipine Besylate) 5 Mg Tablet, 5 MG PO DAILY, (Reported) Entered as Reported by: BHUMI FAITH on 11/27/21 09 Apixaban (Eliquis) 5 Mg Tablet, 5 MG PO BID, (Reported) Entered as Reported by: MOLLY SANCHEZ on 02/01/18 1124 Aspirin (Aspirin) 325 Mg Tablet, 325 MG PO DAILY, (Reported) Entered as Reported by: ALEX GASTELUM on 11/26/21 1805 Atorvastatin Calcium (Atorvastatin Calcium) 10 Mg Tablet, 10 MG PO DAILY, (Reported) Entered as Reported by: CK MALIK on 02/02/18 103 Cephalexin (Cephalexin) 500 Mg Tablet, 500 MG PO TID Prescribed by: NAYA MORLEY on 01/08/232027 Doxycycline Hyclate (Doxycycline Hyclate) 50 Mg Capsule, 50 MG PO DAILY, (Reported) Entered as Reported by: BHUMI FAITH on 11/27/21 09 Finasteride (Finasteride) 5 Mg Tablet, 5 MG PO DAILY, (Reported) Entered as Reported by: BHUMI FAITH on 11/27/21 09 Gabapentin (Neurontin) 300 Mg Capsule, 600 MG PO DAILY, (Reported) Entered as Reported by: BHUMI FAITH on 11/27/21 09 Gabapentin (Neurontin) 300 Mg Capsule, 300 MG PO HS, (Reported) Entered as Reported by: BHUMI FAITH on 11/27/21933 Insulin Detemir (Levemir Flextouch) 100 Unit/Ml (3 Ml) Insuln.pen, 80 UNIT SQ HS, (Reported) Entered as Reported by: ALEX GASTELUM on 11/26/21 1805 Insulin Lispro (Humalog Kwikpen) 100 Unit/Ml Insuln.pen, 10-15 UNITS SC AC, (Reported) Entered as Reported by: BHUMI FAITH on 11/27/21933 Lisinopril (Lisinopril) 5 Mg Tablet, 5 MG PO HS, (Reported) Entered as Reported by: BHUMI FAITH on 11/27/21933 Metoprolol Succinate (Metoprolol Succinate) 25 Mg Tab.er.24h, 25 MG PO DAILY Prescribed by: MOLLY SANCHEZ on 11/27/21 1716 Pantoprazole Sodium (Protonix) 40 Mg Tablet.dr, 40 MG PO DAILY Prescribed by: MILLER DE LEON on 01/31/22 1424 Pregabalin (Pregabalin) 100 Mg Capsule, 200 MG PO DAILY, (Reported) Entered as Reported by: BHUMI FAITH on 11/27/21933 Pregabalin (Pregabalin) 100 Mg Capsule, 100 MG PO HS, (Reported) Entered as Reported by: BHUMI FAITH on 11/27/21933 Tamsulosin HCl (Flomax) 0.4 Mg Cap, 0.4 MG PO HS, (Reported) Entered as Reported by: BHUMI FAITH on 11/27/21933 Trazodone HCl (Trazodone HCl) 100 Mg Tablet, 200 MG PO HS, (Reported) Entered as Reported by: BHUMI FAITH on 11/27/21933 Review of Systems Constitutional: No chills, No diaphoresis EENTM: No ear pain, No blurred vision, No mouth swelling Respiratory: No cough, No dyspnea on exertion Cardiovascular: No chest pain, No edema Gastrointestinal: No abdominal pain, No diarrhea, No nausea, No vomiting Genitourinary: No decreased output, No discharge Musculoskeletal: No back pain, No joint pain; muscle pain Skin: change in color, other (laceration) All Other Systems Reviewed Negative Unless Noted: Yes Past Rpmgoqs-Zzonrs-Pafjzf Hx Immunizations Up To Date Tetanus Booster (TDap): Unknown First/Initial COVID19 Vaccinat: N/A Second COVID19 Vaccination Dennis: N/A Third COVID19 Vaccination Date: N/A Seasonal Allergies Seasonal Allergies: No Past Medical History Surgeries: Yes (lap band, L HIP, BILAT KNEE, HERNIA X3, LT KNEE BLOOD CLOT REMOVAL) Abdominal, Gallbladder, Orthopedic Respiratory: Yes Sleep Apnea Currently Using CPAP: Yes Cardiac: Yes Angina, Atrial Fibrillation, Chronic Edema/Swelling, Deep Vein Thrombosis, Heart Attack, High Cholesterol, Hypertension Neurological: Yes Neuropathy, Seizure Disorder, Stroke Genitourinary: Yes (URINARY FREQUENCY) Gastrointestinal: No Gastroesophageal Reflux Musculoskeletal: Yes Arthritis Endocrine: Yes Diabetes, Insulin dep HEENT: Yes Dysphagia Cancer: No Psychosocial: No Integumentary: Yes Blood Disorders: No Family Medical History Diabetes, Hypertension Physical Exam Vital Signs Vital Signs - First Documented 01/08/23 18:35 Temp 36.4 Pulse 67 Resp 16 B/P (MAP) 151/78 (102) Pulse Ox 96 O2 Delivery Room Air Capillary Refill : Height, Weight, BMI Height: 5'9.00" Weight: 327lbs. 0.0oz. 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 Mild bleeding. Adipose involvement.) Procedures/Interventions Wound Location: Lower Extremities Other Wound Location right lower leg Wound Length (cm): 24 Wound's Depth, Shape: superficial, sub Q Wound Explored: clean Irrigated w/ Saline (ccs): 500 Betadine Prep?: Yes Anesthesia: Lidocaine w/ Epi Volume Anesthetic (ccs): 12 Suture: Ethlion Suture Size: 4-0 Number of Sutures: 24 Layer Closure?: 1 Sterile Dressing Applied?: Yes Progress/Results/Core Measures Results/Orders My Orders Orders - CANDACE MANZO Lidocaine 1% W/Epi 1:100,000 (Xylocaine (01/08/23 18:46) Medications Given in ED Current Medications Medications Dose Ordered Sig/Adarsh Route Start Time Stop Time Status Last Admin Dose Admin Lidocaine/ Epinephrine 20 ml STK-MED ONCE .ROUTE 01/08/23 18:46 01/08/23 18:48 DC 01/08/23 19:13 10 ML Vital Signs/I&O 01/08/23 01/08/23 18:35 20:39 Temp 36.4 36.4 Pulse 67 68 Resp 16 16 B/P (MAP) 151/78 (102) 172/81 Pulse Ox 96 98 O2 Delivery Room Air Room Air Departure Communication (PCP) Patient is a 72-year-old male who presents ED with a laceration to his right lower extremity. Patient is currently on a blood thinner. History of stasis dermatitis of lower extremity with chronic swelling. Continued bleeding throughout the day. On exam he does have some mild bleeding from the wound. Patient with 6 cm U-shaped laceration with adipose involvement. appears to be superficial. Skin is thin but I do think I can approximate to help control bleeding better and allow better healing and to help prevent infection. Patient is a diabetic. Differential diagnosis laceration, skin tear. I do think sutures are needed. I was able to do localized lidocaine with epinephrine. Bleeding became better controlled. I Was able to cauterize a small superficial blood vessel that was bleeding. . Applied 24 4-0 Ethilon sutures. Procedure document note. Extensive irrigation with normal saline and Shur cleans. Due to being diabetic will discharge with Keflex prophylactically. Skin was close to approximation but left slightly open to allow drainage. Discussed with patient it is important to elevate his leg at night, compression socks or a Keshav wrap to who help prevent hematoma. Avoid excessive walking. Recommend ice to help with swelling. Topical Neosporin twice a day discussed wound care. Remove sutures in 12 to 14 days. If increased redness or swelling to return back to ED. Impression Primary Impression: Laceration of leg Disposition: 01 HOME, SELF-CARE Condition: Stable Departure-Patient Inst. Decision time for Depature: 20:27 Referrals: MOLLY SANCHEZ DO (PCP/Family) Primary Care Physician Patient Instructions: Laceration Repair With Stitches ED Add. Discharge Instructions: Remove sutures in 12 to 14 days. Take antibiotics prop as prescribed. Keshav wrap for support. Elevate your leg. Ice to help with swelling 3-4 times a day for the next 3 days 2030 minutes. Topical Neosporin with bandage changes twice a day Scripts Cephalexin (Cephalexin) 500 Mg Tablet 500 MG PO TID for 7 Days, #21 TAB Prov: CANDACE MANZO 01/08/23 CANDACE MANZO Jan 08, 2023 18:48
[2023-01-08] MEDS ORDERED: CEPH500T PO (20:28)
[2023-01-08 20:39] VITALS: BP 172/81
== END 2023-01-08 20:41 | disposition home or self-care (01) ==
LOC: ER 18:25 → EDUNIT# 18:25 → ER 20:41
DX: S81.811A Laceration without foreign body, right lower leg, initial encounter (principal); E11.9 Type 2 diabetes mellitus without complications; G47.30 Sleep apnea, unspecified; Z99.89 Dependence on other enabling machines and devices; Z79.4 Long term (current) use of insulin; W22.8XXA Striking against or struck by other objects, initial encounter
CPT/HCPCS: 12032

== ENCOUNTER → 2023-01-08 | Outpatient (CLI) | payer MEDICARE ==
[~2023-01-08] MED LIST changes: +CEPH500T PO
[2023-01-08 09:02] LABS: ALBUMIN 4.1 GM/DL (3.2-4.5); POTASSIUM 4.3 MMOL/L (3.6-5.0)
[2023-01-08 09:04] LABS: CALCIUM 9.1 MG/DL (8.5-10.1)
[2023-01-08 09:07] LABS: BILIRUBIN,TOTAL 0.5 MG/DL (0.1-1.0)
[2023-01-08 09:08] LABS: CREATININE SERUM 1.38 MG/DL (0.60-1.30)
== END ==
LOC: LAB 07:56
PROVIDERS: ATTEND Internal Medicine
DX: Z13.6 Encounter for screening for cardiovascular disorders (principal); E11.65 Type 2 diabetes mellitus with hyperglycemia; R97.20 Elevated prostate specific antigen [PSA]
CPT/HCPCS: 36415; 80053; 82465; 83036; 84153; 84478

== ENCOUNTER 2023-01-22 08:47 | Emergency (ER) | payer MEDICARE ==
[~2023-01-22 08:47] MED LIST changes: -CELE400C10 PO; +CELE400C16 PO; +CEPH500T PO; +FINA-33 PO; -FINA5TAB PO; -PREG100C55 PO; +PREG100C56 PO; -PREG50CA65 PO; +PREG50CA66 PO
== END 2023-01-22 09:12 | disposition home or self-care (01) ==
LOC: EDUNIT# 08:47 → ER 08:49
DX: Z48.02 Encounter for removal of sutures (principal)